=== PATIENT | female | born 1930 | race Caucasian/White ===

== ENCOUNTER → 2016-06-29 | Outpatient (CLI) | payer MEDICARE, BC ==
[2016-06-29 17:23] LABS: Anisocytosis Moderate; Basophils % (A) 1 %; CH 29.4; CHCM 29.7; Eosinophils # (A) 0.1 k/uL (0-0.7); Eosinophils % (A) 3 %; HCT 32.5 % (34.0-46.0); HDW 4.05; HGB 9.7 gm/dL (11.4-16.0); Hypochromasia Marked; Luc % (Auto) 2; Lymphocytes # (A) 0.5 k/uL (1.0-4.8); Lymphocytes % (A) 11 %; MCH 29.8 pg (25.0-35.0); MCHC 29.9 g/dL (31.0-37.0); MCV 99.5 fL (80.0-100.0); Macrocytosis Moderate; Mean Platelet Volume 8.2; Monocytes # (A) 0.2 k/uL (0-1.0); Monocytes % (A) 3 %; Neutrophils # (A) 3.4 k/uL (1.3-7.7); Neutrophils % (A) 79 %; Poikilocytosis Moderate; RBC 3.26 m/uL (3.80-5.40); RDW 23.2 % (11.5-15.5); WBC 4.3 k/uL (3.8-10.6); WBC (Perox) 4.66
[2016-06-29 17:38] LABS: Calcium 8.2 mg/dL (8.4-10.2); Potassium 4.9 mmol/L (3.5-5.1); Total Bilirubin 0.8 mg/dL (0.2-1.3); Total Protein 6.7 g/dL (6.3-8.2)
[2016-06-29 17:49] LABS: % Iron Saturation 14.6 % (20-50)
== END | disposition home or self-care (01) ==
LOC: LABWHC1 16:14
PROVIDERS: ATTEND Internal Medicine
DX: D64.9 Anemia, unspecified (principal); N19 Unspecified kidney failure
CPT/HCPCS: 36415; 80053; 82728; 83540; 83550; 85025; 99214

== ENCOUNTER → 2016-07-05 | Outpatient (CLI) | payer MEDICARE, BC | END | disposition home or self-care (01) | LOC: LABWHC1 17:08 | PROVIDERS: ATTEND Internal Medicine | DX: D64.9 Anemia, unspecified (principal); N19 Unspecified kidney failure | CPT/HCPCS: 36415; 81050; 82575; 84156 ==

== ENCOUNTER 2016-07-11 10:25 | Emergency (ER) | payer MEDICARE, BC ==
[2016-07-11 10:42] VITALS: RESP 16
--- NOTE | 2016-07-11 11:05 | ED ---
Lower Extremity Injury HPI - General Source: patient, RN notes reviewed Mode of arrival: wheelchair Limitations: no limitations <Teri Hayes - Last Filed: 07/11/16 12:32> <Nas Dao - Last Filed: 07/11/16 13:19> - General Chief Complaint: Extremity Injury, Lower Stated Complaint: leg pain and swelling Time Seen by Provider: 07/11/16 10:46 - History of Present Illness Initial Comments: 86-year-old female presents to the emergency department with a chief complaint of left lower extremity swelling. Patient is getting worse over the last week or so. Patient states that around the ankle but no other pain. Patient states there is no falls or injuries to the ankle. Patient states that she was concerned because she just continued to have this discomfort so she thought that she should be evaluated. Patient denies any recent fever, chills, shortness of breath, chest pain, back pain, abdominal pain, nausea vomiting, numbness or tingling, dysuria or hematuria, constipation or diarrhea, headaches or visual changes, or any other current symptoms. (Teri Hayes) - Related Data Home Medications Medication Instructions Recorded Confirmed Levothyroxine Sodium [Synthroid] 88 mcg PO DAILY 07/11/16 07/11/16 Metoprolol Tartrate [Metoprolol 25 mg PO DAILY 07/11/16 07/11/16 Tartrate] Previous Rx's Medication Instructions Recorded Cephalexin [Keflex] 500 mg PO Q6HR #40 cap 07/11/16 Allergies Allergy/AdvReac Type Severity Reaction Status Date / Time No Known Allergies Allergy Verified 07/11/16 10:42 Review of Systems ROS Other: All systems not noted in ROS Statement are negative. <Teri Hayes - Last Filed: 07/11/16 12:32> ROS Other: All systems not noted in ROS Statement are negative. <Nas Dao - Last Filed: 07/11/16 13:19> ROS Statement: Those systems with pertinent positive or pertinent negative responses have been documented in the HPI. Past Medical History Past Medical History: Cancer, COPD, Hyperlipidemia, Hypertension, Syncope, Thyroid Disorder Additional Past Medical History / Comment(s): colon ca, recent lab tests show abnormal kidney fx History of Any Multi-Drug Resistant Organisms: None Reported Past Surgical History: Appendectomy Additional Past Surgical History / Comment(s): thyroidectomy, bowel resection Past Psychological History: No Psychological Hx Reported Smoking Status: Former smoker Past Alcohol Use History: None Reported Past Drug Use History: None Reported <Teri Hayes - Last Filed: 07/11/16 12:32> General Exam Limitations: no limitations General appearance: alert, in no apparent distress Head exam: Present: atraumatic, normocephalic, normal inspection ENT exam: Present: normal exam, mucous membranes moist Neck exam: Present: normal inspection. Absent: tenderness, meningismus, lymphadenopathy Respiratory exam: Present: normal lung sounds bilaterally. Absent: respiratory distress, wheezes, rales, rhonchi, stridor Cardiovascular Exam: Present: regular rate, normal rhythm, normal heart sounds. Absent: systolic murmur, diastolic murmur, rubs, gallop, clicks Extremities exam: Present: full ROM, tenderness (Around the left ankle), normal capillary refill, pedal edema (To the left lower extremity), calf tenderness ( Left lower extremity). Absent: joint swelling Back exam: Present: normal inspection Neurological exam: Present: alert, oriented X3 Psychiatric exam: Present: normal affect, normal mood Skin exam: Present: warm, dry, intact, normal color. Absent: rash <Teri Hayes - Last Filed: 07/11/16 12:32> Course <Teri Hayes - Last Filed: 07/11/16 12:32> <Nas Dao - Last Filed: 07/11/16 13:19> Vital Signs 07/11/16 07/11/16 10:36 13:10 Temperature 98.7 F 98.2 F Pulse Rate 91 93 Respiratory 16 16 Rate Blood Pressure 147/71 134/66 O2 Sat by Pulse 97 97 Oximetry - Reevaluation(s) Reevaluation #1: 07/11/16 13:19 I did personally do a [id number] evaluation the patient did discuss the findings with her and her having members. Left leg did demonstrate some edema compared to the right with some localized mild erythema no definite lymphangitis no open wounds. No calf tenderness. The ultrasound was negative. Patient will be discharged with follow-up with her doctor. I do agree with the assessment and plan. (Nas Dao) Medical Decision Making - Radiology Data Radiology results: report reviewed, image reviewed <Teri Hayes - Last Filed: 07/11/16 12:32> <Nas Dao - Last Filed: 07/11/16 13:19> - Medical Decision Making 86-year-old female presents emergency Department chief complaint of left lower extremity swelling. At this time ultrasound was reviewed and negative as well as x-ray. We discussed the patient could have a cellulitis (Keflex. We did discuss up with her Dr. return parameters all questions. He stated he understood the plan. They will be discharged home. (Teri Hayes) Disposition Time of Disposition: 12:33 <Teri Hayes - Last Filed: 07/11/16 12:32> <Nas Dao - Last Filed: 07/11/16 13:19> Clinical Impression: Left leg cellulitis Disposition: HOME SELF-CARE Condition: Stable Instructions: Cellulitis (ED) Additional Instructions: Please use medication as discussed. Please follow up with family doctor if symptoms have not improved over the next two days. Please return to the emergency room if your symptoms increase or worsen or for any other concerns. Prescriptions: Cephalexin [Keflex] 500 mg PO Q6HR #40 cap Referrals: Gina Montaño MD [Primary Care Provider] - 1-2 days
--- NOTE | 2016-07-11 11:20 | XR ---
EXAMINATION TYPE: XR ankle complete LT DATE OF EXAM: 07/11/2016 11:07 AM COMPARISON: NONE HISTORY: Pain, swelling TECHNIQUE: 3 view left ankle with mobile apparatus FINDINGS: No acute fracture evident. There is mild diffuse soft tissue swelling. Ankle mortise is int act. IMPRESSION: 1. Mild diffuse soft tissue swelling. 2. No acute osseous abnormality. 3. Follow-up exam can be performed 7-10 days from acute trauma for continued pain.
--- NOTE | 2016-07-11 12:18 | US ---
EXAMINATION TYPE: US venous doppler duplex LE LT DATE OF EXAM: 07/11/2016 11:49 AM COMPARISON: NONE CLINICAL HISTORY: Pain, swelling in left leg with pitting edema. SIDE PERFORMED: Left TECHNIQUE: The lower extremity deep venous system is examined utilizing real time linear array sonog gi with graded compression, doppler sonography and color-flow sonography. VESSELS IMAGED: External Iliac Vein (EIV) Common Femoral Vein Deep Femoral Vein Greater Saphenous Vein * Femoral Vein Popliteal Vein Small Saphenous Vein * Proximal Calf Veins (* superficial vessels) Left Leg: Negative for DVT IMPRESSION: 1. Left lower extremity negative for deep venous thrombosis.
[2016-07-11 13:13] VITALS: BP 134/66; PULSE 93; TEMP 98.2
== END 2016-07-11 13:10 | disposition home or self-care (01) ==
LOC: EC 10:25
DX: L03.116 Cellulitis of left lower limb (principal); I10 Essential (primary) hypertension; E07.9 Disorder of thyroid, unspecified; Z87.891 Personal history of nicotine dependence; Z79.899 Other long term (current) drug therapy; Z85.038 Personal history of other malignant neoplasm of large intestine; Z90.89 Acquired absence of other organs
CPT/HCPCS: 99284

== ENCOUNTER → 2016-07-15 | Outpatient (CLI) | payer MEDICARE, BC ==
--- NOTE | 2016-07-15 15:29 | US ---
EXAMINATION TYPE: US kidneys/renal and bladder DATE OF EXAM: 07/15/2016 1:44 PM COMPARISON: NONE CLINICAL HISTORY: N17.9 ACUTE RENAL FAILURE SYNDROME. Elderly female with no symptoms EXAM MEASUREMENTS: Right Kidney: 9.7 x 4.0 x 4.0 cm Left Kidney: 10.4 x 4.8 x 4.1 cm Right Kidney: moderate hydronephrosis with appearance of shadowing inferior stone = 1.7cm Left Kidney: wnl Bladder: wnl Bilateral Jets seen: no incidental finding of spleen upper limits of normal measuring 11.73 cm with mild ascites noted. IMPRESSION: 1. Right hydronephrosis 2. Ascites
== END | disposition home or self-care (01) ==
LOC: RADUSWWP 13:01
PROVIDERS: ATTEND Internal Medicine
DX: N13.30 Unspecified hydronephrosis (principal); R18.8 Other ascites
CPT/HCPCS: 76770

== ENCOUNTER → 2016-07-28 | Outpatient (CLI) | payer MEDICARE, BC ==
--- NOTE | 2016-07-28 08:47 | CT ---
EXAMINATION TYPE: CT abdomen pelvis wo con DATE OF EXAM: 07/28/2016 COMPARISON: Report but no images of a previous study dated 06/12/2008 as well as a recent ultrasound d ated 07/15/2016. HISTORY: Hydronephrosis CT DLP: 200.7 mGycm Automated exposure control for dose reduction was used. FINDINGS: There is some scarring or atelectasis within the left lingula. There is no pleural or peric ardial fluid. The heart is not enlarged. Within the abdomen, there is ascites. The liver, spleen and gallbladder are normal. Both adrenal glands are normal. There is bilateral hydronephrosis. The ureters are not particularly dilated. There are numerous vascu lar calcifications within the pelvis. The difficult to exclude distal ureteric calculi. The bladder i s not distended. The pancreas is poorly visualized. There is extensive vascular calcification in the aortoiliac vessels. No definite lymphadenopathy is s een in the retroperitoneum. There is generalized anasarca. There is been a previous sigmoid resection. I do not see evidence of significant diverticulosis. Ther e is no evidence of bowel obstruction. No free air is seen. There is a dextroscoliosis. There is degenerative disc disease and hypertrophic spondylosis. There is mild wedging of the L1 vertebral body. This appears chronic. There is been interval straightening of the right hip. No bony destructive lesion is seen. IMPRESSION: 1. MODERATE ASCITES. 2. BILATERAL HYDRONEPHROSIS. THERE IS NO SIGNIFICANT HYDROURETER. MULTIPLE CALCIFICATIONS WITHIN THE PELVIS MAKE IT DIFFICULT TO EXCLUDE DISTAL URETERIC CALCULI. 3. GENERALIZED ANASARCA. 4. POSTSURGICAL CHANGE. 5. DEGENERATIVE CHANGES WITHIN THE SPINE.
== END | disposition home or self-care (01) ==
LOC: RADCTMAIN 07:48
PROVIDERS: ATTEND Urology
DX: N13.30 Unspecified hydronephrosis (principal); R18.8 Other ascites; Z98.890 Other specified postprocedural states
CPT/HCPCS: 74176

== ENCOUNTER → 2016-08-05 | Outpatient (CLI) | payer MEDICARE, BC ==
--- NOTE | 2016-08-05 09:52 | US ---
EXAMINATION TYPE: US abdomen complete DATE OF EXAM: 08/05/2016 COMPARISON: 07/15/2016 CLINICAL HISTORY: R10.9 Abdomen And Pelvic Pain. Pain. EXAM MEASUREMENTS: Liver Length: 15.2 cm Gallbladder Wall: 0.15 cm CBD: 0.42 cm Spleen: 9.8 cm Right Kidney: 8.2 x 3.5 x 3.1 cm Left Kidney: 6.6 x 3.0 x 3.9 cm Pancreas:limited obscured by gas.l Liver: wnl Gallbladder: Pericholecystic fluid visualized. Evidence for sonographic Estrada's sign: No CBD: wnl Spleen: wnl Right Kidney: Hydronephrosis and 1.2 cm echogenic focus.l Left Kidney:Hydronephrosis visualized. L Upper IVC: wnl Abd Aorta: wnl Ascites visualized. IMPRESSION: 1. There is pericholecystic fluid but no gallbladder wall thickening or gallstones. Correlate with HI DA scan as clinically warranted. 2. Bilateral hydronephrosis with a 1.2 cm right renal stone suspected.
--- NOTE | 2016-08-05 09:53 | US ---
EXAMINATION TYPE: US pelvic complete DATE OF EXAM: 08/05/2016 COMPARISON: NONE CLINICAL HISTORY: R10.9 Abdomen and Pelvic Pain. Pain Date of LMP: Many years ago patient unsure of exact date. EXAM MEASUREMENTS: Uterus: 5.1 x 2.5 x 3.1 cm Endometrial Stripe: Not well visualized. cm Right Ovary: Not visualized Left Ovary Not visualized. 1. Uterus: Anteverted 2. Endometrium: Obscured by overlying bowel gas 3. Right Ovary: Obscured by overlying bowel gas 4. Left Ovary: Obscured by overlying bowel gas. 5. Bilateral Adnexa: wnl 6. Posterior cul-de-sac: wnl IMPRESSION: 1. Limited exam due to overlying bowel gas demonstrates no definite acute abnormality as visualized. Ovaries are not seen. 2. Endometrial stripe could not be visualized.
--- NOTE | 2016-08-05 09:54 | US ---
EXAMINATION TYPE: US venous doppler duplex LE LT DATE OF EXAM: 08/05/2016 9:06 AM COMPARISON: NONE CLINICAL HISTORY: LLE V12.51 Deep Vein Thrombosis R22.42 Swelling. Left leg edema. SIDE PERFORMED: Left TECHNIQUE: The lower extremity deep venous system is examined utilizing real time linear array sonog gi with graded compression, doppler sonography and color-flow sonography. VESSELS IMAGED: External Iliac Vein (EIV) Common Femoral Vein Deep Femoral Vein Greater Saphenous Vein * Femoral Vein Popliteal Vein Small Saphenous Vein * Proximal Calf Veins (* superficial vessels) Left Leg: Negative for DVT IMPRESSION: 1. No diagnostic evidence of DVT.
== END | disposition home or self-care (01) ==
LOC: RADUSWWP 08:01
PROVIDERS: ATTEND Internal Medicine
DX: N13.30 Unspecified hydronephrosis (principal); R10.9 Unspecified abdominal pain; I82.409 Acute embolism and thrombosis of unspecified deep veins of unspecified lower extremity
CPT/HCPCS: 76700; 76856

== ENCOUNTER 2016-08-13 08:39 | Day surgery (SDC) | payer MEDICARE, BC ==
[2016-08-13 09:09] VITALS: BP 139/72; PULSE 100; RESP 18; TEMP 97.7
--- NOTE | 2016-08-13 10:04 | US ---
Therapeutic paracentesis. DATE OF EXAM: 08/13/2016 CLINICAL HISTORY: Ascites Primary imaging demonstrated no evidence of sizable fluid collection for percutaneous drainage. IMPRESSION: Deferred paracentesis due to no sizable collection for drainage.
== END 2016-08-13 10:00 | disposition home or self-care (01) ==
LOC: RADPROMAIN 08:39
PROVIDERS: ATTEND Internal Medicine
DX: R18.8 Other ascites (principal); Z53.8 Procedure and treatment not carried out for other reasons; N13.30 Unspecified hydronephrosis; R60.0 Localized edema; C73 Malignant neoplasm of thyroid gland; C18.9 Malignant neoplasm of colon, unspecified; J45.909 Unspecified asthma, uncomplicated; M19.90 Unspecified osteoarthritis, unspecified site; Z87.891 Personal history of nicotine dependence; N18.9 Chronic kidney disease, unspecified; Z79.82 Long term (current) use of aspirin; Z79.899 Other long term (current) drug therapy
CPT/HCPCS: 76705

== ENCOUNTER → 2016-08-16 | Outpatient (CLI) | payer MEDICARE, BC ==
[2016-08-16 17:07] LABS: Calcium 7.5 mg/dL (8.4-10.2); Potassium 5.5 mmol/L (3.5-5.1); Total Bilirubin 0.8 mg/dL (0.2-1.3); Total Protein 6.6 g/dL (6.3-8.2)
[2016-08-16 17:17] LABS: Anisocytosis Moderate; CH 28.1; CHCM 29.4; HCT 40.1 % (34.0-46.0); HDW 4.17; HGB 11.4 gm/dL (11.4-16.0); Hypochromasia Marked; MCH 27.2 pg (25.0-35.0); MCHC 28.4 g/dL (31.0-37.0); MCV 95.8 fL (80.0-100.0); Macrocytosis Slight; Mean Platelet Volume 8.4; Poikilocytosis Moderate; RBC 4.19 m/uL (3.80-5.40); RDW 21.5 % (11.5-15.5); WBC 11.3 k/uL (3.8-10.6)
[2016-08-16 20:16] LABS: Add Differential Manual Differential
[2016-08-16 20:17] LABS: Manual Review Performed; Nucleated Red Blood Cells 0 /100 WBC (0-0); Ovalocytes Present; Polychromasia Present; Total Cells Counted 100
[2016-08-16 20:18] LABS: Tear Drop Cells Present
== END | disposition home or self-care (01) ==
LOC: LABWHC1 16:38
PROVIDERS: ATTEND Internal Medicine
DX: N18.9 Chronic kidney disease, unspecified (principal)
CPT/HCPCS: 36415; 80053; 85025

== ENCOUNTER → 2016-08-20 | Outpatient (CLI) | payer MEDICARE, BC ==
[2016-08-20 08:57] LABS: Potassium 3.9 mmol/L (3.5-5.1)
== END | disposition home or self-care (01) ==
LOC: LABWHC1 08:09
PROVIDERS: ATTEND Internal Medicine
DX: N19 Unspecified kidney failure (principal); E87.5 Hyperkalemia
CPT/HCPCS: 36415; 80048

== ENCOUNTER 2016-10-15 14:17 | Inpatient (IN) | payer BC, MEDICARE ==
[2016-10-15] MEDS ORDERED: SODIUM CHLORIDE 0.9% 1,000 ML IV STA ×2 (16:34)
--- NOTE | 2016-10-15 16:58 | ED ---
Weakness HPI - General Chief complaint: Weakness Stated complaint: dehydration/no appetite-sent by Time Seen by Provider: 10/15/16 16:32 Source: patient, family, RN notes reviewed, old records reviewed Mode of arrival: wheelchair Limitations: no limitations - History of Present Illness Initial comments: Is an 86-year-old female presenting to the emergency department after being urged to come here from Dr. Montaño. He reports that he wants her admitted due to the dehydration and severe diarrhea. Patient has had no recent antibiotics, they're not concerned for C. diff. Patient's caregiver, her niece, reports that she has been increasingly weak over the past few weeks, and is not able to tolerate a normal diet. Patient report that she has been occasionally short of breath, denies a specific Abdominal pain or chest pain. Patient reports he just feels as if she has no energy whatsoever. - Related Data Home Medications Medication Instructions Recorded Confirmed Levothyroxine Sodium [Synthroid] 88 mcg PO DAILY 07/11/16 10/15/16 Metoprolol Tartrate [Metoprolol 25 mg PO DAILY 07/11/16 10/15/16 Tartrate] Allergies Allergy/AdvReac Type Severity Reaction Status Date / Time No Known Allergies Allergy Verified 10/15/16 16:44 Review of Systems ROS Statement: Those systems with pertinent positive or pertinent negative responses have been documented in the HPI. ROS Other: All systems not noted in ROS Statement are negative. Past Medical History Past Medical History: Cancer, COPD, Hyperlipidemia, Hypertension, Syncope, Thyroid Disorder Additional Past Medical History / Comment(s): colon ca, recent lab tests show abnormal kidney fx History of Any Multi-Drug Resistant Organisms: None Reported Past Surgical History: Appendectomy Additional Past Surgical History / Comment(s): thyroidectomy, bowel resection Past Psychological History: No Psychological Hx Reported Smoking Status: Former smoker Past Alcohol Use History: None Reported Past Drug Use History: None Reported General Exam - General Exam Comments Initial Comments: His is a 86-year-old female. No acute distress. Limitations: no limitations General appearance: alert, in no apparent distress Head exam: Present: atraumatic, normocephalic, normal inspection Eye exam: Present: normal appearance, PERRL, EOMI. Absent: scleral icterus, conjunctival injection, periorbital swelling ENT exam: Present: normal exam, mucous membranes moist Neck exam: Present: normal inspection. Absent: tenderness, meningismus, lymphadenopathy Respiratory exam: Present: wheezes (diminished left lower lung sounds). Absent : normal lung sounds bilaterally, respiratory distress, rales, rhonchi, stridor Cardiovascular Exam: Present: regular rate, normal rhythm, tachycardia, normal heart sounds. Absent: systolic murmur, diastolic murmur, rubs, gallop, clicks GI/Abdominal exam: Present: soft, normal bowel sounds. Absent: distended, tenderness, guarding, rebound, rigid Extremities exam: Present: normal inspection, full ROM, normal capillary refill , pedal edema (Bilateral 2+ pedal edema.). Absent: tenderness, joint swelling, calf tenderness Back exam: Present: normal inspection, full ROM Neurological exam: Present: alert, oriented X3, CN II-XII intact, normal gait Psychiatric exam: Present: normal affect, normal mood Skin exam: Present: warm, dry, intact, normal color. Absent: rash Course Vital Signs 10/15/16 14:27 Temperature 96.7 F L Pulse Rate 104 H Respiratory 18 Rate Blood Pressure 111/67 O2 Sat by Pulse 97 Oximetry Medical Decision Making - Medical Decision Making A 6-year-old female chief complaint dehydration and increased weakness. Patient started on IV fluids and laboratory obtained. She was encouraged to get admitted by Dr. Ayoub, for dehydratin. Patient was given chest x-ray, CT brain without contrast. Patient's Renal function is significantly elevated at 67 and creatinine of 5.98. Patient also has a low potassium 3.2. This will be corrected. [facility] Dr[facility]. Patient will be admitted with IV hydration. I will place a consult for nephrology, Dr. Barnhart. Patient's chest x-ray also shows evidence of a left sided consolidation, left pleural effusion. BNP obtain and blood cultures obtained. Patient was started on Rocephin and Azithromycin for pneumonia, is a concern with starting Levaquin due to patient's poor renal function at this time. Patient only also given the pneumonia protocol with breathing treatments. Patient's hemoglobin is also noted to be somewhat low at 8.9. We will reevaluate this tomorrow and see if it does have any acute changes. She's had no diarrhea episodes while in the emergency department. Currently pending C. diff, and stool cultures. Patient also has not urinated after 1 L of fluids and some maintenance rate, patient will be admitted upstairs. - Lab Data Result diagrams: 10/15/16 17:27 10/15/16 17:27 Lab Results 10/15/16 10/15/16 10/15/16 Range/Units 17:27 17:27 17:27 WBC 7.2 (3.8-10.6) k/uL RBC 3.45 L (3.80-5.40) m/uL Hgb 8.9 L D (11.4-16.0) gm/dL Hct 29.1 L (34.0-46.0) % MCV 84.3 D (80.0-100.0) fL MCH 25.7 (25.0-35.0) pg MCHC 30.5 L (31.0-37.0) g/dL RDW 22.0 H (11.5-15.5) % Plt Count 104 L D (150-450) k/uL Neutrophils % 78 % Lymphocytes % 10 % Monocytes % 3 % Eosinophils % 7 % Basophils % 1 % Neutrophils # 5.6 (1.3-7.7) k/uL Lymphocytes # 0.7 L (1.0-4.8) k/uL Monocytes # 0.2 (0-1.0) k/uL Eosinophils # 0.5 (0-0.7) k/uL Basophils # 0.0 (0-0.2) k/uL Hypochromasia Marked Poikilocytosis Marked Anisocytosis Moderate Microcytosis Slight PT 11.0 (9.0-12.0) sec INR 1.1 (<1.2) APTT 28.4 (22.0-30.0) sec Sodium 141 (137-145) mmol/L Potassium 3.2 L (3.5-5.1) mmol/L Chloride 116 H (98-107) mmol/L Carbon Dioxide 13 L (22-30) mmol/L Anion Gap 12 mmol/L BUN 67 H (7-17) mg/dL Creatinine 5.98 H* (0.52-1.04) mg/dL Est GFR (MDRD) Af Amer 8 (>60 ml/min/1.73 sqM) Est GFR (MDRD) Non-Af 7 (>60 ml/min/1.73 sqM) Glucose 76 (74-99) mg/dL Plasma Lactic Acid Waldo (0.7-2.0) mmol/L Calcium 6.9 L (8.4-10.2) mg/dL Magnesium 2.0 (1.6-2.3) mg/dL Total Bilirubin 1.0 (0.2-1.3) mg/dL AST 18 (14-36) U/L ALT 32 (9-52) U/L Alkaline Phosphatase 83 (38-126) U/L Total Creatine Kinase (30-135) U/L CK-MB (CK-2) (0.0-2.4) ng/mL CK-MB (CK-2) Rel Index Troponin I (0.000-0.034) ng/mL Total Protein 5.9 L (6.3-8.2) g/dL Albumin 3.0 L (3.5-5.0) g/dL 10/15/16 10/15/16 Range/Units 17:27 17:27 WBC (3.8-10.6) k/uL RBC (3.80-5.40) m/uL Hgb (11.4-16.0) gm/dL Hct (34.0-46.0) % MCV (80.0-100.0) fL MCH (25.0-35.0) pg MCHC (31.0-37.0) g/dL RDW (11.5-15.5) % Plt Count (150-450) k/uL Neutrophils % % Lymphocytes % % Monocytes % % Eosinophils % % Basophils % % Neutrophils # (1.3-7.7) k/uL Lymphocytes # (1.0-4.8) k/uL Monocytes # (0-1.0) k/uL Eosinophils # (0-0.7) k/uL Basophils # (0-0.2) k/uL Hypochromasia Poikilocytosis Anisocytosis Microcytosis PT (9.0-12.0) sec INR (<1.2) APTT (22.0-30.0) sec Sodium (137-145) mmol/L Potassium (3.5-5.1) mmol/L Chloride (98-107) mmol/L Carbon Dioxide (22-30) mmol/L Anion Gap mmol/L BUN (7-17) mg/dL Creatinine (0.52-1.04) mg/dL Est GFR (MDRD) Af Amer (>60 ml/min/1.73 sqM) Est GFR (MDRD) Non-Af (>60 ml/min/1.73 sqM) Glucose (74-99) mg/dL Plasma Lactic Acid Waldo 1.0 (0.7-2.0) mmol/L Calcium (8.4-10.2) mg/dL Magnesium (1.6-2.3) mg/dL Total Bilirubin (0.2-1.3) mg/dL AST (14-36) U/L ALT (9-52) U/L Alkaline Phosphatase (38-126) U/L Total Creatine Kinase 106 (30-135) U/L CK-MB (CK-2) 2.2 (0.0-2.4) ng/mL CK-MB (CK-2) Rel Index 2.1 Troponin I <0.012 (0.000-0.034) ng/mL Total Protein (6.3-8.2) g/dL Albumin (3.5-5.0) g/dL 10/15/16 18:46 EKG shows normal sinus rhythm. Evidence of T-wave abdomen rounded considering anterior ischemia. Ventricular rate 67 beats were minute. WA interval 160 ms. QRS ration 86 ms. QT QTc is 400/422 ms. - Radiology Data Radiology results: report reviewed Chest x-ray shows Left lower lobe consolidation, left pleural effusion. There is probably mild heart failure. Brain CT shows cervical atrophy. No acute intracranial abnormality. Disposition Clinical Impression: Dehydration, Acute kidney injury, Diarrhea, Left lower lobe pneumonia, Pleural effusion, left Disposition: ADMITTED IP TO THIS HOSP Condition: Stable Referrals: Gnia Montaño MD [Primary Care Provider] - 1-2 days Time of Disposition: 18:58
[2016-10-15 17:53] LABS: Calcium 6.9 mg/dL (8.4-10.2); Potassium 3.2 mmol/L (3.5-5.1); Total Protein 5.9 g/dL (6.3-8.2)
[2016-10-15 17:56] LABS: INR 1.1 (<1.2); Partial Thromboplastin Time 28.4 sec (22.0-30.0)
[2016-10-15 18:06] LABS: Anisocytosis Moderate; Basophils % (A) 1 %; CH 26.2; CHCM 31.3; Creatine Kinase 106 U/L (30-135); Eosinophils # (A) 0.5 k/uL (0-0.7); Eosinophils % (A) 7 %; HCT 29.1 % (34.0-46.0); HDW 4.75; Hypochromasia Marked; Luc # (Auto) 0.11; Luc % (Auto) 2; Lymphocytes # (A) 0.7 k/uL (1.0-4.8); Lymphocytes % (A) 10 %; MCH 25.7 pg (25.0-35.0); MCHC 30.5 g/dL (31.0-37.0); Mean Platelet Volume 6.8; Microcytosis Slight; Monocytes # (A) 0.2 k/uL (0-1.0); Monocytes % (A) 3 %; Neutrophils # (A) 5.6 k/uL (1.3-7.7); Neutrophils % (A) 78 %; Poikilocytosis Marked; RBC 3.45 m/uL (3.80-5.40); WBC 7.2 k/uL (3.8-10.6); WBC (Perox) 7.57
[2016-10-15 18:10] LABS: HGB 8.9 gm/dL (11.4-16.0)
[2016-10-15 18:11] LABS: MCV 84.3 fL (80.0-100.0)
[2016-10-15 18:20] LABS: Creatine Kinase MB 2.2 ng/mL (0.0-2.4); Troponin I <0.012 ng/mL (0.000-0.034)
--- NOTE | 2016-10-15 18:25 | CT ---
EXAMINATION TYPE: CT brain wo con DATE OF EXAM: 10/15/2016 COMPARISON: NONE HISTORY: Patient poor historian. Patient denies head complaints. Weakness. CT DLP: 782.7 mGycm Automated exposure control for dose reduction was used. FINDINGS: There is cerebral cortical atrophy. There is no mass effect nor midline shift. There is no sign of in tracranial hemorrhage. The calvarium appears intact. IMPRESSION: CEREBRAL ATROPHY. NO ACUTE INTRACRANIAL ABNORMALITY.
[2016-10-15] MEDS ORDERED: NALOXONE 0.4 MG/ML 1 ML VIAL IV PRN (18:55)
[2016-10-15] MEDS ORDERED: ACETAMINOPHEN TAB 325 MG TAB PO PRN (18:55)
[2016-10-15] MEDS ORDERED: LORazepam 2 MG/ML SYRINGE IV PRN (18:55)
[2016-10-15] MEDS ORDERED: SODIUM CHLORIDE 0.9% 1,000 ML IV SCH (19:00)
--- NOTE | 2016-10-15 19:04 | XR ---
EXAMINATION TYPE: XR chest 2V DATE OF EXAM: 10/15/2016 COMPARISON: NONE HISTORY: Weakness TECHNIQUE: Frontal and lateral views of the chest are obtained. FINDINGS: There is blunting of left costophrenic angle. There is mild pulmonary vascular congestion. Heart appears enlarged. There is some pleural scarring at the lung apices. IMPRESSION: There is left lower lobe consolidation and left pleural effusion. There is probably mild heart failure.
[2016-10-15] MEDS ORDERED: IPRATROPIUM-ALBUTEROL 3 ML NEB INHALATION PRN (19:18)
[2016-10-15] MEDS ORDERED: AZITHROMYCIN 500 MG in SODIUM CHLORIDE 0.9% 250 ML IVPB STA (19:18)
[2016-10-15] MEDS ORDERED: PNEUMONIA PROTOCOL UTILIZED 1 EACH MISC PO PRN (19:18)
[2016-10-15] MEDS: POTASSIUM CHLORIDE 10 MEQ, LIDOCAINE 2% INJ 10 MG in SODIUM CHLORIDE 0.9% 100 ML IVPB SCH ×2 (19:24→20:58)
[2016-10-15] MEDS: FAMOTIDINE 20 MG TAB PO SCH (21:17)
[2016-10-15] MEDS: HEPARIN SODIUM,PORCINE 5,000 UNIT/ML 1 ML VIAL SQ SCH (21:17)
[2016-10-15] MEDS: SODIUM CHLORIDE 0.9% 1,000 ML IV SCH (22:07)
[2016-10-16] MEDS: VANCOMYCIN ORAL SOLUTION 250 MG/5 ML BOTTLE PO SCH ×4 (06:06→23:55)
[2016-10-16] MEDS: LEVOTHYROXINE 88 MCG TAB PO SCH (06:06)
[2016-10-16] MEDS: CHERRY FLAVOR 60 ML BOTTLE PO SCH ×4 (06:06→23:56)
[2016-10-16] MEDS: METOPROLOL TARTRATE 25 MG TAB PO SCH (07:28)
[2016-10-16] MEDS: HEPARIN SODIUM,PORCINE 5,000 UNIT/ML 1 ML VIAL SQ SCH ×2 (07:28→22:27)
[2016-10-16] MEDS: FAMOTIDINE 20 MG TAB PO SCH ×2 (07:28→22:27)
[2016-10-16 07:32] LABS: Anisocytosis Moderate; Basophils % (A) 1 %; CH 26.4; CHCM 31.2; Eosinophils # (A) 0.4 k/uL (0-0.7); Eosinophils % (A) 6 %; HCT 26.8 % (34.0-46.0); HDW 4.69; HGB 7.9 gm/dL (11.4-16.0); Hypochromasia Marked; Luc # (Auto) 0.07; Luc % (Auto) 1; Lymphocytes # (A) 0.5 k/uL (1.0-4.8); Lymphocytes % (A) 9 %; MCH 25.2 pg (25.0-35.0); MCHC 29.6 g/dL (31.0-37.0); MCV 85.2 fL (80.0-100.0); Mean Platelet Volume 7.2; Microcytosis Slight; Monocytes # (A) 0.1 k/uL (0-1.0); Monocytes % (A) 2 %; Neutrophils # (A) 4.7 k/uL (1.3-7.7); Neutrophils % (A) 81 %; Poikilocytosis Marked; RBC 3.15 m/uL (3.80-5.40); RDW 22.5 % (11.5-15.5); WBC 5.8 k/uL (3.8-10.6); WBC (Perox) 5.92
[2016-10-16 07:54] LABS: Potassium 3.3 mmol/L (3.5-5.1)
[2016-10-16 08:05] LABS: Calcium 6.4 mg/dL (8.4-10.2)
[2016-10-16 08:15] LABS: Ovalocytes Present
--- NOTE | 2016-10-16 08:30 | P.NPCON ---
History of Present Illness - Reason for Consult acute renal failure - History of Present Illness Patient is a 86-year-old female who was admitted to the hospital with complaints of weakness fatigue for the last few weeks. According to her caregiver who is her niece patient has been having diarrhea for up for the past 3-4 days as well. She has been mainly laying in bed. Family has noticed increased lower extremity edema. Her C. diff toxin did boot turner to be positive. There is no prior history of kidney disease. Serum creatinine was 5.98 mg/dL the time of admission. Patient is currently maintained on IV fluids at 50 mL an hour her creatinine is 5.6 today. Prior creatinine was 2.1 in July 2016 and prior to that in June we have a creatinine of 1.3. No history of use of nonsteroidal anti-inflammatory agents. Blood pressure was slightly on the lower side at the time of admission. Off note is an ultrasound done on 08/05/2016 which showed bilateral hydronephrosis. According to the caregiver patient was scheduled to see nephrology as outpatient but she deteriorated and is now admitted in the hospital. Review of Systems Review of systems as per HPI other systems negative Past Medical History Past Medical History: Cancer, COPD, Hyperlipidemia, Hypertension, Syncope, Thyroid Disorder Additional Past Medical History / Comment(s): colon ca, recent lab tests show abnormal kidney fx History of Any Multi-Drug Resistant Organisms: None Reported Past Surgical History: Appendectomy Additional Past Surgical History / Comment(s): thyroidectomy, bowel resection Past Psychological History: No Psychological Hx Reported Smoking Status: Former smoker Past Alcohol Use History: None Reported Past Drug Use History: None Reported Medications and Allergies Home Medications Medication Instructions Recorded Confirmed Type Levothyroxine Sodium [Synthroid] 88 mcg PO DAILY 07/11/16 10/15/16 History Metoprolol Tartrate [Metoprolol 25 mg PO DAILY 07/11/16 10/15/16 History Tartrate] Allergies Allergy/AdvReac Type Severity Reaction Status Date / Time No Known Allergies Allergy Verified 10/15/16 16:44 Physical Exam Vitals: Vital Signs Temp Pulse Pulse Resp BP BP Pulse Ox 10/16/16 07:00 96.7 F L 72 18 126/67 97 10/15/16 23:00 96 F L 78 20 109/63 98 10/15/16 20:55 96.7 F L 10/15/16 20:54 78 20 137/66 10/15/16 20:13 97.3 F L 71 18 134/61 96 10/15/16 19:32 70 18 131/60 99 10/15/16 14:27 96.7 F L 104 H 18 111/67 97 Intake and Output 10/15/16 10/16/16 10/16/16 22:59 06:59 14:59 Intake Total 200 100 Balance 200 100 Intake: Oral 200 100 Other: # Voids 2 3 # Bowel Movements 5 Weight 46.493 kg On examination patient is comfortable awake she is not in any acute distress alert and oriented 3. Gordon blood pressure is 126/67 Heart rate 72/m Patient is afebrile Abdomen is soft nontender Examination of the heart S1 and S2 Examination lungs bilateral breath sounds are heard decreased breath sounds bases Examination of lower extremities shows edema 1+ bilaterally. 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 Results - Lab Results Most recent lab results Calcium 6.4 mg/dL (8.4-10.2) L* 10/16/16 07:02 Magnesium 2.0 mg/dL (1.6-2.3) 10/15/16 17:27 10/16/16 07:02 10/16/16 07:02 Assessment and Plan Plan: Assessment 1. Acute kidney injury, mostly obstructive versus a component of ATN on top secondary to C. diff colitis. Patient's ultrasound in July showed evidence of bilateral hydronephrosis. I we will repeat another ultrasound of the kidneys. Urine output will be accurately monitored. We may continue with the this saline at 50 mL an hour for now. Patient does not appear to be significantly short of breath. She does have lower extremity edema which can be associated with C. diff colitis and the loss of protein. 2. C. diff colitis 3. History of colon cancer 4. COPD Plan Check ultrasound of the kidneys, measure accurate urine output. Start treatment for C. diff colitis. If chest x-ray shows worsening CHF I will discontinue the IV fluids. Avoid hypotension and avoid any other nephrotoxic medications. Thank you for the consultation we'll continue to follow the patient with you during her hospitalization.
--- NOTE | 2016-10-16 08:32 | XR ---
EXAMINATION TYPE: XR chest 2V DATE OF EXAM: 10/16/2016 COMPARISON: 10/15/2016 TECHNIQUE: PA and lateral views submitted. HISTORY: Pneumonia FINDINGS: Left-sided consolidation pleural effusion noted. Biapical pleural thickening. No interstitial edema. Heart size stable. Underlying COPD noted. IMPRESSION: 1. Stable left lower lobe infiltrate and small effusion. 2. COPD.
[2016-10-16] MEDS ORDERED: CALCIUM GLUCONATE 1,000 MG in SODIUM CHLORIDE 0.9% 100 ML IVPB ONE (08:41)
[2016-10-16] MEDS: SODIUM BICARBONATE TAB 650 MG TAB PO SCH ×3 (09:15→22:27)
--- NOTE | 2016-10-16 11:49 | P.CNPUL ---
History of Present Illness Consult date: 10/16/16 Reason for consult: dyspnea, cough, hypoxemia, pneumonia, pleural effusion, abnormal CXR/CT History of present illness: Consult dated 10/16/2016 This is a 86-year-old female who sees my partner as her primary. Apparently presented to the office yesterday and was sent directly over to the emergency room. The patient apparently was thought to have dehydration and some mental status changes along with some weakness. The patient was evaluated emergency room. The patient was found to have a left lower lobe pneumonia left pleural effusion. Hasn't been really feeling well since June. Decreased appetite. About lower extremity edema. Just has not had weight loss of maybe 10 or 15 pounds over the last month or so. The patient just isn't herself. The patient was a former smoker many years ago. Has smoked recently. Did smoke for a long period of time. It appears that her 2 major problems are hypothyroidism and hypertension for which she takes Synthroid and metoprolol respectively. ALLERGIES are denied. Review of Systems A 12 point review of system is positive for weakness weight loss and decreased appetite lower extremity edema and just not feeling well. Bit of a cough that she's had a chronic cough. Doesn't produce any phlegm. No fever or chills. No hemoptysis. Past Medical History Past Medical History: Cancer, COPD, Hyperlipidemia, Hypertension, Syncope, Thyroid Disorder Additional Past Medical History / Comment(s): colon ca, recent lab tests show abnormal kidney fx History of Any Multi-Drug Resistant Organisms: None Reported Past Surgical History: Appendectomy Additional Past Surgical History / Comment(s): thyroidectomy, bowel resection Past Psychological History: No Psychological Hx Reported Smoking Status: Former smoker Past Alcohol Use History: None Reported Past Drug Use History: None Reported Medications and Allergies Home Medications Medication Instructions Recorded Confirmed Type Levothyroxine Sodium [Synthroid] 88 mcg PO DAILY 07/11/16 10/15/16 History Metoprolol Tartrate [Metoprolol 25 mg PO DAILY 07/11/16 10/15/16 History Tartrate] Allergies Allergy/AdvReac Type Severity Reaction Status Date / Time No Known Allergies Allergy Verified 10/15/16 16:44 Physical Exam Osteopathic Statement: *. No significant issues noted on an osteopathic structural exam other than those noted in the History and Physical/Consult. Vitals: Vital Signs Temp Pulse Pulse Resp BP BP Pulse Ox 10/16/16 07:00 96.7 F L 72 18 126/67 97 10/15/16 23:00 96 F L 78 20 109/63 98 10/15/16 20:55 96.7 F L 10/15/16 20:54 78 20 137/66 10/15/16 20:13 97.3 F L 71 18 134/61 96 10/15/16 19:32 70 18 131/60 99 10/15/16 14:27 96.7 F L 104 H 18 111/67 97 Intake and Output 10/15/16 10/16/16 10/16/16 22:59 06:59 14:59 Intake Total 200 100 Balance 200 100 Intake: Oral 200 100 Other: Voiding Method Toilet # Voids 2 3 1 # Bowel Movements 5 1 Weight 46.493 kg No acute distress, oriented 3. HEENT examination is grossly unremarkable. Mucous membranes are moist. No oral lesions. Neck supple. Full range of motion. No adenopathy or thyromegaly. Neck veins are flat. Cardiovascular examination reveals regular rhythm rate. S1-S2 normal. No S3- S4 or murmur. Lungs reveal some diminished breath sounds throughout. A few scattered rhonchi. No wheezes. No crackles. Abdomen soft bowel sounds are heard. Extremities are intact. There is about 1+ edema. No cyanosis or clubbing. Skin without rash. Neurologic examination is nonfocal. Results - Laboratory Findings CBC and BMP: 10/16/16 07:02 10/16/16 07:02 PT/INR, D-dimer PT 11.0 sec (9.0-12.0) 10/15/16 17:27 INR 1.1 (<1.2) 10/15/16 17:27 Abnormal lab findings: Abnormal Labs 10/15/16 10/15/16 10/16/16 17:27 17:27 00:55 RBC 3.45 L Hgb 8.9 L D Hct 29.1 L MCHC 30.5 L RDW 22.0 H Plt Count 104 L D Lymphocytes # 0.7 L Potassium 3.2 L Chloride 116 H Carbon Dioxide 13 L BUN 67 H Creatinine 5.98 H* Calcium 6.9 L Total Protein 5.9 L Albumin 3.0 L C. difficile (EIA) Intrp Positive A 10/16/16 10/16/16 07:02 07:02 RBC 3.15 L Hgb 7.9 L Hct 26.8 L MCHC 29.6 L RDW 22.5 H Plt Count 98 L Lymphocytes # 0.5 L Potassium 3.3 L Chloride 120 H* Carbon Dioxide 14 L BUN 63 H Creatinine 5.60 H* Calcium 6.4 L* Total Protein Albumin C. difficile (EIA) Intrp - Diagnostic Findings Chest x-ray: image reviewed (X-rays labs and medications are all reviewed.) Assessment and Plan (1) Colon cancer Status: Acute (2) Hypertension Status: Acute (3) Hypothyroidism Status: Acute (4) Weight loss Status: Acute (5) Acute kidney injury Status: Acute (6) Dehydration Status: Acute (7) Left lower lobe pneumonia Status: Acute (8) Pleural effusion, left Status: Acute Plan: Plan dated 10/16/2016 The patient will have a CAT scan ordered of the chest. She may need a diagnostic thoracentesis or bronchoscopy. We'll await the CAT scan. The CAT scan will have to be done without contrast given her BUN/creatinine. Additional recommendations and suggestions are forthcoming. We'll make sure we get her on some breathing treatments and appropriate antibiotics. Prognosis is guarded. Malignancy is certainly a possibility given her recent decreased appetite and weight loss. Time with Patient: Greater than 30
[2016-10-16] MEDS ORDERED: IPRATROPIUM-ALBUTEROL 3 ML NEB INHALATION PRN (11:50)
[2016-10-16 11:57] VITALS: BMI 18.7
[2016-10-16] MEDS: IPRATROPIUM-ALBUTEROL 3 ML NEB INHALATION SCH ×2 (12:21→20:51)
--- NOTE | 2016-10-16 12:28 | US ---
EXAMINATION TYPE: US kidneys/renal and bladder DATE OF EXAM: 10/16/2016 COMPARISON: us CLINICAL HISTORY: renal failure, hx of hydro and kidney stones. EXAM MEASUREMENTS: Right Kidney: 10.3 x 3.7 x 4.2 cm Left Kidney: 10.6 x 4.3 x 3.8 cm Patient has a stent from her kidney to her bladder Right Kidney: probable hydro, multiple echogenic foci seen inferior largest measuring 1.3cm, probable stones Left Kidney: Multiple large stones Bladder: not fully distended, stent visualized IMPRESSION: Findings are suggestive of bilateral nephrolithiasis with moderate right-sided hydronephrosis. Trace amount of ascites also incidentally noted.
[2016-10-16] MEDS: AZITHROMYCIN 500 MG TAB PO SCH (13:22)
[2016-10-16] MEDS ORDERED: Potassium Replacement Protocol 1 EACH MISC MISCELLANE PRN (16:42)
[2016-10-16 17:04] LABS: Amorphous Sediment,Urine Occasional /hpf; Appearance,Urine Cloudy (Clear); Bilirubin,Urine Negative (Negative); Glucose,Urine (UA) Negative (Negative); Ketones,Urine Negative (Negative); Leukocyte Esterase,Urine Large (Negative); Nitrite,Urine Negative (Negative); PH, Urine 5.5 (5.0-8.0); Particle Count 17565; Protein,Urine 1+ (Negative); RBC,Urine 31 /hpf (0-5); Specific Gravity,Urine 1.008 (1.001-1.035); Squamous Epithelial Cell,Urine 1 /hpf (0-4); UA Billing (MACRO vs. MICRO) MICRO; Urobilinogen,Urine <2.0 mg/dL (<2.0); WBC,Urine 43 /hpf (0-5)
[2016-10-16] MEDS: POTASSIUM CHLORIDE ER 20 MEQ TAB.ER PO SCH ×2 (18:01→18:35)
[2016-10-16] MEDS: SODIUM CHLORIDE 0.9% 1,000 ML IV SCH (18:37)
--- NOTE | 2016-10-16 19:01 | CT ---
EXAMINATION TYPE: CT chest wo con DATE OF EXAM: 10/16/2016 COMPARISON: NONE HISTORY: Complains of shortness of breath. History of asthma CT DLP: 104.8 mGycm, Automated exposure control for dose reduction was used. CONTRAST: Performed injected with 0 mL of Omnipaque 300. TECHNIQUE: Axial images were obtained at 5 mm thick sections. Reconstructed images are reviewed on [employer] computer in the coronal plane. FINDINGS: Portion of the thyroid visualized is normal. No suspicious lung nodules or focal infiltrates are present. Emphysematous changes are evident. There is a small right pleural effusion. Small to moderate left pleural effusion is present. Some streak a telectasis appears to be within the lingula. Mild infiltrate is in the anterior left lower lobe at th e diaphragm. No enlarged mediastinal or hilar adenopathy is evident. The ascending aorta diameter at the level o f the main pulmonary artery is 3.5 cm. The main pulmonary artery diameter at the bifurcation is 2.[address] sections are obtained through the upper abdomen. Superior pole left renal stent is evident . Some mild right hydronephrosis at the atrophic kidney may be present. IMPRESSIONS: 1. Small to moderate left and minimal right pleural effusions. 2. Suspected atelectasis within the lingula and likely at the left anterior lung base.
[2016-10-16] MEDS ORDERED: POTASSIUM CHLORIDE 10 MEQ, LIDOCAINE 2% INJ 10 MG in SODIUM CHLORIDE 0.9% 100 ML IVPB SCH (22:00)
[2016-10-17] MEDS: LEVOTHYROXINE 88 MCG TAB PO SCH (05:45)
[2016-10-17] MEDS: CHERRY FLAVOR 60 ML BOTTLE PO SCH ×3 (05:46→18:44)
[2016-10-17] MEDS: VANCOMYCIN ORAL SOLUTION 250 MG/5 ML BOTTLE PO SCH ×3 (05:46→18:44)
[2016-10-17 08:09] LABS: Potassium 3.5 mmol/L (3.5-5.1)
[2016-10-17 08:14] LABS: Anisocytosis Moderate; Basophils # (A) 0.1 k/uL (0-0.2); Basophils % (A) 1 %; CH 25.8; CHCM 30.6; Eosinophils # (A) 0.5 k/uL (0-0.7); Eosinophils % (A) 7 %; HCT 27.5 % (34.0-46.0); HDW 4.71; HGB 8.3 gm/dL (11.4-16.0); Hypochromasia Marked; Luc # (Auto) 0.14; Luc % (Auto) 2; Lymphocytes # (A) 0.5 k/uL (1.0-4.8); Lymphocytes % (A) 8 %; MCH 25.7 pg (25.0-35.0); MCHC 30.2 g/dL (31.0-37.0); MCV 85.1 fL (80.0-100.0); Mean Platelet Volume 7.1; Microcytosis Slight; Monocytes # (A) 0.1 k/uL (0-1.0); Monocytes % (A) 2 %; Neutrophils # (A) 5.6 k/uL (1.3-7.7); Neutrophils % (A) 81 %; Poikilocytosis Marked; RBC 3.23 m/uL (3.80-5.40); RDW 22.5 % (11.5-15.5); WBC 6.9 k/uL (3.8-10.6); WBC (Perox) 7.27
[2016-10-17 08:21] LABS: Calcium 6.5 mg/dL (8.4-10.2)
[2016-10-17] MEDS: IPRATROPIUM-ALBUTEROL 3 ML NEB INHALATION SCH ×3 (08:31→20:25)
--- NOTE | 2016-10-17 09:52 | P.PN ---
Subjective Progress note dated 10/17/2016 86-year-old female that we saw yesterday in consultation. Seen by my partner briefly the office and sent to the emergency room where she was admitted with a diagnosis of left lower lobe pneumonia. She does have a history of hypothyroidism and hypertension. The patient does have a history of mild asthma as well. Anyway we did a computed tomography scan of the chest. We are concerned about possibly of lung cancer because a cousin decreased appetite and weight loss. It appears mostly just to be an infiltrate/pneumonia with small effusion. She seemed be doing a bit better today. Family at the bedside. The patient's medications were adjusted yesterday. Objective - Vital Signs Vital signs: Vital Signs Temp 95 F L 10/17/16 06:15 Pulse 68 10/17/16 08:43 Resp 20 10/17/16 06:15 BP 130/69 10/17/16 06:15 Pulse Ox 100 10/17/16 06:15 Intake & Output 10/16/16 10/17/16 10/17/16 18:59 06:59 18:59 Intake Total 236 300 Output Total 325 4 Balance -89 296 Weight 46.493 kg Intake: Oral 236 300 Output: Urine 325 Urine/Stool Mix 4 Other: Voiding Method Toilet Toilet # Voids 1 3 # Bowel Movements 1 3 - Exam No acute distress, oriented 3. HEENT examination is grossly unremarkable. Mixed membranes are moist. No oral lesions. Neck supple. Full range of motion. No adenopathy or thyromegaly. Cardiovascular examination reveals regular rhythm rate. S1-S2 normal. No S3- S4 or murmur. Lungs reveal a few scattered rhonchi particularly at the left lung base. Some crackles at the left lung base. No wheezes. Abdomen soft bowel sounds are heard. Extremities are intact. No cyanosis clubbing or edema. Skin without rash. Neurologic examination is nonfocal. - Labs CBC & Chem 7: 10/17/16 07:16 10/17/16 07:16 Labs: Abnormal Lab Results - Last 24 Hours (Table) 10/16/16 10/16/16 10/17/16 Range/Units 16:00 19:47 07:16 RBC 3.23 L (3.80-5.40) m/uL Hgb 8.3 L (11.4-16.0) gm/dL Hct 27.5 L (34.0-46.0) % MCHC 30.2 L (31.0-37.0) g/dL RDW 22.5 H (11.5-15.5) % Plt Count 102 L (150-450) k/uL Lymphocytes # 0.5 L (1.0-4.8) k/uL Potassium 3.4 L (3.5-5.1) mmol/L Chloride (98-107) mmol/L Carbon Dioxide (22-30) mmol/L BUN (7-17) mg/dL Creatinine (0.52-1.04) mg/dL Calcium (8.4-10.2) mg/dL Urine Appearance Cloudy H (Clear) Urine Protein 1+ H (Negative) Urine Blood Moderate H (Negative) Ur Leukocyte Esterase Large H (Negative) Urine RBC 31 H (0-5) /hpf Urine WBC 43 H (0-5) /hpf Amorphous Sediment Occasional H (None) /hpf 10/17/16 Range/Units 07:16 RBC (3.80-5.40) m/uL Hgb (11.4-16.0) gm/dL Hct (34.0-46.0) % MCHC (31.0-37.0) g/dL RDW (11.5-15.5) % Plt Count (150-450) k/uL Lymphocytes # (1.0-4.8) k/uL Potassium (3.5-5.1) mmol/L Chloride 119 H (98-107) mmol/L Carbon Dioxide 13 L (22-30) mmol/L BUN 63 H (7-17) mg/dL Creatinine 6.01 H* (0.52-1.04) mg/dL Calcium 6.5 L* (8.4-10.2) mg/dL Urine Appearance (Clear) Urine Protein (Negative) Urine Blood (Negative) Ur Leukocyte Esterase (Negative) Urine RBC (0-5) /hpf Urine WBC (0-5) /hpf Amorphous Sediment (None) /hpf Microbiology - Last 24 Hours (Table) 10/16/16 16:00 Urine Culture - Preliminary Urine,Voided 10/15/16 19:32 Blood Culture - Preliminary Blood No Growth after 24 hours 10/15/16 17:17 Blood Culture - Preliminary Blood No Growth after 24 hours 10/16/16 00:55 Stool Culture - Preliminary Stool Assessment and Plan (1) Colon cancer Status: Acute (2) Hypertension Status: Acute (3) Hypothyroidism Status: Acute (4) Weight loss Status: Acute (5) Acute kidney injury Status: Acute (6) Dehydration Status: Acute (7) Left lower lobe pneumonia Status: Acute (8) Pleural effusion, left Status: Acute Plan: Plan dated 10/16/2016 The patient will have a CAT scan ordered of the chest. She may need a diagnostic thoracentesis or bronchoscopy. We'll await the CAT scan. The CAT scan will have to be done without contrast given her BUN/creatinine. Additional recommendations and suggestions are forthcoming. We'll make sure we get her on some breathing treatments and appropriate antibiotics. Prognosis is guarded. Malignancy is certainly a possibility given her recent decreased appetite and weight loss. Plan dated 10/17/2016 Computed tomography scan seems that showed just an infiltrate with a small left- sided pleural effusion. We will continue with her current medications. She is on good antibiotics. She looks up a bit better today. No additional recommendations are made. We'll continue to follow. She may need a procedure if she does not improve. We'll order a chest x-ray for the morning. Time with Patient: Less than 30
--- NOTE | 2016-10-17 09:53 | PN ---
The patient is seen for follow-up for acute kidney injury. Her renal function has not improved much. She has had urine output. Her serum creatinine is at 6.0 from 5.[address] had shown bilateral hydronephrosis. The patient does have a ureteral stent according to her niece. Ultrasound done yesterday shows bilateral nephrolithiasis with moderate right hydronephrosis. I am not sure what side her stent is. Urology will be consulted. The patient is maintained on IV fluids at 50 mL an hour. She has significant lower extremity edema. Therefore, the fluids are not running aggressively. Her chest CT was done yesterday which shows moderate left and minimal right pleural effusion. Some atelectasis is noted with emphysematous changes. On examination today, blood pressure is 130/59. Heart rate 64 per minute. She is afebrile. Examination of the heart S1, S2. Examination of the lungs bilateral breath sounds are heard. Decreased breath sounds at the bases. Abdomen is soft. Nontender. Examination of the lower extremities shows edema 2+ bilaterally. 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 The patient is moving all four extremities. Labs shows sodium 143, potassium 3.5, chloride 119, CO2 13, BUN 63, serum creatinine 6.01, hemoglobin 8.3. ASSESSMENT: 1. Acute kidney injury, most likely obstructive uropathy with component of acute tubular necrosis. The patient does have previous ureteral stent. I am not sure on which side. She had moderate right hydronephrosis with bilateral nephrolithiasis. Urology is consulted. Continue IV fluids at 50 mL an hour. The patient has been voiding low urine according to the patient. 2. Severe metabolic acidosis non-anion gap secondary to renal failure and diarrhea. We will continue with oral sodium bicarb. This will be increased to 1300 mg t.i.d. 3. Clostridium difficile colitis maintained on oral Vancomycin. 4. Hypothyroidism. 5. Lower extremity edema possibly related to hypoalbuminemia associated with C. dif colitis. Doubt bilateral deep venous thromboses. 6. Hypokalemia, status post replacement. 7. Anemia, with no active bleeding noted. Stool for occult blood was negative. PLAN: Consult urology. Continue IV fluids. Increase sodium bicarb. Repeat labs in the a.m. MTDD
[2016-10-17] MEDS: CALCIUM CARBONATE 500 MG CHEWABLE PO SCH (09:55)
[2016-10-17] MEDS: FAMOTIDINE 20 MG TAB PO SCH ×2 (09:56→20:33)
[2016-10-17] MEDS: AZITHROMYCIN 500 MG TAB PO SCH (09:56)
[2016-10-17] MEDS: METOPROLOL TARTRATE 25 MG TAB PO SCH (09:56)
[2016-10-17] MEDS: HEPARIN SODIUM,PORCINE 5,000 UNIT/ML 1 ML VIAL SQ SCH ×2 (09:56→20:32)
--- NOTE | 2016-10-17 10:48 | P.GSCN ---
History of Present Illness Consult date: 10/17/16 Reason for Consult: Hydronephrosis Requesting physician: Kathy Barnhart History of present illness: The patient is an 86 year old white female well known to Dr. Figueredo. She was diagnosed with bilateral hydronephrosis earlier this year. In July 2016, she underwent cystoscopy with bilateral retrograde pyelograms. She was found to have extrinsic compression of both ureters at the pelvic brim, moreso on the left, and a left ureteral stent was placed. She failed to F/U following that procedure. She is now admitted with renal failure. Ultrasound shows evidence of right hydronephrosis. She is being treated for pneumonia. She denies dysuria and hematuria. She reports low back pain, which improves with ambulation. Review of Systems - Constitutional Reports weakness, Denies fever - Gastrointestinal Reports loss of appetite - Genitourinary Genitourinary: Denies dysuria, Denies hematuria Past Medical History Past Medical History: Cancer, COPD, Hyperlipidemia, Hypertension, Syncope, Thyroid Disorder Additional Past Medical History / Comment(s): colon ca, recent lab tests show abnormal kidney fx History of Any Multi-Drug Resistant Organisms: None Reported Past Surgical History: Appendectomy Additional Past Surgical History / Comment(s): thyroidectomy, bowel resection Past Psychological History: No Psychological Hx Reported Smoking Status: Former smoker Past Alcohol Use History: None Reported Past Drug Use History: None Reported Medications and Allergies Home Medications Medication Instructions Recorded Confirmed Type Levothyroxine Sodium [Synthroid] 88 mcg PO DAILY 07/11/16 10/15/16 History Metoprolol Tartrate [Metoprolol 25 mg PO DAILY 07/11/16 10/15/16 History Tartrate] Allergies Allergy/AdvReac Type Severity Reaction Status Date / Time No Known Allergies Allergy Verified 10/15/16 16:44 Surgical - Exam Vital Signs Temp Pulse Resp BP Pulse Ox 96.7 F L 104 H 18 111/67 97 10/15/16 14:27 10/15/16 14:27 10/15/16 14:27 10/15/16 14:27 10/15/16 14:27 - General well developed, well nourished, no distress - Abdomen Abdomen: soft, non tender, no masses, no distended - Psychiatric oriented to time, oriented to person, oriented to place, speech is normal Results - Labs 10/17/16 07:16 10/17/16 07:16 Abnormal Lab Results - Last 24 Hours (Table) 10/16/16 10/16/16 10/17/16 Range/Units 16:00 19:47 07:16 RBC 3.23 L (3.80-5.40) m/uL Hgb 8.3 L (11.4-16.0) gm/dL Hct 27.5 L (34.0-46.0) % MCHC 30.2 L (31.0-37.0) g/dL RDW 22.5 H (11.5-15.5) % Plt Count 102 L (150-450) k/uL Lymphocytes # 0.5 L (1.0-4.8) k/uL Potassium 3.4 L (3.5-5.1) mmol/L Chloride (98-107) mmol/L Carbon Dioxide (22-30) mmol/L BUN (7-17) mg/dL Creatinine (0.52-1.04) mg/dL Calcium (8.4-10.2) mg/dL Urine Appearance Cloudy H (Clear) Urine Protein 1+ H (Negative) Urine Blood Moderate H (Negative) Ur Leukocyte Esterase Large H (Negative) Urine RBC 31 H (0-5) /hpf Urine WBC 43 H (0-5) /hpf Amorphous Sediment Occasional H (None) /hpf 10/17/16 Range/Units 07:16 RBC (3.80-5.40) m/uL Hgb (11.4-16.0) gm/dL Hct (34.0-46.0) % MCHC (31.0-37.0) g/dL RDW (11.5-15.5) % Plt Count (150-450) k/uL Lymphocytes # (1.0-4.8) k/uL Potassium (3.5-5.1) mmol/L Chloride 119 H (98-107) mmol/L Carbon Dioxide 13 L (22-30) mmol/L BUN 63 H (7-17) mg/dL Creatinine 6.01 H* (0.52-1.04) mg/dL Calcium 6.5 L* (8.4-10.2) mg/dL Urine Appearance (Clear) Urine Protein (Negative) Urine Blood (Negative) Ur Leukocyte Esterase (Negative) Urine RBC (0-5) /hpf Urine WBC (0-5) /hpf Amorphous Sediment (None) /hpf Microbiology - Last 24 Hours (Table) 10/16/16 16:00 Urine Culture - Preliminary Urine,Voided 10/15/16 19:32 Blood Culture - Preliminary Blood No Growth after 24 hours 10/15/16 17:17 Blood Culture - Preliminary Blood No Growth after 24 hours 10/16/16 00:55 Stool Culture - Preliminary Stool Diabetes panel 10/16/16 10/17/16 10/17/16 Range/Units 19:47 01:17 07:16 Sodium 143 (137-145) mmol/L Potassium 3.4 L 3.7 3.5 (3.5-5.1) mmol/L Chloride 119 H (98-107) mmol/L Carbon Dioxide 13 L (22-30) mmol/L BUN 63 H (7-17) mg/dL Creatinine 6.01 H* (0.52-1.04) mg/dL Glucose 87 (74-99) mg/dL Calcium 6.5 L* (8.4-10.2) mg/dL Calcium panel 10/17/16 Range/Units 07:16 Calcium 6.5 L* (8.4-10.2) mg/dL Pituitary panel 10/16/16 10/17/16 10/17/16 Range/Units 19:47 01: 07:16 Sodium 143 (137-145) mmol/L Potassium 3.4 L 3.7 3.5 (3.5-5.1) mmol/L Chloride 119 H (98-107) mmol/L Carbon Dioxide 13 L (22-30) mmol/L BUN 63 H (7-17) mg/dL Creatinine 6.01 H* (0.52-1.04) mg/dL Glucose 87 (74-99) mg/dL Calcium 6.5 L* (8.4-10.2) mg/dL Adrenal panel 10/16/16 10/17/16 10/17/16 Range/Units 19:47 01:17 07:16 Sodium 143 (137-145) mmol/L Potassium 3.4 L 3.7 3.5 (3.5-5.1) mmol/L Chloride 119 H (98-107) mmol/L Carbon Dioxide 13 L (22-30) mmol/L BUN 63 H (7-17) mg/dL Creatinine 6.01 H* (0.52-1.04) mg/dL Glucose 87 (74-99) mg/dL Calcium 6.5 L* (8.4-10.2) mg/dL - Imaging US - abdomen: report reviewed Assessment and Plan Plan: The patient is an 86-year-old white female with pneumonia and renal failure. She underwent insertion of a left ureteral stent in July 2016. Ultrasound now shows evidence of persistent right hydronephrosis. She will require cystoscopy , right retrograde pyelogram, and right ureteral stent insertion. The left ureteral stent will likely be changed at that time. The rationale for this was discussed in detail with the patient and her niece. Potential risks include anesthesia and ureteral injury. They understand the possibility that her renal function will fail to improve following this procedure. She has unfortunately eaten breakfast today, and thus the procedure will be performed tomorrow. Time with Patient: Greater than 30
[2016-10-17] MEDS: SODIUM BICARBONATE TAB 650 MG TAB PO SCH ×3 (11:52→20:34)
--- NOTE | 2016-10-17 13:19 | HP ---
CHIEF COMPLAINT: Weakness and diarrhea, dehydration. HISTORY OF PRESENT ILLNESS: This 86-year-old woman with past medical history of multiple medical problems including history of hypertension, hyperlipidemia, CAD , being followed by Dr. Montaño in the outpatient setting was not feeling well over the past several weeks. Apparently po intake is coming down and the patient is also having some weight loss. The patient also had diarrhea since the past several days. The patient is not on any antibiotics. Because of increasing diarrhea, the patient came to [facility] and was admitted to the hospital with for further evaluation and treatment. The patient also had renal failure with creatinine 5.98. The baseline creatinine was 0.92 in 2014 and in 2017, earlier this year, it was 2.14. The positive. There is no history of any fevers, rigors, or chills. No history of headache, loss of consciousness or seizures. The patient was also found to have left lower lobe pneumonia. Past medical history of hypertension, hyperlipidemia, syncope. Mediations prior to admission include: Home medications are: 1. Metoprolol 25 mcg po daily. 2. Synthroid 18 mcg po daily. ALLERGIES: None. FAMILY HISTORY: No history of heart disease or strokes in the family. SOCIAL HISTORY: Previous history of smoking. No alcohol intake. REVIEW OF SYSTEMS: HEENT: Diminished vision and diminished hearing. Cardiovascular system: no angina or palpitations. Respiratory: No cough. GI : As mentioned earlier. : No dysuria. Nervous system: No numbness, weakness. Allergy/Immunology: No asthma or hayfever. Musculoskeletal: As mentioned earlier. Hematology/oncology: No history of anemia. Endocrine: No history of diabetes mellitus or hypothyroidism. Constitutional: As mentioned earlier. Dermatology: Negative. Rheumatology: Negative. Psychiatry: As mentioned earlier. PHYSICAL EXAMINATION: The patient is alert, oriented times three. Pulse 68. Blood pressure 111/69. Respiratory rate 18, temperature 97. Pulse ox 99% on room air. HEENT: Conjunctivae normal. Oral mucosa dry. NECK: No JVD. No carotid bruit. No lymph node enlargement. Cardiovascular: S1, S2. No S3 , no S4. Respiratory: Breath sounds diminished at the bases. A few rhonchi. No crackles. Abdomen is soft, mild diffuse distention present. Mild diffuse discomfort also present. NO guarding. No rigidity. Bowel sounds present. Legs: No edema. No swelling. Nervous system: Higher functions as mentioned earlier. Moves all four limbs. Lymphatics: No lymph nodes palpable in the neck, axilla or groin. Skin: No ulcer, rash or bleeding. LABS: Hemoglobin 11.9. Sodium 144. Creatinine 5.6. ASSESSMENT: 1. Acute diarrheal disease, acute C. difficile colitis. 2. Acute renal failure with possible acute on chronic renal failure with chronic kidney disease Stage III. 3. Left lower lobe pneumonia, possible acute. 4. History of chronic obstructive pulmonary disease. 5. Hypertension. 6. Hyperlipidemia. 7. Colon cancer. RECOMMENDATIONS AND DISCUSSION: In this 86 -year-old woman who presented with multiple complex medical issues, we will monitor the patient closely. Continue the current medications. Continue symptomatic treatment. Otherwise, at this time, po Vancomycin will be initiated. Otherwise, continue to monitor. The patient was also seen by Dr. Rosa. We will also recommend broad spectrum IV antibiotics per Dr. Rosa recommendations. Chest CT scan also recommended. Overall guarded prognosis because of multiple complex medical issues as mentioned earlier. Further recommendations to follow. [facility]
[2016-10-17] MEDS: SODIUM CHLORIDE 0.9% 1,000 ML IV SCH (13:37)
--- NOTE | 2016-10-17 17:58 | P.PN ---
<Rachel Godwin - Last Filed: 10/17/16 17:40> Subjective 10/17/16 Progress note being dictated for Dr. Bauer. Interval history: This is an 86-year-old female admitted with acute C. difficile colitis, acute renal failure, left lower lobe pneumonia and multiple other medical issues. Maintained on gentle IV fluid hydration Chest CT reporting small to moderate left minimal right pleural effusions, suspect atelectasis of left anterior lung base and within the lingula, right hydronephrosis. Diet intake remains fair. Diarrhea improving. Ultrasound reports bilateral nephrolithiasis with moderate right hydronephrosis .creatinine 6.01 Evaluated by pulmonary and urology with recommendations noted. Objective - Vital Signs Vital signs: Vital Signs Temp 97.1 F L 10/17/16 15:00 Pulse 84 10/17/16 15:00 Resp 18 10/17/16 15:00 BP 102/52 10/17/16 15:00 Pulse Ox 93 L 10/17/16 15:00 Intake & Output 10/16/16 10/17/16 10/17/16 18:59 06:59 18:59 Intake Total 236 300 Output Total 325 4 Balance -89 296 Weight 46.493 kg Intake: Oral 236 300 Output: Urine 325 Urine/Stool Mix 4 Other: Voiding Method Toilet Toilet Toilet # Voids 1 3 2 # Bowel Movements 1 3 - Exam PHYSICAL EXAM: VITAL SIGNS: As above GENERAL: [Sitting up in bed, no acute distress, tired appearing] HEENT: [Pupils equal conjunctiva normal. Oral mucosa moist] NECK: [Supple, no JVD] RESPIRATORY EFFORT:[ Normal] LUNGS: [Clear, bilateral bases diminished, fine left basilar crackles no wheezes rhonchi] CARDIOVASCULAR[ regular S1 and S2, no murmurs rubs or gallops, positive edema] GI: [Abdomen soft, nontender, mild diffuse discomfort. positive bowel sounds. No organomegaly, no guarding, no rigidity] PSYCH: [Alert and oriented -3, mood and affect normal.] SKIN: [No ulcer, rash or bleeding] NEURO: [No focal deficits, higher functions as mentioned previously, moves all 4 extremities, strength and sensation grossly intact] - Labs CBC & Chem 7: 10/17/16 07:16 10/17/16 07:16 Labs: Abnormal Lab Results - Last 24 Hours (Table) 10/16/16 10/17/16 10/17/16 Range/Units 19:47 07:16 07:16 RBC 3.23 L (3.80-5.40) m/uL Hgb 8.3 L (11.4-16.0) gm/dL Hct 27.5 L (34.0-46.0) % MCHC 30.2 L (31.0-37.0) g/dL RDW 22.5 H (11.5-15.5) % Plt Count 102 L (150-450) k/uL Lymphocytes # 0.5 L (1.0-4.8) k/uL Potassium 3.4 L (3.5-5.1) mmol/L Chloride 119 H (98-107) mmol/L Carbon Dioxide 13 L (22-30) mmol/L BUN 63 H (7-17) mg/dL Creatinine 6.01 H* (0.52-1.04) mg/dL Calcium 6.5 L* (8.4-10.2) mg/dL Microbiology - Last 24 Hours (Table) 10/16/16 16:00 Urine Culture - Preliminary Urine,Voided 10/15/16 19:32 Blood Culture - Preliminary Blood No Growth after 24 hours 10/15/16 17:17 Blood Culture - Preliminary Blood No Growth after 24 hours Assessment and Plan Plan: 1 acute C. difficile colitis 2. Acute renal failure, possible acute on chronic disease, stage III 3. Left lower lobe pneumonia 4 history of COPD 5 colon cancer history Plan: Continue on current medication regime, oral vancomycin, sodium bicarb, monitoring and symptomatic treatment. Diet changed to clear liquid, lactose- free with yogurt and Magic cups . Nothing by mouth at midnight for cystoscopy, right retrograde pyelogram and right ureteral stent insertion, possible changing of left ureteral stent. Follow with multiple consults. Close monitoring of electrolytes and renal function with repeat labs ordered for a.m. Prognosis guarded given multiple complex medical issues. Further recommendations to follow. The impression and plan of care has been dictated as directed as a scribe.. : I performed a H&P examination of this patient and discussed the same with the dictator. I agree with the dictator's note. Any additional findings/opinions/ etc. will be noted. <Celso Bauer - Last Filed: 10/18/16 11:59> Objective - Vital Signs Vital signs: Vital Signs Temp 97.4 F L 10/18/16 11:20 Pulse 65 10/18/16 11:20 Resp 16 10/18/16 11:20 BP 120/87 10/18/16 11:20 Pulse Ox 95 10/18/16 11:20 Intake & Output 10/17/16 10/18/16 10/18/16 18:59 06:59 18:59 Intake Total 100 Balance 100 Intake: Intake, IV Titration 100 Amount Sodium Chloride 0.9% 1, 50 000 ml @ 50 mls/hr IV . Q20H LOUIE Rx#:[id number] cefTRIAXone 1,000 mg In 50 Sodium Chloride 0.9% 50 ml @ 100 mls/hr IVPB Q24HR LOUIE Rx#:[id number] Other: Voiding Method Toilet Toilet # Voids 2 1 - Labs CBC & Chem 7: 10/17/16 07:16 10/18/16 10:04 Labs: Abnormal Lab Results - Last 24 Hours (Table) 10/18/16 Range/Units 10:04 Chloride 121 H* (98-107) mmol/L Carbon Dioxide 12 L (22-30) mmol/L BUN 64 H (7-17) mg/dL Creatinine 6.06 H* (0.52-1.04) mg/dL Glucose 73 L (74-99) mg/dL Calcium 6.2 L* (8.4-10.2) mg/dL Microbiology - Last 24 Hours (Table) 10/16/16 00:55 Stool Culture - Preliminary Stool 10/15/16 19:32 Blood Culture - Preliminary Blood No Growth after 48 hours 10/15/16 17:17 Blood Culture - Preliminary Blood No Growth after 48 hours 10/16/16 16:00 Urine Culture - Final Urine,Voided Assessment and Plan Plan: This patient also had bilateral nephrolithiasis and right hydronephrosis. Urology is planning evaluation and possible stent placement. Continue the current medications. Creatinine is still elevated. Prognosis guarded. Stepdown the diet if the diarrhea persists.
[2016-10-17] MEDS: MORPHINE SULFATE 4 MG/ML SYRINGE IV PRN (23:31)
[2016-10-18] MEDS: VANCOMYCIN ORAL SOLUTION 250 MG/5 ML BOTTLE PO SCH ×4 (00:07→20:38)
[2016-10-18] MEDS: CHERRY FLAVOR 60 ML BOTTLE PO SCH ×4 (00:08→20:38)
[2016-10-18] MEDS: LEVOTHYROXINE 88 MCG TAB PO SCH (05:52)
--- NOTE | 2016-10-18 07:35 | XR ---
EXAMINATION TYPE: XR chest 2V DATE OF EXAM: 10/18/2016 COMPARISON: CT chest 10/16/2016 HISTORY: Pneumonia TECHNIQUE: Frontal and lateral views of the chest are obtained. FINDINGS: There is redemonstration of a moderate left pleural effusion with associated left basilar compressive atelectasis and trace right pleural effusion blunting the costophrenic angle on the later al image. Lungs are hyperinflated. There is flattening of the diaphragms on the lateral image. Cardio mediastinal silhouette is prominent. Bilateral apical pleural calcified plaques are noted. IMPRESSION: Similar moderate left pleural effusion with associated left basilar atelectasis and trace right pleural effusion superimposed on a background of pulmonary emphysema.
[2016-10-18] MEDS ORDERED: ePHEDrine SULFATE/0.9% NACL/PF 50 MG/5 ML SYRINGE IV ONE ×2 (08:03→12:08)
[2016-10-18] MEDS ORDERED: PROPOFOL 10 MG/ML 20 ML VIAL IV ONE ×2 (08:03→12:08)
[2016-10-18] MEDS ORDERED: KETAMINE 10 MG/ML 20 ML VIAL ONE (08:03)
[2016-10-18] MEDS ORDERED: MIDAZOLAM 2 MG/2 ML VIAL ONE (08:03)
[2016-10-18] MEDS: HEPARIN SODIUM,PORCINE 5,000 UNIT/ML 1 ML VIAL SQ SCH ×3 (08:32→20:49)
[2016-10-18] MEDS: MORPHINE SULFATE 4 MG/ML SYRINGE IV PRN (08:34)
[2016-10-18] MEDS: IPRATROPIUM-ALBUTEROL 3 ML NEB INHALATION SCH ×3 (08:37→20:35)
[2016-10-18] MEDS: SODIUM BICARBONATE TAB 650 MG TAB PO SCH ×2 (08:50→17:16)
[2016-10-18] MEDS: METOPROLOL TARTRATE 25 MG TAB PO SCH (08:50)
[2016-10-18] MEDS: AZITHROMYCIN 500 MG TAB PO SCH (08:51)
[2016-10-18] MEDS: CALCIUM CARBONATE 500 MG CHEWABLE PO SCH (08:51)
[2016-10-18] MEDS: FAMOTIDINE 20 MG TAB PO SCH (08:51)
[2016-10-18 11:15] LABS: Potassium 4.2 mmol/L (3.5-5.1)
[2016-10-18] MEDS ORDERED: IV FLUID CONTINUATION 1,000 ML IV ONE (11:16)
[2016-10-18 11:46] LABS: Calcium 6.2 mg/dL (8.4-10.2)
[2016-10-18] MEDS ORDERED: LIDOCAINE 1% INJ 10MG/ML (20 ML MDV) ONE (12:08)
[2016-10-18] MEDS ORDERED: IOHEXOL 350 MG/ML 50ML BOTTLE MISCELLANE ONE ×2 (12:39)
--- NOTE | 2016-10-18 13:25 | FL ---
Fluoroscopy INDICATION: Pain FINDINGS: Fluoroscopy time: 49 seconds. Images obtained: 11. IMPRESSIONS: 1. Documentation of fluoroscopy.
--- NOTE | 2016-10-18 14:31 | PN ---
Patient is seen for followup for acute kidney injury which appears to be mainly obstructive uropathy. Patient has been seen by Urology previously and has had ureteral stent and history of bilateral hydronephrosis. She is scheduled for cystoscopy and further intervention depending on the findings. Patient was seen by Urology yesterday. On examination, blood pressure is 120/87, heart rate 65 per minute. She is afebrile. Examination shows the lower extremity about 2+ bilaterally. FINISH MENDER exam is grossly intact. Labs show sodium 143, calcium 3.5, CO2 remains at 13 from yesterday, serum creatinine is not available from today. ASSESSMENT: 1. Acute kidney injury, mainly obstructive uropathy. Patient has been evaluated by Urology and is scheduled for surgery today. She has had a history of bilateral hydronephrosis with previous ureteral stent placement. 2. Severe metabolic acidosis secondary to diarrhea and renal failure, currently maintained on or sodium bicarb. Labs are pending from today. 3. ( ). Urine cultures showing no growth. 4. Clostridium difficile colitis. Maintained on oral vancomycin and improving. PLAN: Continue IV fluid at 50 mL/h. Check labs today. MTDD
[2016-10-18] MEDS: SODIUM CHLORIDE 0.9% 1,000 ML IV SCH (14:49)
--- NOTE | 2016-10-18 16:00 | P.PN ---
Subjective 86-year-old female, she was admitted with a diagnosis of questionable left lower lobe pneumonia. She does have a history of hypothyroidism and hypertension along with history of colon cancer with previous bowel resection, and history of COPD. The patient does have a history of mild asthma as well. The patient was also in acute kidney injury on top of chronic renal failure. She is known to have obstructive uropathy and bilateral hydronephrosis. She has been seen by nephrology in the past and a left-sided ureteral stent was inserted.. Note that her prior creatinine from July 2016 was at 2.1 and around June 2016 it was 1.3. No history of any nonsteroidal anti-inflammatory medication. The patient's blood pressure was slightly on the lower side at time of admission. Ultrasound of the kidneys on 08/05/2016 showed bilateral hydronephrosis. Based on that a nephrology and urology consultation was requested. Anyway we did a computed tomography scan of the chest. We are concerned about possibly of lung cancer because a cousin decreased appetite and weight loss. It appears mostly small right-sided pleural effusion and a moderate-sized left-sided pleural effusion along with some atelectatic changes along the lingula. The patient has been maintained on a combination of Rocephin and Zithromax and po vancomycin and the last is being given for C. diff colitis.. The kidney function remains impaired without any significant improvement in the creatinine. On 10/18/2016 the patient is being seen in follow-up. The patient is doing well. The patient underwent cystoscopy and insertion of a ureteral stent on the right. The patient is making adequate amount of urine output. Renal function is being monitored. She still on same antibiotic coverage. No active diarrhea. She has positive C. diff A, and the rest of the urine and blood cultures of been all negative. No respiratory distress. I discussed the findings with the patient and her family. The patient bilateral pleural effusion. Could be related to underlying obstructive uropathy. No clear signs of an underlying pneumonia. She has no cough or sputum production. No chest tightness. Objective - Vital Signs Vital signs: Vital Signs Temp 97.6 F 10/18/16 13:07 Pulse 55 L 10/18/16 13:30 Resp 16 10/18/16 13:30 BP 127/63 10/18/16 13:30 Pulse Ox 99 10/18/16 13:30 Intake & Output 10/17/16 10/18/16 10/18/16 18:59 06:59 18:59 Intake Total 100 450 Output Total 0 Balance 100 450 Intake: IV 450 Intake, IV Titration 100 Amount Sodium Chloride 0.9% 1, 50 000 ml @ 50 mls/hr IV . Q20H LOUIE Rx#:[id number] cefTRIAXone 1,000 mg In 50 Sodium Chloride 0.9% 50 ml @ 100 mls/hr IVPB Q24HR LOUIE Rx#:[id number] Output: Estimated Blood Loss 0 Other: Voiding Method Toilet Toilet # Voids 2 1 - Exam The patient appeared well nourished and normally developed. Vital signs as documented. Head exam is unremarkable. No scleral icterus or corneal arcus noted. Neck is without jugular venous distension, thyromegaly, or carotid bruits. Carotid upstrokes are brisk bilaterally. Lungs are showing diminished breath sounds in the lung bases more so on the left.. Cardiac exam reveals the PMI to be normally sized and situated. Rhythm is regular. First and second heart sounds normal. No murmurs, rubs or gallops. Abdominal exam reveals normal bowel sounds, no masses, no organomegaly and no aortic enlargement. Extremities are nonedematous and both femoral and pedal pulses are normal. - Labs CBC & Chem 7: 10/17/16 07:16 10/18/16 10:04 Labs: Abnormal Lab Results - Last 24 Hours (Table) 10/17/16 10/18/16 Range/Units 07:16 10:04 Chloride 121 H* (98-107) mmol/L Carbon Dioxide 12 L (22-30) mmol/L BUN 64 H (7-17) mg/dL Creatinine 6.06 H* (0.52-1.04) mg/dL Glucose 73 L (74-99) mg/dL Calcium 6.2 L* (8.4-10.2) mg/dL Vitamin D 25-Hydroxy 6.2 L (30.0-100.0) ng/mL Microbiology - Last 24 Hours (Table) 10/16/16 00:55 Stool Culture - Preliminary Stool 10/15/16 19:32 Blood Culture - Preliminary Blood No Growth after 48 hours 10/15/16 17:17 Blood Culture - Preliminary Blood No Growth after 48 hours 10/16/16 16:00 Urine Culture - Final Urine,Voided Assessment and Plan Plan: Assessment 1 bilateral pleural effusion left more than right. The patient has a moderate- sized left-sided pleural effusion 2 COPD 3 chronic renal failure with an acute kidney injury on top of chronic kidney failure. The patient has obstructive uropathy with bilateral hydronephrosis earlier this year. The patient undergone cystoscopy and bilateral retrograde pyelograms and she was found to have extensive compression of both ureters at the pelvic brim and a left-sided ureteral stent was placed. Currently she has evidence of a right sided hydronephrosis. No dysuria. No hematuria. Right- sided ureteral stent also placed today by Dr. Figueredo 4 lung cancer, history of with a previous coronary resection 5 hypothyroidism 6 hypertension 7 C. diff colitis on oral vancomycin Plan Monitor the renal function. Monitor urine output. Repeat chest x-ray with next 24-48 hours. I do not see the need for Rocephin and Zithromax on my recommendations is to stop the antibiotics and keep the patient only on oral vancomycin. I think the overall pulmonary presentation is not typical of pneumonia. The patient has bilateral pleural effusion which could be related to obstructive uropathy. Anticipate improvement in the pleural effusion with relief of the ureteral obstruction. We'll continue to follow. Treat C. diff colitis.
--- NOTE | 2016-10-18 16:02 | P.OP ---
Date of Procedure: 10/18/16 Preoperative Diagnosis: Bilateral hydronephrosis Postoperative Diagnosis: Nonobstructive right hydronephrosis and occlusion of left double-J catheter resulting in left hydronephrosis Procedure(s) Performed: Cystoscopy with removal of left double-J catheter and bilateral retrograde pyeloureterograms Implants: Anesthesia: MAC Surgeon: Lincoln Figueredo Condition: stable Disposition: PACU Indications for Procedure: The patient is an 86-year-old female who was admitted due to weakness related to diarrhea who was discovered to have abnormal renal function tests. Renal ultrasound suggested bilateral hydronephrosis. The patient had been evaluated by me in 07/2016 due to bilateral hydronephrosis. At that time I performed cystoscopy with bilateral retrograde pyeloureterograms. The right kidney showed some mild pyelocaliectasis but urine appeared to drain promptly from the kidney and no definite obstruction was felt to be present. There was some dilation of the mid and proximal left ureter and due to the worsening of the patient's renal function at that time it was elected to place a left double-J catheter however there was uncertainty in regard to whether or not there was any definite left sided obstruction as well. Cystoscopy with bilateral retrogrades is planned for reevaluation. Operative Findings: Description of Procedure: The patient was taken the operating suite where intravenous sedation was given. Patient was placed in the dorsal lithotomy position with her legs suspended from padded Ezio stirrups. Pneumatic compression stockings were applied to the lower legs. The genitalia was prepped with Betadine solution and draped in a sterile fashion. The patient had moderate vaginal stenosis. The urethral meatus was unremarkable. The 22-Syrian cystoscope sheath with obturator was passed through the urethra and into the bladder. Protruding from the left ureteral orifice was the distal end of a double-J catheter. The double-J catheter appeared to be heavily encrusted with calculus, despite only being present in the bladder for 2 months. The right ureteral orifice was unremarkable. Using biopsy forceps the left double-J catheter was pulled from the left ureter. Numerous small calculus fragments passed from the left ureteral orifice following removal of the double-J catheter. A right retrograde pyeloureterogram was performed using an 8-Syrian cone-tipped catheter. The distal and mid right ureter was unremarkable. It was minimal dilation of the proximal right ureter as well as some mild pyelocaliectasis. Contrast immediately drained from the kidney and proximal ureter following the retrograde study which would be consistent with no functional obstruction. A left retrograde pyeloureterogram was then performed and similar findings were noted with prompt drainage from the kidney. Multiple small calculus fragments were present within the ureter and the majority of these were irrigated from the ureter using the Syrian cone-tipped catheter. Due to the heavy encrustation of the ureteral catheter after only 2 months as well as the possibility that there was no true obstruction on the left side it was elected not to replace the left double-J catheter. The cystoscope was withdrawn and the procedure was terminated Patient tolerated procedure well and left the operative room awake and in satisfactory condition. The patient will be observed and if her renal function improves then it is probable that at least a portion of her recent decline in kidney function was related to occlusion of the double-J catheter due to encrustation. In view of the uncertainty in regard to true obstruction on the left side I believe that further observation would be reasonable.
[2016-10-18] MEDS ORDERED: HYDROmorphone 1 MG/ML 1 ML SYRINGE IVP PRN (17:53)
[2016-10-18] MEDS ORDERED: ACETAMINOPHEN TAB 325 MG TAB PO PRN (17:55)
--- NOTE | 2016-10-18 19:04 | P.PN ---
Subjective Progress note being dictated for Dr. Bauer. 10/17/16/ Interval history: This is an 86-year-old female admitted with acute C. difficile colitis, acute renal failure, left lower lobe pneumonia and multiple other medical issues. Maintained on gentle IV fluid hydration Chest CT reporting small to moderate left minimal right pleural effusions, suspect atelectasis of left anterior lung base and within the lingula, right hydronephrosis. Diet intake remains fair. Diarrhea improving. Ultrasound reports bilateral nephrolithiasis with moderate right hydronephrosis .creatinine 6.01 Evaluated by pulmonary and urology with recommendations noted. 10/18/2016 maintained on antibiotics. continues on IV fluid hydration .no diarrhea this morning, no nausea, no vomiting. Scheduled this morning for cystoscopy, stent insertion with urology. Denies chest pain, palpitations or increasing shortness of breath. Denies cough. Chest x-ray reports left pleural effusion and trace right pleural effusion, emphysema. Objective - Vital Signs Vital signs: Vital Signs Temp 97.4 F L 10/18/16 11:20 Pulse 65 10/18/16 11:20 Resp 16 10/18/16 11:20 BP 120/87 10/18/16 11:20 Pulse Ox 95 10/18/16 11:20 Intake & Output 10/17/16 10/18/16 10/18/16 18:59 06:59 18:59 Intake Total 100 450 Output Total 0 Balance 100 450 Intake: IV 450 Intake, IV Titration 100 Amount Sodium Chloride 0.9% 1, 50 000 ml @ 50 mls/hr IV . Q20H LOUIE Rx#:[id number] cefTRIAXone 1,000 mg In 50 Sodium Chloride 0.9% 50 ml @ 100 mls/hr IVPB Q24HR LOUIE Rx#:[id number] Output: Estimated Blood Loss 0 Other: Voiding Method Toilet Toilet # Voids 2 1 - Exam PHYSICAL EXAM: VITAL SIGNS: As above GENERAL: [Sitting up in bed, no acute distress, tired appearing] HEENT: [Pupils equal conjunctiva normal. Oral mucosa moist] NECK: [Supple, no JVD] RESPIRATORY EFFORT:[ Normal] LUNGS: [Clear, bilateral bases diminished, occasional fine left basilar crackles no wheezes,rhonchi] CARDIOVASCULAR[ regular S1 and S2, no murmurs rubs or gallops, no edema] GI: [Abdomen soft, nontender, mild diffuse discomfort. positive bowel sounds. No organomegaly, no guarding, no rigidity] PSYCH: [Alert and oriented -3, mood and affect normal.] SKIN: [No ulcer, rash or bleeding] NEURO: [No focal deficits, higher functions as mentioned previously, moves all 4 extremities, strength and sensation grossly intact] - Labs CBC & Chem 7: 10/17/16 07:16 10/18/16 10:04 Labs: Abnormal Lab Results - Last 24 Hours (Table) 10/17/16 10/18/16 Range/Units 07:16 10:04 Chloride 121 H* (98-107) mmol/L Carbon Dioxide 12 L (22-30) mmol/L BUN 64 H (7-17) mg/dL Creatinine 6.06 H* (0.52-1.04) mg/dL Glucose 73 L (74-99) mg/dL Calcium 6.2 L* (8.4-10.2) mg/dL Vitamin D 25-Hydroxy 6.2 L (30.0-100.0) ng/mL Microbiology - Last 24 Hours (Table) 10/16/16 00:55 Stool Culture - Preliminary Stool 10/15/16 19:32 Blood Culture - Preliminary Blood No Growth after 48 hours 10/15/16 17:17 Blood Culture - Preliminary Blood No Growth after 48 hours 10/16/16 16:00 Urine Culture - Final Urine,Voided Assessment and Plan Plan: 1 acute C. difficile colitis 2. Acute renal failure, possible acute on chronic disease, stage III 3. Bilateral pleural effusion left greater than right.Left lower lobe pneumonia , doubtful per pulmonary. 4 history of COPD 5 colon cancer history Plan: Continue on current medication regime, antibiotics, sodium bicarb, monitoring and symptomatic treatment. Cystoscopy procedure with urology pending. Close monitoring of renal function and electrolytes with repeat labs ordered for a.m. The impression and plan of care has been dictated as directed as a scribe.. : I performed a H&P examination of this patient and discussed the same with the dictator. I agree with the dictator's note. Any additional findings/opinions/ etc. will be noted.
[2016-10-18] MEDS: risperiDONE 0.25 MG TAB PO SCH (20:47)
[2016-10-19] MEDS: CHERRY FLAVOR 60 ML BOTTLE PO SCH ×5 (00:17→23:46)
[2016-10-19] MEDS: VANCOMYCIN ORAL SOLUTION 250 MG/5 ML BOTTLE PO SCH ×5 (00:17→23:47)
[2016-10-19] MEDS: SODIUM BICARBONATE TAB 650 MG TAB PO SCH ×4 (00:19→20:45)
[2016-10-19] MEDS: LEVOTHYROXINE 88 MCG TAB PO SCH (06:20)
[2016-10-19] MEDS: SODIUM CHLORIDE 0.9% 1,000 ML IV SCH (06:20)
[2016-10-19] MEDS: CALCIUM CARBONATE 500 MG CHEWABLE PO SCH (08:18)
[2016-10-19] MEDS: METOPROLOL TARTRATE 25 MG TAB PO SCH (08:19)
[2016-10-19] MEDS: IPRATROPIUM-ALBUTEROL 3 ML NEB INHALATION SCH ×3 (08:29→21:08)
[2016-10-19] MEDS ORDERED: FAMOTIDINE 20 MG TAB PO SCH (09:00)
--- NOTE | 2016-10-19 09:00 | PN ---
Patient is seen for followup for acute kidney injury. It appears she was taken to OR yesterday and had cystoscopy. The left double J catheter was removed. Patient had nonobstructive right hydronephrosis and occlusion of the left double J catheter. She has had urine output. She has been voiding. Initially the urine was bloody and the second time it was more clear. Currently, patient does not complain of any significant pain. Blood pressure is 90/58, heart rate is 79 per minute, she is afebrile. Examination of the heart, S1, S2. Examination of the lungs, bilateral breath sounds are heard. Abdomen is soft, nontender. Examination of the lower extremities shows edema 1+ bilaterally. Labs are pending from today. ASSESSMENT: 1. Acute kidney injury, obstructive uropathy, status post cystoscopy yesterday. Will follow up on labs from today. 2. Severe metabolic acidosis, maintained on oral sodium bicarb. 3. Clostridium difficile colitis, slowly improving. 4. Bilateral pleural effusions. 5. Chronic obstructive pulmonary disease. PLAN: Continue current IV fluids. Follow up on labs from today. [place]
[2016-10-19] MEDS: AZITHROMYCIN 500 MG TAB PO SCH (09:05)
[2016-10-19 09:21] LABS: Potassium 3.9 mmol/L (3.5-5.1)
[2016-10-19 09:30] LABS: Calcium 5.9 mg/dL (8.4-10.2)
[2016-10-19] MEDS: SODIUM CHLORIDE 0.45% 1,000 ML IV SCH (11:04)
[2016-10-19] MEDS: ERGOCALCIFEROL 50,000 UNIT CAP PO SCH (11:19)
[2016-10-19] MEDS: THIAMINE 100 MG TAB PO SCH (11:20)
[2016-10-19] MEDS: MULTIVITAMINS, THERA 1 EACH TAB PO SCH (11:20)
[2016-10-19] MEDS: FOLIC ACID 1 MG TAB PO SCH (11:21)
[2016-10-19 11:30] LABS: Anisocytosis Moderate; CH 26.4; CHCM 29.9; HCT 28.3 % (34.0-46.0); HDW 4.49; HGB 8.2 gm/dL (11.4-16.0); Hypochromasia Marked; MCH 25.7 pg (25.0-35.0); MCHC 28.9 g/dL (31.0-37.0); Mean Platelet Volume 8.1; Microcytosis Slight; Poikilocytosis Moderate; RBC 3.18 m/uL (3.80-5.40); WBC (Perox) 8.05
--- NOTE | 2016-10-19 11:46 | P.PN ---
Subjective 86-year-old female, she was admitted with a diagnosis of questionable left lower lobe pneumonia. She does have a history of hypothyroidism and hypertension along with history of colon cancer with previous bowel resection, and history of COPD. The patient does have a history of mild asthma as well. The patient was also in acute kidney injury on top of chronic renal failure. She is known to have obstructive uropathy and bilateral hydronephrosis. She has been seen by nephrology in the past and a left-sided ureteral stent was inserted.. Note that her prior creatinine from July 2016 was at 2.1 and around June 2016 it was 1.3. No history of any nonsteroidal anti-inflammatory medication. The patient's blood pressure was slightly on the lower side at time of admission. Ultrasound of the kidneys on 08/05/2016 showed bilateral hydronephrosis. Based on that a nephrology and urology consultation was requested. Anyway we did a computed tomography scan of the chest. We are concerned about possibly of lung cancer because a cousin decreased appetite and weight loss. It appears mostly small right-sided pleural effusion and a moderate-sized left-sided pleural effusion along with some atelectatic changes along the lingula. The patient has been maintained on a combination of Rocephin and Zithromax and po vancomycin and the last is being given for C. diff colitis.. The kidney function remains impaired without any significant improvement in the creatinine. On 10/18/2016 the patient is being seen in follow-up. The patient is doing well. The patient underwent cystoscopy and insertion of a ureteral stent on the right. The patient is making adequate amount of urine output. Renal function is being monitored. She still on same antibiotic coverage. No active diarrhea. She has positive C. diff A, and the rest of the urine and blood cultures of been all negative. No respiratory distress. I discussed the findings with the patient and her family. The patient bilateral pleural effusion. Could be related to underlying obstructive uropathy. No clear signs of an underlying pneumonia. She has no cough or sputum production. No chest tightness. The patient is seen again today 10/19/2016 in follow-up on the regular medical floor. She continues to do well. She has no current complaints. No further diarrhea. She remains on oral vancomycin. She is making urine currently at 150 MLS this morning. Her creatinine is slightly improved at 5.90. Sodium 144 with a chloride of 120 and a bicarb of 12. She remains on sodium bicarb 1300 mg 3 times a day. She has a 0.45 normal saline at 50 MLS per hour. Objective - Vital Signs Vital signs: Vital Signs Temp 97.1 F L 10/19/16 08:50 Pulse 74 10/19/16 08:50 Resp 21 10/19/16 08:50 BP 113/65 10/19/16 08:50 Pulse Ox 96 10/19/16 08:50 Intake & Output 10/18/16 10/19/16 10/19/16 18:59 06:59 18:59 Intake Total 768 Output Total 0 250 Balance 768 -250 Intake: IV 650 Oral 118 Output: Urine 250 Estimated Blood Loss 0 Other: Voiding Method Toilet Bedside Commode Bedside Commode # Voids 2 0 # Bowel Movements 0 - Exam The patient appeared well nourished and normally developed. Vital signs as documented. Head exam is unremarkable. No scleral icterus or corneal arcus noted. Neck is without jugular venous distension, thyromegaly, or carotid bruits. Carotid upstrokes are brisk bilaterally. Lungs are showing diminished breath sounds in the lung bases more so on the left.. Cardiac exam reveals the PMI to be normally sized and situated. Rhythm is regular. First and second heart sounds normal. No murmurs, rubs or gallops. Abdominal exam reveals normal bowel sounds, no masses, no organomegaly and no aortic enlargement. Extremities are nonedematous and both femoral and pedal pulses are normal. - Labs CBC & Chem 7: 10/19/16 07:49 10/19/16 07:49 Labs: Abnormal Lab Results - Last 24 Hours (Table) 10/17/16 10/18/16 10/19/16 Range/Units 07:16 10:04 07:49 RBC 3.18 L (3.80-5.40) m/uL Hgb 8.2 L (11.4-16.0) gm/dL Hct 28.3 L (34.0-46.0) % MCHC 28.9 L (31.0-37.0) g/dL RDW 23.0 H (11.5-15.5) % Plt Count 86 L (150-450) k/uL Chloride 121 H* (98-107) mmol/L Carbon Dioxide 12 L (22-30) mmol/L BUN 64 H (7-17) mg/dL Creatinine 6.06 H* (0.52-1.04) mg/dL Glucose 73 L (74-99) mg/dL Calcium 6.2 L* (8.4-10.2) mg/dL Vitamin D 25-Hydroxy 6.2 L (30.0-100.0) ng/mL 10/19/16 Range/Units 07:49 RBC (3.80-5.40) m/uL Hgb (11.4-16.0) gm/dL Hct (34.0-46.0) % MCHC (31.0-37.0) g/dL RDW (11.5-15.5) % Plt Count (150-450) k/uL Chloride 120 H* (98-107) mmol/L Carbon Dioxide 12 L (22-30) mmol/L BUN 63 H (7-17) mg/dL Creatinine 5.90 H* (0.52-1.04) mg/dL Glucose 71 L (74-99) mg/dL Calcium 5.9 L* (8.4-10.2) mg/dL Vitamin D 25-Hydroxy (30.0-100.0) ng/mL Microbiology - Last 24 Hours (Table) 10/16/16 00:55 Stool Culture - Final Stool 10/15/16 19:32 Blood Culture - Preliminary Blood No Growth after 72 hours 10/15/16 17:17 Blood Culture - Preliminary Blood No Growth after 72 hours Assessment and Plan Plan: Assessment 1 bilateral pleural effusion left more than right. The patient has a moderate- sized left-sided pleural effusion 2 COPD 3 chronic renal failure with an acute kidney injury on top of chronic kidney failure. The patient has obstructive uropathy with bilateral hydronephrosis earlier this year. The patient undergone cystoscopy and bilateral retrograde pyelograms and she was found to have extensive compression of both ureters at the pelvic brim and a left-sided ureteral stent was placed. Currently she has evidence of a right sided hydronephrosis. No dysuria. No hematuria. Right- sided ureteral stent also placed today by Dr. Figueredo 4 lung cancer, history of with a previous coronary resection 5 hypothyroidism 6 hypertension 7 C. diff colitis on oral vancomycin Plan The patient was seen and evaluated by Dr. Garcia. We'll continue to monitor her urine output. Nephrology is on the case as well. Her Rocephin and azithromycin were discontinued. She remains on oral vancomycin. We will repeat her chest x-ray in the a.m. We'll continue to follow.
[2016-10-19 12:28] LABS: Add Differential Manual Differential
[2016-10-19 12:31] LABS: Band Neutrophils % 2 %; Nucleated Red Blood Cells 2 /100 WBC (0-0); Total Cells Counted 200
[2016-10-19 12:32] LABS: Manual Review Performed; Ovalocytes Present; WBC 7.8 k/uL (3.8-10.6)
[2016-10-19 12:33] LABS: Toxic Granulation Present
[2016-10-19 12:34] LABS: Spherocytes Present
--- NOTE | 2016-10-19 14:49 | P.PN ---
Subjective Progress note being dictated for Dr. Carvalho 10/17/16/ Interval history: This is an 86-year-old female admitted with acute C. difficile colitis, acute renal failure, left lower lobe pneumonia and multiple other medical issues. Maintained on gentle IV fluid hydration Chest CT reporting small to moderate left minimal right pleural effusions, suspect atelectasis of left anterior lung base and within the lingula, right hydronephrosis. Diet intake remains fair. Diarrhea improving. Ultrasound reports bilateral nephrolithiasis with moderate right hydronephrosis .creatinine 6.01 Evaluated by pulmonary and urology with recommendations noted. 10/18/2016 maintained on antibiotics. continues on IV fluid hydration .no diarrhea this morning, no nausea, no vomiting. Scheduled this morning for cystoscopy, stent insertion with urology. Denies chest pain, palpitations or increasing shortness of breath. Denies cough. Chest x-ray reports left pleural effusion and trace right pleural effusion, emphysema. 10/19/2016. Maintained on oral vancomycin .Continues to do well, diarrhea has subsided. Hyperchloremic, chloride 120. sodium 144 and bicarb 12. Renal function improving, creatinine 5.9, good urine output-no hematuria. Denies dysuria. Objective - Vital Signs Vital signs: Vital Signs Temp 97.1 F L 10/19/16 08:50 Pulse 74 10/19/16 08:50 Resp 21 10/19/16 08:50 BP 113/65 10/19/16 08:50 Pulse Ox 96 10/19/16 08:50 Intake & Output 10/18/16 10/19/16 10/19/16 18:59 06:59 18:59 Intake Total 768 Output Total 0 250 Balance 768 -250 Intake: IV 650 Oral 118 Output: Urine 250 Estimated Blood Loss 0 Other: Voiding Method Toilet Bedside Commode Bedside Commode # Voids 2 0 # Bowel Movements 0 - Exam PHYSICAL EXAM: VITAL SIGNS: As above GENERAL: [Sitting up in bed, no acute distress, HEENT: [Pupils equal conjunctiva normal. Oral mucosa moist] NECK: [Supple, no JVD] RESPIRATORY EFFORT:[ Normal] LUNGS: [Clear, bilateral bases diminished, no crackles, no wheezes,rhonchi] CARDIOVASCULAR[ regular S1 and S2, no murmurs rubs or gallops, no edema] GI: [Abdomen soft, nontender, mild diffuse discomfort. positive bowel sounds. No organomegaly, no guarding, no rigidity] PSYCH: [Alert and oriented -3, mood and affect normal.] SKIN: [No ulcer, rash or bleeding] NEURO: [No focal deficits, higher functions as mentioned previously, moves all 4 extremities, strength and sensation grossly intact] - Labs CBC & Chem 7: 10/19/16 07:49 10/19/16 07:49 Labs: Abnormal Lab Results - Last 24 Hours (Table) 10/17/16 10/18/16 10/19/16 Range/Units 07:16 10:04 07:49 Chloride 121 H* 120 H* (98-107) mmol/L Carbon Dioxide 12 L 12 L (22-30) mmol/L BUN 64 H 63 H (7-17) mg/dL Creatinine 6.06 H* 5.90 H* (0.52-1.04) mg/dL Glucose 73 L 71 L (74-99) mg/dL Calcium 6.2 L* 5.9 L* (8.4-10.2) mg/dL Vitamin D 25-Hydroxy 6.2 L (30.0-100.0) ng/mL Microbiology - Last 24 Hours (Table) 10/16/16 00:55 Stool Culture - Final Stool 10/15/16 19:32 Blood Culture - Preliminary Blood No Growth after 72 hours 10/15/16 17:17 Blood Culture - Preliminary Blood No Growth after 72 hours Assessment and Plan Plan: 1 acute C. difficile colitis 2. Acute renal failure, possible acute on chronic disease, stage III, obstructive uropathy, bilateral hydronephrosis. Status post cystoscopy, with removal of left double-J catheter and bilateral retrograde pyeloureterograms. 3. Bilateral pleural effusion left greater than right.Left lower lobe pneumonia , doubtful per pulmonary. 4 history of COPD 5 colon cancer history 6. Hyperchloremic. Plan: Continue on current medication regime, antibiotics, sodium bicarb, monitoring and symptomatic treatment. IV fluids changed to 0.45 saline. PT/OT, discharge planning in progress for ECF tomorrow. Close monitoring of renal function and electrolytes with repeat labs ordered for a.m. The impression and plan of care has been dictated as directed as a scribe.. : I performed a H&P examination of this patient and discussed the same with the dictator. I agree with the dictator's note. Any additional findings/opinions/ etc. will be noted.
[2016-10-19] MEDS: risperiDONE 0.25 MG TAB PO SCH (20:45)
[2016-10-19] MEDS: HEPARIN SODIUM,PORCINE 5,000 UNIT/ML 1 ML VIAL SQ SCH (20:45)
[2016-10-20] MEDS: CHERRY FLAVOR 60 ML BOTTLE PO SCH ×4 (06:17→23:06)
[2016-10-20] MEDS: VANCOMYCIN ORAL SOLUTION 250 MG/5 ML BOTTLE PO SCH ×4 (06:18→23:07)
[2016-10-20] MEDS: LEVOTHYROXINE 88 MCG TAB PO SCH (06:18)
--- NOTE | 2016-10-20 07:47 | XR ---
EXAMINATION TYPE: XR chest 1V portable DATE OF EXAM: 10/20/2016 COMPARISON: 10/10/2016 HISTORY: Pleural effusion TECHNIQUE: Single frontal view of the chest is obtained. FINDINGS: There is an unchanged moderate left pleural effusion within the left associated compressiv e atelectasis. New blunting of the right costophrenic angle is appreciated as well as haziness of the right infrahilar region likely relating to trace right pleural effusion and compressive atelectasis. Biapical calcific pleural thickening is noted. Hyperinflation of the lungs remains related to underly ing emphysema. Cardiomediastinal silhouette is obscured but overall stable. Degenerative changes of t he thoracic spine are noted. IMPRESSION: Similar moderate left pleural effusion and associated compressive atelectasis with new probable trace right pleural effusion and right basilar atelectasis.
[2016-10-20] MEDS: IPRATROPIUM-ALBUTEROL 3 ML NEB INHALATION SCH ×3 (08:12→18:57)
[2016-10-20] MEDS: METOPROLOL TARTRATE 25 MG TAB PO SCH (08:23)
[2016-10-20] MEDS: CALCIUM CARBONATE 500 MG CHEWABLE PO SCH (08:23)
[2016-10-20] MEDS: SODIUM BICARBONATE TAB 650 MG TAB PO SCH ×3 (08:23→21:19)
[2016-10-20] MEDS: HEPARIN SODIUM,PORCINE 5,000 UNIT/ML 1 ML VIAL SQ SCH ×2 (08:24→20:48)
[2016-10-20 08:43] LABS: Potassium 3.7 mmol/L (3.5-5.1)
--- NOTE | 2016-10-20 08:45 | P.PN ---
Progress Note - Text The patient is afebrile and comfortable. She did have some hematuria immediately following cystoscopy with removal of her left double-J catheter but this has resolved. Her creatinine improved slightly to 5.90 when checked yesterday. Renal function tests are not yet available this morning. If the patient's renal function tests continue to improve then this would be consistent with worsening of her renal function secondary to encrustation of the left double-J catheter. When I placed the left double-J catheter in 07/2016 I was not completely convinced that there was a functional obstruction between the left kidney and the bladder. I had originally hoped to leave it in for only one month and to reassess her renal function following drainage but unfortunately she did not keep her appointment at that time. In view of the rapid encrustation of the left double-J catheter I do not feel that placement of a double-J catheter would be advised in the future if she ultimately is found to have left sided obstruction.
[2016-10-20] MEDS: SODIUM CHLORIDE 0.45% 1,000 ML IV SCH ×2 (08:51→20:00)
[2016-10-20 08:55] LABS: Anisocytosis Moderate; CH 26.6; CHCM 31.4; HCT 27.5 % (34.0-46.0); HDW 4.69; HGB 8.1 gm/dL (11.4-16.0); Hypochromasia Marked; MCH 25.3 pg (25.0-35.0); MCHC 29.7 g/dL (31.0-37.0); MCV 85.4 fL (80.0-100.0); Mean Platelet Volume 7.9; Microcytosis Slight; Poikilocytosis Marked; RBC 3.22 m/uL (3.80-5.40); RDW 23.1 % (11.5-15.5)
[2016-10-20 09:15] LABS: Calcium 5.9 mg/dL (8.4-10.2)
--- NOTE | 2016-10-20 09:48 | P.PN ---
Subjective Patient is seen for follow-up for acute kidney injury which appears to be mainly obstructive uropathy. She may have underlying ATN. Patient was taken to the OR and had cystoscopy with removal of left double-J catheter and bilateral retrograde pyelograms. Patient had bilateral hydronephrosis previously. She is maintained on gentle IV hydration. Patient does have significant edema in the lower extremities however she is not short of breath. She has not been eating much. Her serum creatinine is down to 5.9 from 6.1. Nursing staff reports that urine output has dropped. No complaints of pain nausea vomiting. Patient was also found to be positive for C. diff toxin this admission and she is maintained on oral vancomycin. Diarrhea has improved significantly. Objective - Vital Signs Vital signs: Vital Signs Temp 97.6 F 10/20/16 08:41 Pulse 63 10/20/16 08:41 Resp 18 10/20/16 08:41 BP 101/63 10/20/16 08:41 Pulse Ox 99 10/20/16 08:41 Intake & Output 10/19/16 10/20/16 10/20/16 18:59 06:59 18:59 Other: Voiding Method Bedside Commode Bedside Commode # Voids 1 1 - Exam On examination patient is currently comfortable awake she is not in any acute distress. Blood pressure is 101/63 heart rate 63/m she is afebrile Examination of the heart S1 and S2 Examination lungs bilateral breath sounds are heard Abdomen is soft nontender with some abdominal wall edema noted Exam showed Lorick Tigre shows 2+ edema bilaterally. 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 Patient is moving all 4 extremities. - Labs CBC & Chem 7: 10/20/16 07:06 10/20/16 07:06 Labs: Abnormal Lab Results - Last 24 Hours (Table) 10/19/16 10/20/16 10/20/16 Range/Units 07:49 07:06 07:06 RBC 3.18 L 3.22 L (3.80-5.40) m/uL Hgb 8.2 L 8.1 L (11.4-16.0) gm/dL Hct 28.3 L 27.5 L (34.0-46.0) % MCHC 28.9 L 29.7 L (31.0-37.0) g/dL RDW 23.0 H 23.1 H (11.5-15.5) % Plt Count 86 L 81 L (150-450) k/uL Lymphocytes # (Manual) 0.78 L (1.0-4.8) k/uL Nucleated RBCs 2 H (0-0) /100 WBC Chloride 118 H (98-107) mmol/L Carbon Dioxide 14 L (22-30) mmol/L BUN 64 H (7-17) mg/dL Creatinine 5.99 H* (0.52-1.04) mg/dL Calcium 5.9 L* (8.4-10.2) mg/dL Microbiology - Last 24 Hours (Table) 10/16/16 00:55 Stool Culture - Final Stool 10/15/16 19:32 Blood Culture - Preliminary Blood No Growth after 96 hours 10/15/16 17:17 Blood Culture - Preliminary Blood No Growth after 96 hours Assessment and Plan Plan: Assessment 1. Acute kidney injury mainly obstructive uropathy. Urine output is slightly lower than yesterday. Will continue with IV fluids. I did discuss with urology this morning. Patient has had removal of her left and double-J catheter. If her urine output drops further we will notify urology again she may need repeat cystoscopy. 2. Non-gap metabolic acidosis secondary to diarrhea and renal failure currently improving continue with oral sodium bicarb. 3. C. diff colitis maintained on oral vancomycin. 4. Lower extremity edema possibly related to some degree of malnutrition. Plan Continue with the IV fluids at 50 mL an hour. If there is no further improvement in renal function tomorrow we will contact urology again.
[2016-10-20 11:10] LABS: Manual Review Performed
[2016-10-20 11:11] LABS: Add Differential Manual Differential; Ovalocytes Present
[2016-10-20 11:16] LABS: Band Neutrophils % 3 %; Nucleated Red Blood Cells 1 /100 WBC (0-0); Total Cells Counted 200; WBC 7.5 k/uL (3.8-10.6)
[2016-10-20] MEDS: MULTIVITAMINS, THERA 1 EACH TAB PO SCH (12:53)
[2016-10-20] MEDS: FOLIC ACID 1 MG TAB PO SCH (12:53)
[2016-10-20] MEDS: THIAMINE 100 MG TAB PO SCH (12:53)
--- NOTE | 2016-10-20 14:46 | P.PN ---
Subjective 86-year-old female, she was admitted with a diagnosis of questionable left lower lobe pneumonia. She does have a history of hypothyroidism and hypertension along with history of colon cancer with previous bowel resection, and history of COPD. The patient does have a history of mild asthma as well. The patient was also in acute kidney injury on top of chronic renal failure. She is known to have obstructive uropathy and bilateral hydronephrosis. She has been seen by nephrology in the past and a left-sided ureteral stent was inserted.. Note that her prior creatinine from July 2016 was at 2.1 and around June 2016 it was 1.3. No history of any nonsteroidal anti-inflammatory medication. The patient's blood pressure was slightly on the lower side at time of admission. Ultrasound of the kidneys on 08/05/2016 showed bilateral hydronephrosis. Based on that a nephrology and urology consultation was requested. Anyway we did a computed tomography scan of the chest. We are concerned about possibly of lung cancer because a cousin decreased appetite and weight loss. It appears mostly small right-sided pleural effusion and a moderate-sized left-sided pleural effusion along with some atelectatic changes along the lingula. The patient has been maintained on a combination of Rocephin and Zithromax and po vancomycin and the last is being given for C. diff colitis.. The kidney function remains impaired without any significant improvement in the creatinine. On 10/18/2016 the patient is being seen in follow-up. The patient is doing well. The patient underwent cystoscopy and insertion of a ureteral stent on the right. The patient is making adequate amount of urine output. Renal function is being monitored. She still on same antibiotic coverage. No active diarrhea. She has positive C. diff A, and the rest of the urine and blood cultures of been all negative. No respiratory distress. I discussed the findings with the patient and her family. The patient bilateral pleural effusion. Could be related to underlying obstructive uropathy. No clear signs of an underlying pneumonia. She has no cough or sputum production. No chest tightness. The patient is seen again today 10/19/2016 in follow-up on the regular medical floor. She continues to do well. She has no current complaints. No further diarrhea. She remains on oral vancomycin. She is making urine currently at 150 MLS this morning. Her creatinine is slightly improved at 5.90. Sodium 144 with a chloride of 120 and a bicarb of 12. She remains on sodium bicarb 1300 mg 3 times a day. She has a 0.45 normal saline at 50 MLS per hour. The patient is seen again today 10/20/2016 in follow-up on the regular medical floor. She is currently resting quite comfortably in bed. She is maintaining good O2 saturations in the 90s on room air. She does have a moderate left pleural effusion with associated atelectasis. Her creatinine remains greater than 6 and she has had a drop in her urine output continued to the obstructive uropathy. She has had her left double-J catheters removed. They may need to repeat a cystoscopy. She remains on vancomycin for her C. difficile colitis. Objective - Vital Signs Vital signs: Vital Signs Temp 97.6 F 10/20/16 08:41 Pulse 63 10/20/16 08:41 Resp 18 10/20/16 08:41 BP 101/63 10/20/16 08:41 Pulse Ox 99 10/20/16 08:41 Intake & Output 10/19/16 10/20/16 10/20/16 18:59 06:59 18:59 Intake Total 450 Balance 450 Weight 46.493 kg Intake: Intake, IV Titration 450 Amount Sodium Chloride 0.45% 1, 450 000 ml @ 50 mls/hr IV . Q20H [facility] Rx#:[id number] Other: Voiding Method Bedside Commode Bedside Commode # Voids 1 1 - Exam The patient appeared well nourished and normally developed. Vital signs as documented. Head exam is unremarkable. No scleral icterus or corneal arcus noted. Neck is without jugular venous distension, thyromegaly, or carotid bruits. Carotid upstrokes are brisk bilaterally. Lungs are showing diminished breath sounds in the lung bases more so on the left.. Cardiac exam reveals the PMI to be normally sized and situated. Rhythm is regular. First and second heart sounds normal. No murmurs, rubs or gallops. Abdominal exam reveals normal bowel sounds, no masses, no organomegaly and no aortic enlargement. Extremities are nonedematous and both femoral and pedal pulses are normal. - Labs CBC & Chem 7: 10/20/16 07:06 10/20/16 07:06 Labs: Abnormal Lab Results - Last 24 Hours (Table) 10/20/16 10/20/16 Range/Units 07:06 07:06 RBC 3.22 L (3.80-5.40) m/uL Hgb 8.1 L (11.4-16.0) gm/dL Hct 27.5 L (34.0-46.0) % MCHC 29.7 L (31.0-37.0) g/dL RDW 23.1 H (11.5-15.5) % Plt Count 81 L (150-450) k/uL Lymphocytes # (Manual) 0.90 L (1.0-4.8) k/uL Nucleated RBCs 1 H (0-0) /100 WBC Chloride 118 H (98-107) mmol/L Carbon Dioxide 14 L (22-30) mmol/L BUN 64 H (7-17) mg/dL Creatinine 5.99 H* (0.52-1.04) mg/dL Calcium 5.9 L* (8.4-10.2) mg/dL Microbiology - Last 24 Hours (Table) 10/16/16 00:55 Stool Culture - Final Stool 10/15/16 19:32 Blood Culture - Preliminary Blood No Growth after 96 hours 10/15/16 17:17 Blood Culture - Preliminary Blood No Growth after 96 hours Assessment and Plan Plan: Assessment 1 bilateral pleural effusion left more than right. The patient has a moderate- sized left-sided pleural effusion 2 COPD 3 chronic renal failure with an acute kidney injury on top of chronic kidney failure. The patient has obstructive uropathy with bilateral hydronephrosis earlier this year. The patient undergone cystoscopy and bilateral retrograde pyelograms and she was found to have extensive compression of both ureters at the pelvic brim and a left-sided ureteral stent was placed. Currently she has evidence of a right sided hydronephrosis. No dysuria. No hematuria. Right- sided ureteral stent also placed today by Dr. Figueredo 4 lung cancer, history of with a previous coronary resection 5 hypothyroidism 6 hypertension 7 C. diff colitis on oral vancomycin Plan The patient was seen and evaluated by Dr. Garcia. Her chest x-ray continues to show a moderate left pleural effusion. However, the patient is quite comfortable at rest. She is maintaining O2 saturations in the 90s on room air. We will hold off on a thoracentesis for now. If she should develop any respiratory distress we'll plan for the thoracentesis then. We'll continue to monitor her urine output. Nephrology is on the case as well. Continue to monitor the creatinine. She remains on oral vancomycin. We'll continue to follow.
[2016-10-20] MEDS: risperiDONE 0.25 MG TAB PO SCH (20:48)
[2016-10-21] MEDS: VANCOMYCIN ORAL SOLUTION 250 MG/5 ML BOTTLE PO SCH ×4 (06:09→23:52)
[2016-10-21] MEDS: CHERRY FLAVOR 60 ML BOTTLE PO SCH ×4 (06:10→23:52)
[2016-10-21] MEDS: LEVOTHYROXINE 88 MCG TAB PO SCH (06:30)
[2016-10-21] MEDS: IPRATROPIUM-ALBUTEROL 3 ML NEB INHALATION SCH ×3 (08:08→20:19)
[2016-10-21 08:38] LABS: Potassium 3.8 mmol/L (3.5-5.1)
[2016-10-21] MEDS: CALCIUM CARBONATE 500 MG CHEWABLE PO SCH (08:40)
[2016-10-21] MEDS: METOPROLOL TARTRATE 25 MG TAB PO SCH (08:40)
[2016-10-21] MEDS: HEPARIN SODIUM,PORCINE 5,000 UNIT/ML 1 ML VIAL SQ SCH ×2 (08:40→21:21)
[2016-10-21] MEDS: SODIUM BICARBONATE TAB 650 MG TAB PO SCH ×3 (08:40→21:22)
[2016-10-21 08:47] LABS: Anisocytosis Moderate; CH 25.7; CHCM 31.4; HDW 4.81; HGB 7.7 gm/dL (11.4-16.0); Hypochromasia Marked; MCH 25.5 pg (25.0-35.0); MCHC 30.9 g/dL (31.0-37.0); MCV 82.4 fL (80.0-100.0); Microcytosis Slight; Poikilocytosis Marked; RBC 3.03 m/uL (3.80-5.40); RDW 22.6 % (11.5-15.5); WBC (Perox) 8.37
[2016-10-21 08:49] LABS: Calcium 5.9 mg/dL (8.4-10.2)
[2016-10-21 09:52] LABS: Add Differential Manual Differential
[2016-10-21 09:55] LABS: Band Neutrophils % 2 %; Metamyelocytes % 1 %; Myelocytes % 1 %; Nucleated Red Blood Cells 1 /100 WBC (0-0); Total Cells Counted 200
[2016-10-21 09:57] LABS: Manual Review Performed; WBC 8.1 k/uL (3.8-10.6)
[2016-10-21 09:58] LABS: Ovalocytes Present; Polychromasia Present
[2016-10-21 09:59] LABS: Spherocytes Present
[2016-10-21] MEDS: FOLIC ACID 1 MG TAB PO SCH (11:33)
[2016-10-21] MEDS: MULTIVITAMINS, THERA 1 EACH TAB PO SCH (11:33)
[2016-10-21] MEDS: THIAMINE 100 MG TAB PO SCH (11:39)
--- NOTE | 2016-10-21 12:46 | P.PN ---
Subjective 10/17/16/ Interval history: This is an 86-year-old female admitted with acute C. difficile colitis, acute renal failure, left lower lobe pneumonia and multiple other medical issues. Maintained on gentle IV fluid hydration Chest CT reporting small to moderate left minimal right pleural effusions, suspect atelectasis of left anterior lung base and within the lingula, right hydronephrosis. Diet intake remains fair. Diarrhea improving. Ultrasound reports bilateral nephrolithiasis with moderate right hydronephrosis .creatinine 6.01 Evaluated by pulmonary and urology with recommendations noted. 10/18/2016 maintained on antibiotics. continues on IV fluid hydration .no diarrhea this morning, no nausea, no vomiting. Scheduled this morning for cystoscopy, stent insertion with urology. Denies chest pain, palpitations or increasing shortness of breath. Denies cough. Chest x-ray reports left pleural effusion and trace right pleural effusion, emphysema. 10/19/2016. Maintained on oral vancomycin .Continues to do well, diarrhea has subsided. Hyperchloremic, chloride 120. sodium 144 and bicarb 12. Renal function improving, creatinine 5.9, good urine output-no hematuria. Denies dysuria. 10/21/2016 Patient's diarrhea improved still has some hematuria kidney function did not improve significantly patient does have pedal edema patient is getting IV fluids and from a 50 mL of normal saline which is being but none management nephrology and nephrology's planning on discussing with urology because of concerns of obstructive uropathy. Urine output is marginal and no significant improvement. Patient today denied any chest pain, nausea, vomiting, abdominal pain Objective - Vital Signs Vital signs: Vital Signs Temp 97.0 F L 10/21/16 07:00 Pulse 93 10/21/16 07:00 Resp 20 10/21/16 12:30 BP 131/64 10/21/16 07:00 Pulse Ox 93 L 10/21/16 07:00 Intake & Output 10/20/16 10/21/16 10/21/16 18:59 06:59 18:59 Intake Total 450 600 Output Total 1 101 Balance 450 599 -101 Weight 46.493 kg Intake: Intake, IV Titration 450 600 Amount Sodium Chloride 0.45% 1, 450 600 000 ml @ 50 mls/hr IV . Q20H [facility] Rx#:[id number] Output: Urine 100 Stool 1 1 Other: Voiding Method Bedside Commode Bedside Commode Bedpan # Voids 2 1 # Bowel Movements 1 1 - Exam GENERAL: [Sitting up in bed, no acute distress, HEENT: [Pupils equal conjunctiva normal. Oral mucosa moist] NECK: [Supple, no JVD] RESPIRATORY EFFORT:[ Normal] LUNGS: [Clear, bilateral bases diminished, no crackles, no wheezes,rhonchi] CARDIOVASCULAR[ regular S1 and S2, no murmurs rubs or gallops, no edema] GI: [Abdomen soft, nontender, mild diffuse discomfort. positive bowel sounds. No organomegaly, no guarding, no rigidity] PSYCH: [Alert and oriented -3, mood and affect normal.] SKIN: [No ulcer, rash or bleeding] NEURO: [No focal deficits, higher functions as mentioned previously, moves all 4 extremities, strength and sensation grossly intact] - Labs CBC & Chem 7: 10/21/16 07:45 10/21/16 07:45 Labs: Abnormal Lab Results - Last 24 Hours (Table) 10/21/16 10/21/16 Range/Units 07:45 07:45 RBC 3.03 L (3.80-5.40) m/uL Hgb 7.7 L (11.4-16.0) gm/dL Hct 25.0 L (34.0-46.0) % MCHC 30.9 L (31.0-37.0) g/dL RDW 22.6 H (11.5-15.5) % Plt Count 85 L (150-450) k/uL Lymphocytes # (Manual) 0.89 L (1.0-4.8) k/uL Metamyelocytes # (Man) 0.08 H (0) k/uL Myelocytes # (Manual) 0.08 H (0) k/uL Blast Cells # (Man) 0.08 H (0) k/uL Nucleated RBCs 1 H (0-0) /100 WBC Chloride 116 H (98-107) mmol/L Carbon Dioxide 14 L (22-30) mmol/L BUN 66 H (7-17) mg/dL Creatinine 5.98 H* (0.52-1.04) mg/dL Calcium 5.9 L* (8.4-10.2) mg/dL Microbiology - Last 24 Hours (Table) 10/15/16 19:32 Blood Culture - Preliminary Blood No Growth after 120 hours 10/15/16 17:17 Blood Culture - Preliminary Blood No Growth after 120 hours Assessment and Plan Plan: 1 acute C. difficile colitis 2. Acute renal failure, possible acute on chronic disease, stage III, obstructive uropathy, bilateral hydronephrosis. Status post cystoscopy, with removal of left double-J catheter and bilateral retrograde pyeloureterograms. 3. Bilateral pleural effusion left greater than right.Left lower lobe pneumonia , doubtful per pulmonary. 4 history of COPD 5 colon cancer history 6. Hyperchloremic. Plan as mentioned in the interval history and continue with IV fluids
--- NOTE | 2016-10-21 13:21 | P.PN ---
Subjective Progress note being dictated for Dr. Carvalho 10/17/16/ Interval history: This is an 86-year-old female admitted with acute C. difficile colitis, acute renal failure, left lower lobe pneumonia and multiple other medical issues. Maintained on gentle IV fluid hydration Chest CT reporting small to moderate left minimal right pleural effusions, suspect atelectasis of left anterior lung base and within the lingula, right hydronephrosis. Diet intake remains fair. Diarrhea improving. Ultrasound reports bilateral nephrolithiasis with moderate right hydronephrosis .creatinine 6.01 Evaluated by pulmonary and urology with recommendations noted. 10/18/2016 maintained on antibiotics. continues on IV fluid hydration .no diarrhea this morning, no nausea, no vomiting. Scheduled this morning for cystoscopy, stent insertion with urology. Denies chest pain, palpitations or increasing shortness of breath. Denies cough. Chest x-ray reports left pleural effusion and trace right pleural effusion, emphysema. 10/19/2016. Maintained on oral vancomycin .Continues to do well, diarrhea has subsided. Hyperchloremic, chloride 120. sodium 144 and bicarb 12. Renal function improving, creatinine 5.9, good urine output-no hematuria. Denies dysuria. 10/20/16 Maintained on gentle IV fluid hydration, oral vancomycin. No diarrhea. minimal urine output, postvoid residual 30 MLS. creatinine 5.9. Increased edema of lower extremities, mild abdominal edema.Fair diet intake. No nausea, no vomiting. Nephrology concerned regarding potential obstructive uropathy. Objective - Vital Signs Vital signs: Vital Signs Temp 96.4 F L 10/20/16 15:00 Pulse 78 10/20/16 15:00 Resp 18 10/20/16 15:00 BP 114/70 10/20/16 15:00 Pulse Ox 98 10/20/16 15:00 Intake & Output 10/19/16 10/20/16 10/20/16 18:59 06:59 18:59 Intake Total 450 Balance 450 Weight 46.493 kg Intake: Intake, IV Titration 450 Amount Sodium Chloride 0.45% 1, 450 000 ml @ 50 mls/hr IV . Q20H [facility] Rx#:[id number] Other: Voiding Method Bedside Commode Bedside Commode # Voids 1 1 2 # Bowel Movements 1 - Exam PHYSICAL EXAM: VITAL SIGNS: As above GENERAL: [Sitting up in bed, no acute distress, HEENT: [Pupils equal conjunctiva normal. Oral mucosa moist] NECK: [Supple, no JVD] RESPIRATORY EFFORT:[ Normal] LUNGS: [Clear, bilateral bases diminished, no crackles, no wheezes,rhonchi] CARDIOVASCULAR[ regular S1 and S2, no murmurs rubs or gallops, positive edema] GI: [Abdomen soft, nontender, mild diffuse discomfort. Mild abdominal edema. positive bowel sounds. No organomegaly, no guarding, no rigidity] PSYCH: [Alert and oriented -3, mood and affect normal.] SKIN: [No ulcer, rash or bleeding] NEURO: [No focal deficits, higher functions as mentioned previously, moves all 4 extremities, strength and sensation grossly intact] - Labs CBC & Chem 7: 10/21/16 07:45 10/21/16 07:45 Labs: Abnormal Lab Results - Last 24 Hours (Table) 10/20/16 10/20/16 Range/Units 07:06 07:06 RBC 3.22 L (3.80-5.40) m/uL Hgb 8.1 L (11.4-16.0) gm/dL Hct 27.5 L (34.0-46.0) % MCHC 29.7 L (31.0-37.0) g/dL RDW 23.1 H (11.5-15.5) % Plt Count 81 L (150-450) k/uL Lymphocytes # (Manual) 0.90 L (1.0-4.8) k/uL Nucleated RBCs 1 H (0-0) /100 WBC Chloride 118 H (98-107) mmol/L Carbon Dioxide 14 L (22-30) mmol/L BUN 64 H (7-17) mg/dL Creatinine 5.99 H* (0.52-1.04) mg/dL Calcium 5.9 L* (8.4-10.2) mg/dL Microbiology - Last 24 Hours (Table) 10/16/16 00:55 Stool Culture - Final Stool 10/15/16 19:32 Blood Culture - Preliminary Blood No Growth after 96 hours 10/15/16 17:17 Blood Culture - Preliminary Blood No Growth after 96 hours Assessment and Plan Plan: 1 acute C. difficile colitis 2. Acute renal failure, possible acute on chronic disease, stage III, obstructive uropathy, bilateral hydronephrosis. Status post cystoscopy, with removal of left double-J catheter and bilateral retrograde pyeloureterograms. 3. Bilateral pleural effusion left greater than right.Left lower lobe pneumonia , doubtful per pulmonary. 4 history of COPD 5 colon cancer history 6. Hyperchloremic. Plan: Continue on current medication regime, antibiotics, sodium bicarb, monitoring and symptomatic treatment. Maintained IV fluids.PT/OT. Encourage oral intake. Close monitoring of renal function and electrolytes with repeat labs ordered for a.m. further recommendations from urology pending. The impression and plan of care has been dictated as directed as a scribe.. .: I performed a H&P examination of this patient and discussed the same with the dictator. I agree with the dictator's note. Any additional findings/opinions/ etc. will be noted.
--- NOTE | 2016-10-21 13:28 | P.PN ---
Subjective 86-year-old female, she was admitted with a diagnosis of questionable left lower lobe pneumonia. She does have a history of hypothyroidism and hypertension along with history of colon cancer with previous bowel resection, and history of COPD. The patient does have a history of mild asthma as well. The patient was also in acute kidney injury on top of chronic renal failure. She is known to have obstructive uropathy and bilateral hydronephrosis. She has been seen by nephrology in the past and a left-sided ureteral stent was inserted.. Note that her prior creatinine from July 2016 was at 2.1 and around June 2016 it was 1.3. No history of any nonsteroidal anti-inflammatory medication. The patient's blood pressure was slightly on the lower side at time of admission. Ultrasound of the kidneys on 08/05/2016 showed bilateral hydronephrosis. Based on that a nephrology and urology consultation was requested. Anyway we did a computed tomography scan of the chest. We are concerned about possibly of lung cancer because a cousin decreased appetite and weight loss. It appears mostly small right-sided pleural effusion and a moderate-sized left-sided pleural effusion along with some atelectatic changes along the lingula. The patient has been maintained on a combination of Rocephin and Zithromax and po vancomycin and the last is being given for C. diff colitis.. The kidney function remains impaired without any significant improvement in the creatinine. On 10/18/2016 the patient is being seen in follow-up. The patient is doing well. The patient underwent cystoscopy and insertion of a ureteral stent on the right. The patient is making adequate amount of urine output. Renal function is being monitored. She still on same antibiotic coverage. No active diarrhea. She has positive C. diff A, and the rest of the urine and blood cultures of been all negative. No respiratory distress. I discussed the findings with the patient and her family. The patient bilateral pleural effusion. Could be related to underlying obstructive uropathy. No clear signs of an underlying pneumonia. She has no cough or sputum production. No chest tightness. The patient is seen again today 10/19/2016 in follow-up on the regular medical floor. She continues to do well. She has no current complaints. No further diarrhea. She remains on oral vancomycin. She is making urine currently at 150 MLS this morning. Her creatinine is slightly improved at 5.90. Sodium 144 with a chloride of 120 and a bicarb of 12. She remains on sodium bicarb 1300 mg 3 times a day. She has a 0.45 normal saline at 50 MLS per hour. The patient is seen again today 10/20/2016 in follow-up on the regular medical floor. She is currently resting quite comfortably in bed. She is maintaining good O2 saturations in the 90s on room air. She does have a moderate left pleural effusion with associated atelectasis. Her creatinine remains greater than 6 and she has had a drop in her urine output continued to the obstructive uropathy. She has had her left double-J catheters removed. They may need to repeat a cystoscopy. She remains on vancomycin for her C. difficile colitis. The patient was seen again today 10/21/2016 in follow-up on the regular medical floor. She is currently awake and alert in no acute distress. She is breathing about the same today as compared to yesterday. She is on 2 L of nasal cannula. Blood urine and stool cultures revealed no growth. No leukocytosis. Hemoglobin 7.7. Her creatinine remains high at 5.98. Bicarb 14. Objective - Vital Signs Vital signs: Vital Signs Temp 97.0 F L 10/21/16 07:00 Pulse 93 10/21/16 07:00 Resp 20 10/21/16 12:30 BP 131/64 10/21/16 07:00 Pulse Ox 93 L 10/21/16 07:00 Intake & Output 10/20/16 10/21/16 10/21/16 18:59 06:59 18:59 Intake Total 450 600 Output Total 1 101 Balance 450 599 -101 Weight 46.493 kg Intake: Intake, IV Titration 450 600 Amount Sodium Chloride 0.45% 1, 450 600 000 ml @ 50 mls/hr IV . Q20H [facility] Rx#:[id number] Output: Urine 100 Stool 1 1 Other: Voiding Method Bedside Commode Bedside Commode Bedpan # Voids 2 1 # Bowel Movements 1 1 - Exam The patient appeared well nourished and normally developed. Vital signs as documented. Head exam is unremarkable. No scleral icterus or corneal arcus noted. Neck is without jugular venous distension, thyromegaly, or carotid bruits. Carotid upstrokes are brisk bilaterally. Lungs are showing diminished breath sounds in the lung bases more so on the left.. Cardiac exam reveals the PMI to be normally sized and situated. Rhythm is regular. First and second heart sounds normal. No murmurs, rubs or gallops. Abdominal exam reveals normal bowel sounds, no masses, no organomegaly and no aortic enlargement. Extremities are nonedematous and both femoral and pedal pulses are normal. - Labs CBC & Chem 7: 10/21/16 07:45 10/21/16 07:45 Labs: Abnormal Lab Results - Last 24 Hours (Table) 10/21/16 10/21/16 Range/Units 07:45 07:45 RBC 3.03 L (3.80-5.40) m/uL Hgb 7.7 L (11.4-16.0) gm/dL Hct 25.0 L (34.0-46.0) % MCHC 30.9 L (31.0-37.0) g/dL RDW 22.6 H (11.5-15.5) % Plt Count 85 L (150-450) k/uL Lymphocytes # (Manual) 0.89 L (1.0-4.8) k/uL Metamyelocytes # (Man) 0.08 H (0) k/uL Myelocytes # (Manual) 0.08 H (0) k/uL Blast Cells # (Man) 0.08 H (0) k/uL Nucleated RBCs 1 H (0-0) /100 WBC Chloride 116 H (98-107) mmol/L Carbon Dioxide 14 L (22-30) mmol/L BUN 66 H (7-17) mg/dL Creatinine 5.98 H* (0.52-1.04) mg/dL Calcium 5.9 L* (8.4-10.2) mg/dL Microbiology - Last 24 Hours (Table) 10/15/16 19:32 Blood Culture - Preliminary Blood No Growth after 120 hours 10/15/16 17:17 Blood Culture - Preliminary Blood No Growth after 120 hours Assessment and Plan Plan: Assessment 1 bilateral pleural effusion left more than right. The patient has a moderate- sized left-sided pleural effusion 2 COPD 3 chronic renal failure with an acute kidney injury on top of chronic kidney failure. The patient has obstructive uropathy with bilateral hydronephrosis earlier this year. The patient undergone cystoscopy and bilateral retrograde pyelograms and she was found to have extensive compression of both ureters at the pelvic brim and a left-sided ureteral stent was placed. Currently she has evidence of a right sided hydronephrosis. No dysuria. No hematuria. Right- sided ureteral stent also placed today by Dr. Figueredo 4 lung cancer, history of with a previous coronary resection 5 hypothyroidism 6 hypertension 7 C. diff colitis on oral vancomycin Plan The patient was seen and evaluated by Dr. Garcia. We will repeat a chest x- ray in the a.m. If there is still significant amount of pleural effusion we will plan for thoracentesis. We'll continue to monitor her urine output. Nephrology is on the case as well. Continue to monitor the creatinine. She remains on oral vancomycin. We'll continue to follow.
[2016-10-21] MEDS ORDERED: FUROSEMIDE 10 MG/ML 4 ML VIAL IV STA (14:05)
[2016-10-21 14:52] LABS: % Iron Saturation 56.1 % (20-50)
[2016-10-21] MEDS: risperiDONE 0.25 MG TAB PO SCH (21:21)
[2016-10-22] MEDS: LEVOTHYROXINE 88 MCG TAB PO SCH (06:19)
[2016-10-22] MEDS: CHERRY FLAVOR 60 ML BOTTLE PO SCH ×4 (06:20→23:26)
[2016-10-22] MEDS: VANCOMYCIN ORAL SOLUTION 250 MG/5 ML BOTTLE PO SCH ×4 (06:20→23:26)
[2016-10-22] MEDS: IPRATROPIUM-ALBUTEROL 3 ML NEB INHALATION SCH (07:20)
[2016-10-22 07:39] LABS: Anisocytosis Moderate; CH 26.9; CHCM 32.7; HDW 4.92; HGB 7.4 gm/dL (11.4-16.0); Hypochromasia Moderate; MCH 25.5 pg (25.0-35.0); MCHC 30.8 g/dL (31.0-37.0); MCV 82.9 fL (80.0-100.0); Mean Platelet Volume 7.6; Microcytosis Slight; Poikilocytosis Marked; RDW 23.4 % (11.5-15.5); WBC 6.6 k/uL (3.8-10.6); WBC (Perox) 6.34
[2016-10-22 08:02] LABS: Potassium 3.1 mmol/L (3.5-5.1)
[2016-10-22 08:25] LABS: Add Differential Manual Differential
[2016-10-22 08:30] LABS: Band Neutrophils % 1 %; Metamyelocytes % 2 %; Nucleated Red Blood Cells 0 /100 WBC (0-0); Total Cells Counted 200
[2016-10-22 08:31] LABS: Manual Review Performed
[2016-10-22 08:32] LABS: Ovalocytes Present; Spherocytes Present
[2016-10-22 08:35] LABS: Polychromasia Present
--- NOTE | 2016-10-22 08:51 | PN ---
PROGRESS NOTE Date of Service: HISTORY: The patient is seen for followup for acute kidney injury, which is mainly obstructive uropathy. Her renal function has not improved or worsened for the last 3 to 4 days[address] I discussed with Dr. Figueredo and plan is to proceed with a nuclear scan and then decide further intervention. He would like to do the scan as an outpatient, however, I do not think the patient will be discharged. Her urine output is on the lower side, it is not accurately measured. The patient has been running IV fluids, however, she was mildly short of breath this morning. PHYSICAL EXAMINATION: On examination, blood pressure is 131/64, heart rate 93 per minute. She is afebrile. Examination of the heart, S1 and S2. Lungs, bilateral breath sounds are heard. Abdomen is soft, nontender. Lower extremities show edema 2+ bilaterally. [employer] exam is grossly intact. LABS: Hemoglobin 7.7, sodium 142, potassium 3.8, chloride 116, CO2 of 14, serum creatinine 5.98. ASSESSMENT: 1. Acute kidney injury, may be obstructive uropathy. Discussed with Urology. The plan is to proceed with a nuclear scan and then decide on further intervention based on the scan. 2. Metabolic acidosis secondary to renal failure and diarrhea from C. diff colitis. Currently maintained on oral sodium bicarbonate, which we will continue. 3. Hypocalcemia associated with nutrition and vitamin D deficiency. Currently maintained on supplementation. 4. Anemia, rule out iron deficiency. The patient has had some hematuria. No large volume hematuria noted at this time. PLAN: Hep-Lock IV fluids. Lasix x1. Check iron studies. We will check a nuclear scan to decide further intervention on the kidneys. MMODL / IJN: [id number] /
[2016-10-22] MEDS: METOPROLOL TARTRATE 25 MG TAB PO SCH (09:21)
[2016-10-22] MEDS: SODIUM BICARBONATE TAB 650 MG TAB PO SCH ×3 (09:22→20:15)
[2016-10-22] MEDS: CALCIUM CARBONATE 500 MG CHEWABLE PO SCH (09:22)
[2016-10-22] MEDS: HEPARIN SODIUM,PORCINE 5,000 UNIT/ML 1 ML VIAL SQ SCH ×2 (09:22→20:15)
--- NOTE | 2016-10-22 10:51 | ECHOF ---
Referral Reason:r/o CHF MEASUREMENTS -------- HEIGHT: 157.5 cm WEIGHT: 46.3 kg BP: 131/64 IVSd: 0.9 cm (0.6 - 1.1) LVIDd: 4.3 cm (3.9 - 5.3) LVPWd: 1.1 cm (0.6 - 1.1) EDV(Teich): 83 ml IVSs: 1.2 cm LVIDs: 3.2 cm LVPWs: 1.0 cm %IVS Thck: 37 % ESV(Teich): 42 ml EF(Teich): 49 % %FS: 25 % SV(Teich): 41 ml IVC: 1.3 cm LALs A4C: 4.1 cm LAAs A4C: 13.3 cm LAESV A-L A4C: 37 ml LAESV MOD A4C: 33 ml LALs A2C: 3.9 cm LAAs A2C: 11.9 cm LAESV A-L A2C: 31 ml LAESV MOD A2C: 30 ml LAESV(A-L): 34 ml LAESV Index (A-L): 23.78 ml/m Ao Diam: 3.0 cm (2.0 - 3.7) AV Cusp: 2.1 cm (1.5 - 2.6) LA Diam: 3.0 cm (2.7 - 3.8) MV EXCURSION: 6.594 mm (> 18.000) MV EF SLOPE: 44 mm/s (70 - 150) EPSS: 0.8 cm MV E John: 0.54 m/s MV DecT: 164 ms MV Dec Liberty: 3.3 m/s MV A John: 0.76 m/s MV E/A Ratio: 0.71 MV PHT: 47 ms E/E': 14.84 E': 0.04 m/s MR Vmax: 4.83 m/s MR maxP.32 mmHg AV Vmax: 0.96 m/s AV maxP.68 mmHg AR Vmax: 3.82 m/s AR maxP.37 mmHg AR PHT: 370 ms AR Dec Time: 1277 ms AR Dec Liberty: 3.0 m/s TR Vmax: 2.13 m/s TR maxP.22 mmHg RAP: 5.00 mmHg RVSP: 23.22 mmHg FINDINGS -------- Sinus rhythm. This was a technically good study. Left ventricular wall thickness is normal. Overall left ventricular systolic function is low-normal with, an EF between 50 - 55 %. The right ventricle is normal in size and function. The left atrium is normal in size. The right atrium is normal in size. Aortic valve is trileaflet and is mildly thickened. There is moderate aortic regurgitation. The mitral valve leaflets are mildly thickened. Mild mitral annular calcification present. [id number] mitral regurgitation is present. Mild tricuspid regurgitation present. The right ventricular systolic pressure, as measured by Doppler, is 23.22mmHg. Pulmonic valve appears structurally normal. The aortic root size is normal. There is a trivial pericardial effusion present. Large Pleural Effusion. CONCLUSIONS -------- 1. Sinus rhythm. 2. The mitral valve leaflets are mildly thickened. 3. Mild mitral annular calcification present. 4. Prke-yo-vihetvle mitral regurgitation is present. 5. Mild tricuspid regurgitation present. 6. The right ventricular systolic pressure, as measured by Doppler, is 23.22mmHg. 7. Pulmonic valve appears structurally normal. 8. The aortic root size is normal. 9. There is a trivial pericardial effusion present. 10. Large Pleural Effusion. 11. This was a technically good study. 12. Left ventricular wall thickness is normal. 13. Overall left ventricular systolic function is low-normal with, an EF between 50 - 55 %. 14. The right ventricle is normal in size and function. 15. The left atrium is normal in size. 16. The right atrium is normal in size. 17. Aortic valve is trileaflet and is mildly thickened. 18. There is moderate aortic regurgitation. ADJUNCT PHYSICS INSTRUCTOR: Ladonna Nixon RDCS
[2016-10-22] MEDS: FOLIC ACID 1 MG TAB PO SCH (11:24)
[2016-10-22] MEDS: MULTIVITAMINS, THERA 1 EACH TAB PO SCH (11:24)
[2016-10-22] MEDS: THIAMINE 100 MG TAB PO SCH (11:25)
[2016-10-22] MEDS: ERGOCALCIFEROL 50,000 UNIT CAP PO SCH (11:25)
--- NOTE | 2016-10-22 12:19 | CT ---
EXAMINATION TYPE: CT abdomen pelvis wo con DATE OF EXAM: 10/22/2016 HISTORY: Generalized pain with diarrhea CT DLP: 243.4 mGycm. Automated Exposure Control for Dose Reduction was Utilized. TECHNIQUE: CT scan of the abdomen and pelvis is performed without oral or IV contrast. COMPARISON: CT abdomen and pelvis July 28, 2016 FINDINGS: Within the limitations of a non-contrast study, the following observations are made. LUNG BASES: There is partial visualization of new at least moderate bilateral pleural effusions with associated compressive atelectasis more prominent in the left lung. LIVER/GB: Liver is diminished in size and more nodular contour on current study suggesting underlying cirrhosis. Gallbladder is distended with dependent density on current study could reflect product of vicarious excretion of contrast or small dependent stones or gallbladder sludge. PANCREAS: Not well seen on noncontrast study may be atrophic. SPLEEN: Spleen is diminished in size from prior study. ADRENALS: No significant abnormality is seen. KIDNEYS: There is persistent moderate to severe right-sided pyelocaliectasis with new hyperdense mate rial filling collecting systems suspicious for blood clot extending along course of the proximal uret er which is mildly dilated. Mid to distal ureter are not well seen. There is air-fluid level in bladd er which is better distended on current study. Small amount of dependent density in bladder could ref lect blood product or small stones, too small to definitively characterize. Left-sided collecting sys tem is moderately distended on current study more prominent than prior. There is hyperdense material lower pole calyces suspicious for blood product. Hyperdense material along left mid ureter could refl ect additional blood product or calculi, former is favored. There is vascular calcification and vas d eferens calcification in the pelvis redemonstrated. BOWEL: Evaluation bowel is suboptimal due to lack of enteric contrast and patient having little intra -abdominal fat. Surgical sutures are seen at level of colonic loop right lower quadrant and bowel loo ps left lower quadrant. No suspicious bowel dilatation is present. GENITAL ORGANS: There is moderate to severe amount of free fluid in pelvic cul-de-sac more prominent on current study near axial image 71. LYMPH NODES: No greater than 1cm abdominal or pelvic lymph nodes are appreciated. OSSEOUS STRUCTURES: 2 large nails are redemonstrated in the right proximal femur. Osseous structures are demineralized. There is multilevel spurring and disc space narrowing with facet arthropathy in th e lower lumbar spine. OTHER: There is moderately to severe diffuse soft tissue anasarca now identified. There are small to moderate amount of ascites in the upper abdomen with minimal diffuse ascites in the lower abdomen. Th ere is moderate to severe diffuse calcified plaque of aorta extending into branch vessels. IMPRESSION: 1. Fluid overload state with moderate to severe diffuse soft tissue anasarca identified. There is par tial visualization of at least moderate bilateral pleural effusions. There are small to moderate amou nt of ascites in the upper abdomen. There is moderate to severe fluid in the pelvic cul-de-sac. 2. Liver is more lobulated in contour on current study, underlying cirrhosis is not excluded. Clinica l and lab correlation advised. 3. Suggestion of new bilateral collecting system and intraureter hemorrhage with new hyperdense mater ial seen. There is persistent moderate to severe right-sided hydronephrosis. There is more prominent moderate left-sided hydronephrosis. Small degree of hemorrhage and bladder is now felt present. 4. Suboptimal evaluation of bowel without obstruction. Postsurgical change noted.
[2016-10-22] MEDS ORDERED: LEVALBUTEROL NEB 1.25 MG/3 ML AMP INHALATION PRN (12:24)
--- NOTE | 2016-10-22 12:58 | XR ---
EXAMINATION TYPE: XR chest 2V DATE OF EXAM: 10/22/2016 COMPARISON: 10/20/2016 INDICATION: Fluid overload TECHNIQUE: Frontal and lateral views of the chest are obtained. FINDINGS: The heart size is normal. The pulmonary vasculature is normal. There is a moderate left pleural effusion. Very minimal right pleural effusion may be present. IMPRESSION: 1. Stable bilateral pleural effusions
[2016-10-22] MEDS: LEVALBUTEROL NEB 1.25 MG/3 ML AMP INHALATION SCH ×2 (13:37→19:51)
--- NOTE | 2016-10-22 15:36 | P.PN ---
Subjective Progress note being dictated for Dr. Bauer 10/17/16/ Interval history: This is an 86-year-old female admitted with acute C. difficile colitis, acute renal failure, left lower lobe pneumonia and multiple other medical issues. Maintained on gentle IV fluid hydration Chest CT reporting small to moderate left minimal right pleural effusions, suspect atelectasis of left anterior lung base and within the lingula, right hydronephrosis. Diet intake remains fair. Diarrhea improving. Ultrasound reports bilateral nephrolithiasis with moderate right hydronephrosis .creatinine 6.01 Evaluated by pulmonary and urology with recommendations noted. 10/18/2016 maintained on antibiotics. continues on IV fluid hydration .no diarrhea this morning, no nausea, no vomiting. Scheduled this morning for cystoscopy, stent insertion with urology. Denies chest pain, palpitations or increasing shortness of breath. Denies cough. Chest x-ray reports left pleural effusion and trace right pleural effusion, emphysema. 10/19/2016. Maintained on oral vancomycin .Continues to do well, diarrhea has subsided. Hyperchloremic, chloride 120. sodium 144 and bicarb 12. Renal function improving, creatinine 5.9, good urine output-no hematuria. Denies dysuria. 10/20/16 Maintained on gentle IV fluid hydration, oral vancomycin. No diarrhea. minimal urine output, postvoid residual 30 MLS. creatinine 5.9. Increased edema of lower extremities, mild abdominal edema.Fair diet intake. No nausea, no vomiting. Nephrology concerned regarding potential obstructive uropathy. 10/22/2016 Minimal urine output. Creatinine worsening, 6.14. Potassium 3.1 with replacement as per nephrology.soft bowel movements 2 last night and one this morning. Poor diet intake. Hemoglobin 7.4. Short of breath. CT of abdomen/ pelvis ordered as per urology. Review of systems: HEENT: Denies headache or focal deficits. Denies any dizziness or lightheadedness. No diminished hearing or vision. Respiratory: Complains of shortness of breath. No hemoptysis, no cough Cardiac: Denies any chest pain, palpitations. GI: Denies any nausea, vomiting, or diarrhea. Bowel movements described as soft .Denies any abdominal tenderness. : Denies any dysuria. Denies urinary retention. NERVOUS SYSTEM: No numbness or weakness Immunology/Allergy: No hayfever, history of COPD. MUSCULOSKELETAL: No joint pain/swelling HEMATOLOGY: No history of anemia/bleeding ENDROCRINE:NO DM, thyroid disorder, history of thyroidectomy CONSTITUTIONAL: No weight loss, or weight gain PSYCHIATRIC: No anxiety, no depression Active Medications Acetaminophen (Tylenol Tab) 500 mg PO Q6HR PRN PRN Reason: Mild Pain or Fever > 100.5 Albuterol/Ipratropium (Duoneb 0.5 Mg-3 Mg/3 Ml Soln) 3 ml INHALATION RT-TID PRN PRN Reason: Shortness Of Breath Or Wheezing Calcium Carbonate/Glycine (Tums) 500 mg PO DAILY [facility] Last Admin: 10/22/16 09:22 Dose: 500 mg Perales Syrup (Perales Syrup) 5 ml PO Q6HR [facility] Last Admin: 10/22/16 11:25 Dose: 5 ml Ergocalciferol (Vitamin D2) 50,000 unit PO TuFr@1200 [facility] Last Admin: 10/22/16 11:25 Dose: 50,000 unit Folic Acid (Folic Acid) 1 mg PO DAILY@1200 [facility] Last Admin: 10/22/16 11:24 Dose: 1 mg Heparin Sodium (Porcine) (Heparin) 5,000 unit SQ Q12HR [facility] Last Admin: 10/22/16 09:22 Dose: 5,000 unit Levalbuterol HCl (Xopenex Nebulized) 1.25 mg INHALATION RT-TID [facility] Last Admin: 10/22/16 13:37 Dose: Not Given Levothyroxine Sodium (Synthroid) 88 mcg PO DAILY@0630 [facility] Last Admin: 10/22/16 06:19 Dose: 88 mcg Metoprolol Tartrate (Lopressor) 25 mg PO DAILY [facility] Last Admin: 10/22/16 09:21 Dose: 25 mg Miscellaneous Information (Pneumonia Protocol Utilized) 1 each PO ONCE PRN PRN Reason: Per Protocol Miscellaneous Information (Potassium Per Protocol) 1 each MISCELLANE DAILY PRN ; Protocol PRN Reason: Per Protocol Multivitamins (Theragran) 1 each PO DAILY@1200 [facility] Last Admin: 10/22/16 11:24 Dose: 1 each Naloxone HCl (Narcan) 0.2 mg IV Q2M PRN PRN Reason: Opioid Reversal Risperidone (Risperdal) 0.25 mg PO HS [facility] Last Admin: 10/21/16 21:21 Dose: 0.25 mg Sodium Bicarbonate (Sodium Bicarbonate Tab) 1,300 mg PO TID [facility] Last Admin: 10/22/16 09:22 Dose: 1,300 mg Thiamine HCl (Vitamin B-1) 100 mg PO DAILY@1200 [facility] Last Admin: 10/22/16 11:25 Dose: 100 mg Vancomycin HCl (Vancomycin Oral Solution) 250 mg PO Q6HR [facility] Last Admin: 10/22/16 11:25 Dose: 250 mg Objective - Vital Signs Vital signs: Vital Signs Temp 96.7 F L 10/22/16 07:00 Pulse 76 10/22/16 07:34 Resp 14 10/22/16 07:34 BP 105/55 10/22/16 07:00 Pulse Ox 96 10/22/16 07:20 Intake & Output 10/21/16 10/22/16 10/22/16 18:59 06:59 18:59 Intake Total 438 Output Total 202 Balance 236 Intake: Intake, IV Titration 200 Amount Sodium Chloride 0.45% 1, 200 000 ml @ 50 mls/hr IV . Q20H [facility] Rx#:[id number] Oral 238 Output: Urine 100 Stool 2 Urine/Stool Mix 100 Other: Voiding Method Bedside Commode Bedside Commode Bedside Commode Bedpan # Voids 2 # Bowel Movements 1 2 - Exam PHYSICAL EXAM: VITAL SIGNS: As above GENERAL: [Sitting up in bed, no acute distress, HEENT: [Pupils equal conjunctiva normal. Oral mucosa moist] NECK: [Supple, no JVD] RESPIRATORY EFFORT:[ Normal breathing effort] LUNGS: [Clear, bilateral bases diminished, fine bibasilar crackles, occasional expiratory wheeze, no rhonchi] CARDIOVASCULAR[ regular S1 and S2, no murmurs rubs or gallops, positive edema] GI: [Abdomen soft, nontender, mild diffuse discomfort. Mild abdominal edema/ ascites. positive bowel sounds. No organomegaly, no guarding, no rigidity] PSYCH: [Alert and oriented -3, mood and affect normal.] SKIN: [No ulcer, rash or bleeding] NEURO: [No focal deficits, higher functions as mentioned previously, moves all 4 extremities, strength and sensation grossly intact] - Labs CBC & Chem 7: 10/22/16 07:18 10/22/16 07:18 Labs: Abnormal Lab Results - Last 24 Hours (Table) 10/21/16 10/21/16 10/22/16 Range/Units 07:45 07:45 07:18 RBC 2.90 L (3.80-5.40) m/uL Hgb 7.4 L (11.4-16.0) gm/dL Hct 24.0 L (34.0-46.0) % MCHC 30.8 L (31.0-37.0) g/dL RDW 23.4 H (11.5-15.5) % Plt Count 67 L (150-450) k/uL Lymphocytes # (Manual) 0.89 L 0.53 L (1.0-4.8) k/uL Metamyelocytes # (Man) 0.08 H 0.13 H (0) k/uL Myelocytes # (Manual) 0.08 H (0) k/uL Blast Cells # (Man) 0.08 H (0) k/uL Nucleated RBCs 1 H (0-0) /100 WBC Potassium (3.5-5.1) mmol/L Chloride (98-107) mmol/L Carbon Dioxide (22-30) mmol/L BUN (7-17) mg/dL Creatinine (0.52-1.04) mg/dL Calcium (8.4-10.2) mg/dL TIBC 157 L (265-497) ug/dL % Saturation 56.1 H (20-50) % 10/22/16 Range/Units 07:18 RBC (3.80-5.40) m/uL Hgb (11.4-16.0) gm/dL Hct (34.0-46.0) % MCHC (31.0-37.0) g/dL RDW (11.5-15.5) % Plt Count (150-450) k/uL Lymphocytes # (Manual) (1.0-4.8) k/uL Metamyelocytes # (Man) (0) k/uL Myelocytes # (Manual) (0) k/uL Blast Cells # (Man) (0) k/uL Nucleated RBCs (0-0) /100 WBC Potassium 3.1 L (3.5-5.1) mmol/L Chloride 116 H (98-107) mmol/L Carbon Dioxide 15 L (22-30) mmol/L BUN 69 H (7-17) mg/dL Creatinine 6.14 H* (0.52-1.04) mg/dL Calcium 6.0 L* (8.4-10.2) mg/dL TIBC (265-497) ug/dL % Saturation (20-50) % Microbiology - Last 24 Hours (Table) 10/15/16 19:32 Blood Culture - Final Blood No Growth after 144 hours 10/15/16 17:17 Blood Culture - Final Blood No Growth after 144 hours Assessment and Plan Plan: 1 acute C. difficile colitis, improving 2. Acute renal failure, possible acute on chronic disease, stage III, obstructive uropathy, bilateral hydronephrosis. Status post cystoscopy, with removal of left double-J catheter and bilateral retrograde pyeloureterograms. 3. Bilateral pleural effusion left greater than right.Left lower lobe pneumonia , doubtful per pulmonary. 4 history of COPD 5 colon cancer history 6. Hyperchloremic. 7. Hypokalemic. Plan: Continue on current medication regime, antibiotics, sodium bicarb, monitoring and symptomatic treatment. Potassium supplements as per nephrology. Worsening renal function, we'll discuss with nephrology potential renal replacement/dialysis. Chest x-ray ordered given increased shortness of breath, ruling out fluid overload. Xopenex added to med regime. CT of abdomen and pelvis pending .nuclear med renogram ordered for Tuesday .Encourage oral intake. Close monitoring of renal function and electrolytes with repeat labs ordered for a.m. prognosis guarded given multiple complex medical issues. The impression and plan of care has been dictated as directed as a scribe. : I performed a H&P examination of this patient and discussed the same with the dictator. I agree with the dictator's note. Any additional findings/opinions/ etc. will be noted.
[2016-10-22] MEDS ORDERED: POTASSIUM CHLORIDE ER 20 MEQ TAB.ER PO STA (16:00)
--- NOTE | 2016-10-22 16:08 | P.PN ---
Progress Note - Text The patient has no abdominal pain but her appetite is poor. Her urine output has been marginal. BUN/creatinine have worsened and were 69/6.14 today. Noncontrast computed tomography scan of the abdomen and pelvis shows multiple small calculus fragments in the mid left ureter and lower pole left kidney. These are fragments that had encrusted the left double-J catheter and have not passed since removal of the double-J catheter. I believe that left ureteroscopy with removal of the calculus fragments should be performed due to the worsening of the patient's renal function. This will be set up tomorrow morning unless she has passed multiple fragments and her renal function has improved. Discussed with patient and her granddaughter.
--- NOTE | 2016-10-22 18:55 | P.PN ---
Subjective 86-year-old female, she was admitted with a diagnosis of questionable left lower lobe pneumonia. She does have a history of hypothyroidism and hypertension along with history of colon cancer with previous bowel resection, and history of COPD. The patient does have a history of mild asthma as well. The patient was also in acute kidney injury on top of chronic renal failure. She is known to have obstructive uropathy and bilateral hydronephrosis. She has been seen by nephrology in the past and a left-sided ureteral stent was inserted.. Note that her prior creatinine from July 2016 was at 2.1 and around June 2016 it was 1.3. No history of any nonsteroidal anti-inflammatory medication. The patient's blood pressure was slightly on the lower side at time of admission. Ultrasound of the kidneys on 08/05/2016 showed bilateral hydronephrosis. Based on that a nephrology and urology consultation was requested. Anyway we did a computed tomography scan of the chest. We are concerned about possibly of lung cancer because a cousin decreased appetite and weight loss. It appears mostly small right-sided pleural effusion and a moderate-sized left-sided pleural effusion along with some atelectatic changes along the lingula. The patient has been maintained on a combination of Rocephin and Zithromax and po vancomycin and the last is being given for C. diff colitis.. The kidney function remains impaired without any significant improvement in the creatinine. On 10/18/2016 the patient is being seen in follow-up. The patient is doing well. The patient underwent cystoscopy and insertion of a ureteral stent on the right. The patient is making adequate amount of urine output. Renal function is being monitored. She still on same antibiotic coverage. No active diarrhea. She has positive C. diff A, and the rest of the urine and blood cultures of been all negative. No respiratory distress. I discussed the findings with the patient and her family. The patient bilateral pleural effusion. Could be related to underlying obstructive uropathy. No clear signs of an underlying pneumonia. She has no cough or sputum production. No chest tightness. The patient is seen again today 10/19/2016 in follow-up on the regular medical floor. She continues to do well. She has no current complaints. No further diarrhea. She remains on oral vancomycin. She is making urine currently at 150 MLS this morning. Her creatinine is slightly improved at 5.90. Sodium 144 with a chloride of 120 and a bicarb of 12. She remains on sodium bicarb 1300 mg 3 times a day. She has a 0.45 normal saline at 50 MLS per hour. The patient is seen again today 10/20/2016 in follow-up on the regular medical floor. She is currently resting quite comfortably in bed. She is maintaining good O2 saturations in the 90s on room air. She does have a moderate left pleural effusion with associated atelectasis. Her creatinine remains greater than 6 and she has had a drop in her urine output continued to the obstructive uropathy. She has had her left double-J catheters removed. They may need to repeat a cystoscopy. She remains on vancomycin for her C. difficile colitis. The patient was seen again today 10/21/2016 in follow-up on the regular medical floor. She is currently awake and alert in no acute distress. She is breathing about the same today as compared to yesterday. She is on 2 L of nasal cannula. Blood urine and stool cultures revealed no growth. No leukocytosis. Hemoglobin 7.7. Her creatinine remains high at 5.98. Bicarb 14. The patient is seen again today 10/22/2016 in follow-up on the regular medical floor. She is resting quite comfortably in bed. She denies any pulmonary complaints. No shortness of breath, cough or congestion. Her chest x-ray continues to show stable bilateral pleural effusions. There is moderate left pleural effusion with very minimal right pleural effusion. She is maintaining good O2 saturations in the upper 90s to 100% on room air. She does have some abdominal discomfort. Her hemoglobin continues to drift down currently at 7.4. Her creatinine continues to climb currently at 6.14. Abdominal CT reveals fluid overload state with moderate to severe diffuse soft tissue anasarca. There is partial visualization of at least moderate bilateral pleural effusions. There is moderate to severe fluid in the pelvic cul-de-sac. There is new bilateral collecting system and intra-utero or hemorrhage with new hyperdense material seen. There is persistent moderate to severe right-sided hydronephrosis. The plan is for a left ureteroscopy with removal of the calculus fragments to be performed by urology tomorrow. Objective - Vital Signs Vital signs: Vital Signs Temp 96.8 F L 10/22/16 14:55 Pulse 70 10/22/16 14:55 Resp 16 10/22/16 14:55 BP 106/66 10/22/16 14:55 Pulse Ox 99 10/22/16 14:55 Intake & Output 10/21/16 10/22/16 10/22/16 18:59 06:59 18:59 Intake Total 438 Output Total 202 Balance 236 Weight 46.493 kg Intake: Intake, IV Titration 200 Amount Sodium Chloride 0.45% 1, 200 000 ml @ 50 mls/hr IV . Q20H [facility] Rx#:[id number] Oral 238 Output: Urine 100 Stool 2 Urine/Stool Mix 100 Other: Voiding Method Bedside Commode Bedside Commode Bedside Commode Bedpan # Voids 2 6 # Bowel Movements 1 2 2 - Exam The patient appeared well nourished and normally developed. Vital signs as documented. Head exam is unremarkable. No scleral icterus or corneal arcus noted. Neck is without jugular venous distension, thyromegaly, or carotid bruits. Carotid upstrokes are brisk bilaterally. Lungs are showing diminished breath sounds in the lung bases more so on the left.. Cardiac exam reveals the PMI to be normally sized and situated. Rhythm is regular. First and second heart sounds normal. No murmurs, rubs or gallops. Abdominal exam reveals normal bowel sounds, no masses, no organomegaly and no aortic enlargement. Extremities are nonedematous and both femoral and pedal pulses are normal. - Labs CBC & Chem 7: 10/22/16 07:18 10/22/16 07:18 Labs: Abnormal Lab Results - Last 24 Hours (Table) 10/22/16 10/22/16 Range/Units 07:18 07:18 RBC 2.90 L (3.80-5.40) m/uL Hgb 7.4 L (11.4-16.0) gm/dL Hct 24.0 L (34.0-46.0) % MCHC 30.8 L (31.0-37.0) g/dL RDW 23.4 H (11.5-15.5) % Plt Count 67 L (150-450) k/uL Lymphocytes # (Manual) 0.53 L (1.0-4.8) k/uL Metamyelocytes # (Man) 0.13 H (0) k/uL Potassium 3.1 L (3.5-5.1) mmol/L Chloride 116 H (98-107) mmol/L Carbon Dioxide 15 L (22-30) mmol/L BUN 69 H (7-17) mg/dL Creatinine 6.14 H* (0.52-1.04) mg/dL Calcium 6.0 L* (8.4-10.2) mg/dL Microbiology - Last 24 Hours (Table) 10/15/16 19:32 Blood Culture - Final Blood No Growth after 144 hours 10/15/16 17:17 Blood Culture - Final Blood No Growth after 144 hours Assessment and Plan Plan: Assessment 1 bilateral pleural effusion left more than right. The patient has a moderate- sized left-sided pleural effusion but denies any significant shortness of breath. She is maintaining good O2 saturations in the upper 90s on room air. 2 COPD, currently inactive and stable. 3 chronic renal failure with an acute kidney injury on top of chronic kidney failure. The patient has obstructive uropathy with bilateral hydronephrosis earlier this year. The patient undergone cystoscopy and bilateral retrograde pyelograms and she was found to have extensive compression of both ureters at the pelvic brim and a left-sided ureteral stent was placed. Currently she has evidence of a right sided hydronephrosis. No dysuria. No hematuria. Right- sided ureteral stent also placed by Dr. Figueredo. Computed tomography scan of the abdomen was repeated today 10/22/2016. The plan is for left ureteroscopy and removal of calculus fragments to be performed tomorrow. 4 : cancer, history of with a previous bowel resection 5 hypothyroidism, status post thyroidectomy. 6 hypertension 7 C. diff colitis on oral vancomycin Plan The patient was seen and evaluated by Dr. Garcia. Again, no plans for thoracentesis at this time. The patient is asymptomatic from the pulmonary standpoint. The plan is for left ureteroscopy with removal of calculus tomorrow back per urology. We'll continue to follow.
[2016-10-22] MEDS: risperiDONE 0.25 MG TAB PO SCH (20:15)
[2016-10-23] MEDS: CHERRY FLAVOR 60 ML BOTTLE PO SCH ×4 (06:25→23:16)
[2016-10-23] MEDS: VANCOMYCIN ORAL SOLUTION 250 MG/5 ML BOTTLE PO SCH ×4 (06:25→23:16)
[2016-10-23] MEDS: LEVOTHYROXINE 88 MCG TAB PO SCH (06:26)
[2016-10-23] MEDS: LEVALBUTEROL NEB 1.25 MG/3 ML AMP INHALATION SCH ×3 (07:18→19:12)
[2016-10-23] MEDS ORDERED: LACTATED RINGERS 1,000 ML IV ONE ×2 (08:03)
[2016-10-23 08:14] LABS: Potassium 3.1 mmol/L (3.5-5.1)
[2016-10-23 08:17] LABS: Anisocytosis Moderate; Basophils % (A) 1 %; CH 25.8; CHCM 31.5; Eosinophils # (A) 0.4 k/uL (0-0.7); Eosinophils % (A) 7 %; HCT 23.5 % (34.0-46.0); HDW 4.83; HGB 7.2 gm/dL (11.4-16.0); Hypochromasia Marked; Luc # (Auto) 0.05; Luc % (Auto) 1; Lymphocytes # (A) 0.7 k/uL (1.0-4.8); Lymphocytes % (A) 12 %; MCH 25.3 pg (25.0-35.0); MCHC 30.7 g/dL (31.0-37.0); MCV 82.6 fL (80.0-100.0); Mean Platelet Volume 7.4; Microcytosis Slight; Monocytes # (A) 0.1 k/uL (0-1.0); Monocytes % (A) 2 %; Neutrophils # (A) 4.5 k/uL (1.3-7.7); Neutrophils % (A) 79 %; Poikilocytosis Marked; RBC 2.85 m/uL (3.80-5.40); RDW 22.7 % (11.5-15.5); WBC 5.8 k/uL (3.8-10.6); WBC (Perox) 5.69
--- NOTE | 2016-10-23 10:33 | P.OP ---
Date of Procedure: 10/23/16 Preoperative Diagnosis: Left hydronephrosis secondary to multiple obstructive calculi in ureter and kidney Postoperative Diagnosis: Left hydronephrosis secondary to multiple obstructive calculi in ureter and kidney Procedure(s) Performed: Cystoscopy with left ureteroscopy lithotripsy and placement of left double-J catheter Implants: Anesthesia: MAC Surgeon: Lincoln Figueredo Pathology: other (Calculus fragments) Condition: stable Disposition: PACU Indications for Procedure: The patient is an 86-year-old female with mild to moderate bilateral hydronephrosis. Left double-J catheter had been placed in July and was removed earlier this week due to encrustation. Unfortunately the patient's renal function has worsened somewhat since then. Computed tomography scan shows multiple 1-3 mm calculus fragments along the mid and proximal left ureter and in the lower pole the left kidney. Cystoscopy with left ureteroscopy and removal of the calculus fragments is planned. Operative Findings: Description of Procedure: The patient was taken to the operating suite where adequate intravenous sedation was given. The patient was placed in the dorsal lithotomy position with her legs suspended from padded Ezio stirrups. Pneumatic compression stockings were applied to the lower legs. The genitalia was prepped with Betadine solution and draped in a sterile fashion. The vaginal introitus was stenotic. The urethral meatus was unremarkable. The 17-Tongan cystoscope sheath with 30 lens was passed through the urethra and into the bladder. Sand was present on the floor the bladder as well as several calculus fragments measuring 1-2 mm in size. Both ureteral orifice ease were normal location. The bladder was otherwise unremarkable. A 0.035 straight Glidewire was advanced through the left ureteral orifice and up to the region of the kidney. The cystoscope was withdrawn leaving the Glidewire in place. The 8.5-Tongan semirigid ureteroscope was passed through the urethra and into the bladder. The ureteroscope was then passed alongside the Glidewire and into the ureter. Numerous 1-3 mm calculus fragments were noted in the distal and mid ureter. These were removed using a 1.9-Tongan nitinol stone basket. Several larger calculus fragments were noted in the mid ureter and these were broken down into smaller fragments using the 200 fiber and the holmium laser at a setting of 200 mJ and 20 cps. These fragments were then removed using the stone basket. The Glidewire was then reintroduced through the ureteroscope and the ureteroscope was withdrawn. A 13-Tongan ureteral reentry sheath with 11-Tongan obturator was then advanced over the Glidewire and under fluoroscopic guidance the reentry sheath was advanced to the proximal ureter. The Glidewire and obturator removed. Ureteroscopy was performed using the flexible ureteroscope. The proximal ureter was unremarkable. In the lower pole of the left kidney numerous calculus fragments measuring less than 1 mm in size were noted. Several other calculi measuring between 1 and 3 mm were identified and broken down further using the holmium laser at a setting of 200 mJ and 20 cps. The larger calculus fragments were then removed using the stone basket. At the completion the procedure it did not appear that any fragment larger than 1 mm in size remained. The Glidewire was advanced through the ureteroscope and then the ureteroscope and reentry sheath were withdrawn. The 22-Tongan cystoscope sheath with 30 lens was backloaded over the Glidewire and reintroduced into the bladder. A 6-Tongan by 24 cm double-J catheter was then advanced over the Glidewire and positioned so that the proximal end coiled in the region of the renal pelvis and the distal and coiled in the bladder the bladder was drained and the cystoscope was withdrawn. Patient tolerated the procedure well and left the op room awake and in satisfactory condition. Blood loss was 5 mL. I plan on removing the double-J catheter in approximately 2 weeks due to the encrustation that occurred over the last 2 months.
--- NOTE | 2016-10-23 10:57 | FL ---
EXAMINATION TYPE: FL guidance operating room DATE OF EXAM: 10/23/2016 CLINICAL HISTORY: Right-sided renal calculi TECHNIQUE: Fluoroscopy. COMPARISON: CT abdomen and pelvis from yesterday. FINDINGS: Fluoroscopic guidance was provided during ureter catheter insertion procedure performed by Dr. Figueredo. A total of 19 seconds of fluoroscopic time was utilized during the procedure and 1 spot intraoperative image is acquired. Single image acquired shows proximal portion of the double-J ureter stent. IMPRESSION: As Above.
--- NOTE | 2016-10-23 12:23 | P.PN ---
Subjective Principal diagnosis: This is a 86-year-old female seen in consultation because of significant and severe kidney disease, and bilateral hydronephrosis, a stent was placed on the left side in July 2016 and was discontinued on 10/18/2016, a nonobstructive right hydronephrosis noted on the OR note She had reinsertion off left-sided ureteral stent again this morning because of worsening kidney function. The cause of this bilateral hydronephrosis not clear supposedly there is some extrinsic compression at the pelvic brim but computed tomography scan of the abdomen and pelvis is not showing any explanation for this Post op cystoscopy and ureteral stent this morning she is awake alert responsive. Denies any complaints wants to eat. Her creatinine was 0.95 on 04/08/2015, went up to 1.3 dated 06/29/2016, seems to have gone up ever since then to the current creatinine of 6.38 as of this morning. Objective - Vital Signs Vital signs: Vital Signs Temp 98 F 10/23/16 11:05 Pulse 70 10/23/16 11:05 Resp 16 10/23/16 11:05 BP 98/53 10/23/16 11:05 Pulse Ox 96 10/23/16 11:05 Intake & Output 10/22/16 10/23/16 10/23/16 18:59 06:59 18:59 Intake Total 650 Output Total 5 Balance 645 Weight 46.493 kg Intake: IV 650 Output: Estimated Blood Loss 5 Other: Voiding Method Bedside Commode Bedside Commode Incontinent # Voids 6 3 # Bowel Movements 2 3 On examination awake alert oriented comfortable. Cachectic and malnourished HEENT exam no JVP neck is supple no facial asymmetry Lungs are clear to auscultation but poor air entry. Heart sounds are unremarkable for any murmur rub gallop Abdomen soft nontender no masses felt Extremity exam reveals no edema Neurologically weak tired but moves all her extremities but barely so - Labs CBC & Chem 7: 10/23/16 07:07 10/23/16 07:07 Labs: Abnormal Lab Results - Last 24 Hours (Table) 10/23/16 10/23/16 Range/Units 07:07 07:07 RBC 2.85 L (3.80-5.40) m/uL Hgb 7.2 L (11.4-16.0) gm/dL Hct 23.5 L (34.0-46.0) % MCHC 30.7 L (31.0-37.0) g/dL RDW 22.7 H (11.5-15.5) % Plt Count 58 L (150-450) k/uL Lymphocytes # 0.7 L (1.0-4.8) k/uL Potassium 3.1 L (3.5-5.1) mmol/L Chloride 118 H (98-107) mmol/L Carbon Dioxide 15 L (22-30) mmol/L BUN 70 H (7-17) mg/dL Creatinine 6.38 H* (0.52-1.04) mg/dL Glucose 73 L (74-99) mg/dL Calcium 6.0 L* (8.4-10.2) mg/dL Assessment and Plan Plan: Impression. 1. Acute kidney injury, creatinine went up from 1.3 on 06/29/2016 consistently to 6.38 on 10/23/2016. Bilateral hydronephrosis, without any response to stent on the left. First stent was placed approximately July 2016 on the left side, this was discontinued on 10/18/2016 and has been reinserted the 2016. Urine output has not been documented well. Urinalysis on 10/16/2016 shows 1+ proteinuria and large leukocyte Estrace 43 WBCs and 31 RBCs, urine culture on is negative. 2. Bilateral hydronephrosis with extrinsic compression at the pelvic brim based on urology notes. Computed tomography scan is not showing any mass. 3. Mild degree of hypokalemia secondary to poor intake. Potassium is 3.1 4. Non-gap acidosis with bicarb of 15 and a gap of 10 secondary to acute kidney injury. 5. Low calcium likely secondary to low albumin. 6. Anemia of chronic kidney disease. 7. Rule out other causes of acute kidney injury such as myeloma although unlikely Recommendations. 1. Agree with IV fluids she is on Ringer's lactate. 2. Replace potassium 3. Check ionized calcium and serum albumin 4. Check urine immunoelectrophoresis 5. Follow-up labs closely.
[2016-10-23] MEDS ORDERED: POTASSIUM CHLORIDE ER 20 MEQ TAB.ER PO STA (12:32)
--- NOTE | 2016-10-23 13:01 | P.PN ---
Subjective 86-year-old female, she was admitted with a diagnosis of questionable left lower lobe pneumonia. She does have a history of hypothyroidism and hypertension along with history of colon cancer with previous bowel resection, and history of COPD. The patient does have a history of mild asthma as well. The patient was also in acute kidney injury on top of chronic renal failure. She is known to have obstructive uropathy and bilateral hydronephrosis. She has been seen by nephrology in the past and a left-sided ureteral stent was inserted.. Note that her prior creatinine from July 2016 was at 2.1 and around June 2016 it was 1.3. No history of any nonsteroidal anti-inflammatory medication. The patient's blood pressure was slightly on the lower side at time of admission. Ultrasound of the kidneys on 08/05/2016 showed bilateral hydronephrosis. Based on that a nephrology and urology consultation was requested. Anyway we did a computed tomography scan of the chest. We are concerned about possibly of lung cancer because a cousin decreased appetite and weight loss. It appears mostly small right-sided pleural effusion and a moderate-sized left-sided pleural effusion along with some atelectatic changes along the lingula. The patient has been maintained on a combination of Rocephin and Zithromax and po vancomycin and the last is being given for C. diff colitis.. The kidney function remains impaired without any significant improvement in the creatinine. On 10/18/2016 the patient is being seen in follow-up. The patient is doing well. The patient underwent cystoscopy and insertion of a ureteral stent on the right. The patient is making adequate amount of urine output. Renal function is being monitored. She still on same antibiotic coverage. No active diarrhea. She has positive C. diff A, and the rest of the urine and blood cultures of been all negative. No respiratory distress. I discussed the findings with the patient and her family. The patient bilateral pleural effusion. Could be related to underlying obstructive uropathy. No clear signs of an underlying pneumonia. She has no cough or sputum production. No chest tightness. The patient is seen again today 10/19/2016 in follow-up on the regular medical floor. She continues to do well. She has no current complaints. No further diarrhea. She remains on oral vancomycin. She is making urine currently at 150 MLS this morning. Her creatinine is slightly improved at 5.90. Sodium 144 with a chloride of 120 and a bicarb of 12. She remains on sodium bicarb 1300 mg 3 times a day. She has a 0.45 normal saline at 50 MLS per hour. The patient is seen again today 10/20/2016 in follow-up on the regular medical floor. She is currently resting quite comfortably in bed. She is maintaining good O2 saturations in the 90s on room air. She does have a moderate left pleural effusion with associated atelectasis. Her creatinine remains greater than 6 and she has had a drop in her urine output continued to the obstructive uropathy. She has had her left double-J catheters removed. They may need to repeat a cystoscopy. She remains on vancomycin for her C. difficile colitis. The patient was seen again today 10/21/2016 in follow-up on the regular medical floor. She is currently awake and alert in no acute distress. She is breathing about the same today as compared to yesterday. She is on 2 L of nasal cannula. Blood urine and stool cultures revealed no growth. No leukocytosis. Hemoglobin 7.7. Her creatinine remains high at 5.98. Bicarb 14. The patient is seen again today 10/22/2016 in follow-up on the regular medical floor. She is resting quite comfortably in bed. She denies any pulmonary complaints. No shortness of breath, cough or congestion. Her chest x-ray continues to show stable bilateral pleural effusions. There is moderate left pleural effusion with very minimal right pleural effusion. She is maintaining good O2 saturations in the upper 90s to 100% on room air. She does have some abdominal discomfort. Her hemoglobin continues to drift down currently at 7.4. Her creatinine continues to climb currently at 6.14. Abdominal CT reveals fluid overload state with moderate to severe diffuse soft tissue anasarca. There is partial visualization of at least moderate bilateral pleural effusions. There is moderate to severe fluid in the pelvic cul-de-sac. There is new bilateral collecting system and intra-utero or hemorrhage with new hyperdense material seen. There is persistent moderate to severe right-sided hydronephrosis. The plan is for a left ureteroscopy with removal of the calculus fragments to be performed by urology tomorrow. The patient is seen again today 10/23/2016 in follow-up on the regular medical floor. Her hemoglobin continues to drift down currently at 7.0, platelets at 58 ,000 and her creatinine continues to climb at 6.38. She is just back from her procedure by Dr. Santizo. He had performed a cystoscopy with left ureteroscopy lithotripsy and placement of the left double-J catheter. She continues to maintain good O2 saturations in the mid to upper 90s on 3 L/m per nasal cannula. She's been afebrile. Hemodynamically stable. Objective - Vital Signs Vital signs: Vital Signs Temp 98 F 10/23/16 11:05 Pulse 70 10/23/16 11:05 Resp 16 10/23/16 11:05 BP 98/53 10/23/16 11:05 Pulse Ox 96 10/23/16 11:05 Intake & Output 10/22/16 10/23/16 10/23/16 18:59 06:59 18:59 Intake Total 650 Output Total 5 Balance 645 Weight 46.493 kg Intake: IV 650 Output: Estimated Blood Loss 5 Other: Voiding Method Bedside Commode Bedside Commode Incontinent # Voids 6 3 # Bowel Movements 2 3 - Exam The patient appeared well nourished and normally developed. Vital signs as documented. Head exam is unremarkable. No scleral icterus or corneal arcus noted. Neck is without jugular venous distension, thyromegaly, or carotid bruits. Carotid upstrokes are brisk bilaterally. Lungs are showing diminished breath sounds in the lung bases more so on the left.. Cardiac exam reveals the PMI to be normally sized and situated. Rhythm is regular. First and second heart sounds normal. No murmurs, rubs or gallops. Abdominal exam reveals normal bowel sounds, no masses, no organomegaly and no aortic enlargement. Extremities are nonedematous and both femoral and pedal pulses are normal. - Labs CBC & Chem 7: 10/23/16 07:07 10/23/16 07:07 Labs: Abnormal Lab Results - Last 24 Hours (Table) 10/23/16 10/23/16 Range/Units 07:07 07:07 RBC 2.85 L (3.80-5.40) m/uL Hgb 7.2 L (11.4-16.0) gm/dL Hct 23.5 L (34.0-46.0) % MCHC 30.7 L (31.0-37.0) g/dL RDW 22.7 H (11.5-15.5) % Plt Count 58 L (150-450) k/uL Lymphocytes # 0.7 L (1.0-4.8) k/uL Potassium 3.1 L (3.5-5.1) mmol/L Chloride 118 H (98-107) mmol/L Carbon Dioxide 15 L (22-30) mmol/L BUN 70 H (7-17) mg/dL Creatinine 6.38 H* (0.52-1.04) mg/dL Glucose 73 L (74-99) mg/dL Calcium 6.0 L* (8.4-10.2) mg/dL Assessment and Plan Plan: Assessment 1 bilateral pleural effusion left more than right. The patient has a moderate- sized left-sided pleural effusion but denies any significant shortness of breath. She is maintaining good O2 saturations in the upper 90s on room air. 2 COPD, currently inactive and stable. 3 chronic renal failure with an acute kidney injury on top of chronic kidney failure. The patient has obstructive uropathy with bilateral hydronephrosis earlier this year. The patient undergone cystoscopy and bilateral retrograde pyelograms and she was found to have extensive compression of both ureters at the pelvic brim and a left-sided ureteral stent was placed. Currently she has evidence of a right sided hydronephrosis. No dysuria. No hematuria. Right- sided ureteral stent also placed by Dr. Figueredo. On 10/23/2016 the patient had undergone a cystoscopy with left ureteroscopy lithotripsy and placement of left double-J catheter. 4 : cancer, history of with a previous bowel resection 5 hypothyroidism, status post thyroidectomy. 6 hypertension 7 C. diff colitis on oral vancomycin Plan The patient was seen and evaluated by Dr. Garcia. The patient is asymptomatic from the pulmonary standpoint. Yesterday's chest x-ray revealed stable bilateral pleural effusions left greater than right. We will only plan for thoracentesis should the patient become symptomatic.
[2016-10-23] MEDS: CALCIUM CARBONATE 500 MG CHEWABLE PO SCH (13:53)
[2016-10-23] MEDS: HEPARIN SODIUM,PORCINE 5,000 UNIT/ML 1 ML VIAL SQ SCH ×2 (13:53→20:58)
[2016-10-23] MEDS: METOPROLOL TARTRATE 25 MG TAB PO SCH (13:53)
[2016-10-23] MEDS: FOLIC ACID 1 MG TAB PO SCH (13:53)
[2016-10-23] MEDS: SODIUM BICARBONATE TAB 650 MG TAB PO SCH ×3 (13:53→20:58)
[2016-10-23] MEDS: MULTIVITAMINS, THERA 1 EACH TAB PO SCH (13:53)
[2016-10-23] MEDS: THIAMINE 100 MG TAB PO SCH (13:54)
[2016-10-23] MEDS: POTASSIUM CHLORIDE ER 20 MEQ TAB.ER PO SCH ×2 (18:38→18:39)
[2016-10-23] MEDS: risperiDONE 0.25 MG TAB PO SCH (20:58)
[2016-10-24] MEDS: CHERRY FLAVOR 60 ML BOTTLE PO SCH ×3 (06:06→17:48)
[2016-10-24] MEDS: VANCOMYCIN ORAL SOLUTION 250 MG/5 ML BOTTLE PO SCH ×3 (06:06→17:48)
[2016-10-24] MEDS: LEVOTHYROXINE 88 MCG TAB PO SCH (06:36)
[2016-10-24] MEDS: ALBUTEROL NEBULIZED 2.5 MG/3 ML INHALATION SCH ×4 (07:20→19:55)
[2016-10-24] MEDS: CALCIUM CARBONATE 500 MG CHEWABLE PO SCH (08:17)
[2016-10-24] MEDS: SODIUM BICARBONATE TAB 650 MG TAB PO SCH ×3 (08:17→22:49)
[2016-10-24] MEDS: HEPARIN SODIUM,PORCINE 5,000 UNIT/ML 1 ML VIAL SQ SCH ×2 (08:17→20:41)
[2016-10-24] MEDS: METOPROLOL TARTRATE 25 MG TAB PO SCH (08:18)
[2016-10-24 09:26] LABS: Anisocytosis Marked; CH 26.9; CHCM 32.9; HDW 4.97; Hypochromasia Moderate; MCH 25.8 pg (25.0-35.0); MCHC 31.3 g/dL (31.0-37.0); MCV 82.3 fL (80.0-100.0); Mean Platelet Volume 7.5; Microcytosis Moderate; Poikilocytosis Marked; RBC 2.68 m/uL (3.80-5.40); RDW 24.1 % (11.5-15.5); WBC (Perox) 5.26
[2016-10-24 09:40] LABS: Potassium 2.9 mmol/L (3.5-5.1)
[2016-10-24 09:49] LABS: HGB 6.9 gm/dL (11.4-16.0)
[2016-10-24 09:50] LABS: Add Differential Manual Differential
[2016-10-24 09:53] LABS: Band Neutrophils % 2 %; Nucleated Red Blood Cells 2 /100 WBC (0-0); Total Cells Counted 200
[2016-10-24 09:54] LABS: Ovalocytes Present; Polychromasia Present; WBC 4.6 k/uL (3.8-10.6)
--- NOTE | 2016-10-24 09:54 | P.PN ---
Progress Note - Text The patient is afebrile and denies any abdominal pain. Her urine is clear with the exception of occasional passage of sand. Creatinine has improved and is now 5.84. Hemoglobin is 6.9. I explained to the patient and her niece that I plan on cystoscopy with removal of her left double-J catheter in approximately 2 weeks. The patient will be eventually transferred to a half-way and an appointment should be made with my office prior to the transfer.
[2016-10-24] MEDS: POTASSIUM CHLORIDE ORAL LIQUID 40 MEQ/30 ML CUP PO SCH ×3 (10:42→17:47)
[2016-10-24] MEDS: MULTIVITAMINS, THERA 1 EACH TAB PO SCH (12:45)
[2016-10-24] MEDS: FOLIC ACID 1 MG TAB PO SCH (12:45)
[2016-10-24] MEDS: THIAMINE 100 MG TAB PO SCH (12:45)
--- NOTE | 2016-10-24 12:54 | PN ---
PROGRESS NOTE DATE OF SERVICE: 10/23/2016 This 86-year-old woman was admitted with acute severe colitis also had acute on chronic renal failure also. Urology had multiple evaluations and on 10/23/2016 Urology performed cystoscopy with left ureteroscopy, lithotripsy and placement of left double-J catheter for left hydronephrosis secondary to multiple ureter and kidney. Creatinine is still elevated. Patient also complains of nausea at this time. The patient also had some fluid overload also. PAST MEDICAL HISTORY: Reviewed. REVIEW OF SYSTEMS: CARDIOVASCULAR: As mentioned. RESPIRATORY: As mentioned. GI: No nausea. : As mentioned earlier. NERVOUS SYSTEM: No numbness or weakness. CURRENT MEDICATIONS: Current medications are reviewed and include: 1. Tylenol 500 mg q.6 p.r.n. 2. DuoNeb q.i.d. and p.r.n. 3. Vitamin D. 4. Folic acid. 5. Heparin. 6. Synthroid. 7. Lopressor. 8. Multivitamins. 9. Narcan. 10.Vitamin B1. 11.Vancomycin. PHYSICAL EXAM: Patient is alert, oriented x2. Pulse 71, blood pressure 108/71, respirations 16, temperature 97.1, pulse ox 98% on room air. HEENT: Conjunctivae pale. NECK: No jugular venous distention. CARDIOVASCULAR: S1, S2 muffled. No S3, no S4. RESPIRATORY: Breath sounds diminished in the bases. A few scattered rhonchi. ABDOMEN: Soft, nontender, no mass palpable. LEGS: No edema. NERVOUS SYSTEM: Higher function as mentioned. Diffuse weakness. LYMPHATIC: No lymphadenopathy in the neck, axillae, groin. SKIN: No rashes, ulcer or bleeding. LABS: WBC 5, hemoglobin 7.2 and potassium 3.9, creatinine 6.38. ASSESSMENT: 1. Acute renal failure, acute on chronic kidney disease with multifactorial stage III with obstructive uropathy and bilateral hydronephrosis, status post cystoscopy with removal of left double J catheter and bilateral retrograde pyeloureterogram as well as placement of left double-J catheter. 2. Bilateral pleural effusion. 3. Chronic obstructive pulmonary disease. 4. History of chronic . 5. Hypomagnesemia. 6. Hypokalemia. 7. Acute C. diff colitis on present on admission.. RECOMMENDATIONS AND DISCUSSION: I recommended to continue current medications and symptomatic treatment. Prognosis guarded because of multiple medical issues. The patient has been followed by Nephrology, Dr. Saldaña closely. I recommend to continue the current medications with IV fluids and closely monitor. The most recent chest x-ray on October 22 showed stable bilateral pleural effusions. Will continue to monitor. Prognosis guarded. Further recommendations to follow. MMODL / IJN: [id number] / MTDD
--- NOTE | 2016-10-24 13:40 | P.PN ---
Subjective Principal diagnosis: This is a 86-year-old female seen in consultation because of significant and severe kidney disease, and bilateral hydronephrosis, a stent was placed on the left side in July 2016 and was discontinued on 10/18/2016, a nonobstructive right hydronephrosis noted on the OR note She had reinsertion off left-sided ureteral stent again yesterday morning because of worsening kidney function. Urine output is not measured but supposedly per nursing staff and the patient she is making much more urine. She does not have a Suarez catheter. She is feeling better and is able to eat somewhat better. Denies any cough fever chills shortness of breath abdominal pain no dysuria frequency diarrhea. The cause of this bilateral hydronephrosis not clear supposedly there is some extrinsic compression at the pelvic brim but computed tomography scan of the abdomen and pelvis is not showing any explanation for this Her creatinine was 0.95 on 04/08/2015, went up to 1.3 dated 06/29/2016, seems to have gone up ever since then to the current creatinine of 6.38 as of this morning. Objective - Vital Signs Vital signs: Vital Signs Temp 97.0 F L 10/24/16 07:00 Pulse 80 10/24/16 11:09 Resp 16 10/24/16 07:00 BP 117/69 10/24/16 07:00 Pulse Ox 97 10/24/16 07:00 Intake & Output 10/23/16 10/24/16 10/24/16 18:59 06:59 18:59 Intake Total 1250 Output Total 5 Balance 1245 Intake: IV 650 Oral 600 Output: Estimated Blood Loss 5 Other: Voiding Method Bedside Commode Bedside Commode Incontinent Bedpan Incontinent # Voids 1 3 On exam she is awake alert oriented comfortable cachectic and small built HEENT exam no JVP neck is supple no facial asymmetry Lungs are significant for diminished air entry bilaterally but no adventitious sounds. A chest x-ray done in this admission at least 3 x-rays show no change with some residual effusion on the left unchanged but otherwise no congestive heart failure Heart sounds are unremarkable for any murmur rub gallop Abdomen soft nontender. No masses felt. Extremity examination reveals no edema. Warm to touch. Neurologically awake alert oriented no focal motor deficit - Labs CBC & Chem 7: 10/24/16 08:59 10/24/16 08:59 Labs: Abnormal Lab Results - Last 24 Hours (Table) 10/24/16 10/24/16 Range/Units 08:59 08:59 RBC 2.68 L (3.80-5.40) m/uL Hgb 6.9 L* (11.4-16.0) gm/dL Hct 22.0 L (34.0-46.0) % RDW 24.1 H (11.5-15.5) % Plt Count 60 L (150-450) k/uL Lymphocytes # (Manual) 0.46 L (1.0-4.8) k/uL Nucleated RBCs 2 H (0-0) /100 WBC Potassium 2.9 L* (3.5-5.1) mmol/L Chloride 115 H (98-107) mmol/L Carbon Dioxide 17 L (22-30) mmol/L BUN 67 H (7-17) mg/dL Creatinine 5.84 H* (0.52-1.04) mg/dL Glucose 117 H (74-99) mg/dL Calcium 6.0 L* (8.4-10.2) mg/dL Assessment and Plan Plan: Impression. 1. Acute kidney injury, creatinine went up from 1.3 on 06/29/2016 consistently to 6.38 on 10/23/2016. Bilateral hydronephrosis, without any response to stent on the left. First stent was placed approximately July 2016 on the left side, this was discontinued on 10/18/2016 and has been reinserted the 2016. Urine output has not been documented well. Urinalysis on 10/16/2016 shows 1+ proteinuria and large leukocyte Estrace 43 WBCs and 31 RBCs, urine culture on is negative. Rule out acute interstitial nephritis. Urine output supposedly is more after the stent dated 10/23/2016 and the creatinine is slightly better from 6.3-5.84 2. Bilateral hydronephrosis with extrinsic compression at the pelvic brim based on urology notes. Computed tomography scan is not showing any mass. 3. Mild degree of hypokalemia secondary to poor intake. Potassium is 2.9 from 3.1, 4. Non-gap acidosis secondary to acute kidney injury. Bicarb improved from 15- 17 5. Low calcium likely secondary to low albumin. 6. Anemia of chronic kidney disease. 7. Rule out other causes of acute kidney injury such as myeloma although unlikely Recommendations. Agree with IV fluids she is on Ringer's lactate. 2. Replace potassium, she will need 60 mEq 3. Check urine immunoelectrophoresis did 4. Obtain repeat chest x-ray is is any concern for congestive heart failure 5. Follow-up labs closely.
[2016-10-24 14:35] LABS: Magnesium 1.6 mg/dL (1.6-2.3)
[2016-10-24] MEDS ORDERED: FUROSEMIDE 10 MG/ML 4 ML VIAL IV STA (14:37)
--- NOTE | 2016-10-24 15:25 | XR ---
EXAMINATION TYPE: XR chest 1V DATE OF EXAM: 10/24/2016 COMPARISON: 10/22/2016 INDICATION: CHF TECHNIQUE: Single frontal view of the chest is obtained. FINDINGS: The heart size is normal. The pulmonary vasculature is normal. There is a moderate left pleural effusion, stable. Mild perihilar infiltrate is present. Findings can be related to some resolving pulmonary edema IMPRESSION: 1. Moderate left pleural effusion. 2. Resolving pulmonary edema
--- NOTE | 2016-10-24 16:10 | P.PN ---
Subjective 86-year-old female, she was admitted with a diagnosis of questionable left lower lobe pneumonia. She does have a history of hypothyroidism and hypertension along with history of colon cancer with previous bowel resection, and history of COPD. The patient does have a history of mild asthma as well. The patient was also in acute kidney injury on top of chronic renal failure. She is known to have obstructive uropathy and bilateral hydronephrosis. She has been seen by nephrology in the past and a left-sided ureteral stent was inserted.. Note that her prior creatinine from July 2016 was at 2.1 and around June 2016 it was 1.3. No history of any nonsteroidal anti-inflammatory medication. The patient's blood pressure was slightly on the lower side at time of admission. Ultrasound of the kidneys on 08/05/2016 showed bilateral hydronephrosis. Based on that a nephrology and urology consultation was requested. Anyway we did a computed tomography scan of the chest. We are concerned about possibly of lung cancer because a cousin decreased appetite and weight loss. It appears mostly small right-sided pleural effusion and a moderate-sized left-sided pleural effusion along with some atelectatic changes along the lingula. The patient has been maintained on a combination of Rocephin and Zithromax and po vancomycin and the last is being given for C. diff colitis.. The kidney function remains impaired without any significant improvement in the creatinine. On 10/18/2016 the patient is being seen in follow-up. The patient is doing well. The patient underwent cystoscopy and insertion of a ureteral stent on the right. The patient is making adequate amount of urine output. Renal function is being monitored. She still on same antibiotic coverage. No active diarrhea. She has positive C. diff A, and the rest of the urine and blood cultures of been all negative. No respiratory distress. I discussed the findings with the patient and her family. The patient bilateral pleural effusion. Could be related to underlying obstructive uropathy. No clear signs of an underlying pneumonia. She has no cough or sputum production. No chest tightness. The patient is seen again today 10/19/2016 in follow-up on the regular medical floor. She continues to do well. She has no current complaints. No further diarrhea. She remains on oral vancomycin. She is making urine currently at 150 MLS this morning. Her creatinine is slightly improved at 5.90. Sodium 144 with a chloride of 120 and a bicarb of 12. She remains on sodium bicarb 1300 mg 3 times a day. She has a 0.45 normal saline at 50 MLS per hour. The patient is seen again today 10/20/2016 in follow-up on the regular medical floor. She is currently resting quite comfortably in bed. She is maintaining good O2 saturations in the 90s on room air. She does have a moderate left pleural effusion with associated atelectasis. Her creatinine remains greater than 6 and she has had a drop in her urine output continued to the obstructive uropathy. She has had her left double-J catheters removed. They may need to repeat a cystoscopy. She remains on vancomycin for her C. difficile colitis. The patient was seen again today 10/21/2016 in follow-up on the regular medical floor. She is currently awake and alert in no acute distress. She is breathing about the same today as compared to yesterday. She is on 2 L of nasal cannula. Blood urine and stool cultures revealed no growth. No leukocytosis. Hemoglobin 7.7. Her creatinine remains high at 5.98. Bicarb 14. The patient is seen again today 10/22/2016 in follow-up on the regular medical floor. She is resting quite comfortably in bed. She denies any pulmonary complaints. No shortness of breath, cough or congestion. Her chest x-ray continues to show stable bilateral pleural effusions. There is moderate left pleural effusion with very minimal right pleural effusion. She is maintaining good O2 saturations in the upper 90s to 100% on room air. She does have some abdominal discomfort. Her hemoglobin continues to drift down currently at 7.4. Her creatinine continues to climb currently at 6.14. Abdominal CT reveals fluid overload state with moderate to severe diffuse soft tissue anasarca. There is partial visualization of at least moderate bilateral pleural effusions. There is moderate to severe fluid in the pelvic cul-de-sac. There is new bilateral collecting system and intra-utero or hemorrhage with new hyperdense material seen. There is persistent moderate to severe right-sided hydronephrosis. The plan is for a left ureteroscopy with removal of the calculus fragments to be performed by urology tomorrow. The patient is seen again today 10/23/2016 in follow-up on the regular medical floor. Her hemoglobin continues to drift down currently at 7.0, platelets at 58 ,000 and her creatinine continues to climb at 6.38. She is just back from her procedure by Dr. Santizo. He had performed a cystoscopy with left ureteroscopy lithotripsy and placement of the left double-J catheter. She continues to maintain good O2 saturations in the mid to upper 90s on 3 L/m per nasal cannula. She's been afebrile. Hemodynamically stable. On 10/24/2016 the patient is being seen in follow-up. The patient is doing well. She is sitting up on a chair. She is on room air oxygen. She does not have a Suarez catheter. Her creatinine is at 5.8. The patient is producing some urine. Urology is on the case and the patient would have a cystoscopy with removal of the left double-J catheters in approximately 2 weeks. Meanwhile , a repeat chest x-ray was done and the patient is still showing a moderate- sized left-sided pleural effusion and the resolving pulmonary edema. No plans to do a thoracentesis unless the patient's respiratory status decompensates Objective - Vital Signs Vital signs: Vital Signs Temp 96.7 F L 10/24/16 15:00 Pulse 88 10/24/16 15:49 Resp 16 10/24/16 15:00 BP 121/74 10/24/16 15:00 Pulse Ox 96 10/24/16 15:00 Intake & Output 10/23/16 10/24/16 10/24/16 18:59 06:59 18:59 Intake Total 1250 Output Total 5 Balance 1245 Intake: IV 650 Oral 600 Output: Estimated Blood Loss 5 Other: Voiding Method Bedside Commode Bedside Commode Incontinent Bedpan Incontinent # Voids 1 3 3 - Exam The patient appeared well nourished and normally developed. Vital signs as documented. Head exam is unremarkable. No scleral icterus or corneal arcus noted. Neck is without jugular venous distension, thyromegaly, or carotid bruits. Carotid upstrokes are brisk bilaterally. Lungs are showing diminished breath sounds in the lung bases more so on the left.. Cardiac exam reveals the PMI to be normally sized and situated. Rhythm is regular. First and second heart sounds normal. No murmurs, rubs or gallops. Abdominal exam reveals normal bowel sounds, no masses, no organomegaly and no aortic enlargement. Extremities are nonedematous and both femoral and pedal pulses are normal. - Labs CBC & Chem 7: 10/24/16 08:59 10/24/16 08:59 Labs: Abnormal Lab Results - Last 24 Hours (Table) 10/24/16 10/24/16 10/24/16 Range/Units 08:59 08:59 08:59 RBC 2.68 L (3.80-5.40) m/uL Hgb 6.9 L* (11.4-16.0) gm/dL Hct 22.0 L (34.0-46.0) % RDW 24.1 H (11.5-15.5) % Plt Count 60 L (150-450) k/uL Lymphocytes # (Manual) 0.46 L (1.0-4.8) k/uL Nucleated RBCs 2 H (0-0) /100 WBC Potassium 2.9 L* (3.5-5.1) mmol/L Chloride 115 H (98-107) mmol/L Carbon Dioxide 17 L (22-30) mmol/L BUN 67 H (7-17) mg/dL Creatinine 5.84 H* (0.52-1.04) mg/dL Glucose 117 H (74-99) mg/dL Calcium 6.0 L* (8.4-10.2) mg/dL Lactate Dehydrogenase 919 H (313-618) U/L Assessment and Plan Plan: Assessment 1 bilateral pleural effusion left more than right. The pleural fluid has remained stable and is not causing any significant respiratory distress at this point. 2 COPD, currently inactive and stable. 3 chronic renal failure with an acute kidney injury on top of chronic kidney failure. The patient has obstructive uropathy with bilateral hydronephrosis earlier this year. The patient undergone cystoscopy and bilateral retrograde pyelograms and she was found to have extensive compression of both ureters at the pelvic brim and a left-sided ureteral stent was placed. Currently she has evidence of a right sided hydronephrosis. No dysuria. No hematuria. Right- sided ureteral stent also placed by Dr. Figueredo. On 10/23/2016 the patient had undergone a cystoscopy with left ureteroscopy lithotripsy and placement of left double-J catheter. On 10/24/2069 there is some slight improvement in creatinine which is down to 5.8. Urology is on the case. Nephrology also on the case. 4 Colon cancer, history of with a previous bowel resection 5 hypothyroidism, status post thyroidectomy. 6 hypertension 7 C. diff colitis on oral vancomycin Plan Chest x-ray was reviewed. We will avoid thoracentesis as long as the patient is stable from the pulmonary perspective. Continue monitoring the renal function. We'll follow.
--- NOTE | 2016-10-24 17:29 | US ---
EXAMINATION TYPE: US chest DATE OF EXAM: 10/24/2016 COMPARISON: NONE CLINICAL HISTORY: markings of pleural effusion. EXAM MEASUREMENTS: Left Pleural Effusion fluid pocket: 6.0 cm Left skin to fluid thickness: 1.5 cm Left side marked for possible thoracentesis outside the dept. Limited due to pt difficulty sitting up right and SOB. Pulmonologists are able to review the images in the patient?s EMR. IMPRESSIONS: 1. Left pleural effusion
[2016-10-24] MEDS: LACTATED RINGERS 1,000 ML IV SCH (17:46)
[2016-10-24] MEDS: risperiDONE 0.25 MG TAB PO SCH (20:42)
[2016-10-24] MEDS: POTASSIUM CHLORIDE ER 20 MEQ TAB.ER PO SCH (20:48)
[2016-10-25] MEDS: CHERRY FLAVOR 60 ML BOTTLE PO SCH ×4 (00:05→18:26)
[2016-10-25] MEDS: VANCOMYCIN ORAL SOLUTION 250 MG/5 ML BOTTLE PO SCH ×4 (00:05→18:27)
[2016-10-25] MEDS: LEVOTHYROXINE 88 MCG TAB PO SCH (06:14)
[2016-10-25] MEDS: ALBUTEROL NEBULIZED 2.5 MG/3 ML INHALATION SCH ×4 (07:30→19:27)
[2016-10-25 08:26] LABS: Magnesium 1.6 mg/dL (1.6-2.3); Potassium 3.7 mmol/L (3.5-5.1); Total Bilirubin 0.9 mg/dL (0.2-1.3); Total Protein 5.6 g/dL (6.3-8.2)
[2016-10-25 08:28] LABS: Anisocytosis Moderate; CH 27.1; CHCM 32.4; HCT 30.7 % (34.0-46.0); HDW 4.63; Hypochromasia Moderate; MCHC 32.1 g/dL (31.0-37.0); MCV 84.1 fL (80.0-100.0); Mean Platelet Volume 7.4; Microcytosis Slight; Poikilocytosis Marked; RBC 3.65 m/uL (3.80-5.40); RDW 21.4 % (11.5-15.5); WBC (Perox) 7.56
[2016-10-25 08:29] LABS: HGB 9.9 gm/dL (11.4-16.0)
[2016-10-25 08:42] LABS: Calcium 6.3 mg/dL (8.4-10.2)
[2016-10-25 08:48] LABS: Add Differential Manual Differential
[2016-10-25 08:50] LABS: Nucleated Red Blood Cells 1 /100 WBC (0-0)
[2016-10-25 08:51] LABS: Band Neutrophils % 1 %; Metamyelocytes % 2 %; Total Cells Counted 200; WBC 7.5 k/uL (3.8-10.6)
[2016-10-25 08:52] LABS: Polychromasia Present
[2016-10-25] MEDS: METOPROLOL TARTRATE 25 MG TAB PO SCH (09:58)
[2016-10-25] MEDS: SODIUM BICARBONATE TAB 650 MG TAB PO SCH ×3 (09:59→20:37)
[2016-10-25] MEDS: POTASSIUM CHLORIDE ER 20 MEQ TAB.ER PO SCH ×2 (09:59→20:37)
[2016-10-25] MEDS: CALCIUM CARBONATE 500 MG CHEWABLE PO SCH (09:59)
[2016-10-25] MEDS: HEPARIN SODIUM,PORCINE 5,000 UNIT/ML 1 ML VIAL SQ SCH ×2 (09:59→20:37)
--- NOTE | 2016-10-25 10:55 | PN ---
PROGRESS NOTE DATE OF SERVICE: 10/24/2016 This 86-year-old woman was admitted with acute , also acute on chronic renal failure. Patient has significant pleural effusion. The patient has seen by Dr. Saldaña as well as Dr. Garcia. Dr. Figueredo has performed procedures at this time. Her creatinine is not improving. The patient is not feeling well. Dr. Garcia is recommending to avoid thoracentesis and to continue conservative management. Past medical history reviewed. REVIEW OF SYSTEMS: CARDIOVASCULAR: No angina. RESPIRATORY: As mentioned earlier. GI: As mentioned earlier. : No dysuria. NERVOUS SYSTEM: No focal deficits. Current medications are reviewed and include: 1. Tylenol 500 mg q6. 2. Ventolin q.i.d. and p.r.n. 3. Vitamin D2. 4. Folic acid. 5. Synthroid. 6. Lopressor. 7. Multivitamin. 8. Narcan. 9. Risperdal. 10.Vancomycin p.o. The hemoglobin is 6.9 today. PHYSICAL EXAMINATION: The patient is alert and oriented x3, pulse 94, blood pressure 120/75, respirations 16, temperature 96.7.7, pulse ox 96% on room air. HEENT: Conjunctivae pale. Oral mucosa moist. NECK: No jugular venous distention. No masses palpable. CARDIOVASCULAR: S1/S2 normal. RESPIRATORY: Breath sounds diminished, especially at the bases. Bilateral scattered rhonchi and crackles. ABDOMEN: Soft, scaphoid. LEGS: No edema. NERVOUS SYSTEM: Diffusely weak. LAB DATA: WBC 4.2, hemoglobin 6.9. Potassium is 2.9, creatinine is 5.84. ASSESSMENT: 1. Acute renal failure. Acute on chronic kidney disease, multifactorial, stage III with obstructive uropathy, bilateral status post cystoscopy with removal of left . Bilateral retrograde pyeloureterograms, replacement by left double-J catheter. 2. Hypokalemia. 3. Anemia of chronic disease. 4. Bilateral pleural effusion, left more than right. 5. Chronic obstructive pulmonary disease. 6. History of hypomagnesemia. 7. History of hypokalemia. 8. History of recent Clostridium difficile colitis present on admission. 9. NO CODE. RECOMMENDATIONS AND DISCUSSION: Recommend to continue current medication, continue to monitor, continue symptomatic treatment. Discussed with Dr. Saldaña. One unit transfusion, otherwise continue to monitor. Replace potassium. Repeat labs. Guarded prognosis because of multiple complex medical issues. Further recommendations to follow. MMODL / IJN: [id number] / [place]
--- NOTE | 2016-10-25 12:25 | P.PN ---
Subjective Principal diagnosis: This is a 86-year-old female seen in consultation because of significant and severe kidney disease, and bilateral hydronephrosis, a stent was placed on the left side in July 2016 and was discontinued on 10/18/2016, a nonobstructive right hydronephrosis noted on the OR note She had reinsertion off left-sided ureteral stent again day before yesterday morning because of worsening kidney function. I have started on IV fluids because of the poor intake and the possibility that there may be a prerenal element because of volume depletion. Urine output is not measured but supposedly per nursing staff and the patient she is making much more urine. She does not have a Suarez catheter. She is feeling better and is able to eat somewhat better. Denies any cough fever chills shortness of breath abdominal pain no dysuria frequency diarrhea. The cause of this bilateral hydronephrosis not clear supposedly there is some extrinsic compression at the pelvic brim but computed tomography scan of the abdomen and pelvis is not showing any explanation for this Her creatinine was 0.95 on 04/08/2015, went up to 1.3 dated 06/29/2016, seems to have gone up ever since then to the current creatinine of 6.38 as of this morning. Objective - Vital Signs Vital signs: Vital Signs Temp 97.8 F 10/25/16 07:00 Pulse 88 10/25/16 11:25 Resp 16 10/25/16 07:00 BP 138/71 10/25/16 07:00 Pulse Ox 95 10/25/16 07:00 Intake & Output 10/24/16 10/25/16 10/25/16 18:59 06:59 18:59 Intake Total 0 310 Output Total 0 Balance 0 310 Intake: Blood Product 0 310 Rc As-3 Unit 0 310 [id number] Output: Stool 0 Other: Voiding Method Bedside Commode Bedside Commode Bedpan Bedpan Incontinent Incontinent # Voids 3 3 # Bowel Movements 7 1 On examination this is a cachectic small built female. She looks somewhat better though or or. A chin exam no JVP neck is supple no facial asymmetry Lung examination shows clear to auscultation percussion. A chest x-ray shows chronic persistent left pleural effusion. Heart sounds are unremarkable for any murmur rub gallop Abdomen soft nontender no masses felt no organomegaly Extremity exam was no edema Neurologically awake alert oriented weak febrile and cachectic 6 - Labs CBC & Chem 7: 10/25/16 07:05 10/25/16 07:05 Labs: Abnormal Lab Results - Last 24 Hours (Table) 10/24/16 10/24/16 10/24/16 Range/Units 08:59 14:55 15:33 RBC (3.80-5.40) m/uL Hgb (11.4-16.0) gm/dL Hct (34.0-46.0) % RDW (11.5-15.5) % Plt Count (150-450) k/uL Lymphocytes # (Manual) (1.0-4.8) k/uL Metamyelocytes # (Man) (0) k/uL Nucleated RBCs (0-0) /100 WBC Sodium (137-145) mmol/L Chloride (98-107) mmol/L Carbon Dioxide (22-30) mmol/L BUN (7-17) mg/dL Creatinine (0.52-1.04) mg/dL Calcium (8.4-10.2) mg/dL Lactate Dehydrogenase 919 H (313-618) U/L Total Protein (6.3-8.2) g/dL Albumin (3.5-5.0) g/dL U Random Total Protein 302 H (<12) mg/dL Crossmatch See Detail 10/25/16 10/25/16 Range/Units 07:05 07:05 RBC 3.65 L (3.80-5.40) m/uL Hgb 9.9 L D (11.4-16.0) gm/dL Hct 30.7 L (34.0-46.0) % RDW 21.4 H (11.5-15.5) % Plt Count 64 L (150-450) k/uL Lymphocytes # (Manual) 0.53 L (1.0-4.8) k/uL Metamyelocytes # (Man) 0.15 H (0) k/uL Nucleated RBCs 1 H (0-0) /100 WBC Sodium 147 H (137-145) mmol/L Chloride 114 H (98-107) mmol/L Carbon Dioxide 19 L (22-30) mmol/L BUN 66 H (7-17) mg/dL Creatinine 5.44 H* (0.52-1.04) mg/dL Calcium 6.3 L* (8.4-10.2) mg/dL Lactate Dehydrogenase (313-618) U/L Total Protein 5.6 L (6.3-8.2) g/dL Albumin 2.8 L (3.5-5.0) g/dL U Random Total Protein (<12) mg/dL Crossmatch Assessment and Plan Plan: Impression. 1. Acute kidney injury, creatinine went up from 1.3 on 06/29/2016 consistently to 6.38 on 10/23/2016. Bilateral hydronephrosis, . First stent was placed approximately July 2016 on the left side, this was discontinued on 10/18/2016 and has been reinserted 10/23/2016 day before yesterday. Urine output has not been documented well. Urinalysis on 10/16/2016 shows 1+ proteinuria and large leukocyte Estrace 43 WBCs and 31 RBCs, urine culture on 10/16/2016 is negative. Rule out acute interstitial nephritis. Urine output supposedly is more after the stent dated 10/23/2016 and the creatinine is slightly better from 6.3-5.84, and further improved to 5.44 this morning. She is on IV Ringer's lactate 50 mL an hour with very poor intake 2. Bilateral hydronephrosis with extrinsic compression at the pelvic brim based on urology notes. Computed tomography scan is not showing any mass. 3. Mild degree of hypokalemia secondary to poor intake. Potassium was 2.9 improved to 3.7 this morning with replacement 4. Non-gap acidosis secondary to acute kidney injury. Bicarb improved from 15- 17> 19 5. Low calcium likely secondary to low albumin. 6. Anemia of chronic kidney disease. 7. Rule out other causes of acute kidney injury such as myeloma although unlikely, urine protein to creatinine ratio's somewhat high reported 302/56, giving a proteinuria of about 6 g Recommendations. 1. Will increase IV Ringer's lactate from 56-75 mL an hour given the slow response of the creatinine and the poor intake, concern for congestive heart failure is addressed by a chest x-ray which shows some persistent mild left pleural effusion as of yesterday 10/24/2016. 2. Pending serum and urine immunoelectrophoresis. 3. Repeat urine protein to creatinine ratio tomorrow morning 4. Follow-up labs closely.
[2016-10-25] MEDS: FOLIC ACID 1 MG TAB PO SCH (12:55)
[2016-10-25] MEDS: THIAMINE 100 MG TAB PO SCH (12:55)
[2016-10-25] MEDS: MULTIVITAMINS, THERA 1 EACH TAB PO SCH (12:56)
[2016-10-25] MEDS: LACTATED RINGERS 1,000 ML IV SCH ×2 (12:56→14:26)
--- NOTE | 2016-10-25 15:02 | P.PN ---
Subjective 86-year-old female, she was admitted with a diagnosis of questionable left lower lobe pneumonia. She does have a history of hypothyroidism and hypertension along with history of colon cancer with previous bowel resection, and history of COPD. The patient does have a history of mild asthma as well. The patient was also in acute kidney injury on top of chronic renal failure. She is known to have obstructive uropathy and bilateral hydronephrosis. She has been seen by nephrology in the past and a left-sided ureteral stent was inserted.. Note that her prior creatinine from July 2016 was at 2.1 and around June 2016 it was 1.3. No history of any nonsteroidal anti-inflammatory medication. The patient's blood pressure was slightly on the lower side at time of admission. Ultrasound of the kidneys on 08/05/2016 showed bilateral hydronephrosis. Based on that a nephrology and urology consultation was requested. Anyway we did a computed tomography scan of the chest. We are concerned about possibly of lung cancer because a cousin decreased appetite and weight loss. It appears mostly small right-sided pleural effusion and a moderate-sized left-sided pleural effusion along with some atelectatic changes along the lingula. The patient has been maintained on a combination of Rocephin and Zithromax and po vancomycin and the last is being given for C. diff colitis.. The kidney function remains impaired without any significant improvement in the creatinine. On 10/18/2016 the patient is being seen in follow-up. The patient is doing well. The patient underwent cystoscopy and insertion of a ureteral stent on the right. The patient is making adequate amount of urine output. Renal function is being monitored. She still on same antibiotic coverage. No active diarrhea. She has positive C. diff A, and the rest of the urine and blood cultures of been all negative. No respiratory distress. I discussed the findings with the patient and her family. The patient bilateral pleural effusion. Could be related to underlying obstructive uropathy. No clear signs of an underlying pneumonia. She has no cough or sputum production. No chest tightness. The patient is seen again today 10/19/2016 in follow-up on the regular medical floor. She continues to do well. She has no current complaints. No further diarrhea. She remains on oral vancomycin. She is making urine currently at 150 MLS this morning. Her creatinine is slightly improved at 5.90. Sodium 144 with a chloride of 120 and a bicarb of 12. She remains on sodium bicarb 1300 mg 3 times a day. She has a 0.45 normal saline at 50 MLS per hour. The patient is seen again today 10/20/2016 in follow-up on the regular medical floor. She is currently resting quite comfortably in bed. She is maintaining good O2 saturations in the 90s on room air. She does have a moderate left pleural effusion with associated atelectasis. Her creatinine remains greater than 6 and she has had a drop in her urine output continued to the obstructive uropathy. She has had her left double-J catheters removed. They may need to repeat a cystoscopy. She remains on vancomycin for her C. difficile colitis. The patient was seen again today 10/21/2016 in follow-up on the regular medical floor. She is currently awake and alert in no acute distress. She is breathing about the same today as compared to yesterday. She is on 2 L of nasal cannula. Blood urine and stool cultures revealed no growth. No leukocytosis. Hemoglobin 7.7. Her creatinine remains high at 5.98. Bicarb 14. The patient is seen again today 10/22/2016 in follow-up on the regular medical floor. She is resting quite comfortably in bed. She denies any pulmonary complaints. No shortness of breath, cough or congestion. Her chest x-ray continues to show stable bilateral pleural effusions. There is moderate left pleural effusion with very minimal right pleural effusion. She is maintaining good O2 saturations in the upper 90s to 100% on room air. She does have some abdominal discomfort. Her hemoglobin continues to drift down currently at 7.4. Her creatinine continues to climb currently at 6.14. Abdominal CT reveals fluid overload state with moderate to severe diffuse soft tissue anasarca. There is partial visualization of at least moderate bilateral pleural effusions. There is moderate to severe fluid in the pelvic cul-de-sac. There is new bilateral collecting system and intra-utero or hemorrhage with new hyperdense material seen. There is persistent moderate to severe right-sided hydronephrosis. The plan is for a left ureteroscopy with removal of the calculus fragments to be performed by urology tomorrow. The patient is seen again today 10/23/2016 in follow-up on the regular medical floor. Her hemoglobin continues to drift down currently at 7.0, platelets at 58 ,000 and her creatinine continues to climb at 6.38. She is just back from her procedure by Dr. Santizo. He had performed a cystoscopy with left ureteroscopy lithotripsy and placement of the left double-J catheter. She continues to maintain good O2 saturations in the mid to upper 90s on 3 L/m per nasal cannula. She's been afebrile. Hemodynamically stable. On 10/24/2016 the patient is being seen in follow-up. The patient is doing well. She is sitting up on a chair. She is on room air oxygen. She does not have a Suarez catheter. Her creatinine is at 5.8. The patient is producing some urine. Urology is on the case and the patient would have a cystoscopy with removal of the left double-J catheters in approximately 2 weeks. Meanwhile , a repeat chest x-ray was done and the patient is still showing a moderate- sized left-sided pleural effusion and the resolving pulmonary edema. No plans to do a thoracentesis unless the patient's respiratory status decompensates On 10/25/2016, the patient is doing essentially the same. Her creatinine is gradually improving is currently down to 5.4 and there is no significant respiratory distress. Metabolic acidosis also improving and the bicarb level is up to 19. Objective - Vital Signs Vital signs: Vital Signs Temp 97.8 F 10/25/16 07:00 Pulse 88 10/25/16 11:25 Resp 16 10/25/16 07:00 BP 138/71 10/25/16 07:00 Pulse Ox 95 10/25/16 07:00 Intake & Output 10/24/16 10/25/16 10/25/16 18:59 06:59 18:59 Intake Total 0 310 Output Total 0 Balance 0 310 Intake: Blood Product 0 310 Rc As-3 Unit 0 310 [id number] Output: Stool 0 Other: Voiding Method Bedside Commode Bedside Commode Bedpan Bedpan Incontinent Incontinent # Voids 3 3 # Bowel Movements 7 1 - Exam The patient appeared well nourished and normally developed. Vital signs as documented. Head exam is unremarkable. No scleral icterus or corneal arcus noted. Neck is without jugular venous distension, thyromegaly, or carotid bruits. Carotid upstrokes are brisk bilaterally. Lungs are showing diminished breath sounds in the lung bases more so on the left.. Cardiac exam reveals the PMI to be normally sized and situated. Rhythm is regular. First and second heart sounds normal. No murmurs, rubs or gallops. Abdominal exam reveals normal bowel sounds, no masses, no organomegaly and no aortic enlargement. Extremities are nonedematous and both femoral and pedal pulses are normal. - Labs CBC & Chem 7: 10/25/16 07:05 10/25/16 07:05 Labs: Abnormal Lab Results - Last 24 Hours (Table) 10/24/16 10/24/16 10/25/16 Range/Units 14:55 15:33 07:05 RBC 3.65 L (3.80-5.40) m/uL Hgb 9.9 L D (11.4-16.0) gm/dL Hct 30.7 L (34.0-46.0) % RDW 21.4 H (11.5-15.5) % Plt Count 64 L (150-450) k/uL Lymphocytes # (Manual) 0.53 L (1.0-4.8) k/uL Metamyelocytes # (Man) 0.15 H (0) k/uL Nucleated RBCs 1 H (0-0) /100 WBC Sodium (137-145) mmol/L Chloride (98-107) mmol/L Carbon Dioxide (22-30) mmol/L BUN (7-17) mg/dL Creatinine (0.52-1.04) mg/dL Calcium (8.4-10.2) mg/dL Total Protein (6.3-8.2) g/dL Albumin (3.5-5.0) g/dL U Random Total Protein 302 H (<12) mg/dL Crossmatch See Detail 10/25/16 Range/Units 07:05 RBC (3.80-5.40) m/uL Hgb (11.4-16.0) gm/dL Hct (34.0-46.0) % RDW (11.5-15.5) % Plt Count (150-450) k/uL Lymphocytes # (Manual) (1.0-4.8) k/uL Metamyelocytes # (Man) (0) k/uL Nucleated RBCs (0-0) /100 WBC Sodium 147 H (137-145) mmol/L Chloride 114 H (98-107) mmol/L Carbon Dioxide 19 L (22-30) mmol/L BUN 66 H (7-17) mg/dL Creatinine 5.44 H* (0.52-1.04) mg/dL Calcium 6.3 L* (8.4-10.2) mg/dL Total Protein 5.6 L (6.3-8.2) g/dL Albumin 2.8 L (3.5-5.0) g/dL U Random Total Protein (<12) mg/dL Crossmatch Assessment and Plan Plan: Assessment 1 bilateral pleural effusion left more than right. The pleural fluid has remained stable and is not causing any significant respiratory distress at this point. 2 COPD, currently inactive and stable. 3 chronic renal failure with an acute kidney injury on top of chronic kidney failure. The patient has obstructive uropathy with bilateral hydronephrosis earlier this year. The patient undergone cystoscopy and bilateral retrograde pyelograms and she was found to have extensive compression of both ureters at the pelvic brim and a left-sided ureteral stent was placed. Currently she has evidence of a right sided hydronephrosis. No dysuria. No hematuria. Right- sided ureteral stent also placed by Dr. Figueredo. On 10/23/2016 the patient had undergone a cystoscopy with left ureteroscopy lithotripsy and placement of left double-J catheter. On 10/24/2016 there is some slight improvement in creatinine which is down to 5.8. Urology is on the case. Nephrology also on the case. On 10/25/2016, creatinine continues to improve slowly is down to 5.4 and there is also improvement in the metabolic acidosis. 4 Colon cancer, history of with a previous bowel resection 5 hypothyroidism, status post thyroidectomy. 6 hypertension 7 C. diff colitis on oral vancomycin Plan Monitor renal function. Pleural effusion stable. No need for thoracentesis.
[2016-10-25] MEDS: risperiDONE 0.25 MG TAB PO SCH (20:37)
[2016-10-26] MEDS: VANCOMYCIN ORAL SOLUTION 250 MG/5 ML BOTTLE PO SCH ×5 (00:12→23:59)
[2016-10-26] MEDS: CHERRY FLAVOR 60 ML BOTTLE PO SCH ×5 (00:13→23:59)
[2016-10-26] MEDS: LACTATED RINGERS 1,000 ML IV SCH ×2 (00:13→12:44)
[2016-10-26] MEDS: LEVOTHYROXINE 88 MCG TAB PO SCH (06:27)
[2016-10-26] MEDS: ALBUTEROL NEBULIZED 2.5 MG/3 ML INHALATION SCH ×4 (07:21→19:07)
--- NOTE | 2016-10-26 08:11 | PN ---
PROGRESS NOTE DATE OF SERVICE: 10/25/2016 This is a progress note. INTERVAL HISTORY: This 86-year-old was admitted with acute C difficile colitis. Also had renal failure. The creatinine is improving significantly. Lasix venogram is planned for tomorrow. C. difficile is much better. Creatinine is still elevated. Urology has done the procedures. Please refer to the postoperative notes for further details. No chest. No palpations. PHYSICAL EXAMINATION: On exam alert and oriented times one. Pulse 81, blood pressure 67856, respirations 16, temperature 97.6, pulse ox 97% on room air. HEENT: Conjunctivae normal. Oral mucosa moist. Neck is no jugular venous distention. No carotid bruit. No lymph node enlargement. Cardiovascular: S1, S2 muffled. No S3, no S4. Breath sounds diminished in the bases. A few scattered rhonchi. No crackles. ABDOMEN: Soft. Nontender. No masses. No masses palpable. Legs no edema. No swelling. Central nervous system : No focal deficits. LAB STUDIES: WBC 7.8, hemoglobin 9.9, sodium 147, potassium 3.7, creatinine 5.44, calcium 6.3. ASSESSMENT: 1. Acute renal failure. Acute on chronic kidney disease. Multifactorial stage III with obstructive uropathy. Bilateral hydronephrosis status post cystoscopy with removal of left ureteral double-J stent and bilateral retrograde pyeloureterogram replacement by left double-J catheter. 2. Hyperkalemia. 3. Anemia of chronic disease. 4. Bilateral pleural effusion, left more than the right. 5. History of chronic obstructive pulmonary disease. 6. History hypomagnesemia. 7. History of recent C difficile colitis present on admission. 8. NO CODE, NO CPR, NO VENT. RECOMMENDATIONS AND DISCUSSION: Recommend continue current management. Continue with monitoring. Symptomatic treatment. Otherwise, at this time, recommend continue with monitoring. Repeat repeat creatinine. Prognosis guarded because of multiple complex medical issues. Further recommendations to follow MMODL / IJN: [id number] / MTDD
[2016-10-26] MEDS: SODIUM BICARBONATE TAB 650 MG TAB PO SCH ×3 (08:57→21:11)
[2016-10-26] MEDS: CALCIUM CARBONATE 500 MG CHEWABLE PO SCH (08:58)
[2016-10-26] MEDS: METOPROLOL TARTRATE 25 MG TAB PO SCH (08:58)
[2016-10-26] MEDS: HEPARIN SODIUM,PORCINE 5,000 UNIT/ML 1 ML VIAL SQ SCH ×2 (08:58→21:34)
[2016-10-26] MEDS: POTASSIUM CHLORIDE ER 20 MEQ TAB.ER PO SCH ×2 (08:58→21:34)
[2016-10-26 11:51] LABS: Anisocytosis Moderate; CH 28.2; CHCM 34.1; HCT 30.1 % (34.0-46.0); HDW 4.73; HGB 9.6 gm/dL (11.4-16.0); Hypochromasia Slight; MCH 26.6 pg (25.0-35.0); MCHC 31.9 g/dL (31.0-37.0); MCV 83.3 fL (80.0-100.0); Mean Platelet Volume 7.5; Microcytosis Slight; Poikilocytosis Marked; RBC 3.62 m/uL (3.80-5.40); RDW 23.2 % (11.5-15.5); WBC (Perox) 10.38
[2016-10-26 12:22] LABS: Calcium 6.6 mg/dL (8.4-10.2); Potassium 4.2 mmol/L (3.5-5.1)
[2016-10-26 12:29] LABS: Add Differential Manual Differential
[2016-10-26 12:32] LABS: Metamyelocytes % 1 %; Nucleated Red Blood Cells 1 /100 WBC (0-0); Total Cells Counted 200
[2016-10-26 12:33] LABS: Manual Review Performed; Ovalocytes Present; WBC 9.8 k/uL (3.8-10.6)
[2016-10-26 12:34] LABS: Polychromasia Present; Toxic Granulation Present
[2016-10-26] MEDS: MULTIVITAMINS, THERA 1 EACH TAB PO SCH (12:44)
[2016-10-26] MEDS: FOLIC ACID 1 MG TAB PO SCH (12:44)
[2016-10-26] MEDS: THIAMINE 100 MG TAB PO SCH (12:45)
--- NOTE | 2016-10-26 12:46 | P.PN ---
Subjective 86-year-old female, she was admitted with a diagnosis of questionable left lower lobe pneumonia. She does have a history of hypothyroidism and hypertension along with history of colon cancer with previous bowel resection, and history of COPD. The patient does have a history of mild asthma as well. The patient was also in acute kidney injury on top of chronic renal failure. She is known to have obstructive uropathy and bilateral hydronephrosis. She has been seen by nephrology in the past and a left-sided ureteral stent was inserted.. Note that her prior creatinine from July 2016 was at 2.1 and around June 2016 it was 1.3. No history of any nonsteroidal anti-inflammatory medication. The patient's blood pressure was slightly on the lower side at time of admission. Ultrasound of the kidneys on 08/05/2016 showed bilateral hydronephrosis. Based on that a nephrology and urology consultation was requested. Anyway we did a computed tomography scan of the chest. We are concerned about possibly of lung cancer because a cousin decreased appetite and weight loss. It appears mostly small right-sided pleural effusion and a moderate-sized left-sided pleural effusion along with some atelectatic changes along the lingula. The patient has been maintained on a combination of Rocephin and Zithromax and po vancomycin and the last is being given for C. diff colitis.. The kidney function remains impaired without any significant improvement in the creatinine. On 10/18/2016 the patient is being seen in follow-up. The patient is doing well. The patient underwent cystoscopy and insertion of a ureteral stent on the right. The patient is making adequate amount of urine output. Renal function is being monitored. She still on same antibiotic coverage. No active diarrhea. She has positive C. diff A, and the rest of the urine and blood cultures of been all negative. No respiratory distress. I discussed the findings with the patient and her family. The patient bilateral pleural effusion. Could be related to underlying obstructive uropathy. No clear signs of an underlying pneumonia. She has no cough or sputum production. No chest tightness. The patient is seen again today 10/19/2016 in follow-up on the regular medical floor. She continues to do well. She has no current complaints. No further diarrhea. She remains on oral vancomycin. She is making urine currently at 150 MLS this morning. Her creatinine is slightly improved at 5.90. Sodium 144 with a chloride of 120 and a bicarb of 12. She remains on sodium bicarb 1300 mg 3 times a day. She has a 0.45 normal saline at 50 MLS per hour. The patient is seen again today 10/20/2016 in follow-up on the regular medical floor. She is currently resting quite comfortably in bed. She is maintaining good O2 saturations in the 90s on room air. She does have a moderate left pleural effusion with associated atelectasis. Her creatinine remains greater than 6 and she has had a drop in her urine output continued to the obstructive uropathy. She has had her left double-J catheters removed. They may need to repeat a cystoscopy. She remains on vancomycin for her C. difficile colitis. The patient was seen again today 10/21/2016 in follow-up on the regular medical floor. She is currently awake and alert in no acute distress. She is breathing about the same today as compared to yesterday. She is on 2 L of nasal cannula. Blood urine and stool cultures revealed no growth. No leukocytosis. Hemoglobin 7.7. Her creatinine remains high at 5.98. Bicarb 14. The patient is seen again today 10/22/2016 in follow-up on the regular medical floor. She is resting quite comfortably in bed. She denies any pulmonary complaints. No shortness of breath, cough or congestion. Her chest x-ray continues to show stable bilateral pleural effusions. There is moderate left pleural effusion with very minimal right pleural effusion. She is maintaining good O2 saturations in the upper 90s to 100% on room air. She does have some abdominal discomfort. Her hemoglobin continues to drift down currently at 7.4. Her creatinine continues to climb currently at 6.14. Abdominal CT reveals fluid overload state with moderate to severe diffuse soft tissue anasarca. There is partial visualization of at least moderate bilateral pleural effusions. There is moderate to severe fluid in the pelvic cul-de-sac. There is new bilateral collecting system and intra-utero or hemorrhage with new hyperdense material seen. There is persistent moderate to severe right-sided hydronephrosis. The plan is for a left ureteroscopy with removal of the calculus fragments to be performed by urology tomorrow. The patient is seen again today 10/23/2016 in follow-up on the regular medical floor. Her hemoglobin continues to drift down currently at 7.0, platelets at 58 ,000 and her creatinine continues to climb at 6.38. She is just back from her procedure by Dr. Santizo. He had performed a cystoscopy with left ureteroscopy lithotripsy and placement of the left double-J catheter. She continues to maintain good O2 saturations in the mid to upper 90s on 3 L/m per nasal cannula. She's been afebrile. Hemodynamically stable. On 10/24/2016 the patient is being seen in follow-up. The patient is doing well. She is sitting up on a chair. She is on room air oxygen. She does not have a Suarez catheter. Her creatinine is at 5.8. The patient is producing some urine. Urology is on the case and the patient would have a cystoscopy with removal of the left double-J catheters in approximately 2 weeks. Meanwhile , a repeat chest x-ray was done and the patient is still showing a moderate- sized left-sided pleural effusion and the resolving pulmonary edema. No plans to do a thoracentesis unless the patient's respiratory status decompensates On 10/25/2016, the patient is doing essentially the same. Her creatinine is gradually improving is currently down to 5.4 and there is no significant respiratory distress. Metabolic acidosis also improving and the bicarb level is up to 19. The patient was seen again today 10/26/2016 in follow-up on the regular medical floor. She is currently awake and alert in no acute distress. He denies any shortness of breath, cough or congestion. She is maintaining good O2 saturations in the 90s on room air. She's been afebrile. Her hemoglobin remains stable at 9.6. Vitamin improved to 4.60. Bicarb up to 20. Objective - Vital Signs Vital signs: Vital Signs Temp 97.6 F 10/26/16 07:00 Pulse 92 10/26/16 11:12 Resp 16 10/26/16 07:00 BP 145/72 10/26/16 07:00 Pulse Ox 96 10/26/16 07:00 Intake & Output 10/25/16 10/26/16 10/26/16 18:59 06:59 18:59 Intake Total 400 Balance 400 Weight 46.493 kg Intake: Oral 400 Other: # Voids 3 3 # Bowel Movements 4 3 - Exam The patient appeared well nourished and normally developed. Vital signs as documented. Head exam is unremarkable. No scleral icterus or corneal arcus noted. Neck is without jugular venous distension, thyromegaly, or carotid bruits. Carotid upstrokes are brisk bilaterally. Lungs are showing diminished breath sounds in the lung bases more so on the left.. Cardiac exam reveals the PMI to be normally sized and situated. Rhythm is regular. First and second heart sounds normal. No murmurs, rubs or gallops. Abdominal exam reveals normal bowel sounds, no masses, no organomegaly and no aortic enlargement. Extremities are nonedematous and both femoral and pedal pulses are normal. - Labs CBC & Chem 7: 10/26/16 11:37 10/26/16 11:37 Labs: Abnormal Lab Results - Last 24 Hours (Table) 10/26/16 10/26/16 Range/Units 11:37 11:37 RBC 3.62 L (3.80-5.40) m/uL Hgb 9.6 L (11.4-16.0) gm/dL Hct 30.1 L (34.0-46.0) % RDW 23.2 H (11.5-15.5) % Plt Count 64 L (150-450) k/uL Neutrophils # (Manual) 8.53 H (1.3-7.7) k/uL Lymphocytes # (Manual) 0.69 L (1.0-4.8) k/uL Metamyelocytes # (Man) 0.10 H (0) k/uL Nucleated RBCs 1 H (0-0) /100 WBC Chloride 115 H (98-107) mmol/L Carbon Dioxide 20 L (22-30) mmol/L BUN 63 H (7-17) mg/dL Creatinine 4.60 H (0.52-1.04) mg/dL Calcium 6.6 L (8.4-10.2) mg/dL Assessment and Plan Plan: Assessment 1 bilateral pleural effusion left more than right. The patient has a moderate- sized left-sided pleural effusion but denies any significant shortness of breath. She is maintaining good O2 saturations in the upper 90s on room air. 2 COPD, currently inactive and stable. 3 chronic renal failure with an acute kidney injury on top of chronic kidney failure. The patient has obstructive uropathy with bilateral hydronephrosis earlier this year. The patient undergone cystoscopy and bilateral retrograde pyelograms and she was found to have extensive compression of both ureters at the pelvic brim and a left-sided ureteral stent was placed. Currently she has evidence of a right sided hydronephrosis. No dysuria. No hematuria. Right- sided ureteral stent also placed by Dr. Figueredo. On 10/23/2016 the patient had undergone a cystoscopy with left ureteroscopy lithotripsy and placement of left double-J catheter. 4 : cancer, history of with a previous bowel resection 5 hypothyroidism, status post thyroidectomy. 6 hypertension 7 C. diff colitis on oral vancomycin Plan The patient was seen and evaluated by Dr. Montaño. The patient remains asymptomatic from the pulmonary standpoint. We will only plan for thoracentesis should the patient become symptomatic. Continue to monitor her renal function and hemoglobin. We'll continue to follow.
[2016-10-26] MEDS: ERGOCALCIFEROL 50,000 UNIT CAP PO SCH (13:54)
[2016-10-26] MEDS ORDERED: FUROSEMIDE 10 MG/ML 2 ML VIAL IV STA (13:57)
--- NOTE | 2016-10-26 15:14 | NM ---
EXAMINATION TYPE: NM lasix renogram DATE OF EXAM: 10/26/2016 COMPARISON: CT abdomen pelvis 10/22/2016 HISTORY: Renal failure Following administration of 11.1 mCi Tc 99m MAG3 with 20mg Lasix. Immediate images post injection FINDINGS: Exam was aborted prior to completion due to patient discomfort. Bone marrow activity is davi ntified which can be seen in azotemic patients. Cortical uptake is noted bilaterally, somewhat greate r retention noted on the left as compared to right. Excretion is not noted by 18 minutes, however, de spite Lasix injection at approximately 10 minutes. IMPRESSION: Findings described above, incomplete study
--- NOTE | 2016-10-26 17:31 | P.PN ---
Subjective Progress note being dictated for Dr. Bauer 10/17/16/ Interval history: This is an 86-year-old female admitted with acute C. difficile colitis, acute renal failure, left lower lobe pneumonia and multiple other medical issues. Maintained on gentle IV fluid hydration Chest CT reporting small to moderate left minimal right pleural effusions, suspect atelectasis of left anterior lung base and within the lingula, right hydronephrosis. Diet intake remains fair. Diarrhea improving. Ultrasound reports bilateral nephrolithiasis with moderate right hydronephrosis .creatinine 6.01 Evaluated by pulmonary and urology with recommendations noted. 10/18/2016 maintained on antibiotics. continues on IV fluid hydration .no diarrhea this morning, no nausea, no vomiting. Scheduled this morning for cystoscopy, stent insertion with urology. Denies chest pain, palpitations or increasing shortness of breath. Denies cough. Chest x-ray reports left pleural effusion and trace right pleural effusion, emphysema. 10/19/2016. Maintained on oral vancomycin .Continues to do well, diarrhea has subsided. Hyperchloremic, chloride 120. sodium 144 and bicarb 12. Renal function improving, creatinine 5.9, good urine output-no hematuria. Denies dysuria. 10/20/16 Maintained on gentle IV fluid hydration, oral vancomycin. No diarrhea. minimal urine output, postvoid residual 30 MLS. creatinine 5.9. Increased edema of lower extremities, mild abdominal edema.Fair diet intake. No nausea, no vomiting. Nephrology concerned regarding potential obstructive uropathy. 10/22/2016 Minimal urine output. Creatinine worsening, 6.14. Potassium 3.1 with replacement as per nephrology.soft bowel movements 2 last night and one this morning. Poor diet intake. Hemoglobin 7.4. Short of breath. CT of abdomen/ pelvis ordered as per urology. 10/26/2016. Scheduled for NM lasix renogram today. Renal function significantly improved. Bicarb 20. Hemoglobin 9.6. Diarrhea improved. Denies chest pain, palpitations or increasing shortness of breath. Maintaining O2 sats of 96% on room air. Afebrile, normal WBC. Objective - Vital Signs Vital signs: Vital Signs Temp 97.6 F 10/26/16 07:00 Pulse 92 10/26/16 07:33 Resp 16 10/26/16 07:00 BP 145/72 10/26/16 07:00 Pulse Ox 96 10/26/16 07:00 Intake & Output 10/25/16 10/26/16 10/26/16 18:59 06:59 18:59 Intake Total 400 Balance 400 Intake: Oral 400 Other: # Voids 3 3 # Bowel Movements 4 3 - Exam PHYSICAL EXAM: VITAL SIGNS: As above GENERAL: [Sitting up in chair, no acute distress, HEENT: [Pupils equal conjunctiva normal. Oral mucosa moist] NECK: [Supple, no JVD, no carotid bruit, no lymph node enlargement.] RESPIRATORY EFFORT:[ Normal breathing effort] LUNGS: [Clear, bilateral bases diminished, occasional rhonchi, expiratory wheezes with exertion, no crackles] CARDIOVASCULAR[ regular S1 and S2, no murmurs rubs or gallops, positive edema] GI: [Abdomen soft, nontender, mild diffuse discomfort. Mild abdominal edema/ ascites. positive bowel sounds. No organomegaly, no guarding, no rigidity] PSYCH: [Alert and oriented -3, mood and affect normal.] SKIN: [No ulcer, rash or bleeding] NEURO: [No focal deficits, higher functions as mentioned previously, moves all 4 extremities, strength and sensation grossly intact] - Labs CBC & Chem 7: 10/26/16 11:37 10/26/16 11:37 Assessment and Plan Plan: 1. Acute renal failure, possible acute on chronic disease, stage III, obstructive uropathy, bilateral hydronephrosis. Status post cystoscopy, with removal of left double-J catheter and bilateral retrograde pyeloureterograms, replacement by left double-J catheter. 2. Acute C. difficile colitis, improving 3. Bilateral pleural effusion left greater than right. 4 history of COPD 5 colon cancer history 6. Hyperchloremic. 7. No Code, No CPR, No Vent Plan: Continue on current medication regime, antibiotics, sodium bicarb, monitoring and symptomatic treatment. Renogram scheduled for today. Follow closely with nephrology. Close monitoring of renal function, hemoglobin with repeat labs ordered for a.m. Further recommendations to follow. The impression and plan of care has been dictated as directed as a scribe. : I performed a H&P examination of this patient and discussed the same with the dictator. I agree with the dictator's note. Any additional findings/opinions/ etc. will be noted.
--- NOTE | 2016-10-26 21:02 | P.PN ---
Subjective Pt is seen for f/u for NEETU and obstructive uropathy. This morning she is sitting up in bed. IVF running at 75 cc/hr. She has had good uop per nursing staff. At times pt has been confused. She does have baseline dementia. Pt is scheduled for lasix renogram this afternoon. Pleural effusions are noted on CXR but pt has been tolerating IVF with no change in respiratory status. Objective - Vital Signs Vital signs: Vital Signs Temp 98.0 F 10/26/16 15:00 Pulse 87 10/26/16 19:31 Resp 16 10/26/16 19:31 BP 123/57 10/26/16 19:31 Pulse Ox 97 10/26/16 19:31 Intake & Output 10/26/16 10/26/16 10/27/16 06:59 18:59 06:59 Intake Total 800 Output Total 1 Balance 799 Weight 46.493 kg Intake: Intake, IV Titration 500 Amount Lactated Ringers 1,000 ml 500 @ 75 mls/hr IV .[id number] [facility] Rx#:[id number] Oral 300 Output: Stool 0 Urine/Stool Mix 1 Other: Voiding Method Bedside Commode Bedpan Incontinent # Voids 3 2 # Bowel Movements 3 3 - Exam On examination patient is currently comfortable awake she is not in any acute distress. Blood pressure is 123/74 heart rate 72/m she is afebrile Examination of the heart S1 and S2 Examination lungs bilateral breath sounds are heard Abdomen is soft nontender with some abdominal wall edema noted Exam of lower ext. shows 2+ edema bilaterally. EVENT REPRESENTATIVE exam is grossly intact. Patient is moving all 4 extremities. - Labs CBC & Chem 7: 10/26/16 11:37 10/26/16 11:37 Labs: Abnormal Lab Results - Last 24 Hours (Table) 10/26/16 10/26/16 Range/Units 11:37 11:37 RBC 3.62 L (3.80-5.40) m/uL Hgb 9.6 L (11.4-16.0) gm/dL Hct 30.1 L (34.0-46.0) % RDW 23.2 H (11.5-15.5) % Plt Count 64 L (150-450) k/uL Neutrophils # (Manual) 8.53 H (1.3-7.7) k/uL Lymphocytes # (Manual) 0.69 L (1.0-4.8) k/uL Metamyelocytes # (Man) 0.10 H (0) k/uL Nucleated RBCs 1 H (0-0) /100 WBC Chloride 115 H (98-107) mmol/L Carbon Dioxide 20 L (22-30) mmol/L BUN 63 H (7-17) mg/dL Creatinine 4.60 H (0.52-1.04) mg/dL Calcium 6.6 L (8.4-10.2) mg/dL Assessment and Plan Plan: Assessment 1. Acute kidney injury mainly obstructive uropathy. S/p L double J catheter and previous R ureteral stent. Urine output has improved. Creatinine is slightly lower today. Will continue with IV fluids. Scheduled for lasix renogram today. 2. Non-gap metabolic acidosis secondary to diarrhea and renal failure currently improving continue with oral sodium bicarb. 3. C. diff colitis maintained on oral vancomycin. 4. Lower extremity edema possibly related to some degree of malnutrition. Plan Continue with the IV fluids at 75 mL an hour.
[2016-10-26] MEDS: risperiDONE 0.25 MG TAB PO SCH (21:34)
[2016-10-27] MEDS: LACTATED RINGERS 1,000 ML IV SCH ×3 (00:33→15:48)
[2016-10-27] MEDS: CHERRY FLAVOR 60 ML BOTTLE PO SCH ×3 (05:13→17:20)
[2016-10-27] MEDS: VANCOMYCIN ORAL SOLUTION 250 MG/5 ML BOTTLE PO SCH ×3 (05:13→17:18)
[2016-10-27] MEDS: LEVOTHYROXINE 88 MCG TAB PO SCH (06:19)
[2016-10-27] MEDS: ALBUTEROL NEBULIZED 2.5 MG/3 ML INHALATION SCH ×4 (07:14→20:32)
[2016-10-27 09:24] LABS: Potassium 3.9 mmol/L (3.5-5.1)
[2016-10-27 09:33] LABS: Calcium 6.3 mg/dL (8.4-10.2)
[2016-10-27 09:43] LABS: Anisocytosis Moderate; Basophils # (A) 0.1 k/uL (0-0.2); Basophils % (A) 1 %; CH 27.8; CHCM 31.6; Eosinophils # (A) 0.6 k/uL (0-0.7); Eosinophils % (A) 6 %; HCT 29.7 % (34.0-46.0); HDW 4.38; HGB 9.1 gm/dL (11.4-16.0); Hypochromasia Marked; Luc # (Auto) 0.08; Luc % (Auto) 1; Lymphocytes # (A) 0.9 k/uL (1.0-4.8); Lymphocytes % (A) 10 %; MCHC 30.5 g/dL (31.0-37.0); Mean Platelet Volume 8.3; Microcytosis Slight; Monocytes # (A) 0.1 k/uL (0-1.0); Monocytes % (A) 2 %; Neutrophils # (A) 7.4 k/uL (1.3-7.7); Neutrophils % (A) 81 %; Poikilocytosis Moderate; RBC 3.35 m/uL (3.80-5.40); RDW 23.4 % (11.5-15.5); WBC 9.2 k/uL (3.8-10.6); WBC (Perox) 9.38
[2016-10-27 09:48] LABS: MCV 88.6 fL (80.0-100.0)
--- NOTE | 2016-10-27 09:54 | P.PN ---
Progress Note - Text The patient is afebrile. She says she feels better but continues to have a poor appetite. She says her breathing is improved however her activity is very limited. She denies any abdominal pain and says her urine is clear. BUN/ creatinine continues to improve at 59/4.28. Bicarb is 19. Impression: Improved overall renal function following removal of calculus and encrusted left double-J catheter with replacement of double-J catheter. Plan: The patient will be seen by me in 10-14 days in the office at which time her double-J catheter will be removed due to the risk of re-encrustation. Hopefully her renal function remains stable following removal of the double-J catheter.
[2016-10-27] MEDS: SODIUM BICARBONATE TAB 650 MG TAB PO SCH ×3 (10:00→21:41)
[2016-10-27] MEDS: CALCIUM CARBONATE 500 MG CHEWABLE PO SCH ×2 (10:01→20:00)
[2016-10-27] MEDS: POTASSIUM CHLORIDE ER 20 MEQ TAB.ER PO SCH ×2 (10:01→19:58)
[2016-10-27] MEDS: METOPROLOL TARTRATE 25 MG TAB PO SCH (10:02)
[2016-10-27] MEDS: HEPARIN SODIUM,PORCINE 5,000 UNIT/ML 1 ML VIAL SQ SCH (10:02)
--- NOTE | 2016-10-27 10:03 | P.PN ---
Subjective Progress note being dictated for Dr. Bauer 10/17/16/ Interval history: This is an 86-year-old female admitted with acute C. difficile colitis, acute renal failure, left lower lobe pneumonia and multiple other medical issues. Maintained on gentle IV fluid hydration Chest CT reporting small to moderate left minimal right pleural effusions, suspect atelectasis of left anterior lung base and within the lingula, right hydronephrosis. Diet intake remains fair. Diarrhea improving. Ultrasound reports bilateral nephrolithiasis with moderate right hydronephrosis .creatinine 6.01 Evaluated by pulmonary and urology with recommendations noted. 10/18/2016 maintained on antibiotics. continues on IV fluid hydration .no diarrhea this morning, no nausea, no vomiting. Scheduled this morning for cystoscopy, stent insertion with urology. Denies chest pain, palpitations or increasing shortness of breath. Denies cough. Chest x-ray reports left pleural effusion and trace right pleural effusion, emphysema. 10/19/2016. Maintained on oral vancomycin .Continues to do well, diarrhea has subsided. Hyperchloremic, chloride 120. sodium 144 and bicarb 12. Renal function improving, creatinine 5.9, good urine output-no hematuria. Denies dysuria. 10/20/16 Maintained on gentle IV fluid hydration, oral vancomycin. No diarrhea. minimal urine output, postvoid residual 30 MLS. creatinine 5.9. Increased edema of lower extremities, mild abdominal edema.Fair diet intake. No nausea, no vomiting. Nephrology concerned regarding potential obstructive uropathy. 10/22/2016 Minimal urine output. Creatinine worsening, 6.14. Potassium 3.1 with replacement as per nephrology.soft bowel movements 2 last night and one this morning. Poor diet intake. Hemoglobin 7.4. Short of breath. CT of abdomen/ pelvis ordered as per urology. 10/26/2016. Scheduled for NM lasix renogram today. Renal function significantly improved. Bicarb 20. Hemoglobin 9.6. Diarrhea improved. Denies chest pain, palpitations or increasing shortness of breath. Maintaining O2 sats of 96% on room air. Afebrile, normal WBC. 10/27/2016. Renogram aborted yesterday prior to completion, secondary to patient's discomfort; reports bone marrow activity, bilateral cortical uptake, greater than retention on the left, excretion not noted by 18 minutes. Small amount diarrhea last night, none this morning. Poor diet intake continues. Labs partially completed, creatinine continues to improve at 4.28. Denies hematuria. Afebrile. Denies chest pain, palpitations or increasing shortness of breath. Objective - Vital Signs Vital signs: Vital Signs Temp 97.6 F 10/27/16 07:00 Pulse 84 10/27/16 07:23 Resp 16 10/27/16 07:00 BP 122/63 10/27/16 07:00 Pulse Ox 94 L 10/27/16 07:00 Intake & Output 10/26/16 10/27/16 10/27/16 18:59 06:59 18:59 Intake Total 800 900 Output Total 1 Balance 799 900 Weight 46.493 kg Intake: Intake, IV Titration 500 900 Amount Lactated Ringers 1,000 ml 500 900 @ 75 mls/hr IV .[id number] [facility] Rx#:[id number] Oral 300 Output: Stool 0 Urine/Stool Mix 1 Other: Voiding Method Bedside Commode Bedside Commode Bedpan Bedpan Incontinent Incontinent # Voids 2 2 # Bowel Movements 3 2 - Exam PHYSICAL EXAM: VITAL SIGNS: As above GENERAL: [Sitting up in bed, no acute distress, HEENT: [Pupils equal conjunctiva normal. Oral mucosa moist] NECK: [Supple, no JVD, no carotid bruit, no lymph node enlargement.] RESPIRATORY EFFORT:[ Normal breathing effort] LUNGS: [Clear, bilateral bases diminished, occasional rhonchi, no crackles] CARDIOVASCULAR[ regular S1 and S2, no murmurs rubs or gallops, positive edema] GI: [Abdomen soft, nontender, mild diffuse discomfort. positive bowel sounds. No organomegaly, no guarding, no rigidity] PSYCH: [Alert and oriented -3, mood and affect normal.] SKIN: [No ulcer, rash or bleeding] NEURO: [No focal deficits, higher functions as mentioned previously, moves all 4 extremities, strength and sensation grossly intact] - Labs CBC & Chem 7: 10/27/16 08:21 10/27/16 08:21 Labs: Abnormal Lab Results - Last 24 Hours (Table) 10/26/16 10/26/16 Range/Units 11:37 11:37 RBC 3.62 L (3.80-5.40) m/uL Hgb 9.6 L (11.4-16.0) gm/dL Hct 30.1 L (34.0-46.0) % RDW 23.2 H (11.5-15.5) % Plt Count 64 L (150-450) k/uL Neutrophils # (Manual) 8.53 H (1.3-7.7) k/uL Lymphocytes # (Manual) 0.69 L (1.0-4.8) k/uL Metamyelocytes # (Man) 0.10 H (0) k/uL Nucleated RBCs 1 H (0-0) /100 WBC Chloride 115 H (98-107) mmol/L Carbon Dioxide 20 L (22-30) mmol/L BUN 63 H (7-17) mg/dL Creatinine 4.60 H (0.52-1.04) mg/dL Calcium 6.6 L (8.4-10.2) mg/dL Assessment and Plan Plan: 1. Acute renal failure, possible acute on chronic disease, stage III, obstructive uropathy, bilateral hydronephrosis. Status post cystoscopy, with removal of left double-J catheter and bilateral retrograde pyeloureterograms, replacement by left double-J catheter. Status post incomplete renogram. 2. Acute C. difficile colitis, improving 3. Bilateral pleural effusion left greater than right. 4 history of COPD 5 colon cancer history 6. Hypocalcemia 7. No Code, No CPR, No Vent Plan: Continue on current medication regime, antibiotics, sodium bicarb, monitoring and symptomatic treatment. Incomplete Renogram, further recommendations pending from nephrology. Close monitoring of renal function, hemoglobin with repeat labs ordered for a.m. discharge planning in progress for tomorrow. Further recommendations to follow. The impression and plan of care has been dictated as directed as a scribe. : I performed a H&P examination of this patient and discussed the same with the dictator. I agree with the dictator's note. Any additional findings/opinions/ etc. will be noted.
--- NOTE | 2016-10-27 10:39 | P.PN ---
Subjective 86-year-old female, she was admitted with a diagnosis of questionable left lower lobe pneumonia. She does have a history of hypothyroidism and hypertension along with history of colon cancer with previous bowel resection, and history of COPD. The patient does have a history of mild asthma as well. The patient was also in acute kidney injury on top of chronic renal failure. She is known to have obstructive uropathy and bilateral hydronephrosis. She has been seen by nephrology in the past and a left-sided ureteral stent was inserted.. Note that her prior creatinine from July 2016 was at 2.1 and around June 2016 it was 1.3. No history of any nonsteroidal anti-inflammatory medication. The patient's blood pressure was slightly on the lower side at time of admission. Ultrasound of the kidneys on 08/05/2016 showed bilateral hydronephrosis. Based on that a nephrology and urology consultation was requested. Anyway we did a computed tomography scan of the chest. We are concerned about possibly of lung cancer because a cousin decreased appetite and weight loss. It appears mostly small right-sided pleural effusion and a moderate-sized left-sided pleural effusion along with some atelectatic changes along the lingula. The patient has been maintained on a combination of Rocephin and Zithromax and po vancomycin and the last is being given for C. diff colitis.. The kidney function remains impaired without any significant improvement in the creatinine. On 10/18/2016 the patient is being seen in follow-up. The patient is doing well. The patient underwent cystoscopy and insertion of a ureteral stent on the right. The patient is making adequate amount of urine output. Renal function is being monitored. She still on same antibiotic coverage. No active diarrhea. She has positive C. diff A, and the rest of the urine and blood cultures of been all negative. No respiratory distress. I discussed the findings with the patient and her family. The patient bilateral pleural effusion. Could be related to underlying obstructive uropathy. No clear signs of an underlying pneumonia. She has no cough or sputum production. No chest tightness. The patient is seen again today 10/19/2016 in follow-up on the regular medical floor. She continues to do well. She has no current complaints. No further diarrhea. She remains on oral vancomycin. She is making urine currently at 150 MLS this morning. Her creatinine is slightly improved at 5.90. Sodium 144 with a chloride of 120 and a bicarb of 12. She remains on sodium bicarb 1300 mg 3 times a day. She has a 0.45 normal saline at 50 MLS per hour. The patient is seen again today 10/20/2016 in follow-up on the regular medical floor. She is currently resting quite comfortably in bed. She is maintaining good O2 saturations in the 90s on room air. She does have a moderate left pleural effusion with associated atelectasis. Her creatinine remains greater than 6 and she has had a drop in her urine output continued to the obstructive uropathy. She has had her left double-J catheters removed. They may need to repeat a cystoscopy. She remains on vancomycin for her C. difficile colitis. The patient was seen again today 10/21/2016 in follow-up on the regular medical floor. She is currently awake and alert in no acute distress. She is breathing about the same today as compared to yesterday. She is on 2 L of nasal cannula. Blood urine and stool cultures revealed no growth. No leukocytosis. Hemoglobin 7.7. Her creatinine remains high at 5.98. Bicarb 14. The patient is seen again today 10/22/2016 in follow-up on the regular medical floor. She is resting quite comfortably in bed. She denies any pulmonary complaints. No shortness of breath, cough or congestion. Her chest x-ray continues to show stable bilateral pleural effusions. There is moderate left pleural effusion with very minimal right pleural effusion. She is maintaining good O2 saturations in the upper 90s to 100% on room air. She does have some abdominal discomfort. Her hemoglobin continues to drift down currently at 7.4. Her creatinine continues to climb currently at 6.14. Abdominal CT reveals fluid overload state with moderate to severe diffuse soft tissue anasarca. There is partial visualization of at least moderate bilateral pleural effusions. There is moderate to severe fluid in the pelvic cul-de-sac. There is new bilateral collecting system and intra-utero or hemorrhage with new hyperdense material seen. There is persistent moderate to severe right-sided hydronephrosis. The plan is for a left ureteroscopy with removal of the calculus fragments to be performed by urology tomorrow. The patient is seen again today 10/23/2016 in follow-up on the regular medical floor. Her hemoglobin continues to drift down currently at 7.0, platelets at 58 ,000 and her creatinine continues to climb at 6.38. She is just back from her procedure by Dr. Santizo. He had performed a cystoscopy with left ureteroscopy lithotripsy and placement of the left double-J catheter. She continues to maintain good O2 saturations in the mid to upper 90s on 3 L/m per nasal cannula. She's been afebrile. Hemodynamically stable. On 10/24/2016 the patient is being seen in follow-up. The patient is doing well. She is sitting up on a chair. She is on room air oxygen. She does not have a Suarez catheter. Her creatinine is at 5.8. The patient is producing some urine. Urology is on the case and the patient would have a cystoscopy with removal of the left double-J catheters in approximately 2 weeks. Meanwhile , a repeat chest x-ray was done and the patient is still showing a moderate- sized left-sided pleural effusion and the resolving pulmonary edema. No plans to do a thoracentesis unless the patient's respiratory status decompensates On 10/25/2016, the patient is doing essentially the same. Her creatinine is gradually improving is currently down to 5.4 and there is no significant respiratory distress. Metabolic acidosis also improving and the bicarb level is up to 19. The patient was seen again today 10/26/2016 in follow-up on the regular medical floor. She is currently awake and alert in no acute distress. He denies any shortness of breath, cough or congestion. She is maintaining good O2 saturations in the 90s on room air. She's been afebrile. Her hemoglobin remains stable at 9.6. Creatinine improved to 4.60. Bicarb up to 20. The patient is seen again today 10/27/2016 in follow-up on the regular medical floor. She is awake and alert in no acute distress. She appears little more oriented today as compared to yesterday. The patient was not able to tolerate the completion of her renogram yesterday. She was seen today by urology who made recommendations regarding the removal of the left double-J catheter and then 14 days. Today's labs reveal hemoglobin of 9.1, platelet count of 48,000, bicarb of 19 and a creatinine of 4.28. She continues to be stable from the pulmonary standpoint. Maintains O2 saturations in the mid 90s on room air. Objective - Vital Signs Vital signs: Vital Signs Temp 97.6 F 10/27/16 07:00 Pulse 84 10/27/16 07:23 Resp 16 10/27/16 07:00 BP 122/63 10/27/16 07:00 Pulse Ox 94 L 10/27/16 07:00 Intake & Output 10/26/16 10/27/16 10/27/16 18:59 06:59 18:59 Intake Total 800 900 Output Total 1 Balance 799 900 Weight 46.493 kg Intake: Intake, IV Titration 500 900 Amount Lactated Ringers 1,000 ml 500 900 @ 75 mls/hr IV .[id number] LOUIE Rx#:[id number] Oral 300 Output: Stool 0 Urine/Stool Mix 1 Other: Voiding Method Bedside Commode Bedside Commode Bedpan Bedpan Incontinent Incontinent # Voids 2 2 # Bowel Movements 3 2 - Exam The patient appeared well nourished and normally developed. Vital signs as documented. Head exam is unremarkable. No scleral icterus or corneal arcus noted. Neck is without jugular venous distension, thyromegaly, or carotid bruits. Carotid upstrokes are brisk bilaterally. Lungs are showing diminished breath sounds in the lung bases more so on the left. Cardiac exam reveals the PMI to be normally sized and situated. Rhythm is regular. First and second heart sounds normal. No murmurs, rubs or gallops. Abdominal exam reveals normal bowel sounds, no masses, no organomegaly and no aortic enlargement. Extremities are nonedematous and both femoral and pedal pulses are normal. - Labs CBC & Chem 7: 10/27/16 08:21 10/27/16 08:21 Labs: Abnormal Lab Results - Last 24 Hours (Table) 10/26/16 10/26/16 10/27/16 Range/Units 11:37 11:37 08:21 RBC 3.62 L 3.35 L (3.80-5.40) m/uL Hgb 9.6 L 9.1 L (11.4-16.0) gm/dL Hct 30.1 L 29.7 L (34.0-46.0) % MCHC 30.5 L (31.0-37.0) g/dL RDW 23.2 H 23.4 H (11.5-15.5) % Plt Count 64 L 48 L* (150-450) k/uL Neutrophils # (Manual) 8.53 H (1.3-7.7) k/uL Lymphocytes # 0.9 L (1.0-4.8) k/uL Lymphocytes # (Manual) 0.69 L (1.0-4.8) k/uL Metamyelocytes # (Man) 0.10 H (0) k/uL Nucleated RBCs 1 H (0-0) /100 WBC Chloride 115 H (98-107) mmol/L Carbon Dioxide 20 L (22-30) mmol/L BUN 63 H (7-17) mg/dL Creatinine 4.60 H (0.52-1.04) mg/dL Calcium 6.6 L (8.4-10.2) mg/dL /08/07 Range/Units 08:21 RBC (3.80-5.40) m/uL Hgb (11.4-16.0) gm/dL Hct (34.0-46.0) % MCHC (31.0-37.0) g/dL RDW (11.5-15.5) % Plt Count (150-450) k/uL Neutrophils # (Manual) (1.3-7.7) k/uL Lymphocytes # (1.0-4.8) k/uL Lymphocytes # (Manual) (1.0-4.8) k/uL Metamyelocytes # (Man) (0) k/uL Nucleated RBCs (0-0) /100 WBC Chloride 113 H (98-107) mmol/L Carbon Dioxide 19 L (22-30) mmol/L BUN 59 H (7-17) mg/dL Creatinine 4.28 H (0.52-1.04) mg/dL Calcium 6.3 L* (8.4-10.2) mg/dL Assessment and Plan Plan: Assessment 1 bilateral pleural effusion left more than right. The patient has a moderate- sized left-sided pleural effusion but denies any significant shortness of breath. She is maintaining good O2 saturations in the upper 90s on room air. 2 COPD, currently inactive and stable. 3 chronic renal failure with an acute kidney injury on top of chronic kidney failure. The patient has obstructive uropathy with bilateral hydronephrosis earlier this year. The patient undergone cystoscopy and bilateral retrograde pyelograms and she was found to have extensive compression of both ureters at the pelvic brim and a left-sided ureteral stent was placed. Currently she has evidence of a right sided hydronephrosis. No dysuria. No hematuria. Right- sided ureteral stent also placed by Dr. Figueredo. On 10/23/2016 the patient had undergone a cystoscopy with left ureteroscopy lithotripsy and removal of encrusted double-J catheter and replacement of new left double-J catheter. 4 cancer, history of with a previous bowel resection 5 hypothyroidism, status post thyroidectomy. 6 hypertension 7 C. diff colitis on oral vancomycin Plan The patient was seen and evaluated by Dr. Montaño. The patient remains asymptomatic from the pulmonary standpoint. Maintaining good O2 saturations in the mid 90s on room air. She is cleared for transfer to an extended care facility. Continue to monitor her renal function, hemoglobin and platelets.
[2016-10-27] MEDS: FOLIC ACID 1 MG TAB PO SCH (12:14)
[2016-10-27] MEDS: THIAMINE 100 MG TAB PO SCH (12:14)
[2016-10-27] MEDS: MULTIVITAMINS, THERA 1 EACH TAB PO SCH (12:14)
[2016-10-27] MEDS: risperiDONE 0.25 MG TAB PO SCH (19:59)
--- NOTE | 2016-10-27 21:34 | PN ---
PROGRESS NOTE DATE OF SERVICE: 10/27/2016 Patient is seen for followup for acute kidney injury secondary to obstructive uropathy. She is status post insertion of left double-J catheter. Patient had bilateral hydronephrosis when she was initially taken in on 10/18/2016 by Urology. There was good flow noted on the right side. Therefore a right stent was not placed at that time. Her renal function has improved, with serum creatinine down to about 4.2 mg/dL. Patient is maintained on IV fluids. She has had good urine output. This morning she is awake, comfortable, not in any acute distress. PHYSICAL EXAMINATION: Blood pressure is 120/69, heart rate 81 per minute. She is afebrile. EXAMINATION OF THE HEART: S1, S2. EXAMINATION OF LUNGS: Bilateral breath sounds are heard. Decreased breath sounds at the bases. ABDOMEN: Soft, non-tender. Examination of lower extremities shows edema 2+ bilaterally. [employer] exam is grossly intact. Patient moving all 4 extremities. LABS: Hemoglobin 9.1, sodium 143, potassium 3.9, BUN 59, serum creatinine 4.28. Calcium is 6.3. ASSESSMENT: 1. Acute kidney injury, obstructive uropathy, slowly improving, status post left double-J catheter replacement. Patient had bilateral hydronephrosis on the ultrasound. However, a right ureteral stent was not placed, as there was good flow noted during the cystoscopy. I will decrease the IV fluids, which are currently running at 50 mL/hour. Patient is encouraged to increase her oral intake. 2. Metabolic acidosis, currently improved. 3. Hypocalcemia associated with severe nutrition vitamin D deficiency, maintained on supplementation. I will increase the calcium supplementation. 4. Clostridium difficile colitis, maintained on oral vancomycin. 5. Thrombocytopenia noted on labs today. PLAN: Increase Tums. Decrease IV fluids. Continue to encourage increased oral intake and continue with the vitamin D supplementation. Monitor platelets. Currently patient is not on any heparin. The heparin was discontinued today. MMODL / IJN: [id number] /
[2016-10-28] MEDS: VANCOMYCIN ORAL SOLUTION 250 MG/5 ML BOTTLE PO SCH ×5 (00:43→23:42)
[2016-10-28] MEDS: CHERRY FLAVOR 60 ML BOTTLE PO SCH ×5 (00:43→23:42)
[2016-10-28] MEDS: LACTATED RINGERS 1,000 ML IV SCH ×2 (02:08→22:47)
[2016-10-28] MEDS: LEVOTHYROXINE 88 MCG TAB PO SCH (06:16)
[2016-10-28 08:32] LABS: Potassium 3.7 mmol/L (3.5-5.1)
[2016-10-28 08:36] LABS: Calcium 6.3 mg/dL (8.4-10.2)
[2016-10-28] MEDS: ALBUTEROL NEBULIZED 2.5 MG/3 ML INHALATION SCH ×4 (08:39→20:54)
[2016-10-28] MEDS: CALCIUM CARBONATE 500 MG CHEWABLE PO SCH ×4 (08:47→22:48)
[2016-10-28] MEDS: METOPROLOL TARTRATE 25 MG TAB PO SCH (08:47)
[2016-10-28] MEDS: SODIUM BICARBONATE TAB 650 MG TAB PO SCH ×3 (08:48→22:47)
[2016-10-28] MEDS: POTASSIUM CHLORIDE ER 20 MEQ TAB.ER PO SCH ×2 (08:48→20:29)
[2016-10-28 09:03] LABS: Anisocytosis Moderate; CH 26.8; CHCM 30.5; HCT 28.2 % (34.0-46.0); HDW 4.22; HGB 8.4 gm/dL (11.4-16.0); Hypochromasia Marked; MCH 26.3 pg (25.0-35.0); MCHC 29.8 g/dL (31.0-37.0); MCV 88.5 fL (80.0-100.0); Mean Platelet Volume 7.3; Microcytosis Slight; Poikilocytosis Moderate; RBC 3.18 m/uL (3.80-5.40); WBC (Perox) 7.49
--- NOTE | 2016-10-28 10:23 | P.PN ---
Subjective Patient is seen in follow-up for acute kidney injury. Patient was noted to have obstructive uropathy and a double-J catheter placed this admission. She is being followed by urology. Creatinine peaked at 6.3 this admission and is down to 3.87 today. She is currently maintained on IV fluids. She is currently resting in bed. Not a very reliable historian. Feels weak. Vital signs are stable. General: The patient appeared well nourished and normally developed. HEENT: Head exam is unremarkable. Neck is without jugular venous distension. LUNGS: Lungs are clear to auscultation and percussion. Breath sounds decreased. HEART: Rate and Rhythm are regular. First and second heart sounds normal. No murmurs, rubs or gallops. ABDOMEN: Abdominal exam reveals normal bowel sounds. Non-tender and non- distended. No evidence of peritonitis. EXTREMITITES: No clubbing, cyanosis, or edema. Objective - Vital Signs Vital signs: Vital Signs Temp 97.1 F L 10/28/16 07:00 Pulse 80 10/28/16 08:53 Resp 16 10/28/16 08:39 BP 118/70 10/28/16 07:00 Pulse Ox 95 10/28/16 07:00 Intake & Output 10/27/16 10/28/16 10/28/16 18:59 06:59 18:59 Intake Total 1000 Output Total 0 Balance 1000 Intake: Oral 1000 Output: Stool 0 Other: Voiding Method Bedside Commode Bedside Commode Bedside Commode Bedpan Bedpan Incontinent Incontinent # Voids 2 2 # Bowel Movements 2 1 - Labs CBC & Chem 7: 10/28/16 07:28 10/28/16 07:28 Labs: Abnormal Lab Results - Last 24 Hours (Table) 10/26/16 10/28/16 10/28/16 Range/Units 21:21 07:28 07:28 RBC 3.18 L (3.80-5.40) m/uL Hgb 8.4 L (11.4-16.0) gm/dL Hct 28.2 L (34.0-46.0) % MCHC 29.8 L (31.0-37.0) g/dL RDW 22.0 H (11.5-15.5) % Plt Count 49 L* (150-450) k/uL Chloride 113 H (98-107) mmol/L Carbon Dioxide 17 L (22-30) mmol/L BUN 57 H (7-17) mg/dL Creatinine 3.87 H (0.52-1.04) mg/dL Calcium 6.3 L* (8.4-10.2) mg/dL U Random Total Protein 27 H (<12) mg/dL Assessment and Plan Plan: Assessment: #1. Nonoliguric acute kidney injury secondary to obstructive uropathy status post left double-J catheter placement. Noted to have bilateral hydronephrosis on ultrasound. renal function improving with creatinine down to 3.87 today. #2. Hypocalcemia secondary to vitamin D deficiency as well as acute kidney injury. Also noted to have hypoalbuminemia. Not on any loop diuretics. #3. Metabolic acidosis secondary to IV fluids and acute kidney injury. GI losses also a contributing factor. #4. C. diff colitis. Maintained on oral vancomycin. #5. Thrombocytopenia. Platelet count stable. Off heparin. Plan: Continue with IV fluids running at 50 mL an hour for now. Encouraged oral intake. Avoid nephrotoxic agents and hypotensive episodes. Maintain tums. I will increase it to 3 times daily. Maintain Drisdol twice weekly. Continue oral sodium bicarbonate supplementation. Repeat electrolytes in the morning. Check PTH level.
[2016-10-28 11:07] LABS: Add Differential Manual Differential
[2016-10-28 11:10] LABS: Band Neutrophils % 1 %; Metamyelocytes % 2 %; Myelocytes % 1 %; Nucleated Red Blood Cells 1 /100 WBC (0-0); Total Cells Counted 200
[2016-10-28 11:11] LABS: Manual Review Performed; Ovalocytes Present
[2016-10-28 11:12] LABS: Toxic Granulation Present
[2016-10-28] MEDS: FOLIC ACID 1 MG TAB PO SCH (12:37)
[2016-10-28] MEDS: THIAMINE 100 MG TAB PO SCH (12:37)
[2016-10-28] MEDS: MULTIVITAMINS, THERA 1 EACH TAB PO SCH (12:37)
--- NOTE | 2016-10-28 13:32 | P.PN ---
Subjective 86-year-old female, she was admitted with a diagnosis of questionable left lower lobe pneumonia. She does have a history of hypothyroidism and hypertension along with history of colon cancer with previous bowel resection, and history of COPD. The patient does have a history of mild asthma as well. The patient was also in acute kidney injury on top of chronic renal failure. She is known to have obstructive uropathy and bilateral hydronephrosis. She has been seen by nephrology in the past and a left-sided ureteral stent was inserted.. Note that her prior creatinine from July 2016 was at 2.1 and around June 2016 it was 1.3. No history of any nonsteroidal anti-inflammatory medication. The patient's blood pressure was slightly on the lower side at time of admission. Ultrasound of the kidneys on 08/05/2016 showed bilateral hydronephrosis. Based on that a nephrology and urology consultation was requested. Anyway we did a computed tomography scan of the chest. We are concerned about possibly of lung cancer because a cousin decreased appetite and weight loss. It appears mostly small right-sided pleural effusion and a moderate-sized left-sided pleural effusion along with some atelectatic changes along the lingula. The patient has been maintained on a combination of Rocephin and Zithromax and po vancomycin and the last is being given for C. diff colitis.. The kidney function remains impaired without any significant improvement in the creatinine. On 10/18/2016 the patient is being seen in follow-up. The patient is doing well. The patient underwent cystoscopy and insertion of a ureteral stent on the right. The patient is making adequate amount of urine output. Renal function is being monitored. She still on same antibiotic coverage. No active diarrhea. She has positive C. diff A, and the rest of the urine and blood cultures of been all negative. No respiratory distress. I discussed the findings with the patient and her family. The patient bilateral pleural effusion. Could be related to underlying obstructive uropathy. No clear signs of an underlying pneumonia. She has no cough or sputum production. No chest tightness. The patient is seen again today 10/19/2016 in follow-up on the regular medical floor. She continues to do well. She has no current complaints. No further diarrhea. She remains on oral vancomycin. She is making urine currently at 150 MLS this morning. Her creatinine is slightly improved at 5.90. Sodium 144 with a chloride of 120 and a bicarb of 12. She remains on sodium bicarb 1300 mg 3 times a day. She has a 0.45 normal saline at 50 MLS per hour. The patient is seen again today 10/20/2016 in follow-up on the regular medical floor. She is currently resting quite comfortably in bed. She is maintaining good O2 saturations in the 90s on room air. She does have a moderate left pleural effusion with associated atelectasis. Her creatinine remains greater than 6 and she has had a drop in her urine output continued to the obstructive uropathy. She has had her left double-J catheters removed. They may need to repeat a cystoscopy. She remains on vancomycin for her C. difficile colitis. The patient was seen again today 10/21/2016 in follow-up on the regular medical floor. She is currently awake and alert in no acute distress. She is breathing about the same today as compared to yesterday. She is on 2 L of nasal cannula. Blood urine and stool cultures revealed no growth. No leukocytosis. Hemoglobin 7.7. Her creatinine remains high at 5.98. Bicarb 14. The patient is seen again today 10/22/2016 in follow-up on the regular medical floor. She is resting quite comfortably in bed. She denies any pulmonary complaints. No shortness of breath, cough or congestion. Her chest x-ray continues to show stable bilateral pleural effusions. There is moderate left pleural effusion with very minimal right pleural effusion. She is maintaining good O2 saturations in the upper 90s to 100% on room air. She does have some abdominal discomfort. Her hemoglobin continues to drift down currently at 7.4. Her creatinine continues to climb currently at 6.14. Abdominal CT reveals fluid overload state with moderate to severe diffuse soft tissue anasarca. There is partial visualization of at least moderate bilateral pleural effusions. There is moderate to severe fluid in the pelvic cul-de-sac. There is new bilateral collecting system and intra-utero or hemorrhage with new hyperdense material seen. There is persistent moderate to severe right-sided hydronephrosis. The plan is for a left ureteroscopy with removal of the calculus fragments to be performed by urology tomorrow. The patient is seen again today 10/23/2016 in follow-up on the regular medical floor. Her hemoglobin continues to drift down currently at 7.0, platelets at 58 ,000 and her creatinine continues to climb at 6.38. She is just back from her procedure by Dr. Santizo. He had performed a cystoscopy with left ureteroscopy lithotripsy and placement of the left double-J catheter. She continues to maintain good O2 saturations in the mid to upper 90s on 3 L/m per nasal cannula. She's been afebrile. Hemodynamically stable. On 10/24/2016 the patient is being seen in follow-up. The patient is doing well. She is sitting up on a chair. She is on room air oxygen. She does not have a Suarez catheter. Her creatinine is at 5.8. The patient is producing some urine. Urology is on the case and the patient would have a cystoscopy with removal of the left double-J catheters in approximately 2 weeks. Meanwhile , a repeat chest x-ray was done and the patient is still showing a moderate- sized left-sided pleural effusion and the resolving pulmonary edema. No plans to do a thoracentesis unless the patient's respiratory status decompensates On 10/25/2016, the patient is doing essentially the same. Her creatinine is gradually improving is currently down to 5.4 and there is no significant respiratory distress. Metabolic acidosis also improving and the bicarb level is up to 19. The patient was seen again today 10/26/2016 in follow-up on the regular medical floor. She is currently awake and alert in no acute distress. He denies any shortness of breath, cough or congestion. She is maintaining good O2 saturations in the 90s on room air. She's been afebrile. Her hemoglobin remains stable at 9.6. Creatinine improved to 4.60. Bicarb up to 20. The patient is seen again today 10/27/2016 in follow-up on the regular medical floor. She is awake and alert in no acute distress. She appears little more oriented today as compared to yesterday. The patient was not able to tolerate the completion of her renogram yesterday. She was seen today by urology who made recommendations regarding the removal of the left double-J catheter and then 14 days. Today's labs reveal hemoglobin of 9.1, platelet count of 48,000, bicarb of 19 and a creatinine of 4.28. She continues to be stable from the pulmonary standpoint. Maintains O2 saturations in the mid 90s on room air. The patient is seen again today 10/28/2016 in follow-up in the regular medical floor. Unfortunately she is less awake and alert today as compared to yesterday at the time of our evaluation. He does arouse to verbal stimuli. She is communicating less than yesterday as well. She does continue to maintain good O2 saturations in the mid 90s on room air. She's been afebrile. No leukocytosis. Hemoglobin 8.4. Platelet count 49,000. Her creatinine does continue to improve currently at 3.87. Objective - Vital Signs Vital signs: Vital Signs Temp 97.1 F L 10/28/16 07:00 Pulse 80 10/28/16 08:53 Resp 16 10/28/16 08:39 BP 118/70 10/28/16 07:00 Pulse Ox 95 10/28/16 07:00 Intake & Output 10/27/16 10/28/16 10/28/16 18:59 06:59 18:59 Intake Total 1000 Output Total 0 Balance 1000 Intake: Oral 1000 Output: Stool 0 Other: Voiding Method Bedside Commode Bedside Commode Bedside Commode Bedpan Bedpan Incontinent Incontinent # Voids 2 2 # Bowel Movements 2 1 - Exam The patient appeared well nourished and normally developed. Vital signs as documented. Head exam is unremarkable. No scleral icterus or corneal arcus noted. Neck is without jugular venous distension, thyromegaly, or carotid bruits. Carotid upstrokes are brisk bilaterally. Lungs are showing diminished breath sounds in the lung bases more so on the left. Cardiac exam reveals the PMI to be normally sized and situated. Rhythm is regular. First and second heart sounds normal. No murmurs, rubs or gallops. Abdominal exam reveals normal bowel sounds, no masses, no organomegaly and no aortic enlargement. Extremities are nonedematous and both femoral and pedal pulses are normal. - Labs CBC & Chem 7: 10/28/16 07:28 10/28/16 07:28 Labs: Abnormal Lab Results - Last 24 Hours (Table) 10/28/16 10/28/16 Range/Units 07:28 07:28 RBC 3.18 L (3.80-5.40) m/uL Hgb 8.4 L (11.4-16.0) gm/dL Hct 28.2 L (34.0-46.0) % MCHC 29.8 L (31.0-37.0) g/dL RDW 22.0 H (11.5-15.5) % Plt Count 49 L* (150-450) k/uL Lymphocytes # (Manual) 0.70 L (1.0-4.8) k/uL Metamyelocytes # (Man) 0.14 H (0) k/uL Myelocytes # (Manual) 0.07 H (0) k/uL Blast Cells # (Man) 0.07 H (0) k/uL Nucleated RBCs 1 H (0-0) /100 WBC Chloride 113 H (98-107) mmol/L Carbon Dioxide 17 L (22-30) mmol/L BUN 57 H (7-17) mg/dL Creatinine 3.87 H (0.52-1.04) mg/dL Calcium 6.3 L* (8.4-10.2) mg/dL Assessment and Plan Plan: Assessment 1 bilateral pleural effusion left more than right. The patient has a moderate- sized left-sided pleural effusion but denies any significant shortness of breath. She is maintaining good O2 saturations in the upper 90s on room air. 2 COPD, currently inactive and stable. 3 chronic renal failure with an acute kidney injury on top of chronic kidney failure. The patient has obstructive uropathy with bilateral hydronephrosis earlier this year. The patient undergone cystoscopy and bilateral retrograde pyelograms and she was found to have extensive compression of both ureters at the pelvic brim and a left-sided ureteral stent was placed. Currently she has evidence of a right sided hydronephrosis. No dysuria. No hematuria. Right- sided ureteral stent also placed by Dr. Figueredo. On 10/23/2016 the patient had undergone a cystoscopy with left ureteroscopy lithotripsy and removal of encrusted double-J catheter and replacement of new left double-J catheter. 4 cancer, history of with a previous bowel resection 5 hypothyroidism, status post thyroidectomy. 6 hypertension 7 C. diff colitis on oral vancomycin Plan The patient was seen and evaluated by Dr. Montaño. The patient remains asymptomatic from the pulmonary standpoint. Maintaining good O2 saturations in the mid 90s on room air. Continue to monitor her renal function, hemoglobin and platelets. Her overall prognosis remains quite poor and guarded.
[2016-10-28] MEDS: risperiDONE 0.25 MG TAB PO SCH (20:28)
--- NOTE | 2016-10-29 00:29 | P.CONS ---
History of Present Illness - Reason for Consult Consult date: 10/28/16 Bicytopenia - History of Present Illness The patient is an 86-year-old lady well known to myself. She has a known history of myeloproliferative disorder, most consistent with polycythemia vera, for which she is on Hydrea, 3 times a week. The patient also has a monoclonal gammopathy also on follow-up with no evidence of progression. She was last seen in the office in 03/09 The patient was admitted to the hospital because of persistent diarrhea, over the past 2 weeks, which had been progressive. She was noted to have C. diff colitis, as well as acute kidney injury likely due to dehydration. On admission hemoglobin was in the 8-9 range, while platelets are 104. White count was normal. The patient has had a slow improvement. She has undergone stent placement for bilateral hydronephrosis. Creatinine had been in the 6+ range, and is now starting to decline slowly. Hemoglobin and declined to 6.9, but did improve appropriately after blood transfusion. Platelet counts had slowly declined, into the 60 range, and were 48 today. Consults were placed for further evaluation and recommendations. No obvious bleeding has been noted Review of Systems Constitutional: Reports poor appetite, Reports weakness, Reports weight loss Eyes: denies blurred vision, denies pain Ears: deny: decreased hearing, ear discharge, earache, tinnitus Ears, nose, mouth and throat: Denies headache, Denies sore throat Cardiovascular: Reports decreased exercise tolerance Respiratory: Reports dyspnea Gastrointestinal: Reports abdominal pain (Improved), Reports diarrhea (Improved) , Reports loss of appetite (Slowly improving) Genitourinary: Reports as per HPI (Bilateral hydronephrosis. Status post stent placement) Menstruation: Reports postmenopausal Musculoskeletal: Reports muscle weakness Integumentary: Denies pruritus, Denies rash Neurological: Reports change in mentation, Reports weakness Psychiatric: Reports disorientation, Reports memory loss Endocrine: Reports fatigue Hematologic/Lymphatic: Reports as per HPI (Polycythemia vera, as well as MGUS) Past Medical History Past Medical History: Cancer, COPD, Hyperlipidemia, Hypertension, Syncope, Thyroid Disorder Additional Past Medical History / Comment(s): colon ca, recent lab tests show abnormal kidney fx History of Any Multi-Drug Resistant Organisms: None Reported Past Surgical History: Appendectomy Additional Past Surgical History / Comment(s): thyroidectomy, bowel resection Past Psychological History: No Psychological Hx Reported Smoking Status: Former smoker Past Alcohol Use History: None Reported Past Drug Use History: None Reported Medications and Allergies Home Medications Medication Instructions Recorded Confirmed Type Levothyroxine Sodium [Synthroid] 88 mcg PO DAILY 07/11/16 10/15/16 History Metoprolol Tartrate [Metoprolol 25 mg PO DAILY 07/11/16 10/15/16 History Tartrate] Allergies Allergy/AdvReac Type Severity Reaction Status Date / Time No Known Allergies Allergy Verified 10/15/16 16:44 Physical Exam Vitals: Vital Signs Temp Pulse Pulse Resp BP Pulse Ox 10/28/16 22:52 96.5 F L 85 14 127/67 95 10/28/16 20:54 82 14 10/28/16 16:12 81 14 10/28/16 15:00 97.4 F L 83 16 130/64 94 L 10/28/16 08:53 80 10/28/16 08:39 82 16 10/28/16 07:00 97.1 F L 81 16 118/70 95 Intake and Output 10/28/16 10/28/16 10/29/16 14:59 22:59 06:59 Intake Total 600 Balance 600 Intake: Oral 600 Other: Voiding Method Bedside Commode Bedside Commode Bedpan Bedpan Incontinent Incontinent # Voids 1 1 # Bowel Movements 1 Weight 46.493 kg Patient Weight 10/29/16 06:59 Weight 46.493 kg - Constitutional General appearance: no acute distress - EENT Eyes: EOMI, PERRLA ENT: hearing grossly normal, normal oropharynx - Neck Neck: no lymphadenopathy Thyroid: bilateral: normal size - Respiratory Respiratory: bilateral: CTA - Cardiovascular Rhythm: regular Heart sounds: normal: S1, S2 - Gastrointestinal General gastrointestinal: normal bowel sounds, soft - Integumentary Integumentary: normal - Neurologic Neurologic: CNII-XII intact - Musculoskeletal Musculoskeletal: generalized weakness, strength equal bilaterally - Psychiatric Mild confusion Results CBC & Chem 7: 10/28/16 07:28 10/28/16 07:28 Labs: Abnormal Lab Results - Last 24 Hours (Table) 10/28/16 10/28/16 Range/Units 07:28 07:28 RBC 3.18 L (3.80-5.40) m/uL Hgb 8.4 L (11.4-16.0) gm/dL Hct 28.2 L (34.0-46.0) % MCHC 29.8 L (31.0-37.0) g/dL RDW 22.0 H (11.5-15.5) % Plt Count 49 L* (150-450) k/uL Lymphocytes # (Manual) 0.70 L (1.0-4.8) k/uL Metamyelocytes # (Man) 0.14 H (0) k/uL Myelocytes # (Manual) 0.07 H (0) k/uL Blast Cells # (Man) 0.07 H (0) k/uL Nucleated RBCs 1 H (0-0) /100 WBC Chloride 113 H (98-107) mmol/L Carbon Dioxide 17 L (22-30) mmol/L BUN 57 H (7-17) mg/dL Creatinine 3.87 H (0.52-1.04) mg/dL Calcium 6.3 L* (8.4-10.2) mg/dL Chest x-ray: report reviewed CT scan - abdomen: report reviewed CT Scan - head: report reviewed CT scan - pelvis: report reviewed US - abdomen: report reviewed Assessment and Plan (1) Bicytopenia Narrative/Plan: The patient has a known history of presenting a vera, for which she has been on Hydrea for some years, as well as M CHRIS. Counts were normal, when seen in the office in 03/09. The patient presented during this admission, with bicytopenia, with further drop during her hospital course. Presumably, she was on Hydrea, up until her admission. The drop in counts therefore is most consistent with a bone marrow suppression due to her ongoing illness, including C. diff colitis, as well as acute renal injury. Renal injury, we'll also exacerbated anemia. In addition it will increase a half life of Hydrea, causing increased marrow suppression from the same, which can persist even after stopping the medication. The patient is more prone to having bone marrow compromise in case of the acute or chronic inflammation, due to her underlying marrow condition. Careful review of her labs, as well as peripheral smear characteristics reveals no evidence of process such as TTP. Her platelets are continuing to drop, despite some improvement in renal function. In addition the drop in hemoglobin as well as drop in platelets are notably concordant . There was no evidence of schistocytosis on peripheral smear. In addition the drop in her counts, can be explained by her known hematology history, and her current condition. The patient's Hydrea is being held during this admission. I anticipate, that counts will return to baseline as her acute conditions resolve. In the meantime continue to monitor with supportive transfusions if needed. Iron studies are within normal limits. I will also check for any other deficiency states. Status: Acute (2) Clostridium difficile colitis Narrative/Plan: This has improved symptomatically, with ongoing vancomycin use. Defer to the admitting service and other consultants for continued management Status: Acute (3) Polycythemia rubra vera Narrative/Plan: As noted, patient was on Hydrea in the outpatient setting. Hold Hydrea for now. Resume follow-up in the outpatient setting. Hydrea will be resumed as and when appropriate, in the outpatient setting Status: Acute (4) Monoclonal gammopathy Narrative/Plan: This is most consistent with a monoclonal gammopathy of unknown significance. Last labs, and 03/09 showed no evidence of progression . continue to follow in the outpatient setting, or discharge Status: Acute
[2016-10-29] MEDS: VANCOMYCIN ORAL SOLUTION 250 MG/5 ML BOTTLE PO SCH ×2 (06:35→13:19)
[2016-10-29] MEDS: CHERRY FLAVOR 60 ML BOTTLE PO SCH ×2 (06:35→13:19)
[2016-10-29] MEDS: LEVOTHYROXINE 88 MCG TAB PO SCH (06:37)
[2016-10-29 07:35] VITALS: BP 119/76; RESP 18; TEMP 96.7
[2016-10-29] MEDS: ALBUTEROL NEBULIZED 2.5 MG/3 ML INHALATION SCH ×3 (08:07→15:53)
[2016-10-29 08:23] LABS: Magnesium 1.3 mg/dL (1.6-2.3); Potassium 3.5 mmol/L (3.5-5.1)
[2016-10-29 08:29] LABS: Calcium 6.4 mg/dL (8.4-10.2)
[2016-10-29] MEDS: CALCIUM CARBONATE 500 MG CHEWABLE PO SCH ×2 (09:33→16:24)
[2016-10-29] MEDS: METOPROLOL TARTRATE 25 MG TAB PO SCH (09:34)
[2016-10-29] MEDS: POTASSIUM CHLORIDE ER 20 MEQ TAB.ER PO SCH (09:35)
[2016-10-29] MEDS: SODIUM BICARBONATE TAB 650 MG TAB PO SCH ×2 (09:35→16:24)
[2016-10-29 09:39] LABS: Anisocytosis Moderate; Basophils # (A) 0.1 k/uL (0-0.2); Basophils % (A) 1 %; Eosinophils # (A) 0.4 k/uL (0-0.7); Eosinophils % (A) 5 %; HCT 28.5 % (34.0-46.0); HDW 4.25; HGB 8.7 gm/dL (11.4-16.0); Hypochromasia Marked; Luc # (Auto) 0.07; Luc % (Auto) 1; Lymphocytes # (A) 0.7 k/uL (1.0-4.8); Lymphocytes % (A) 10 %; MCH 26.9 pg (25.0-35.0); MCHC 30.7 g/dL (31.0-37.0); MCV 87.7 fL (80.0-100.0); Mean Platelet Volume 6.9; Microcytosis Slight; Monocytes # (A) 0.1 k/uL (0-1.0); Monocytes % (A) 1 %; Neutrophils # (A) 5.9 k/uL (1.3-7.7); Neutrophils % (A) 82 %; Poikilocytosis Moderate; RBC 3.24 m/uL (3.80-5.40); RDW 22.5 % (11.5-15.5); WBC 7.2 k/uL (3.8-10.6)
--- NOTE | 2016-10-29 09:48 | P.PN ---
Subjective Progress note being dictated for Dr. Bauer 10/17/16/ Interval history: This is an 86-year-old female admitted with acute C. difficile colitis, acute renal failure, left lower lobe pneumonia and multiple other medical issues. Maintained on gentle IV fluid hydration Chest CT reporting small to moderate left minimal right pleural effusions, suspect atelectasis of left anterior lung base and within the lingula, right hydronephrosis. Diet intake remains fair. Diarrhea improving. Ultrasound reports bilateral nephrolithiasis with moderate right hydronephrosis .creatinine 6.01 Evaluated by pulmonary and urology with recommendations noted. 10/18/2016 maintained on antibiotics. continues on IV fluid hydration .no diarrhea this morning, no nausea, no vomiting. Scheduled this morning for cystoscopy, stent insertion with urology. Denies chest pain, palpitations or increasing shortness of breath. Denies cough. Chest x-ray reports left pleural effusion and trace right pleural effusion, emphysema. 10/19/2016. Maintained on oral vancomycin .Continues to do well, diarrhea has subsided. Hyperchloremic, chloride 120. sodium 144 and bicarb 12. Renal function improving, creatinine 5.9, good urine output-no hematuria. Denies dysuria. 10/20/16 Maintained on gentle IV fluid hydration, oral vancomycin. No diarrhea. minimal urine output, postvoid residual 30 MLS. creatinine 5.9. Increased edema of lower extremities, mild abdominal edema.Fair diet intake. No nausea, no vomiting. Nephrology concerned regarding potential obstructive uropathy. 10/22/2016 Minimal urine output. Creatinine worsening, 6.14. Potassium 3.1 with replacement as per nephrology.soft bowel movements 2 last night and one this morning. Poor diet intake. Hemoglobin 7.4. Short of breath. CT of abdomen/ pelvis ordered as per urology. 10/26/2016. Scheduled for NM lasix renogram today. Renal function significantly improved. Bicarb 20. Hemoglobin 9.6. Diarrhea improved. Denies chest pain, palpitations or increasing shortness of breath. Maintaining O2 sats of 96% on room air. Afebrile, normal WBC. 10/27/2016. Renogram aborted yesterday prior to completion, secondary to patient's discomfort; reports bone marrow activity, bilateral cortical uptake, greater than retention on the left, excretion not noted by 18 minutes. Small amount diarrhea last night, none this morning. Poor diet intake continues. Labs partially completed, creatinine continues to improve at 4.28. Denies hematuria. Afebrile. Denies chest pain, palpitations or increasing shortness of breath. 10/28/2016 more confused today , conversing in room as if she has a visitor. Diet intake at lunch significantly improved, consumed 50-75%. creatinine continues to improve at 3.87. Hemoglobin 8.4 and platelets have trended down to 49,Heparin subcu discontinued. Hematology consult in place with recommendations pending.Maintaining O2 sats in the mid 90s on room air. Denies chest pain, palpitations or increasing shortness of breath. Afebrile, normal WBC. Diarrhea improving. Objective - Vital Signs Vital signs: Vital Signs Temp 97.4 F L 10/28/16 15:00 Pulse 81 10/28/16 16:12 Resp 14 10/28/16 16:12 BP 130/64 10/28/16 15:00 Pulse Ox 94 L 10/28/16 15:00 Intake & Output 10/27/16 10/28/16 10/28/16 18:59 06:59 18:59 Intake Total 1000 600 Output Total 0 Balance 1000 600 Weight 46.493 kg Intake: Oral 1000 600 Output: Stool 0 Other: Voiding Method Bedside Commode Bedside Commode Bedside Commode Bedpan Bedpan Incontinent Incontinent # Voids 2 2 1 # Bowel Movements 2 1 1 - Exam PHYSICAL EXAM: VITAL SIGNS: As above GENERAL: [Sitting up in chair, pleasantly confused, tired appearing HEENT: [Pupils equal conjunctiva normal. Oral mucosa moist] NECK: [Supple, no JVD, no carotid bruit, no lymph node enlargement.] RESPIRATORY EFFORT:[ Normal breathing effort] LUNGS: [Clear, bilateral bases diminished, occasional rhonchi, no crackles] CARDIOVASCULAR[ regular S1 and S2, no murmurs rubs or gallops, positive edema] GI: [Abdomen soft, nontender, mild diffuse discomfort. positive bowel sounds. No organomegaly, no guarding, no rigidity] PSYCH: [Alert and oriented -2, confused] SKIN: [No ulcer, rash or bleeding] NEURO: [No focal deficits, higher functions as mentioned previously, moves all 4 extremities, strength and sensation grossly intact] - Labs CBC & Chem 7: 10/28/16 07:28 10/29/16 07:43 Labs: Abnormal Lab Results - Last 24 Hours (Table) 10/28/16 10/28/16 Range/Units 07:28 07:28 RBC 3.18 L (3.80-5.40) m/uL Hgb 8.4 L (11.4-16.0) gm/dL Hct 28.2 L (34.0-46.0) % MCHC 29.8 L (31.0-37.0) g/dL RDW 22.0 H (11.5-15.5) % Plt Count 49 L* (150-450) k/uL Lymphocytes # (Manual) 0.70 L (1.0-4.8) k/uL Metamyelocytes # (Man) 0.14 H (0) k/uL Myelocytes # (Manual) 0.07 H (0) k/uL Blast Cells # (Man) 0.07 H (0) k/uL Nucleated RBCs 1 H (0-0) /100 WBC Chloride 113 H (98-107) mmol/L Carbon Dioxide 17 L (22-30) mmol/L BUN 57 H (7-17) mg/dL Creatinine 3.87 H (0.52-1.04) mg/dL Calcium 6.3 L* (8.4-10.2) mg/dL Assessment and Plan Plan: 1. Acute renal failure, possible acute on chronic disease, stage III, obstructive uropathy, bilateral hydronephrosis. Status post cystoscopy, with removal of left double-J catheter and bilateral retrograde pyeloureterograms, replacement by left double-J catheter. Status post incomplete renogram. 2. Acute C. difficile colitis, improving 3. Bilateral pleural effusion left greater than right. 4 history of COPD 5 colon cancer history 6. Hypocalcemia 7. No Code, No CPR, No Vent 8. Acute metabolic encephalopathy, multifactorial including infection, renal failure. Plan: Continue on current medication regime, Tums, vancomycin, monitoring and symptomatic treatment. Up in chair for all meals , maintaining blinds open throughout the day as patient currently presenting with mild delirium.hematology consult in place with recommendations pending .Close monitoring of renal function, hemoglobin with repeat labs ordered for a.m. prognosis guarded given multiple complex medical issues. Further recommendations to follow. The impression and plan of care has been dictated as directed as a scribe. : I performed a H&P examination of this patient and discussed the same with the dictator. I agree with the dictator's note. Any additional findings/opinions/ etc. will be noted.
[2016-10-29 11:21] LABS: Reticulocyte % 2.4 % (0.5-2.0)
[2016-10-29 12:28] VITALS: PULSE 88
[2016-10-29] MEDS ORDERED: MAGNESIUM OXIDE 400 MG TAB PO SCH (12:30)
--- NOTE | 2016-10-29 12:33 | P.PN ---
Subjective 86-year-old female, she was admitted with a diagnosis of questionable left lower lobe pneumonia. She does have a history of hypothyroidism and hypertension along with history of colon cancer with previous bowel resection, and history of COPD. The patient does have a history of mild asthma as well. The patient was also in acute kidney injury on top of chronic renal failure. She is known to have obstructive uropathy and bilateral hydronephrosis. She has been seen by nephrology in the past and a left-sided ureteral stent was inserted.. Note that her prior creatinine from July 2016 was at 2.1 and around June 2016 it was 1.3. No history of any nonsteroidal anti-inflammatory medication. The patient's blood pressure was slightly on the lower side at time of admission. Ultrasound of the kidneys on 08/05/2016 showed bilateral hydronephrosis. Based on that a nephrology and urology consultation was requested. Anyway we did a computed tomography scan of the chest. We are concerned about possibly of lung cancer because a cousin decreased appetite and weight loss. It appears mostly small right-sided pleural effusion and a moderate-sized left-sided pleural effusion along with some atelectatic changes along the lingula. The patient has been maintained on a combination of Rocephin and Zithromax and po vancomycin and the last is being given for C. diff colitis.. The kidney function remains impaired without any significant improvement in the creatinine. On 10/18/2016 the patient is being seen in follow-up. The patient is doing well. The patient underwent cystoscopy and insertion of a ureteral stent on the right. The patient is making adequate amount of urine output. Renal function is being monitored. She still on same antibiotic coverage. No active diarrhea. She has positive C. diff A, and the rest of the urine and blood cultures of been all negative. No respiratory distress. I discussed the findings with the patient and her family. The patient bilateral pleural effusion. Could be related to underlying obstructive uropathy. No clear signs of an underlying pneumonia. She has no cough or sputum production. No chest tightness. The patient is seen again today 10/19/2016 in follow-up on the regular medical floor. She continues to do well. She has no current complaints. No further diarrhea. She remains on oral vancomycin. She is making urine currently at 150 MLS this morning. Her creatinine is slightly improved at 5.90. Sodium 144 with a chloride of 120 and a bicarb of 12. She remains on sodium bicarb 1300 mg 3 times a day. She has a 0.45 normal saline at 50 MLS per hour. The patient is seen again today 10/20/2016 in follow-up on the regular medical floor. She is currently resting quite comfortably in bed. She is maintaining good O2 saturations in the 90s on room air. She does have a moderate left pleural effusion with associated atelectasis. Her creatinine remains greater than 6 and she has had a drop in her urine output continued to the obstructive uropathy. She has had her left double-J catheters removed. They may need to repeat a cystoscopy. She remains on vancomycin for her C. difficile colitis. The patient was seen again today 10/21/2016 in follow-up on the regular medical floor. She is currently awake and alert in no acute distress. She is breathing about the same today as compared to yesterday. She is on 2 L of nasal cannula. Blood urine and stool cultures revealed no growth. No leukocytosis. Hemoglobin 7.7. Her creatinine remains high at 5.98. Bicarb 14. The patient is seen again today 10/22/2016 in follow-up on the regular medical floor. She is resting quite comfortably in bed. She denies any pulmonary complaints. No shortness of breath, cough or congestion. Her chest x-ray continues to show stable bilateral pleural effusions. There is moderate left pleural effusion with very minimal right pleural effusion. She is maintaining good O2 saturations in the upper 90s to 100% on room air. She does have some abdominal discomfort. Her hemoglobin continues to drift down currently at 7.4. Her creatinine continues to climb currently at 6.14. Abdominal CT reveals fluid overload state with moderate to severe diffuse soft tissue anasarca. There is partial visualization of at least moderate bilateral pleural effusions. There is moderate to severe fluid in the pelvic cul-de-sac. There is new bilateral collecting system and intra-utero or hemorrhage with new hyperdense material seen. There is persistent moderate to severe right-sided hydronephrosis. The plan is for a left ureteroscopy with removal of the calculus fragments to be performed by urology tomorrow. The patient is seen again today 10/23/2016 in follow-up on the regular medical floor. Her hemoglobin continues to drift down currently at 7.0, platelets at 58 ,000 and her creatinine continues to climb at 6.38. She is just back from her procedure by Dr. Santizo. He had performed a cystoscopy with left ureteroscopy lithotripsy and placement of the left double-J catheter. She continues to maintain good O2 saturations in the mid to upper 90s on 3 L/m per nasal cannula. She's been afebrile. Hemodynamically stable. On 10/24/2016 the patient is being seen in follow-up. The patient is doing well. She is sitting up on a chair. She is on room air oxygen. She does not have a Suarez catheter. Her creatinine is at 5.8. The patient is producing some urine. Urology is on the case and the patient would have a cystoscopy with removal of the left double-J catheters in approximately 2 weeks. Meanwhile , a repeat chest x-ray was done and the patient is still showing a moderate- sized left-sided pleural effusion and the resolving pulmonary edema. No plans to do a thoracentesis unless the patient's respiratory status decompensates On 10/25/2016, the patient is doing essentially the same. Her creatinine is gradually improving is currently down to 5.4 and there is no significant respiratory distress. Metabolic acidosis also improving and the bicarb level is up to 19. The patient was seen again today 10/26/2016 in follow-up on the regular medical floor. She is currently awake and alert in no acute distress. He denies any shortness of breath, cough or congestion. She is maintaining good O2 saturations in the 90s on room air. She's been afebrile. Her hemoglobin remains stable at 9.6. Creatinine improved to 4.60. Bicarb up to 20. The patient is seen again today 10/27/2016 in follow-up on the regular medical floor. She is awake and alert in no acute distress. She appears little more oriented today as compared to yesterday. The patient was not able to tolerate the completion of her renogram yesterday. She was seen today by urology who made recommendations regarding the removal of the left double-J catheter and then 14 days. Today's labs reveal hemoglobin of 9.1, platelet count of 48,000, bicarb of 19 and a creatinine of 4.28. She continues to be stable from the pulmonary standpoint. Maintains O2 saturations in the mid 90s on room air. The patient is seen again today 10/28/2016 in follow-up in the regular medical floor. Unfortunately she is less awake and alert today as compared to yesterday at the time of our evaluation. He does arouse to verbal stimuli. She is communicating less than yesterday as well. She does continue to maintain good O2 saturations in the mid 90s on room air. She's been afebrile. No leukocytosis. Hemoglobin 8.4. Platelet count 49,000. Her creatinine does continue to improve currently at 3.87. The patient is seen again today 10/29/2016 in follow-up on the regular medical floor. She is awake and she is disoriented to place and time. Her creatinine continues to trend downward currently 3.66. Her calcium is at 6.4 which is being replaced. Hemoglobin stable at 8.7. Platelets improved to 55,000. She was seen and evaluated by hematology. 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 Her Hydrea is currently on hold. Objective - Vital Signs Vital signs: Vital Signs Temp 96.7 F L 10/29/16 07:00 Pulse 84 10/29/16 12:15 Resp 18 10/29/16 07:00 BP 119/76 10/29/16 07:00 Pulse Ox 94 L 10/29/16 08:08 Intake & Output 10/28/16 10/29/16 10/29/16 18:59 06:59 18:59 Intake Total 600 Balance 600 Weight 46.493 kg 53.5 kg Intake: Oral 600 Other: Voiding Method Bedside Commode Bedside Commode Bedpan Bedpan Incontinent Incontinent # Voids 1 1 # Bowel Movements 1 1 - Exam Frail, cachectic. Vital signs as documented. Head exam is unremarkable. No scleral icterus or corneal arcus noted. Neck is without jugular venous distension, thyromegaly, or carotid bruits. Carotid upstrokes are brisk bilaterally. Lungs are showing diminished breath sounds in the lung bases more so on the left. Cardiac exam reveals the PMI to be normally sized and situated. Rhythm is regular. First and second heart sounds normal. No murmurs, rubs or gallops. Abdominal exam reveals normal bowel sounds, no masses, no organomegaly and no aortic enlargement. Extremities are nonedematous and both femoral and pedal pulses are normal. - Labs CBC & Chem 7: 10/29/16 07:43 10/29/16 07:43 Labs: Abnormal Lab Results - Last 24 Hours (Table) 10/28/16 10/29/16 10/29/16 Range/Units 16:22 07:43 07:43 RBC 3.24 L (3.80-5.40) m/uL Hgb 8.7 L (11.4-16.0) gm/dL Hct 28.5 L (34.0-46.0) % MCHC 30.7 L (31.0-37.0) g/dL RDW 22.5 H (11.5-15.5) % Plt Count 55 L (150-450) k/uL Lymphocytes # 0.7 L (1.0-4.8) k/uL Retic Count 2.4 H (0.5-2.0) % Chloride 112 H (98-107) mmol/L BUN 57 H (7-17) mg/dL Creatinine 3.66 H (0.52-1.04) mg/dL Calcium 6.4 L* (8.4-10.2) mg/dL Magnesium 1.3 L (1.6-2.3) mg/dL PTH Intact 222.9 H (14.0-72.0) pg/mL Assessment and Plan Plan: Assessment 1 bilateral pleural effusion left more than right. The patient has a moderate- sized left-sided pleural effusion but denies any significant shortness of breath. She is maintaining good O2 saturations in the upper 90s on room air. 2 COPD, currently inactive and stable. 3 chronic renal failure with an acute kidney injury on top of chronic kidney failure. The patient has obstructive uropathy with bilateral hydronephrosis earlier this year. The patient undergone cystoscopy and bilateral retrograde pyelograms and she was found to have extensive compression of both ureters at the pelvic brim and a left-sided ureteral stent was placed. Currently she has evidence of a right sided hydronephrosis. No dysuria. No hematuria. Right- sided ureteral stent also placed by Dr. Figueredo. On 10/23/2016 the patient had undergone a cystoscopy with left ureteroscopy lithotripsy and removal of encrusted double-J catheter and replacement of new left double-J catheter. 4 cancer, history of with a previous bowel resection 5 hypothyroidism, status post thyroidectomy. 6 hypertension 7 C. diff colitis on oral vancomycin 8 polycythemia rubra vera Plan The patient was seen and evaluated by Dr. Montaño. The patient remains quite frail and weak. Her overall prognosis remains quite poor and guarded. She does remain stable from the pulmonary standpoint. Will most likely need ECF placement. She remains a DO NOT RESUSCITATE/DO NOT INTUBATE CODE STATUS.
--- NOTE | 2016-10-29 13:13 | P.DS ---
Providers Date of admission: 10/15/16 19:21 Attending physician: Gage Tomas MD Consults: 10/15/16 18:59 Consult Physician Stat Consulting Provider: Kathy Barnhart Consult Reason/Comments: Acute Kidney Injury, Dehydration Do you want consulting provider notified?: Yes, Notify in am 10/17/16 08:27 Consult Physician Urgent Consulting Provider: Van Kamara Consult Reason/Comments: hydronephrosis Do you want consulting provider notified?: Yes 10/24/16 14:44 Consult Physician Routine Consulting Provider: Pedro Garcia Consult Reason/Comments: pleural effusion Do you want consulting provider notified?: Yes 10/27/16 11:36 Consult Physician Routine Consulting Provider: Nagi Hunter Consult Reason/Comments: low platelets Do you want consulting provider notified?: Yes Primary care physician: Gina Sabra [place] [facility] Course: This 86-year-old woman being followed by Dr. Ayoub in the outpatient setting was admitted with acute renal failure creatinine was more than 6. The patient was also had a baseline stage III chronic kidney disease. Patient also has bilateral hydronephrosis. The patient was seen by nephrology and urology. Double J ureteric stent on the left side was removed and replaced by urology. Conservative plan of management was given. Fluid electrolyte balance management and conservative plan of management management was also done. Overall patient may significant improvement. Patient did have a left pleural effusion at bedtime eval in the pulmonary recommended close outpatient.. Creatinine is currently stable around 3.6 and recommend close follow-up in the outpatient setting with the primary and as well as nephrology and urology. On admission the patient also had a features of acute C. difficile colitis which was treated with the vancomycin improved significantly. Patient also had some weakness the [facility] stable pressure the guarded prognosis total time taken 35 minutes. On exam vitals stable. S1-S2 normal. Cardiac respirator system. Prostration. Abdomen soft nontender. No system diffusely weak. Final diagnosis 1. Acute renal failure possibly acute on chronic kidney disease stage III with obstructive uropathy bilateral hydronephrosis status post cystoscopy removal of left double-J catheter and bilateral retrograde pyeloureterograms replacement of left double-J catheter. 2. Acute C. difficile colitis improved 3. Bilateral pleural effusion left greater than right stable. 4. History of COPD 5. HISTORY of colon cancer 6. Hypocalcemia 7. Acute metabolic conservative multifactorial including infection and renal failure. Stable 8. No code no CPR no event Patient Condition at Discharge: Stable Plan - Discharge Summary New Discharge Prescriptions: New Acetaminophen Tab [Tylenol] 500 mg PO Q6HR PRN tab PRN Reason: Mild Pain Or Fever > 100.5 Albuterol Nebulized [Ventolin Nebulized] 2.5 mg INHALATION RT-QID neb Calcium Carbonate [Tums] 500 mg PO TID Ergocalciferol [Vitamin D2 (DRISDOL)] 50,000 unit PO TuFr@1200 cap Folic Acid 1 mg PO DAILY@1200 tab Ipratropium-Albuterol Nebulize [Duoneb 0.5 mg-3 mg/3 ml Soln] 3 ml INHALATION RT-TID PRN neb PRN Reason: Shortness Of Breath Or Wheezing Multivitamins, Thera [Multivitamin (formulary)] 1 each PO DAILY@1200 tab Potassium Chloride ER [K-Dur 20] 20 meq PO BID tab risperiDONE [RisperDAL] 0.25 mg PO HS tab Sodium Bicarbonate Tab 1,300 mg PO TID tab Thiamine [Vitamin B-1] 100 mg PO DAILY@1200 tab Vancomycin Oral Solution 250 mg PO Q6HR bottle Magnesium Oxide [Mag-Ox] 400 mg PO BID tab Continue Metoprolol Tartrate 25 mg PO DAILY Levothyroxine Sodium [Synthroid] 88 mcg PO DAILY Discharge Medication List Levothyroxine Sodium [Synthroid] 88 mcg PO DAILY 07/11/16 [History] Metoprolol Tartrate 25 mg PO DAILY 07/11/16 [History] Acetaminophen Tab [Tylenol] 500 mg PO Q6HR PRN tab 10/29/16 [Rx] Albuterol Nebulized [Ventolin Nebulized] 2.5 mg INHALATION RT-QID neb 10/29/16 [Rx] Calcium Carbonate [Tums] 500 mg PO TID 10/29/16 [Rx] Ergocalciferol [Vitamin D2 (DRISDOL)] 50,000 unit PO TuFr@1200 cap 10/29/16 [Rx ] Folic Acid 1 mg PO DAILY@1200 tab 10/29/16 [Rx] Ipratropium-Albuterol Nebulize [Duoneb 0.5 mg-3 mg/3 ml Soln] 3 ml INHALATION RT -TID PRN neb 10/29/16 [Rx] Magnesium Oxide [Mag-Ox] 400 mg PO BID tab 10/29/16 [Rx] Multivitamins, Thera [Multivitamin (formulary)] 1 each PO DAILY@1200 tab [Rx] Potassium Chloride ER [K-Dur 20] 20 meq PO BID tab 10/29/16 [Rx] Sodium Bicarbonate Tab 1,300 mg PO TID tab 10/29/16 [Rx] Thiamine [Vitamin B-1] 100 mg PO DAILY@1200 tab 10/29/16 [Rx] Vancomycin Oral Solution 250 mg PO Q6HR bottle 10/29/16 [Rx] risperiDONE [RisperDAL] 0.25 mg PO HS tab 10/29/16 [Rx] Follow up Appointment(s)/Referral(s): Gina Montaño MD [Primary Care Provider] - 1 Week (after dc from ECF ) Nagi Hunter MD [STAFF PHYSICIAN] - 10 Days Raul Pearson DO [STAFF PHYSICIAN] - 3 Days (while at [facility]) Lincoln Figueredo MD [STAFF PHYSICIAN] - 1 Week Luis Miguel Liang DO [STAFF PHYSICIAN] - 1 Week Patient Instructions/Handouts: Acute Kidney Injury (DC), Clostridium Difficile Infection (DC) Activity/Diet/Wound Care/Special Instructions: [facility] Continue Oral vancomycin X 5 more Days. Cardiac diet. Change positions every 2 hours while awake. Fall precautions. Out of bed with assistance. DNR code status. potassium, calcium, magnesium,cbc,bmp in 3 days
[2016-10-29] MEDS: FOLIC ACID 1 MG TAB PO SCH (13:19)
[2016-10-29] MEDS: MULTIVITAMINS, THERA 1 EACH TAB PO SCH (13:20)
[2016-10-29] MEDS: THIAMINE 100 MG TAB PO SCH (13:20)
[2016-10-29] MEDS: ERGOCALCIFEROL 50,000 UNIT CAP PO SCH (13:20)
[2016-10-29] MEDS: LACTATED RINGERS 1,000 ML IV SCH (16:27)
--- NOTE | 2016-10-30 11:12 | PN ---
PROGRESS NOTE DATE OF SERVICE: From today, 10/29/2016 Patient is seen for followup for acute kidney injury which is mainly obstructive uropathy. She has been maintained on IV fluids. Her serum creatinine is slowly decreasing. It is down to 3.6 from about 6.0 mg/dL. Previous creatinine in June was as low as 1.3 mg/dL. The patient has had left double-J catheter placed. Her CAT scan had showed bilateral hydronephrosis. She also has C. difficile colitis. Oral intake has slightly improved. PHYSICAL EXAMINATION: On examination today, blood pressure is 119/76, heart rate 80 per minute. Patient is afebrile EXAMINATION OF THE HEART: S1, S2. EXAMINATION OF THE LUNGS: Decreased breath sounds at the bases. ABDOMEN: Soft, distended, nontender. Examination of the lower extremities shows edema 2+ bilaterally. LABS: Labs show hemoglobin 8.7, white cell count 7.2. Sodium 143, potassium 3.5 cm. Serum mag is 1.3. Calcium 6.4. BUN 57, serum creatinine 3.6 mg/dL. ASSESSMENT: 1. Acute kidney injury, obstructive uropathy, status post cystoscopy and left double-J catheter placement. The patient has bilateral hydronephrosis on the CAT scan. A right stent was not placed and there was good flow seen in the OR during the cystoscopy. 2. metabolic acidosis secondary to renal failure, currently improved. Initially the acidosis was also from the diarrhea from Clostridium difficile colitis. The patient is maintained on oral sodium bicarb, which we can continue. 3. Hypocalcemia with severe vitamin D deficiency. Maintained on vitamin D supplementation along with calcium supplementation. Serum calcium staying on the lower side. 4. Hypomagnesemia, being replaced. 5. Clostridium difficile colitis, maintained on oral vancomycin, currently stable. PLAN: Patient can be discharged from nephrology standpoint. She should follow up as outpatient with Urology and Nephrology. MMODL / IJN: [id number] /
[2016-11-02 03:52] LABS: Methylmalonic Acid 0.49 umol/L (<0.40)
== END 2016-10-29 16:27 | DRG 669 ==
LOC: EC 14:17 → 4MS4W 19:21
PROVIDERS: ADMIT Internal Medicine; ATTEND Internal Medicine
PROC: 0TP98DZ Removal of Intraluminal Device from Ureter, Via Natural or Artificial Opening Endoscopic (ICD-10-PCS; 2016-10-18)
PROC: 0TC78ZZ Extirpation of Matter from Left Ureter, Via Natural or Artificial Opening Endoscopic (ICD-10-PCS; principal; 2016-10-19)
PROC: BT141ZZ Fluoroscopy of Kidneys, Ureters and Bladder using Low Osmolar Contrast (ICD-10-PCS; 2016-10-19)
PROC: 0T778DZ Dilation of Left Ureter with Intraluminal Device, Via Natural or Artificial Opening Endoscopic (ICD-10-PCS; 2016-10-19)
PROC: 0TJB8ZZ Inspection of Bladder, Via Natural or Artificial Opening Endoscopic (ICD-10-PCS; 2016-10-19)
DX: N13.2 Hydronephrosis with renal and ureteral calculous obstruction (principal); J90 Pleural effusion, not elsewhere classified; A04.7 Enterocolitis due to Clostridium difficile; E87.2 Acidosis; J98.11 Atelectasis; N17.9 Acute kidney failure, unspecified; J44.9 Chronic obstructive pulmonary disease, unspecified; D69.6 Thrombocytopenia, unspecified; E86.0 Dehydration; E87.8 Other disorders of electrolyte and fluid balance, not elsewhere classified; E88.09 Other disorders of plasma-protein metabolism, not elsewhere classified; E83.42 Hypomagnesemia; E83.51 Hypocalcemia; D45 Polycythemia vera; F03.90 Unspecified dementia, unspecified severity, without behavioral disturbance, psychotic disturbance, mood disturbance, and anxiety; N18.3 Chronic kidney disease, stage 3 (moderate); I12.9 Hypertensive chronic kidney disease with stage 1 through stage 4 chronic kidney disease, or unspecified chronic kidney disease; R09.02 Hypoxemia; D63.1 Anemia in chronic kidney disease; E55.9 Vitamin D deficiency, unspecified; E78.5 Hyperlipidemia, unspecified; E87.6 Hypokalemia; E89.0 Postprocedural hypothyroidism; I25.10 Atherosclerotic heart disease of native coronary artery without angina pectoris; H54.7 Unspecified visual loss; H91.90 Unspecified hearing loss, unspecified ear; R32 Unspecified urinary incontinence; Z79.899 Other long term (current) drug therapy; Z85.038 Personal history of other malignant neoplasm of large intestine; Z87.891 Personal history of nicotine dependence
CPT/HCPCS: 36415; 70450; 71010; 71020; 71250; 74176; 74420; 76604; 76770; 78708; 80048; 80053; 81001; 82272; 82306; 82365; 82550; 82553; 82570; 82607; 82747; 83010; 83540; 83550; 83605; 83615; 83735; 83880; 83921; 83970; 84132; 84156; 84484; 85025; 85045; 85610; 85730; 86334; 86335; 86850; 86900; 86901; 86920; 87040; 87045; 87046; 87086; 87324; 88300; 93005; 93306; 94640; 94760; 96361; 96365; 96368; 99285

== ENCOUNTER 2016-11-12 18:03 | Inpatient (IN) | payer MEDICARE ==
--- NOTE | 2016-11-12 18:24 | ED ---
General Adult HPI - General Chief complaint: Shortness of Breath Stated complaint: CHF Time Seen by Provider: 11/12/16 18:06 Source: patient, EMS, RN notes reviewed, old records reviewed Mode of arrival: EMS Limitations: no limitations - History of Present Illness Initial comments: 86-year-old female with history of COPD, hypertension, CKD, and pleural effusion presenting with worsening bilateral lower extremity swelling. Patient is also had some shortness of breath. Denies chest pain. Swelling has been worsening over the past several days. Denies any medication changes. Patient is a resident at a local senior living. She admits to having cough. Denies abdominal pain. Denies fever. - Related Data Home Medications Medication Instructions Recorded Confirmed Levothyroxine Sodium [Synthroid] 88 mcg PO DAILY 07/11/16 11/12/16 Metoprolol Tartrate 25 mg PO HS 07/11/16 11/12/16 Folic Acid 1 mg PO HS 11/12/16 11/12/16 Ipratropium-Albuterol Nebulize 3 ml INHALATION RT-Q8H PRN 11/12/16 11/12/16 [Duoneb 0.5 mg-3 mg/3 ml Soln] Multivitamins, Thera [Multivitamin 1 tab PO DAILY 11/12/16 11/12/16 (formulary)] Previous Rx's Medication Instructions Recorded Acetaminophen Tab [Tylenol] 500 mg PO Q6HR PRN tab 10/29/16 Albuterol Nebulized [Ventolin 2.5 mg INHALATION RT-QID neb 10/29/16 Nebulized] Calcium Carbonate [Tums] 500 mg PO TID 10/29/16 Ergocalciferol [Vitamin D2 50,000 unit PO TuFr@1200 cap 10/29/16 (DRISDOL)] Magnesium Oxide [Mag-Ox] 400 mg PO BID tab 10/29/16 Potassium Chloride ER [K-Dur 20] 20 meq PO BID tab 10/29/16 Sodium Bicarbonate Tab 1,300 mg PO TID tab 10/29/16 Thiamine [Vitamin B-1] 100 mg PO DAILY@1200 tab 10/29/16 Allergies Allergy/AdvReac Type Severity Reaction Status Date / Time No Known Allergies Allergy Verified 11/12/16 18:38 Review of Systems ROS Statement: Those systems with pertinent positive or pertinent negative responses have been documented in the HPI. ROS Other: All systems not noted in ROS Statement are negative. Past Medical History Past Medical History: Cancer, COPD, Hyperlipidemia, Hypertension, Syncope, Thyroid Disorder Additional Past Medical History / Comment(s): colon ca, recent lab tests show abnormal kidney fx History of Any Multi-Drug Resistant Organisms: C-DIFF Past Surgical History: Appendectomy Additional Past Surgical History / Comment(s): thyroidectomy, bowel resection Past Psychological History: No Psychological Hx Reported Smoking Status: Former smoker Past Alcohol Use History: None Reported Past Drug Use History: None Reported General Exam Limitations: no limitations General appearance: alert, in no apparent distress Head exam: Present: atraumatic, normocephalic Eye exam: Present: normal appearance, PERRL ENT exam: Present: mucous membranes moist Neck exam: Present: normal inspection, full ROM Respiratory exam: Present: rales, decreased breath sounds Cardiovascular Exam: Present: regular rate, normal rhythm GI/Abdominal exam: Present: soft. Absent: distended Extremities exam: Present: pedal edema (2+ pitting edema, edema present to the mid thigh) Neurological exam: Present: alert, oriented X3. Absent: motor sensory deficit Psychiatric exam: Present: normal affect, normal mood Skin exam: Present: warm, dry, intact. Absent: cyanosis, diaphoretic Course Vital Signs 11/12/16 11/12/16 11/12/16 18:04 18:48 19:45 Temperature 97.4 F L Pulse Rate 74 73 69 Respiratory 18 16 18 Rate Blood Pressure 114/59 96/51 102/53 O2 Sat by Pulse 99 98 99 Oximetry EKG Findings - EKG Comments: EKG Findings:: EKG shows sinus rhythm with NH interval of 104, ventricular rate 74, QRS duration 80, QTC 419, no ST segment elevation or signs of ischemia or infarction Medical Decision Making - Medical Decision Making 86-year-old female with history of chronic kidney disease, and bilateral pleural effusion presenting with worsening lower extremity edema. Patient is, from the senior living where she resides. Patient does have significant bilateral lower extremity edema. Decreased breath sounds with rales on pulmonary auscultation. Chest x-ray is obtained, shows bilateral pleural effusions with mild pulmonary edema. Laboratory studies reveal hemoglobin 9.2 which is stable and improved from most recent hemoglobin of 8.4. Creatinine is 3.6, baseline 3.0. Calcium is low at 7.1 although albumin is 2.6. Patient had cardiac echo on 10/21/2016 showed a year 5 5055%. Troponin is negative at this time. BMP shows elevation of 5850. Fluid retention likely related to see KD although component of heart failure is considered. Patient is given Lasix and aspirin. EKG is nonischemic. Patient will be admitted to the hospital for further evaluation and treatment. - Lab Data Result diagrams: 11/12/16 18:26 11/12/16 18:26 Lab Results 11/12/16 11/12/16 11/12/16 Range/Units 18:26 18:26 18:26 WBC 10.1 (3.8-10.6) k/uL RBC 3.28 L (3.80-5.40) m/uL Hgb 9.2 L (11.4-16.0) gm/dL Hct 31.8 L (34.0-46.0) % MCV 97.0 (80.0-100.0) fL MCH 28.1 (25.0-35.0) pg MCHC 29.0 L (31.0-37.0) g/dL RDW 27.9 H (11.5-15.5) % Plt Count 151 (150-450) k/uL Neutrophils % (Manual) 87 % Band Neutrophils % 2 % Lymphocytes % (Manual) 4 % Monocytes % (Manual) 2 % Eosinophils % (Manual) 5 % Neutrophils # (Manual) 8.90 H (1.3-7.7) k/uL Lymphocytes # (Manual) 0.40 L (1.0-4.8) k/uL Monocytes # (Manual) 0.20 (0-1.0) k/uL Eosinophils # (Manual) 0.51 (0-0.7) k/uL Nucleated RBCs 0 (0-0) /100 WBC Manual Slide Review Performed Polychromasia Present Hypochromasia Marked Poikilocytosis Moderate Anisocytosis Marked Microcytosis Slight Macrocytosis Moderate Spherocytes Present Ovalocytes Present Fragmented RBCs Present PT (9.0-12.0) sec INR (<1.2) APTT (22.0-30.0) sec Sodium (137-145) mmol/L Potassium (3.5-5.1) mmol/L Chloride (98-107) mmol/L Carbon Dioxide (22-30) mmol/L Anion Gap mmol/L BUN (7-17) mg/dL Creatinine (0.52-1.04) mg/dL Est GFR (MDRD) Af Amer (>60 ml/min/1.73 sqM) Est GFR (MDRD) Non-Af (>60 ml/min/1.73 sqM) Glucose (74-99) mg/dL Plasma Lactic Acid Waldo 1.1 (0.7-2.0) mmol/L Calcium (8.4-10.2) mg/dL Magnesium (1.6-2.3) mg/dL Total Bilirubin (0.2-1.3) mg/dL AST (14-36) U/L ALT (9-52) U/L Alkaline Phosphatase (38-126) U/L Total Creatine Kinase 35 (30-135) U/L CK-MB (CK-2) 1.3 (0.0-2.4) ng/mL CK-MB (CK-2) Rel Index 3.7 Troponin I <0.012 (0.000-0.034) ng/mL NT-Pro-B Natriuret Pep pg/mL Total Protein (6.3-8.2) g/dL Albumin (3.5-5.0) g/dL 11/12/16 11/12/16 11/12/16 Range/Units 18:26 18:26 18:26 WBC (3.8-10.6) k/uL RBC (3.80-5.40) m/uL Hgb (11.4-16.0) gm/dL Hct (34.0-46.0) % MCV (80.0-100.0) fL MCH (25.0-35.0) pg MCHC (31.0-37.0) g/dL RDW (11.5-15.5) % Plt Count (150-450) k/uL Neutrophils % (Manual) % Band Neutrophils % % Lymphocytes % (Manual) % Monocytes % (Manual) % Eosinophils % (Manual) % Neutrophils # (Manual) (1.3-7.7) k/uL Lymphocytes # (Manual) (1.0-4.8) k/uL Monocytes # (Manual) (0-1.0) k/uL Eosinophils # (Manual) (0-0.7) k/uL Nucleated RBCs (0-0) /100 WBC Manual Slide Review Polychromasia Hypochromasia Poikilocytosis Anisocytosis Microcytosis Macrocytosis Spherocytes Ovalocytes Fragmented RBCs PT 10.6 (9.0-12.0) sec INR 1.1 (<1.2) APTT 24.0 (22.0-30.0) sec Sodium 143 (137-145) mmol/L Potassium 4.8 (3.5-5.1) mmol/L Chloride 118 H (98-107) mmol/L Carbon Dioxide 15 L (22-30) mmol/L Anion Gap 10 mmol/L BUN 67 H (7-17) mg/dL Creatinine 3.60 H (0.52-1.04) mg/dL Est GFR (MDRD) Af Amer 14 (>60 ml/min/1.73 sqM) Est GFR (MDRD) Non-Af 12 (>60 ml/min/1.73 sqM) Glucose 85 (74-99) mg/dL Plasma Lactic Acid Waldo (0.7-2.0) mmol/L Calcium 7.1 L (8.4-10.2) mg/dL Magnesium 2.0 (1.6-2.3) mg/dL Total Bilirubin 0.7 (0.2-1.3) mg/dL AST 15 (14-36) U/L ALT 33 (9-52) U/L Alkaline Phosphatase 78 (38-126) U/L Total Creatine Kinase (30-135) U/L CK-MB (CK-2) (0.0-2.4) ng/mL CK-MB (CK-2) Rel Index Troponin I (0.000-0.034) ng/mL NT-Pro-B Natriuret Pep 5850 pg/mL Total Protein 5.6 L (6.3-8.2) g/dL Albumin 2.6 L (3.5-5.0) g/dL Disposition Clinical Impression: Pulmonary edema, Pleural effusion, Acute on chronic kidney failure Disposition: ADMITTED IP TO THIS [facility] Condition: Stable Referrals: Raul Pearson DO [Primary Care Provider] - 1-2 days Decision to Admit Reason: Admit from EC Decision Date: 11/12/16 Decision Time: 20:32
[2016-11-12 18:38] LABS: Anisocytosis Marked; CHCM 30.5; HCT 31.8 % (34.0-46.0); HDW 4.56; HGB 9.2 gm/dL (11.4-16.0); Hypochromasia Marked; MCH 28.1 pg (25.0-35.0); Macrocytosis Moderate; Mean Platelet Volume 9.6; Microcytosis Slight; Poikilocytosis Moderate; RBC 3.28 m/uL (3.80-5.40); WBC 10.1 k/uL (3.8-10.6); WBC (Perox) 10.69
[2016-11-12 18:50] LABS: Calcium 7.1 mg/dL (8.4-10.2); Potassium 4.8 mmol/L (3.5-5.1); Total Bilirubin 0.7 mg/dL (0.2-1.3); Total Protein 5.6 g/dL (6.3-8.2)
[2016-11-12 18:52] LABS: RDW 27.9 % (11.5-15.5)
[2016-11-12 18:53] LABS: INR 1.1 (<1.2); Prothrombin Time 10.6 sec (9.0-12.0)
[2016-11-12 19:00] LABS: Creatine Kinase 35 U/L (30-135)
--- NOTE | 2016-11-12 19:07 | XR ---
EXAMINATION TYPE: XR chest 2V DATE OF EXAM: 11/12/2016 COMPARISON: 10/24/2016 HISTORY: Dyspnea TECHNIQUE: Frontal and lateral views of the chest are obtained. FINDINGS: The previously seen large left pleural effusion has increased mildly when compared to the p rior study. There is associated complete atelectasis of the left lower lobe and partial atelectasis o f the lingula. Upper left lung is clear and well expanded. On the right, a developing small to moderate size right pleural effusion is now seen, with partial at electasis of the right lower lobe. The right upper and mid lung is predominantly clear. There are no abnormal gas collections. IMPRESSION: INCREASING BILATERAL PLEURAL EFFUSIONS WITH BIBASILAR AIRLESSNESS, PARTICULARLY ON THE LE FT.
[2016-11-12 19:09] LABS: Add Differential Manual Differential
[2016-11-12 19:11] LABS: Band Neutrophils % 2 %; Nucleated Red Blood Cells 0 /100 WBC (0-0); Total Cells Counted 100
[2016-11-12 19:12] LABS: Manual Review Performed; Ovalocytes Present; Polychromasia Present
[2016-11-12 19:13] LABS: Creatine Kinase MB 1.3 ng/mL (0.0-2.4); Troponin I <0.012 ng/mL (0.000-0.034)
[2016-11-12 19:15] LABS: Spherocytes Present
[2016-11-12] MEDS ORDERED: FUROSEMIDE 10 MG/ML 2 ML VIAL IV ONE (19:52)
[2016-11-12] MEDS ORDERED: ASPIRIN 325 MG TAB PO STA (19:52)
[2016-11-12] MEDS ORDERED: FUROSEMIDE 10 MG/ML 4 ML VIAL IV STA (20:04)
[2016-11-12] MEDS ORDERED: ONDANSETRON 4 MG/2 ML VIAL IVP PRN (20:32)
[2016-11-12] MEDS ORDERED: NALOXONE 0.4 MG/ML 1 ML VIAL IV PRN (20:32)
[2016-11-12] MEDS ORDERED: ACETAMINOPHEN TAB 325 MG TAB PO PRN (20:32)
[2016-11-12] MEDS ORDERED: ALBUTEROL NEBULIZED 2.5 MG/3 ML INHALATION STA (20:49)
[2016-11-12] MEDS ORDERED: IPRATROPIUM 0.5 MG/2.5 ML NEBU INHALATION STA (20:49)
[2016-11-12] MEDS: SODIUM BICARBONATE TAB 650 MG TAB PO SCH (21:47)
[2016-11-12] MEDS: FUROSEMIDE 10 MG/ML 2 ML VIAL IV SCH (21:47)
[2016-11-12] MEDS: METOPROLOL TARTRATE 25 MG TAB PO SCH (21:53)
[2016-11-12 22:10] VITALS: BMI 20.5
[2016-11-13 00:58] LABS: Creatine Kinase 28 U/L (30-135)
[2016-11-13 01:09] LABS: Creatine Kinase MB 1.1 ng/mL (0.0-2.4); Troponin I <0.012 ng/mL (0.000-0.034)
[2016-11-13 07:22] LABS: Anisocytosis Marked; Basophils # (A) 0.2 k/uL (0-0.2); Basophils % (A) 2 %; CHCM 28.5; Eosinophils # (A) 0.6 k/uL (0-0.7); Eosinophils % (A) 6 %; HCT 31.4 % (34.0-46.0); HDW 4.32; Hypochromasia Marked; Luc # (Auto) 0.09; Luc % (Auto) 1; Lymphocytes # (A) 0.8 k/uL (1.0-4.8); Lymphocytes % (A) 8 %; MCH 28.5 pg (25.0-35.0); MCHC 28.6 g/dL (31.0-37.0); MCV 99.7 fL (80.0-100.0); Macrocytosis Marked; Mean Platelet Volume 8.1; Monocytes # (A) 0.2 k/uL (0-1.0); Monocytes % (A) 2 %; Neutrophils # (A) 7.4 k/uL (1.3-7.7); Neutrophils % (A) 81 %; Poikilocytosis Moderate; RBC 3.15 m/uL (3.80-5.40); WBC 9.2 k/uL (3.8-10.6); WBC (Perox) 9.68
[2016-11-13 07:24] LABS: RDW 26.9 % (11.5-15.5)
[2016-11-13 07:31] LABS: Calcium 7.1 mg/dL (8.4-10.2); Potassium 4.6 mmol/L (3.5-5.1); Total Bilirubin 0.7 mg/dL (0.2-1.3); Total Protein 5.6 g/dL (6.3-8.2)
[2016-11-13 07:41] LABS: Creatine Kinase 27 U/L (30-135)
[2016-11-13 07:54] LABS: Creatine Kinase MB 1.3 ng/mL (0.0-2.4); Troponin I <0.012 ng/mL (0.000-0.034)
[2016-11-13] MEDS: LEVOTHYROXINE 88 MCG TAB PO SCH (08:05)
[2016-11-13] MEDS: SODIUM BICARBONATE TAB 650 MG TAB PO SCH ×3 (08:05→22:04)
[2016-11-13] MEDS: FUROSEMIDE 10 MG/ML 2 ML VIAL IV SCH (08:05)
[2016-11-13] MEDS: ALBUTEROL NEBULIZED 2.5 MG/3 ML INHALATION SCH ×4 (08:13→19:32)
[2016-11-13] MEDS ORDERED: CALCIUM CARBONATE 500 MG CHEWABLE PO SCH (16:00)
[2016-11-13] MEDS: FUROSEMIDE 250 MG in SODIUM CHLORIDE 0.9% 225 ML IVP SCH (17:57)
--- NOTE | 2016-11-13 20:26 | HP ---
HISTORY AND PHYSICAL DATE OF ADMISSION: 11/13/2016 PRESENTING COMPLAINT: Short of breath, edema. HISTORY OF PRESENTING COMPLAINT: This is an 86-year-old patient, who is a resident of [facility], being followed by Dr. Pearson. Chronic stable medical conditions include COPD, hyperlipidemia, hypertension, hypothyroid. Patient presented with increasing lower extremity swelling, short of breath. The patient is a poor historian. The patient did eat some food, really cannot give much of a history herself, but can answer simple questions. REVIEW OF SYSTEMS: Difficult to obtain because of dementia. PAST MEDICAL HISTORY: COPD, hyperlipidemia, hypertension, colon cancer, C. diff. PAST SURGICAL HISTORY: Appendectomy, thyroidectomy, bowel resection. SOCIAL HISTORY: Ex smoker. No alcohol. FAMILY HISTORY: Patient thinks father had heart problems. HOME MEDICATIONS: 1. Thiamine 100 mg p.o. daily at noon. 2. Sodium bicarb 1300 mg p.o. t.i.d. 3. Potassium 20 mEq p.o. b.i.d. 4. Multivitamin tablet p.o. daily. 5. Synthroid 88 mcg p.o. daily. 6. Vitamin D2 50,000 units p.o. Tuesday and Tuesday. 7. Metoprolol 25 mg p.o. q.h.s. 8. Magnesium oxide 400 mg p.o. b.i.d. 9. DuoNeb q.8 p.r.n. 10.Folic acid 1 mg p.o. q.h.s. 11.Tums 500 mg p.o. t.i.d. 12.Ventolin 2.5 q.i.d. ALLERGIES: None. EXAMINATION: VITAL SIGNS: On presentation, temperature 97.4, pulse 74, respirations 18, blood pressure 140/59, pulse ox 99% on 2L. GENERAL APPEARANCE: Thin build; sitting up, awake, not in distress. EYES: Pupils equal. Conjunctivae normal. HEENT: Oral cavity normal. NECK: JVD raised. Mass not palpable. RESPIRATORY: Effort increased. LUNGS: Decreased breath sounds and basal crackles. CARDIOVASCULAR: First and second heart sounds normal. Gross edema is present. ABDOMEN: Soft, nontender. Liver and spleen not palpable. LYMPHATIC: No lymph nodes palpable in neck or axillae. PSYCHIATRY: Patient is able answer simple questions, but really does not know why she is here and what she is here for. INVESTIGATIONS: White count 10.1, hemoglobin 9.2, platelets 151. Potassium 4.3, BUN 67, creatinine 3.60. Albumin is 2.6. Troponin x3 negative. The patient's BUN and creatinine last known from 08/27/2016 was 57 and 3.87. Chest x-ray reviewed by me shows bilateral pleural effusion, larger one on the left, and pulmonary edema. ASSESSMENT: 1. Acute on chronic congestive heart failure from systolic and diastolic dysfunction. Ejection fraction around 50%. 2. Moderate aortic regurgitation, nonrheumatic. 3. Chronic large left pleural effusion. 4. Chronic obstructive pulmonary disease in an ex-smoker. 5. Hyperlipidemia. 6. Essential hypertension. 7. Hypothyroidism. 8. Alzheimer dementia, late onset type. 9. 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 10.CODE STATUS: DO NOT RESUSCITATE FROM RECENT ADMISSION. 11.Normocytic anemia. 12.Hypoalbuminemia and given the decreased muscle mass, likely mild protein-calorie malnutrition from decreased oral intake. PLAN: Home medications will be resumed. Will try the patient on a Lasix drip. Overall prognosis is guarded. No family member is present at the bedside. Prognosis not good. MMODL / IJN: [id number] /
[2016-11-13] MEDS: FOLIC ACID 1 MG TAB PO SCH (20:52)
[2016-11-13] MEDS: MAGNESIUM OXIDE 400 MG TAB PO SCH (20:52)
[2016-11-13] MEDS: METOPROLOL TARTRATE 25 MG TAB PO SCH (22:03)
[2016-11-14 07:03] LABS: Calcium 7.2 mg/dL (8.4-10.2); Potassium 4.5 mmol/L (3.5-5.1)
[2016-11-14] MEDS: ENOXAPARIN 40 MG/0.4 ML SYRINGE SQ SCH (07:39)
[2016-11-14] MEDS: SODIUM BICARBONATE TAB 650 MG TAB PO SCH ×4 (07:40→20:23)
[2016-11-14] MEDS: MAGNESIUM OXIDE 400 MG TAB PO SCH ×3 (07:40→20:23)
[2016-11-14] MEDS: LEVOTHYROXINE 88 MCG TAB PO SCH (07:40)
[2016-11-14] MEDS: MULTIVITAMINS, THERA 1 EACH TAB PO SCH ×2 (07:40→12:04)
[2016-11-14] MEDS: ALBUTEROL NEBULIZED 2.5 MG/3 ML INHALATION SCH ×3 (07:45→15:34)
--- NOTE | 2016-11-14 08:43 | P.CRDCN ---
History of Present Illness Consult date: 11/14/16 Chief complaint: Shortness of breath History of present illness: This is a pleasant 86-year-old female patient who is really in good physical shape for her age and also in good mental shape who is residing at [facility] on each ear to [place] was brought to the hospital because of progressive dyspnea and progressive bilateral lower extremities edema. The patient was in her usual state of health today about 3 days ago when she started experiencing progressive exertional dyspnea associated with orthopnea. She stated that she gained some weight and also she developed bilateral lower extremities edema which is fairly obvious on physical examination. The patient stated that she was compliant with her medications but she was not quite compliant with her diet. The last echocardiogram was from August 2016 and that showed normal LV function was moderate aortic insufficiency and moderate mitral insufficiency. The chest x-ray during this admission showed bilateral pleural effusion which is clearly worse compared to before. The BNP came in to be also severely elevated. The EKG showed sinus rhythm without any significant ST or T-wave abnormalities. The patient is known to have chronic kidney disease with creatinine around 3. She was admitted to the hospital and she was started on Lasix IV yesterday. She is feeling overall better today. Past Medical History Past Medical History: Cancer, COPD, Hyperlipidemia, Hypertension, Syncope, Thyroid Disorder Additional Past Medical History / Comment(s): colon ca, recent lab tests show abnormal kidney fx History of Any Multi-Drug Resistant Organisms: C-DIFF Date of last positivie culture/infection: 10/15/2016 MDRO Source:: stool Past Surgical History: Appendectomy Additional Past Surgical History / Comment(s): thyroidectomy, bowel resection Past Psychological History: No Psychological Hx Reported Smoking Status: Former smoker Past Alcohol Use History: None Reported Past Drug Use History: None Reported - Past Family History Father Additional Family Medical History / Comment(s): pt stated that her father had "heart problem" buit niece said it was due to suicide Mother Family Medical History: Cancer Medications and Allergies Home Medications Medication Instructions Recorded Confirmed Type Levothyroxine Sodium [Synthroid] 88 mcg PO DAILY 07/11/16 11/12/16 History Metoprolol Tartrate 25 mg PO HS 07/11/16 11/12/16 History Acetaminophen Tab [Tylenol] 500 mg PO Q6HR PRN tab 10/29/16 11/12/16 Rx Albuterol Nebulized [Ventolin 2.5 mg INHALATION RT-QID neb 10/29/16 11/12/16 Rx Nebulized] Calcium Carbonate [Tums] 500 mg PO TID 10/29/16 11/12/16 Rx Ergocalciferol [Vitamin D2 50,000 unit PO TuFr@1200 cap 10/29/16 11/12/16 Rx (DRISDOL)] Magnesium Oxide [Mag-Ox] 400 mg PO BID tab 10/29/16 11/12/16 Rx Potassium Chloride ER [K-Dur 20] 20 meq PO BID tab 10/29/16 11/12/16 Rx Sodium Bicarbonate Tab 1,300 mg PO TID tab 10/29/16 11/12/16 Rx Thiamine [Vitamin B-1] 100 mg PO DAILY@1200 tab 10/29/16 11/12/16 Rx Folic Acid 1 mg PO HS 11/12/16 11/12/16 History Ipratropium-Albuterol Nebulize 3 ml INHALATION RT-Q8H PRN 11/12/16 11/12/16 History [Duoneb 0.5 mg-3 mg/3 ml Soln] Multivitamins, Thera [Multivitamin 1 tab PO DAILY 11/12/16 11/12/16 History (formulary)] Allergies Allergy/AdvReac Type Severity Reaction Status Date / Time No Known Allergies Allergy Verified 11/12/16 18:38 Physical Exam Vitals: Vital Signs Temp Pulse Pulse Resp BP Pulse Ox 11/14/16 08:00 96.7 F L 68 18 113/58 96 11/14/16 07:55 68 11/14/16 07:46 68 96 11/14/16 04:00 97.1 F L 67 18 113/86 94 L 11/14/16 00:00 97.0 F L 64 19 97/50 95 11/13/16 20:00 96.8 F L 69 19 103/50 98 11/13/16 16:00 79 18 101/58 95 11/13/16 15:46 68 11/13/16 15:34 66 11/13/16 12:00 75 18 97/63 94 L 11/13/16 11:53 64 11/13/16 11:45 62 Intake and Output 11/13/16 11/14/16 11/14/16 22:59 06:59 14:59 Intake Total 0 50 Output Total 1 2 Balance -1 -2 50 Intake: Oral 0 50 Output: Urine/Stool Mix 1 2 Other: Voiding Method Diaper Diaper Diaper Incontinent Incontinent Incontinent # Voids 1 1 # Bowel Movements 1 Weight 60 kg - Constitutional General appearance: no acute distress - Respiratory Respiratory: bilateral: diminished, rhonchi - Cardiovascular Rhythm: regular Heart sounds: normal: S1, S2 Abnormal Heart Sounds: systolic murmur Results 11/13/16 06:19 11/14/16 05:48 Comprehensive Metabolic Panel 11/14/16 Range/Units 05:48 Sodium 140 (137-145) mmol/L Potassium 4.5 (3.5-5.1) mmol/L Chloride 114 H (98-107) mmol/L Carbon Dioxide 17 L (22-30) mmol/L BUN 70 H (7-17) mg/dL Creatinine 3.90 H (0.52-1.04) mg/dL Glucose 78 (74-99) mg/dL Calcium 7.2 L (8.4-10.2) mg/dL Current Medications Generic Name Dose Route Start Last Admin Trade Name Freq PRN Reason Stop Dose Admin Acetaminophen 650 mg 11/12/16 20:32 Tylenol Tab PO Q6HR PRN Mild Pain or Fever > 100.5 Albuterol Sulfate 2.5 mg 11/13/16 08:00 11/14/16 07:45 Ventolin Nebulized INHALATION 2.5 mg RT-QID LOUIE Administration Enoxaparin Sodium 40 mg 11/14/16 09:00 11/14/16 07:39 Lovenox SQ 40 mg DAILY LOUIE Administration Ergocalciferol 50,000 unit 11/16/16 12:00 Vitamin D2 PO TuFr@1200 LOUIE Folic Acid 1 mg 11/13/16 21:00 11/13/16 20:52 Folic Acid PO 1 mg HS LOUIE Administration Furosemide 250 mg/ Sodium 250 mls @ 10 mls/hr 11/13/16 17:15 11/13/16 17:57 Chloride IVP 10 mg/hr .Q24H LOUIE 10 mls/hr 10 MG/HR Administration Levothyroxine Sodium 88 mcg 11/13/16 09:00 11/14/16 07:40 Synthroid PO 88 mcg DAILY LOUIE Administration Magnesium Oxide 400 mg 11/13/16 21:00 11/14/16 07:46 Mag-Ox PO Not Given BID LOUIE Metoprolol Tartrate 25 mg 11/12/16 21:00 11/13/16 22:03 Lopressor PO 25 mg HS LOUIE Administration Multivitamins 1 each 11/14/16 12:00 Theragran PO DAILY@1200 LOUIE Naloxone HCl 0.2 mg 11/12/16 20:32 Narcan IV Q2M PRN Opioid Reversal Ondansetron HCl 4 mg 11/12/16 20:32 Zofran IVP Q8HR PRN Nausea And Vomiting Sodium Bicarbonate 1,300 mg 11/12/16 22:00 11/14/16 07:45 Sodium Bicarbonate Tab PO Not Given TID LOUIE Intake and Output 11/13/16 11/14/16 11/14/16 22:59 06:59 14:59 Intake Total 0 50 Output Total 1 2 Balance -1 -2 50 Intake: Oral 0 50 Output: Urine/Stool Mix 1 2 Other: Voiding Method Diaper Diaper Diaper Incontinent Incontinent Incontinent # Voids 1 1 # Bowel Movements 1 Weight 60 kg 11/13/16 06:19 11/14/16 05:48 Assessment and Plan Plan: This is a pleasant 86-year-old female patient with a past medical history significant for COPD and chronic respiratory failure who was admitted to the hospital with progressive dyspnea and progressive bilateral lower extremities edema. The patient is in congestive heart failure exacerbation secondary to diastolic dysfunction with evidence of right and left heart failure. I would continue the patient on the current Lasix drip. Continue monitor the kidney function and electrolytes. Continue watching the weight. No need for echocardiogram in view of recent echo showing normal LV function with moderate MR and moderate AI.
--- NOTE | 2016-11-14 09:54 | P.GSCN ---
History of Present Illness Consult date: 11/14/16 Reason for Consult: Removal of left double-J catheter History of present illness: The patient is an 86-year-old female admitted on 11/12 for evaluation of increasing shortness of breath and peripheral edema. The patient has a history of congestive heart failure and was felt to have an exacerbation of this. She has been treated with IV furosemide and has improved somewhat. Patient had been admitted in late 09/2016 at that time had a creatinine over 6. She has a history of abnormal renal function tests and in 07/2016 underwent cystoscopy with bilateral retrogrades for evaluation of bilateral hydronephrosis. At that time it was unclear whether the patient had any significant ureteral obstruction and it was elected to place a left double-J catheter to determine whether her renal function would improve. Unfortunately the patient did not return for follow-up as it was planned to only leave the catheter in for approximately 1 month. The patient was seen in late 09/2016 she was noted to have severe encrustation of the left double-J catheter. The double-J catheter was removed on 10/18 right unfortunately numerous calculus fragments remained within the ureter and left kidney which required left ureteroscopy with lithotripsy on 10/23. A double-J catheter was left with the intention of removing it within 2 or 3 weeks. The patient's daughter requested that I see her to see if we'll be possible to remove the double-J catheter during this hospitalization. The patient denies any flank pain and has had no recent gross hematuria. Review of Systems - Constitutional Reports weakness, Denies chills, Denies fever - Cardiovascular Reports dyspnea on exertion, Reports edema, Reports shortness of breath - Gastrointestinal Denies abdominal pain Past Medical History Past Medical History: Cancer, COPD, Hyperlipidemia, Hypertension, Syncope, Thyroid Disorder Additional Past Medical History / Comment(s): colon ca, recent lab tests show abnormal kidney fx History of Any Multi-Drug Resistant Organisms: C-DIFF Year Discovered:: 10/15/2016 MDRO Source:: stool Past Surgical History: Appendectomy Additional Past Surgical History / Comment(s): thyroidectomy, bowel resection Past Psychological History: No Psychological Hx Reported Smoking Status: Former smoker Past Alcohol Use History: None Reported Past Drug Use History: None Reported - Past Family History Father Additional Family Medical History / Comment(s): pt stated that her father had "heart problem" buit niece said it was due to suicide Mother Family Medical History: Cancer Medications and Allergies Home Medications Medication Instructions Recorded Confirmed Type Levothyroxine Sodium [Synthroid] 88 mcg PO DAILY 07/11/16 11/12/16 History Metoprolol Tartrate 25 mg PO HS 07/11/16 11/12/16 History Acetaminophen Tab [Tylenol] 500 mg PO Q6HR PRN tab 10/29/16 11/12/16 Rx Albuterol Nebulized [Ventolin 2.5 mg INHALATION RT-QID neb 10/29/16 11/12/16 Rx Nebulized] Calcium Carbonate [Tums] 500 mg PO TID 10/29/16 11/12/16 Rx Ergocalciferol [Vitamin D2 50,000 unit PO TuFr@1200 cap 10/29/16 11/12/16 Rx (DRISDOL)] Magnesium Oxide [Mag-Ox] 400 mg PO BID tab 10/29/16 11/12/16 Rx Potassium Chloride ER [K-Dur 20] 20 meq PO BID tab 10/29/16 11/12/16 Rx Sodium Bicarbonate Tab 1,300 mg PO TID tab 10/29/16 11/12/16 Rx Thiamine [Vitamin B-1] 100 mg PO DAILY@1200 tab 10/29/16 11/12/16 Rx Folic Acid 1 mg PO HS 11/12/16 11/12/16 History Ipratropium-Albuterol Nebulize 3 ml INHALATION RT-Q8H PRN 11/12/16 11/12/16 History [Duoneb 0.5 mg-3 mg/3 ml Soln] Multivitamins, Thera [Multivitamin 1 tab PO DAILY 11/12/16 11/12/16 History (formulary)] Allergies Allergy/AdvReac Type Severity Reaction Status Date / Time No Known Allergies Allergy Verified 11/12/16 18:38 Surgical - Exam Vital Signs Temp Pulse Resp BP Pulse Ox 97.4 F L 74 18 114/59 99 11/12/16 18:04 11/12/16 18:04 11/12/16 18:04 11/12/16 18:04 11/12/16 18:04 - General no distress, chronically ill - Respiratory normal respiratory effort - Abdomen Abdomen: soft Results - Labs 11/13/16 06:19 11/14/16 05:48 Abnormal Lab Results - Last 24 Hours (Table) 11/14/16 Range/Units 05:48 Chloride 114 H (98-107) mmol/L Carbon Dioxide 17 L (22-30) mmol/L BUN 70 H (7-17) mg/dL Creatinine 3.90 H (0.52-1.04) mg/dL Calcium 7.2 L (8.4-10.2) mg/dL Microbiology - Last 24 Hours (Table) 11/12/16 18:26 Blood Culture - Preliminary Blood No Growth after 24 hours Diabetes panel 11/14/16 Range/Units 05:48 Sodium 140 (137-145) mmol/L Potassium 4.5 (3.5-5.1) mmol/L Chloride 114 H (98-107) mmol/L Carbon Dioxide 17 L (22-30) mmol/L BUN 70 H (7-17) mg/dL Creatinine 3.90 H (0.52-1.04) mg/dL Glucose 78 (74-99) mg/dL Calcium 7.2 L (8.4-10.2) mg/dL Calcium panel 11/14/16 Range/Units 05:48 Calcium 7.2 L (8.4-10.2) mg/dL Pituitary panel 11/14/16 Range/Units 05:48 Sodium 140 (137-145) mmol/L Potassium 4.5 (3.5-5.1) mmol/L Chloride 114 H (98-107) mmol/L Carbon Dioxide 17 L (22-30) mmol/L BUN 70 H (7-17) mg/dL Creatinine 3.90 H (0.52-1.04) mg/dL Glucose 78 (74-99) mg/dL Calcium 7.2 L (8.4-10.2) mg/dL Adrenal panel 11/14/16 Range/Units 05:48 Sodium 140 (137-145) mmol/L Potassium 4.5 (3.5-5.1) mmol/L Chloride 114 H (98-107) mmol/L Carbon Dioxide 17 L (22-30) mmol/L BUN 70 H (7-17) mg/dL Creatinine 3.90 H (0.52-1.04) mg/dL Glucose 78 (74-99) mg/dL Calcium 7.2 L (8.4-10.2) mg/dL Assessment and Plan (1) Acute on chronic kidney failure Narrative/Plan: The source of the patient's abnormal renal function remains unclear. Her current creatinine level is about the same as it was when she was discharged 2 weeks ago. Her left double-J catheter will be removed later this week once her congestive heart failure has improved. I told her that I should be able to do this at the bedside using the flexible cystoscope. Status: Acute
--- NOTE | 2016-11-14 15:18 | P.PN ---
Progress Note - Text DATE OF SERVICE: 11/14/2016 PRESENTING COMPLAINT: Short of breath, edema HISTORY OF PRESENT ILLNESS: 86-year-old female patient [place] of [place] who presented with lower extremity swelling and shortness of breath. INTERVAL HISTORY: 11/14/2016: Patient lying in bed appears comfortable. Does have a coarse cough area extremity swelling improved, breathing easier, tolerating her diet eating about 20% of her meal. Last BM 11/14/2016, requires assistance for ambulation and getting up in the chair. REVIEW OF SYSTEMS: Done for constitutional ,cardiovascular, GI, pulmonary with relevant findings as above. CURRENT MEDICATIONS Albuterol, Lovenox, folic acid, Lasix drip, Synthroid, magnesium oxide, metoprolol, PHYSICAL EXAM VITAL SIGNS: Temperature 96.7, pulse 68, blood pressure 113/58 respiratory rate 18, oxygen saturation 96% on room air. GENERAL APPEARANCE: Thin build. Lying in bed, appears comfortable. EYES: Pupils equal. Conjunctiva normal. NECK: JVD raised. Mass not palpable. RESPIRATORY: Respiratory effort normal. Lungs diminished and basilar crackles bilaterally to auscultation. CARDIOVASCULAR: First and second sounds normal. Moderate edema. ABDOMEN: Soft. Liver and spleen not palpable. No tenderness. No mass palpable. PSYCHIATRY: Alert to name able to answer simple questions. INVESTIGATIONS: White blood cell count 9.2, hemoglobin 9.0, sodium 140, potassium 4.5, chloride 114, BUN 70, creatinine 3.90. ASSESSMENT: -Acute on chronic congestive heart failure from systolic and diastolic dysfunction, ejection fraction around 50%. -Moderate aortic regurgitation, nonrheumatic area -Chronic large left pleural effusion. -Chronic obstructive pulmonary disease in ex-smoker. -Hypokalemia. -Essential hypertension. -Hypothyroidism. 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 -Hypoalbuminemia and given the decreased muscle mass, likely protein calorie malnutrition from decreased oral intake. PLAN: Lasix drip continues we'll continue to monitor labs closely. Patient has a history of a ureteral stent(double-J catheter) placed with urology with removal set for about a week ago, and patient's current condition they missed that appointment, urology will remove it later in the week once her condition is stabilized. Discharge planning discussed with family, plans to place her in a local [facility] home. Case management aware. Plan of care discussed with the family at the bedside and they are agreeable. We will continue to follow. BLEMISH REMOVER statement: Patient was seen and examined by nurse practitioner Katelynn Monreal and all elements of the case discussed with attending Dr. Parker
[2016-11-14] MEDS: FUROSEMIDE 250 MG in SODIUM CHLORIDE 0.9% 225 ML IVP SCH (16:14)
[2016-11-14] MEDS: METOPROLOL TARTRATE 25 MG TAB PO SCH (20:23)
[2016-11-14] MEDS: FOLIC ACID 1 MG TAB PO SCH (20:23)
[2016-11-14 20:47] VITALS: RESP 16
--- NOTE | 2016-11-14 22:08 | PN ---
PROGRESS NOTE DATE OF SERVICE: November 14, 2016. ATTENDING NOTE: This patient seen examined by me. I discussed with nurse practitioner, Ms. Monreal. Patient admitted with CHF on Lasix drip. Is and Os not noted because of incontinence. Nurse told to put a Suarez catheter in. Edema has gone down. The patient eating about 25% of her meals. EXAM: Lungs, some basal crackles. Edema is decreased. The patient is answering simple questions. INVESTIGATIONS: Potassium 4.5, BUN 70, creatinine 3.90. ASSESSMENT: 1. Acute on chronic congestive heart failure from systolic and diastolic dysfunction, ejection fraction of 50%, slow to respond. 2. Chronic kidney disease, stage IV with obstructive uropathy. 3. Bilateral hydronephrosis with known left double-J catheter. The patient's drip to continue. Told the nurse to put in a Suarez catheter. Talked to the caregiver. She is looking to have the patient go to local [facility] home. Prognosis is guarded. Code status DNR. MMODL / IJN: [id number] /
[2016-11-15 07:14] LABS: Calcium 7.1 mg/dL (8.4-10.2); Potassium 4.4 mmol/L (3.5-5.1)
[2016-11-15] MEDS: ALBUTEROL NEBULIZED 2.5 MG/3 ML INHALATION SCH ×3 (08:35→20:19)
[2016-11-15] MEDS: LEVOTHYROXINE 88 MCG TAB PO SCH (08:53)
[2016-11-15] MEDS: ENOXAPARIN 40 MG/0.4 ML SYRINGE SQ SCH (08:53)
[2016-11-15] MEDS: SODIUM BICARBONATE TAB 650 MG TAB PO SCH ×3 (08:53→20:21)
[2016-11-15] MEDS: MAGNESIUM OXIDE 400 MG TAB PO SCH ×2 (08:53→20:21)
--- NOTE | 2016-11-15 11:17 | P.PN ---
Subjective Principal diagnosis: Congestive heart failure This is a pleasant 86-year-old female patient who is really in good physical shape for her age and also in good mental shape who [facility] because of progressive dyspnea and progressive bilateral lower extremities edema. The patient was in her usual state of health today about 3 days ago when she started experiencing progressive exertional dyspnea associated with orthopnea. She stated that she gained some weight and also she developed bilateral lower extremities edema which is fairly obvious on physical examination. The patient stated that she was compliant with her medications but she was not quite compliant with her diet. The last echocardiogram was from August 2016 and that showed normal LV function was moderate aortic insufficiency and moderate mitral insufficiency. The chest x-ray during this admission showed bilateral pleural effusion which is clearly worse compared to before. The BNP came in to be also severely elevated. The EKG showed sinus rhythm without any significant ST or T-wave abnormalities. The patient is known to have chronic kidney disease with creatinine around 3. She was admitted to the hospital and she was started on Lasix drip yesterday. On follow-up with the patient today she seems to be doing better. On physical examination she still have expiratory wheezing. The kidney function is worse and she continues to be on Lasix drip. Objective - Vital Signs Vital signs: Vital Signs Temp 97.0 F L 11/15/16 08:00 Pulse 78 11/15/16 08:00 Resp 16 11/15/16 08:00 BP 124/56 11/15/16 08:00 Pulse Ox 97 11/15/16 08:00 Intake & Output 11/14/16 11/15/16 11/15/16 18:59 06:59 18:59 Intake Total 272.833 160 120 Output Total 500 Balance 272.833 -340 120 Weight 60.5 kg Intake: IV 160 Furosemide 250 mg In 160 Sodium Chloride 0.9% 225 ml @ 10 MG/HR 10 mls/hr IVP .Q24H LOUIE Rx#: [id number] Intake, IV Titration 222.833 Amount Furosemide 250 mg In 222.833 Sodium Chloride 0.9% 225 ml @ 10 MG/HR 10 mls/hr IVP .Q24H LOUIE Rx#: [id number] Oral 50 120 Output: Urine 500 Other: Voiding Method Diaper Indwelling Catheter Indwelling Catheter Incontinent # Voids 2 # Bowel Movements 1 - Constitutional General appearance: Present: no acute distress - Respiratory Respiratory: bilateral: wheezing - Cardiovascular Heart sounds: normal: S1, S2 - Labs CBC & Chem 7: 11/13/16 06:19 11/15/16 05:54 Labs: Abnormal Lab Results - Last 24 Hours (Table) 11/15/16 Range/Units 05:54 Chloride 116 H (98-107) mmol/L Carbon Dioxide 15 L (22-30) mmol/L BUN 71 H (7-17) mg/dL Creatinine 4.03 H (0.52-1.04) mg/dL Glucose 71 L (74-99) mg/dL Calcium 7.1 L (8.4-10.2) mg/dL Microbiology - Last 24 Hours (Table) 11/12/16 18:26 Blood Culture - Preliminary Blood No Growth after 48 hours Assessment and Plan Plan: This is a pleasant 86-year-old female patient with a past medical history significant for COPD and chronic respiratory failure who was admitted to the hospital with progressive dyspnea and progressive bilateral lower extremities edema. The patient is in congestive heart failure exacerbation secondary to diastolic dysfunction with evidence of right and left heart failure. I will DC the Lasix drip and keep the patient on Lasix IV 40 mg daily. Continue monitor the kidney function and electrolytes. No need for echocardiogram in view of recent echo showing normal LV function with moderate MR and moderate AI.
--- NOTE | 2016-11-15 12:58 | P.PN ---
Progress Note - Text DATE OF SERVICE: 11/15/2016 PRESENTING COMPLAINT: Short of breath, edema HISTORY OF PRESENT ILLNESS: 86-year-old female patient [place] of [place] who presented with lower extremity swelling and shortness of breath. INTERVAL HISTORY: 11/15/2016: sitting up in a chair appears comfortable. Upper and lower extremity swelling improving, Lasix IV continues at 40 mg., able to eat about 20% of her meals.had a BM today. Placement to a local [facility] home soon. Case management aware 11/14/2016: Patient lying in bed appears comfortable. Does have a coarse cough area extremity swelling improved, breathing easier, tolerating her diet eating about 20% of her meal. Last BM 11/14/2016, requires assistance for ambulation and getting up in the chair. REVIEW OF SYSTEMS: Done for constitutional ,cardiovascular, GI, pulmonary with relevant findings as above. CURRENT MEDICATIONS Albuterol, Lovenox, folic acid, Lasix drip, Synthroid, magnesium oxide, metoprolol, PHYSICAL EXAM VITAL SIGNS: temperature 97.0, pulse 78, respiratory rate 16, blood pressure 124/56, oxygen saturation 97% on room air. GENERAL APPEARANCE: Thin build. Lying in bed, appears comfortable. EYES: Pupils equal. Conjunctiva normal. NECK: JVD raised. Mass not palpable. RESPIRATORY: Respiratory effort normal. Lungs diminished and basilar crackles bilaterally to auscultation. CARDIOVASCULAR: First and second sounds normal. Moderate edema. ABDOMEN: Soft. Liver and spleen not palpable. No tenderness. No mass palpable. PSYCHIATRY: Alert to name able to answer simple questions. INVESTIGATIONS: sodium 141, BUN 71, creatinine 4.03 ASSESSMENT: -Acute on chronic congestive heart failure from systolic and diastolic dysfunction, ejection fraction 50%, slow to respond -Moderate aortic regurgitation, nonrheumatic area -Chronic large left pleural effusion. -Chronic obstructive pulmonary disease in ex-smoker. -Hypokalemia. -Essential hypertension. -Hypothyroidism. 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 -Hypoalbuminemia and given the decreased muscle mass, likely protein calorie malnutrition from decreased oral intake. PLAN: Lasix IV continues with strict I and O via Suarez catheter we'll continue to monitor labs closely. Patient has a history of a ureteral stent(double-J catheter) placed with urology with removal set for about a week ago, urology will remove it later in the week once her condition is stabilized. Discharge planning discussed with family, plans to place her in a local [facility] home. Case management aware. Plan of care discussed with the family at the bedside and they are agreeable. We will continue to follow. BOOKKEEPING MACHINE OPERATOR statement: Patient was seen and examined by nurse practitioner Katelynn Monreal and all elements of the case discussed with attending Dr. Parker
[2016-11-15] MEDS: MULTIVITAMINS, THERA 1 EACH TAB PO SCH (16:04)
--- NOTE | 2016-11-15 19:28 | PN ---
PROGRESS NOTE DATE OF SERVICE: 11/15/2016 ATTENDING NOTE: Patient seen and examined by me. I discussed with my nurse practitioner Ms. Monreal. Patient lying in bed, pleasantly confused. Did eat a little bit. Taken off the IV Lasix drip. PHYSICAL EXAMINATION: LUNGS: Decreased breath sounds. Much less edema. The patient able to answer simple questions but pleasantly confused. INVESTIGATIONS: BUN 71, creatinine 4.03. ASSESSMENT: 1. Acute on chronic congestive heart failure exacerbation from systolic and diastolic dysfunction, ejection fraction 50%. 2. Multiple medical problems. Follow. MMODL / IJN: [id number] /
[2016-11-15] MEDS: FOLIC ACID 1 MG TAB PO SCH (20:21)
[2016-11-15] MEDS: METOPROLOL TARTRATE 25 MG TAB PO SCH (23:06)
[2016-11-16 06:19] LABS: Calcium 7.2 mg/dL (8.4-10.2); Potassium 3.9 mmol/L (3.5-5.1)
[2016-11-16] MEDS: ENOXAPARIN 30 MG/0.3 ML SYRINGE SQ SCH (08:31)
[2016-11-16] MEDS: LEVOTHYROXINE 88 MCG TAB PO SCH (08:31)
[2016-11-16] MEDS: MULTIVITAMINS, THERA 1 EACH TAB PO SCH (08:32)
[2016-11-16] MEDS: SODIUM BICARBONATE TAB 650 MG TAB PO SCH ×3 (08:32→20:38)
[2016-11-16] MEDS: MAGNESIUM OXIDE 400 MG TAB PO SCH ×2 (08:32→20:38)
[2016-11-16] MEDS: ALBUTEROL NEBULIZED 2.5 MG/3 ML INHALATION SCH ×4 (08:54→21:21)
[2016-11-16] MEDS ORDERED: FUROSEMIDE 10 MG/ML 4 ML VIAL IV SCH (09:00)
--- NOTE | 2016-11-16 10:57 | P.PN ---
Subjective Principal diagnosis: Congestive heart failure This is a pleasant 86-year-old female patient who is really in good physical shape for her age and also in good mental shape who [facility] the hospital because of progressive dyspnea and progressive bilateral lower extremities edema. The patient was in her usual state of health today about 3 days ago when she started experiencing progressive exertional dyspnea associated with orthopnea. She stated that she gained some weight and also she developed bilateral lower extremities edema which is fairly obvious on physical examination. The patient stated that she was compliant with her medications but she was not quite compliant with her diet. The last echocardiogram was from August 2016 and that showed normal LV function was moderate aortic insufficiency and moderate mitral insufficiency. The chest x-ray during this admission showed bilateral pleural effusion which is clearly worse compared to before. The BNP came in to be also severely elevated. The EKG showed sinus rhythm without any significant ST or T-wave abnormalities. The patient is known to have chronic kidney disease with creatinine around 3. I'll follow-up with the patient today, she is feeling better indeterminable shortness of breath. The lower extremities edema seems to be improved as well. The creatinine is slightly better today. Objective - Vital Signs Vital signs: Vital Signs Temp 96.9 F L 11/16/16 03:05 Pulse 68 11/16/16 09:04 Resp 16 11/16/16 08:55 BP 98/58 11/16/16 03:05 Pulse Ox 94 L 11/16/16 03:05 Intake & Output 11/15/16 11/16/16 11/16/16 18:59 06:59 18:59 Intake Total 480 20 240 Output Total 500 400 Balance -20 -380 240 Weight 60 kg Intake: IV 20 0.9% NS FLUSH 10 20 Oral 480 240 Output: Urine 500 400 Other: Voiding Method Indwelling Catheter Indwelling Catheter - Constitutional General appearance: Present: no acute distress - Respiratory Respiratory: bilateral: diminished - Cardiovascular Heart sounds: normal: S1, S2 - Labs CBC & Chem 7: 11/13/16 06:19 11/16/16 05:37 Labs: Abnormal Lab Results - Last 24 Hours (Table) 11/16/16 Range/Units 05:37 Chloride 110 H (98-107) mmol/L Carbon Dioxide 19 L (22-30) mmol/L BUN 72 H (7-17) mg/dL Creatinine 4.10 H (0.52-1.04) mg/dL Calcium 7.2 L (8.4-10.2) mg/dL Microbiology - Last 24 Hours (Table) 11/12/16 18:26 Blood Culture - Preliminary Blood No Growth after 72 hours Assessment and Plan Plan: This is a pleasant 86-year-old female patient with a past medical history significant for COPD and chronic respiratory failure who was admitted to the hospital with progressive dyspnea and progressive bilateral lower extremities edema. The patient is in congestive heart failure exacerbation secondary to diastolic dysfunction with evidence of right and left heart failure. At this point, and in view of the patient medical improvement, I will DC the Lasix IV and start the patient on Lasix by mouth. Anticipating discharge in the next 24 hours.
[2016-11-16] MEDS ORDERED: ERGOCALCIFEROL 50,000 UNIT CAP PO SCH (12:00)
--- NOTE | 2016-11-16 19:23 | P.PN ---
Progress Note - Text DATE OF SERVICE: 11/16/2016 PRESENTING COMPLAINT: Short of breath, edema HISTORY OF PRESENT ILLNESS: 86-year-old female patient [place] of [place] who presented with lower extremity swelling and shortness of breath. INTERVAL HISTORY: 11/16/2016: Lying in bed, appears comfortable. Upper and lower extremity swelling improving , Lasix IV switched to 40 mg by mouth today. Diet remains poor, eating roughly 20% of each meal. Last BM 11/15/2016. Placement to local [facility] home later today. Patient has a double-J ureteral catheter in place which was placed by urology, patient is to follow-up outpatient in the office to have this removed. 11/15/2016: sitting up in a chair appears comfortable. Upper and lower extremity swelling improving, Lasix IV continues at 40 mg., able to eat about 20% of her meals.had a BM today. Placement to a local [facility] home soon. Case management aware 11/14/2016: Patient lying in bed appears comfortable. Does have a coarse cough area extremity swelling improved, breathing easier, tolerating her diet eating about 20% of her meal. Last BM 11/14/2016, requires assistance for ambulation and getting up in the chair. REVIEW OF SYSTEMS: Done for constitutional ,cardiovascular, GI, pulmonary with relevant findings as above. CURRENT MEDICATIONS Albuterol, Lovenox, folic acid, Lasix drip, Synthroid, magnesium oxide, metoprolol, PHYSICAL EXAM VITAL SIGNS: Temperature 96.1, pulse 64, blood pressure 87/50, oxygen saturation 95% on room air GENERAL APPEARANCE: Thin build. Lying in bed, appears comfortable. EYES: Pupils equal. Conjunctiva normal. NECK: JVD raised. Mass not palpable. RESPIRATORY: Respiratory effort normal. Lungs diminished and basilar crackles bilaterally to auscultation. CARDIOVASCULAR: First and second sounds normal. Moderate edema. ABDOMEN: Soft. Liver and spleen not palpable. No tenderness. No mass palpable. PSYCHIATRY: Alert to name able to answer simple questions. INVESTIGATIONS: BUN 72 creatinine 4.10 ASSESSMENT: -Acute on chronic congestive heart failure from systolic and diastolic dysfunction, ejection fraction 50%, slow to respond -Moderate aortic regurgitation, nonrheumatic area -Chronic large left pleural effusion. -Chronic obstructive pulmonary disease in ex-smoker. -Hypokalemia. -Essential hypertension. -Hypothyroidism. 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 -Hypoalbuminemia and given the decreased muscle mass, likely protein calorie malnutrition from decreased oral intake -Medical debility secondary to multiple chronic medical conditions. PLAN: Lasix switched to by mouth today, BUN and creatinine elevated, we'll continue to monitor labs closely. Patient has a history of a ureteral stent(double-J catheter) placed with urology urology will remove it later in the office. Discharge planning discussed with family, plans to place her in a local [facility] home , and following through. Case management aware and making alternative arrangements for patient to go home with her daughter. Patient has been deemed not a candidate for rehab by the snf and physical therapy eval further demonstrate patient's weakness as well as severe medical debility perclosed her from doing her own activities of daily living. In order to get patient home will require a hospital bed, with air mattress, bedside commode, wheelchair for transport, and nebulizer for treatments. Plan of care discussed with the family at the bedside and they are agreeable. We will continue to follow. SLAUGHTERER RELIGIOUS RITUAL statement: Patient was seen and examined by nurse practitioner Katelynn Monreal and all elements of the case discussed with attending Dr. Parker
[2016-11-16] MEDS: FOLIC ACID 1 MG TAB PO SCH (20:37)
[2016-11-16] MEDS: METOPROLOL TARTRATE 25 MG TAB PO SCH (22:45)
[2016-11-17 07:43] LABS: Potassium 3.6 mmol/L (3.5-5.1)
[2016-11-17] MEDS: ALBUTEROL NEBULIZED 2.5 MG/3 ML INHALATION SCH ×4 (08:02→20:15)
[2016-11-17] MEDS ORDERED: FUROSEMIDE 40 MG TAB PO SCH (09:00)
[2016-11-17] MEDS: SODIUM BICARBONATE TAB 650 MG TAB PO SCH ×2 (09:10→18:03)
[2016-11-17] MEDS: ENOXAPARIN 30 MG/0.3 ML SYRINGE SQ SCH (09:10)
[2016-11-17] MEDS: MAGNESIUM OXIDE 400 MG TAB PO SCH ×2 (09:10→18:04)
[2016-11-17] MEDS: LEVOTHYROXINE 88 MCG TAB PO SCH (09:10)
[2016-11-17] MEDS: MULTIVITAMINS, THERA 1 EACH TAB PO SCH (09:10)
[2016-11-17 09:21] VITALS: TEMP 96.6
--- NOTE | 2016-11-17 10:46 | P.PN ---
Subjective Principal diagnosis: Congestive heart failure This is a pleasant 86-year-old female patient who is really in good physical shape for her age and also in good mental shape who [facility] because of progressive dyspnea and progressive bilateral lower extremities edema. The patient was in her usual state of health today about 3 days ago when she started experiencing progressive exertional dyspnea associated with orthopnea. She stated that she gained some weight and also she developed bilateral lower extremities edema which is fairly obvious on physical examination. The patient stated that she was compliant with her medications but she was not quite compliant with her diet. The last echocardiogram was from August 2016 and that showed normal LV function was moderate aortic insufficiency and moderate mitral insufficiency. The chest x-ray during this admission showed bilateral pleural effusion which is clearly worse compared to before. The BNP came in to be also severely elevated. The EKG showed sinus rhythm without any significant ST or T-wave abnormalities. The patient is known to have chronic kidney disease with creatinine around 3. I'll follow-up with the patient today, she is feeling better indeterminable shortness of breath. She still have bilateral lower extremities edema. The creatinine is a slightly worse today. She is on Lasix by mouth. Objective - Vital Signs Vital signs: Vital Signs Temp 96.6 F L 11/17/16 08:00 Pulse 75 11/17/16 08:13 Resp 16 11/17/16 04:00 BP 100/55 11/17/16 08:00 Pulse Ox 92 L 11/17/16 08:00 Intake & Output 11/16/16 11/17/16 11/17/16 18:59 06:59 18:59 Intake Total 540 20 Output Total 500 300 Balance 40 -280 Weight 60.5 kg Intake: IV 20 0.9% NS FLUSH 10 20 Oral 540 Output: Urine 500 300 Other: Voiding Method Indwelling Catheter Indwelling Catheter Indwelling Catheter # Bowel Movements 1 - Constitutional General appearance: Present: no acute distress - Respiratory Respiratory: bilateral: diminished - Cardiovascular Rhythm: regular Heart sounds: normal: S1, S2 - Labs CBC & Chem 7: 11/13/16 06:19 11/17/16 05:45 Labs: Abnormal Lab Results - Last 24 Hours (Table) 11/17/16 Range/Units 05:45 Chloride 113 H (98-107) mmol/L Carbon Dioxide 17 L (22-30) mmol/L BUN 73 H (7-17) mg/dL Creatinine 4.29 H (0.52-1.04) mg/dL Calcium 7.0 L (8.4-10.2) mg/dL Microbiology - Last 24 Hours (Table) 11/12/16 18:26 Blood Culture - Preliminary Blood No Growth after 96 hours Assessment and Plan Plan: This is a pleasant 86-year-old female patient with a past medical history significant for COPD and chronic respiratory failure who was admitted to the hospital with progressive dyspnea and progressive bilateral lower extremities edema. The patient is in congestive heart failure exacerbation secondary to diastolic dysfunction with evidence of right and left heart failure. I would continue the current medical treatment was Lasix by mouth. Continue monitor the kidney function and electrolytes.
[2016-11-17 14:36] VITALS: BP 107/56
[2016-11-17 17:47] VITALS: PULSE 94
[2016-11-17] MEDS: METOPROLOL TARTRATE 25 MG TAB PO SCH (18:04)
[2016-11-17] MEDS: FOLIC ACID 1 MG TAB PO SCH (18:04)
--- NOTE | 2016-11-17 20:45 | PN ---
PROGRESS NOTE DATE OF SERVICE: 11/16/2016 ATTENDING NOTE: This patient was seen and examined by me. I discussed with nurse practitioner, Ms. Monreal. I saw this patient yesterday on 11/16/16. Sitting out of bed. Pleasantly confused, cheerful. Patient is on IV Lasix bolus now. PLAN: Overall prognosis is guarded. Looking at discharge planning. No family member is present here. Talked to the social organization professor and outpatient case manager. MMODL / IJN: [id number] /
--- NOTE | 2016-11-17 22:56 | P.DS ---
Providers Date of admission: 11/12/16 20:32 Expected date of discharge: 11/17/16 Attending physician: Zeb Parker Consults: 11/13/16 17:05 Consult Physician Routine Consulting Provider: Ar Leone Consult Reason/Comments: chf Do you want consulting provider notified?: Yes 11/13/16 18:02 Consult Physician Routine Consulting Provider: Lincoln Figeuredo Consult Reason/Comments: pt of Dr. Figueredo for previous ureter stent Do you want consulting provider notified?: Yes Primary care physician: [facility] Hospital Course: FINAL DIAGNOSES: -Acute on chronic congestive heart failure from systolic and diastolic dysfunction, ejection fraction 50%, -Moderate aortic regurgitation, nonrheumatic -Chronic large left pleural effusion. -Chronic obstructive pulmonary disease in ex-smoker. -Hypokalemia. -Essential hypertension. -Hypothyroidism. 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 -Hypoalbuminemia and given the decreased muscle mass, likely protein calorie malnutrition from decreased oral intake -Medical debility secondary to multiple chronic medical conditions. -CODE STATUS: DO NOT RESUSCITATE from recent admission HOSPTIAL COURSE: 86-year-old female who presented with increasing lower extremity swelling and shortness of breath was found to be in congestive heart failure and was admitted for the same. Home medications ordered, cardiology consulted. Patient placed on Lasix drip, kidney function baseline functioning around 3.0, kidney function worsened while on the Lasix drip, Lasix drip discontinued patient placed on Lasix IV with continued monitoring of kidney function and electrolytes. Diuresed well Kidney functioning did not improve nor did it get worse, Lasix IV switch to Lasix by mouth. Breathing improved, lower extremity swelling decreased. Urology consulted for a double-J catheter that had been placed by them and was due for removal. Daughter has requested that the patient be seen by urology to determine if this could be done on this admission. Urology elected to do this at a later date as an outpatient once patient's overall condition surrounding her congestive heart failure had improved. Patient has severe medical debility discharge planning for the patient to go to a local [facility] home, however this did not work out, daughter elected to take the patient home and due to the patient's inability to stand and walk on her own, perform activities of daily living independently, additional medical equipment was needed for her to come home. This included hospital bed with an air mattress, bedside commode, wheelchair, walker, and nebulizer. Patient's overall condition improved, breathing was easier, swelling reduced, cleared by consultants and is appropriate for discharge home. PHYSICAL EXAM: CARDIOVASCULAR: First and second sound noted mild edema RESPIRATORY: Respiratory effort normal, lungs diminished bilaterally with faint crackles heard to the bases. MUSKULOSKELETAL: Motor strength bilaterally 3/5 to upper and lower extremities. Unable to stand at the bedside. Patient was seen and examined by nurse practitioner Katelynn Monreal in all elements of the case discussed with attending Dr. Parker DISPOSITION: Home with home care to the care of her daughter Patient Condition at Discharge: Stable Plan - Discharge Summary New Discharge Prescriptions: New Furosemide [Lasix] 40 mg PO DAILY #30 tab Metoprolol Tartrate [Lopressor] 12.5 mg PO BID #60 dose Continue Levothyroxine Sodium [Synthroid] 88 mcg PO DAILY Acetaminophen Tab [Tylenol] 500 mg PO Q6HR PRN tab PRN Reason: Mild Pain Or Fever > 100.5 Calcium Carbonate [Tums] 500 mg PO TID Ergocalciferol [Vitamin D2 (DRISDOL)] 50,000 unit PO TuFr@1200 #10 cap Folic Acid 1 mg PO HS #30 Ipratropium-Albuterol Nebulize [Duoneb 0.5 mg-3 mg/3 ml Soln] 3 ml INHALATION RT-Q8H PRN #90 PRN Reason: Shortness Of Breath Or Wheezing Magnesium Oxide [Mag-Ox] 400 mg PO BID #60 tab Multivitamins, Thera [Multivitamin (formulary)] 1 tab PO DAILY #30 Sodium Bicarbonate Tab 1,300 mg PO TID #90 tab Thiamine [Vitamin B-1] 100 mg PO DAILY@1200 #30 tab Changed Albuterol Nebulized [Ventolin Nebulized] 2.5 mg INHALATION RT-QID PRN #30 neb PRN Reason: Wheezing Potassium Chloride ER [K-Dur 20] 20 meq PO DAILY #30 tab Discharge Medication List Levothyroxine Sodium [Synthroid] 88 mcg PO DAILY 07/11/16 [History] Acetaminophen Tab [Tylenol] 500 mg PO Q6HR PRN tab 10/29/16 [Rx] Calcium Carbonate [Tums] 500 mg PO TID 10/29/16 [Rx] Albuterol Nebulized [Ventolin Nebulized] 2.5 mg INHALATION RT-QID PRN #30 neb [Rx] Ergocalciferol [Vitamin D2 (DRISDOL)] 50,000 unit PO TuFr@1200 #10 cap 11/16/16 [Rx] Folic Acid 1 mg PO HS #30 11/16/16 [Rx] Furosemide [Lasix] 40 mg PO DAILY #30 tab 11/16/16 [Rx] Ipratropium-Albuterol Nebulize [Duoneb 0.5 mg-3 mg/3 ml Soln] 3 ml INHALATION RT -Q8H PRN #90 11/16/16 [Rx] Magnesium Oxide [Mag-Ox] 400 mg PO BID #60 tab 11/16/16 [Rx] Multivitamins, Thera [Multivitamin (formulary)] 1 tab PO DAILY #30 11/16/16 [Rx ] Potassium Chloride ER [K-Dur 20] 20 meq PO DAILY #30 tab 11/16/16 [Rx] Sodium Bicarbonate Tab 1,300 mg PO TID #90 tab 11/16/16 [Rx] Thiamine [Vitamin B-1] 100 mg PO DAILY@1200 #30 tab 11/16/16 [Rx] Metoprolol Tartrate [Lopressor] 12.5 mg PO BID #60 dose 11/17/16 [Rx] Follow up Appointment(s)/Referral(s): [facility], [NON-STAFF] - 1 Week Raul Pearson DO [Primary Care Provider] - 3 Days (Please call office to schedule follow up appointment during normal business hours. ) Ar Leone MD [STAFF PHYSICIAN] - 11/29/16 4:30 pm () Lincoln Figueredo MD [STAFF PHYSICIAN] - 11/19/16 10:00 am (Removal of stent and doctor visit) Ambulatory/Diagnostic Orders: Basic Metabolic Panel [LAB.AMB] Location: Determined By Patient Basic Metabolic Panel [LAB.AMB] Time Frame: 3 Days, Location: Determined By Patient Complete Blood Count w/diff [LAB.AMB] Location: Determined By Patient Patient Instructions/Handouts: Heart Failure (DC) Activity/Diet/Wound Care/Special Instructions: Medical Equipment - Hospital Bed, air mattress, bedside commode, transport chair , nebulizer - [facility] - [phone] Discharge Disposition: HOME WITH HOME HEALTH SERVICES
--- NOTE | 2016-11-18 10:25 | DS ---
DISCHARGE SUMMARY DATE OF SERVICE: 11/17/2016. ATTENDING NOTE: This patient was seen and examined by me on 11/17/2016. I discussed with my nurse practitioner, Ms. Monreal. Patient admitted with CHF. Doing better, actually rather good for her age. I did discuss with Dr. Leone and both him and I agree that patient is not a hospice candidate, even though she is elderly with a lot of problem, she is still reasonable and we cannot qualify as a hospice. The patient will be going home with the daughter as the ECF did not work out. Urology, Dr. Figueredo will be removing the double-J ureteral catheter stent at a later stage. PHYSICAL EXAM: Lungs decreased breath sounds, minimal edema. Patient is pleasantly confused. CODE STATUS: DO NOT RESUSCITATE Patient's BUN is 73, creatinine 1.29. Prognosis guarded. Discharge planning more than 35 minutes. MMODL / IJN: [id number] /
== END 2016-11-17 18:30 | disposition home health service (06) | DRG 291 ==
LOC: SUPCPDRO 18:03 → EC 18:03 → 6SEL 20:32
PROVIDERS: ADMIT Hospitalist; ATTEND Hospitalist
PROC: 0T9B70Z Drainage of Bladder with Drainage Device, Via Natural or Artificial Opening (ICD-10-PCS; principal; 2016-11-14)
DX: I13.0 Hypertensive heart and chronic kidney disease with heart failure and stage 1 through stage 4 chronic kidney disease, or unspecified chronic kidney disease (principal); I50.43 Acute on chronic combined systolic (congestive) and diastolic (congestive) heart failure; N13.30 Unspecified hydronephrosis; N18.4 Chronic kidney disease, stage 4 (severe); N17.9 Acute kidney failure, unspecified; E44.1 Mild protein-calorie malnutrition; G30.1 Alzheimer's disease with late onset; F02.80 Dementia in other diseases classified elsewhere, unspecified severity, without behavioral disturbance, psychotic disturbance, mood disturbance, and anxiety; J44.9 Chronic obstructive pulmonary disease, unspecified; D64.9 Anemia, unspecified; Z66 Do not resuscitate; E87.6 Hypokalemia; I34.0 Nonrheumatic mitral (valve) insufficiency; I35.1 Nonrheumatic aortic (valve) insufficiency; R32 Unspecified urinary incontinence; R53.1 Weakness; E78.5 Hyperlipidemia, unspecified; E89.0 Postprocedural hypothyroidism; Z90.49 Acquired absence of other specified parts of digestive tract; Z86.79 Personal history of other diseases of the circulatory system; Z96.0 Presence of urogenital implants; Z87.19 Personal history of other diseases of the digestive system; Z86.19 Personal history of other infectious and parasitic diseases; Z68.22 Body mass index [BMI] 22.0-22.9, adult; Z85.038 Personal history of other malignant neoplasm of large intestine; Z79.899 Other long term (current) drug therapy; Z87.891 Personal history of nicotine dependence; Z82.49 Family history of ischemic heart disease and other diseases of the circulatory system; Z80.9 Family history of malignant neoplasm, unspecified; Z81.8 Family history of other mental and behavioral disorders
CPT/HCPCS: 36415; 71020; 80048; 80053; 82550; 82553; 83605; 83735; 83880; 84484; 85025; 85610; 85730; 87040; 87324; 93005; 94640; 94760; 96374; 99285